=== PATIENT | male | born 1940 | race Caucasian/White ===

== ENCOUNTER 2020-01-04 09:20 | Emergency (ER) | payer MEDICARE, SELFPAY ==
--- NOTE | 2020-01-04 09:29 | ED.FALL ---
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 Mode of arrival: ambulatory History of Present Illness complaint: fall Onset (ago): day(s) (3 days ago on Wednesday) Fall from: out of bed Fall witnessed: no Place fall occurred: home Loss of consciousness: none Prolonged down time: no Symptoms prior to fall: none Context: tripped/slipped Location of injury: head and neck Quality: aching Associated symptoms (after fall): neck pain Related Data Allergies Allergy/AdvReac Type Severity Reaction Status Date / Time No Known Allergies Allergy Unverified 12/21/19 14:53 [No Known Allergies*] Review of Systems Review of Systems: Constitutional : No Fever, No Chills ENT/Mouth : No Ear Pain, No Hoarseness, No sore throat Eyes: No Eye Pain, No Swelling, No Redness, No Foreign Body Cardiovascular : No Chest Pain, No SOB Respiratory : No Cough, No Dyspnea Gastrointestinal : No Nausea, No Vomiting, No Diarrhea, No abdominal Pain Genitourinary : No Dysuria, No Hematuria Musculoskeletal : positive neck pain, No Myalgias, No Joint Swelling Skin : No Skin lacerations, No rash Neuro : No Weakness, No Numbness, No Paresthesias, No Loss of Consciousness, No Dizziness, No Headache Psych : No Anxiety/Panic, No Depression Heme/Lymph: no easy bruising, no Lymphadenopathy Endocrine : No Polyuria, No Polydipsia PMFSH Past Medical History Attestation statement: The following information was validated with the patient. Medical History (Updated 01/04/20 @ 10:33 by Letty Long DO) Asthma BPH (benign prostatic hyperplasia) COPD (chronic obstructive pulmonary disease) Diabetes HTN (hypertension) Hyperlipidemia No known health problems Renal failure Vertigo Social History Social History (Updated 01/04/20 @ 09:53 by Letty Long DO) Smoking Status: Never smoker Advance Directives: No Advance Directives Information Provided: No Physical Exam Vital Signs and I&O and Narrative: Vital Signs and I&O: Vital Signs Temp 98.2 F 01/04/20 09:44 Pulse 83 01/04/20 09:44 Resp 20 01/04/20 09:44 BP 154/79 H 01/04/20 09:44 Pulse Ox 97 01/04/20 09:44 Intake & Output 01/03/20 01/04/20 01/04/20 18:59 06:59 18:59 Weight 88.904 kg Body Mass Index 28.1 Const: General: cooperative and no acute distress Nutritional Appearance: average body habitus Orientation/consciousness: oriented to person, oriented to place, oriented to time and patient oriented x3 HENMT: Other: healing abrasion on forehead, c/o R sided neck pain with spasm on R trapezius, distal NV intact Head: Yes normal to inspection Ears: hearing grossly normal bilaterally General nose exam: Normal external nose present Eyes: Pupils: Equal, round and reactive pupils present EOM: EOMs intact bilaterally Neck: Other: spasm R trapezius, ttp along R strap neck muscles, no swelling, ttp along R lateral cervical spine Chest: Chest palpation & inspection: normal inspection of the chest Resp: Effort & Inspection: normal respiratory effort and no respiratory distress Auscultation: clear to auscultation bilaterally Cardio: Rate: regular rate Rhythm: regular rhythm Peripheral pulses: Peripheral pulses 2+ throughout GI: Palpation (GI): Soft to palpation and nontender Back/Spine/Pelvis: Thoracic/Lumbar Spine: thoracic and lumbar spine normal to inspection Skin: General skin exam: no rashes or lesions noted Neuro: General: oriented to person, oriented to place, oriented to time and patient oriented x3 Cranial nerves: Yes Equal, round and reactive pupils present Motor exam (neuro): 5/5 motor strength present throughout Sensory Exam: Normal double simultaneous stimulation for sensation Extrem: Other: superficial abrasion to L knee Psych: Appearance: grossly normal Mental Status: mental status grossly normal Course Course Hospital Course: patient got up and eloped from ED after PO pain medication, did not have imaging studies done, walked out with steady gait no distress MDM - Fall MDM Narrative Medical decision making narrative: s/p fall out of bed on Wednesday comes back in for neck pain he is NV intact, had CT head/facial/cspine on 01/01 that was negative, given his degree of pain will give oral pain medications, repeat imaging, dispo per results and findings Discharge Plan Discharge Clinical Impression: Acute neck pain Patient Disposition: Elopement
[2020-01-04 09:31] VITALS: BP 154/79; PULSE 83; RESP 20; TEMP 36.8; O2SAT 97; BMI 28.1
[2020-01-04 09:44] VITALS: BP 154/79; PULSE 83; RESP 20; TEMP 36.8; O2SAT 97; BMI 28.1
[2020-01-04] MEDS: oxyCODONE HCl Immed Release 5 MG TABLET 10 MG PO (10:10)
--- NOTE | 2020-01-04 10:11 | PC.NURSE ---
pt wanting to leave the ed he is being called by daughter in the wr he has been medicated for pain and is awaiting radiology associate juvenile court judge at the bedside to assitin education
--- NOTE | 2020-01-04 10:41 | PC.NURSE ---
PT WAS MEDICATED FOR PAIN HE THEN AMBULATED OUT OF THE ED STEADY GAIT DAUGHTER WAS COACHING HER FATHER TO LEAVE THE ED MD WAS AWARE
== END 2020-01-04 10:51 | disposition left against medical advice (07) ==
LOC: HO.ED 10:54
PROVIDERS: Emergency Provider Emergency Medicine; PCP Family Medicine
DX: M54.2 Cervicalgia (principal); I10 Essential (primary) hypertension
CPT/HCPCS: 99282; 99283

== ENCOUNTER 2020-03-25 11:57 | Emergency (ER) | payer MEDICARE, SELFPAY ==
[2020-03-25 12:19] VITALS: BP 148/69; PULSE 92; RESP 15; TEMP 37.2; O2SAT 97; BMI 32.5
--- NOTE | 2020-03-25 12:24 | ECG_ITS ---
Test Reason : SYNCOPE Blood Pressure : / mmHG Vent. Rate : 087 BPM Atrial Rate : 087 BPM P-R Int : 142 ms QRS Dur : 148 ms QT Int : 400 ms P-R-T Axes : 065 -62 048 degrees QTc Int : 481 ms Normal sinus rhythm Right bundle branch block Left anterior fascicular block Bifascicular block Abnormal ECG When compared with ECG of 20-JUN-2017 13:54, No significant change was found Referred By: Angie Mcclure Electronically Signed By:ANA LUISA LOCO MD
--- NOTE | 2020-03-25 12:27 | ED.SYNCOPE ---
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 The patient tells me that he was standing and started to feel lightheaded like he was going to pass out. Lowered himself to the ground. He denies syncope. Denies hitting his head or loss of consciousness. He tells me he has had several episodes of vomiting. On arrival to the emergency department the patient is vomiting. He denies dizziness at this time. He denies any chest pain, shortness of breath, abdominal pain, diarrhea, fevers, chills or cough. MD complaint: felt faint and almost passed out Onset (ago): hour(s) (<1hr) Prodromal symptoms: lightheaded Witnessed: No Context: standing up Injuries sustained associated with event: none Current symptoms: nausea (vomiting) Treatments prior to arrival: none Related Data Previous Rx's Medication Instructions Recorded meclizine 25 mg PO TID PRN #10 tab 03/25/20 Allergies Allergy/AdvReac Type Severity Reaction Status Date / Time No Known Allergies Allergy Unverified 12/21/19 14:53 [No Known Allergies*] Review of Systems Review of Systems: Yes all other systems are reviewed and are negative Constitutional: Constitutional: Reports no additional constitutional complaints, Denies body ache(s), Denies chills, Denies fever(s), Denies headache(s) and Denies weakness Eyes: Eyes: Reports no additional eye complaints and Denies change in vision ENT: Reports system reviewed and no additional complaints, except as documented, Reports dizziness, Denies headache(s), Denies nasal congestion, Denies nasal discharge and Denies neck pain Cardiovascular: Cardiovascular: Reports no additional cardiovascular complaints, Denies chest pain, Denies leg edema and Denies dyspnea Respiratory: Respiratory: Reports no additional respiratory complaints, Denies cough and Denies dyspnea Gastrointestinal: Gastrointestinal: Reports no additional gastrointestinal complaints, Denies abdominal pain, Denies diarrhea, Reports nausea and Reports vomiting Genitourinary: Genitourinary: Denies urinary incontinence Musculoskeletal: Musculoskeletal: Reports no additional musculoskeletal complaints, Denies back pain, Denies arthralgias, Denies joint swelling, Denies neck pain, Denies numbness and Denies tingling Integumentary/Breasts: Skin/Breast: Reports system reviewed and no additional complaints, except as docu and Denies rash Neurologic: Reports system reviewed and no additional complaints, except as documented, Denies Abnormal speech present, Reports dizziness, Denies headache(s), Denies numbness, Denies tingling and Denies weakness [facility] Past Medical History Attestation statement: The following information was validated with the patient. Source: old records reviewed and nursing notes reviewed Medical History Asthma BPH (benign prostatic hyperplasia) COPD (chronic obstructive pulmonary disease) Diabetes HTN (hypertension) Hyperlipidemia No known health problems Renal failure Vertigo Social History Social History Alcohol intake: never Smoking Status: Never smoker Use of substances other than those prescribed or required for medical reasons: No Advance Directives: No Advance Directives Information Provided: No Physical Exam Vital Signs: Vital Signs: Last Vital Signs Temp 99 F 03/25/20 12:19 Pulse 83 03/25/20 18:18 Resp 16 03/25/20 18:18 BP 147/83 H 03/25/20 18:18 Pulse Ox 98 03/25/20 18:18 Body Mass Index 32.5 Const: Other: +vomiting food content General: cooperative, healthy appearing, comfortable and no acute distress Orientation/consciousness: patient oriented x3 Limitations: no limitations HENMT: Head: Yes normal to inspection Ears: hearing grossly normal bilaterally General nose exam: Normal external nose present Face and sinus: Yes normal facial exam Mouth: Normal oral and palatal mucosa present Throat: Yes posterior oropharynx normal Eyes: General: appearance normal, both eyes and all related structures Pupils: Equal, round and reactive pupils present Neck: Neck: Yes normal visual inspection Chest: Chest palpation & inspection: normal inspection of the chest Resp: Effort & Inspection: normal respiratory effort Auscultation: clear to auscultation bilaterally Cardio: Rate: regular rate Rhythm: regular rhythm Peripheral pulses: Peripheral pulses 2+ throughout GI: Inspection: Yes normal to inspection Palpation (GI): Soft to palpation and nontender Auscultation: normal bowel sounds Back/Spine/Pelvis: Thoracic/Lumbar Spine: thoracic and lumbar spine normal to inspection Skin: General skin exam: no rashes or lesions noted Neuro: General: patient oriented x3, no focal motor deficits and normal sensation to monofilament Cranial nerves: Yes CN's II-XII intact bilaterally, Yes Equal, round and reactive pupils present, Yes Bilaterally intact EOM present, Yes Nystagmus not present, Yes Normal facial strength present and Yes Midline tongue present Cognition (Neuro): normal cognition Speech: No Abnormal speech present Gait exam (Neuro): Normal gait present Motor exam (neuro): 5/5 motor strength present throughout Sensory Exam: Normal double simultaneous stimulation for sensation Coordination: [id number] test normal and [id number] test normal Extrem: General: Yes normal to inspection Course Course Course Narrative: 80 yo male here with near syncopal episode at home followed by several episodes of vomiting. On arrival the patient tells me he is no longer feeling lightheaded or dizzy. He is actively vomiting food contents. He denies any abdominal pain, chest pain, shortness of breath or any other associated symptoms. He is hemodynamically stable. His neuro exam is unremarkable. Will check labs including troponin, EKG, chest x-ray, EKG, CT head, orthostatic vital signs and COVID testing. Will give normal saline bolus and antiemetics. 1440-labs show mild hyperglycemia, mild hypomagnesemia, renal function at baseline. Magnesium was replaced and fluids are infusing. Orthostatics mildly positive. Patient receiving fluids. EKG, chest x-ray, CT head all unremarkable. The patient is feeling improved after receiving antiemetic. He tells me his nausea is resolved. He has not had any additional vomiting episodes. He tells me his dizziness is intermittent at this time he does not have any. May be secondary to some vertigo as he has a history of a vertigo tells me it feels similar. Will trial a dose of meclizine. COVID test pending. Initial troponin 3.7. Will plan for repeat 3hr. 1730-repeat troponin unremarkable. COVID testing negative. Patient is tolerating p.o. with no difficulty. He ambulated back and forth to the bathroom with a steady gait. He tells me his nausea and dizziness are resolved. Likely vertigo. Reviewed worrisome signs and symptoms and when to return to the emergency department. Comfortable discharge home. MDM - Syncope MDM Narrative Medical decision making narrative: ACS, orthostatic hypotension, vertigo,cva, anemia, electrolyte abnormality, viral syndrome, gastroenteritis. Less likely ACS with unremarkable EKG and 2 troponins which are negative, CVA with normal neurological exam and unremarkable CT head. Less likely anemia with normal CBC, unlikely electrolyte abnormality with normal after lights. Consider vertigo and mild orthostatic hypotension, may or may not be component of viral syndrome. Medical Records Attestation: I reviewed the patient's medical records. Lab Data Attestation: I reviewed the patient's lab results. Result diagrams: 03/25/20 12:36 03/25/20 12:36 Labs: Lab Results 03/25/20 03/25/20 03/25/20 Range/Units 12:36 12:36 12:36 WBC 12.0 H (4.8-10.8) X10*3/uL RBC 4.90 (4.60-5.80) X10*6/uL Hgb 14.2 (14.0-18.0) g/dl Hct 42.1 (42-52) % MCV 85.9 (80-98) fL MCH 29.0 (27.0-33.0) pg MCHC 33.7 (31.0-36.0) g/dl RDW 13.3 (11.0-16.0) % Plt Count 328 (160-400) X10*3/uL MPV 11.5 (9.4-12.4) fL Immature Gran % (Auto) 0.3 (0.0-0.4) % Neut % (Auto) 71.5 (45-73) % Lymph % (Auto) 16.9 L (20-40) % [place] % (Auto) 7.3 (2-11) % Eos % (Auto) 3.4 (0-4) % Baso % (Auto) 0.6 (0-2) % Lymph # (Auto) 2.0 (1.2-4.9) X10*3/uL [place] # (Auto) 0.9 (0.1-1.2) X10*3/uL Eos # (Auto) 0.4 (0.0-0.4) X10*3/uL Baso # (Auto) 0.1 (0.0-0.2) X10*3/uL Abs Immat Gran (auto) 0.04 H (0.00-0.03) X10*3/uL Absolute Neuts (auto) 8.6 H (2.0-8.3) X10*3/uL Absolute Nucleated RBC 0.000 (0.0-0.012) X10*3/uL Nucleated RBC % (auto) 0.0 (0.0-0.2) /100WBC PT 12.8 (10.8-13.0) SEC INR 1.1 (0.9-1.1) Sodium 136 (135-145) mmol/L Potassium 4.2 (3.3-5.1) mmol/l Chloride 95 L (96-108) mmol/L Carbon Dioxide 30 H (22-29) mmol/L Anion Gap 15 (12-20) BUN 27 H (9-16) mg/dL Creatinine 1.65 H (0.5-1.4) mg/dL Estim Creat Clear Calc 32.9 Estimated GFR 40 Random Glucose 319 H (60-115) mg/dL Calcium 9.3 (8.4-10.2) mg/dL Magnesium 1.5 L (1.6-2.6) mg/dL Total Bilirubin 0.4 (0.0-1.0) mg/dL Direct Bilirubin 0.2 (0.0-0.5) mg/dL AST 14 (5-37) U/L ALT 8 (0-40) U/L Alkaline Phosphatase 89 (39-117) U/L Troponin I High Sens (<3.5-35.0) ng/L Total Protein 8.3 H (6.5-8.0) g/dL Albumin 4.1 (3.5-5.0) g/dL Urine Color Urine Appearance Urine pH (5.0-8.0) Ur Specific [place] (1.005-1.025) Urine Protein (NEG-TRACE) MG/DL Urine Glucose (UA) (NEG) MG/DL Urine Ketones (NEG) MG/DL Urine Blood (NEG) Urine Nitrite (NEG) Ur Leukocyte Esterase (NEG) Urine RBC (0) /HPF Urine WBC (0-4) /HPF Ur Squamous Epith Cells /LPF Urine Bacteria /LPF Coronavirus (PCR) (Negative) Influenza Type A (PCR) (Negative) Influenza Type B (PCR) (Negative) RSV RNA Qual (PCR) (Negative) 03/25/20 03/25/20 03/25/20 Range/Units 12:36 15:34 16:20 WBC (4.8-10.8) X10*3/uL RBC (4.60-5.80) X10*6/uL Hgb (14.0-18.0) g/dl Hct (42-52) % MCV (80-98) fL MCH (27.0-33.0) pg MCHC (31.0-36.0) g/dl RDW (11.0-16.0) % Plt Count (160-400) X10*3/uL MPV (9.4-12.4) fL Immature Gran % (Auto) (0.0-0.4) % Neut % (Auto) (45-73) % Lymph % (Auto) (20-40) % [place] % (Auto) (2-11) % Eos % (Auto) (0-4) % Baso % (Auto) (0-2) % Lymph # (Auto) (1.2-4.9) X10*3/uL [place] # (Auto) (0.1-1.2) X10*3/uL Eos # (Auto) (0.0-0.4) X10*3/uL Baso # (Auto) (0.0-0.2) X10*3/uL Abs Immat Gran (auto) (0.00-0.03) X10*3/uL Absolute Neuts (auto) (2.0-8.3) X10*3/uL Absolute Nucleated RBC (0.0-0.012) X10*3/uL Nucleated RBC % (auto) (0.0-0.2) /100WBC PT (10.8-13.0) SEC INR (0.9-1.1) Sodium (135-145) mmol/L Potassium (3.3-5.1) mmol/l Chloride (96-108) mmol/L Carbon Dioxide (22-29) mmol/L Anion Gap (12-20) BUN (9-16) mg/dL Creatinine (0.5-1.4) mg/dL Estim Creat Clear Calc Estimated GFR Random Glucose (60-115) mg/dL Calcium (8.4-10.2) mg/dL Magnesium (1.6-2.6) mg/dL Total Bilirubin (0.0-1.0) mg/dL Direct Bilirubin (0.0-0.5) mg/dL AST (5-37) U/L ALT (0-40) U/L Alkaline Phosphatase (39-117) U/L Troponin I High Sens 3.7 3.7 (<3.5-35.0) ng/L Total Protein (6.5-8.0) g/dL Albumin (3.5-5.0) g/dL Urine Color YELLOW Urine Appearance CLEAR Urine pH 7.5 (5.0-8.0) Ur Specific [place] 1.015 (1.005-1.025) Urine Protein 1+ H (NEG-TRACE) MG/DL Urine Glucose (UA) 500 H (NEG) MG/DL Urine Ketones NEG (NEG) MG/DL Urine Blood NEG (NEG) Urine Nitrite NEG (NEG) Ur Leukocyte Esterase NEG (NEG) Urine RBC 0 (0) /HPF Urine WBC 0 (0-4) /HPF Ur Squamous Epith Cells 1+ /LPF Urine Bacteria TRACE /LPF Coronavirus (PCR) (Negative) Influenza Type A (PCR) (Negative) Influenza Type B (PCR) (Negative) RSV RNA Qual (PCR) (Negative) 03/25/20 Range/Units 16:26 WBC (4.8-10.8) X10*3/uL RBC (4.60-5.80) X10*6/uL Hgb (14.0-18.0) g/dl Hct (42-52) % MCV (80-98) fL MCH (27.0-33.0) pg MCHC (31.0-36.0) g/dl RDW (11.0-16.0) % Plt Count (160-400) X10*3/uL MPV (9.4-12.4) fL Immature Gran % (Auto) (0.0-0.4) % Neut % (Auto) (45-73) % Lymph % (Auto) (20-40) % [place] % (Auto) (2-11) % Eos % (Auto) (0-4) % Baso % (Auto) (0-2) % Lymph # (Auto) (1.2-4.9) X10*3/uL [place] # (Auto) (0.1-1.2) X10*3/uL Eos # (Auto) (0.0-0.4) X10*3/uL Baso # (Auto) (0.0-0.2) X10*3/uL Abs Immat Gran (auto) (0.00-0.03) X10*3/uL Absolute Neuts (auto) (2.0-8.3) X10*3/uL Absolute Nucleated RBC (0.0-0.012) X10*3/uL Nucleated RBC % (auto) (0.0-0.2) /100WBC PT (10.8-13.0) SEC INR (0.9-1.1) Sodium (135-145) mmol/L Potassium (3.3-5.1) mmol/l Chloride (96-108) mmol/L Carbon Dioxide (22-29) mmol/L Anion Gap (12-20) BUN (9-16) mg/dL Creatinine (0.5-1.4) mg/dL Estim Creat Clear Calc Estimated GFR Random Glucose (60-115) mg/dL Calcium (8.4-10.2) mg/dL Magnesium (1.6-2.6) mg/dL Total Bilirubin (0.0-1.0) mg/dL Direct Bilirubin (0.0-0.5) mg/dL AST (5-37) U/L ALT (0-40) U/L Alkaline Phosphatase (39-117) U/L Troponin I High Sens (<3.5-35.0) ng/L Total Protein (6.5-8.0) g/dL Albumin (3.5-5.0) g/dL Urine Color Urine Appearance Urine pH (5.0-8.0) Ur Specific [place] (1.005-1.025) Urine Protein (NEG-TRACE) MG/DL Urine Glucose (UA) (NEG) MG/DL Urine Ketones (NEG) MG/DL Urine Blood (NEG) Urine Nitrite (NEG) Ur Leukocyte Esterase (NEG) Urine RBC (0) /HPF Urine WBC (0-4) /HPF Ur Squamous Epith Cells /LPF Urine Bacteria /LPF Coronavirus (PCR) NEGATIVE (Negative) Influenza Type A (PCR) NEGATIVE (Negative) Influenza Type B (PCR) NEGATIVE (Negative) RSV RNA Qual (PCR) NEGATIVE (Negative) Imaging Data Chest x-ray: Attestation: I personally reviewed and interpreted this imaging study as follows: Radiologist's impression: [address] [address] XRay Report Signed Patient: Brandon RdzMR#: [id number] : 8Acct:[id number] Age/Sex: 80 / MADM Date: 03/25/20 Loc: .ED Attending Dr: Ordering Physician: DANNI DELEON NP Date of Service: 03/25/20 Procedure(s): XR chest 2V Accession Number(s): [id number] cc: DANNI DELEON NP~ EXAMINATION: XR CHEST CLINICAL INFORMATION: Dizziness with vomiting COMPARISON: January 02, 2020 TECHNIQUE: 2 views of the chest were obtained. FINDINGS: No significant abnormality is noted involving the heart, lungs, mediastinum, bony thorax or soft tissues. XR/XR chest 2V IMPRESSION: No acute disease. CT scan - head: Attestation: I personally reviewed and interpreted this imaging study as follows: Radiologist's impression: EXAMINATION: CT HEAD WITHOUT CONTRAST CLINICAL INFORMATION: Dizziness and vomiting. COMPARISON: None TECHNIQUE: Contiguous axial imaging was performed from the skull base to vertex without intravenous administration of contrast. This CT examination was performed using dose optimization techniques as appropriate, variously including the following: *Automated exposure control *Adjustment of mA and/or kV according to patient size (this includes techniques or standardized protocols for targeted exams where dose is matched to indication/reason for exam; i.e. extremities or head) *Use of iterative reconstruction technique DLP: 790 mGy-cm FINDINGS: There is no evidence of acute intracranial hemorrhage or territorial infarction. No abnormal mass effect or midline shift is seen. [place]gado to white matter differentiation is well preserved. No extra-axial fluid collections are identified. The lateral ventricles are enlarged and so are the cortical sulci. There is diffuse periventricular hypodensity suggestive of chronic small vessel ischemic changes. No calvarial abnormality seen. There is wall lipoma left frontal scalp on coronal image 03/11.. The mastoid air cells and visualized portions of the paranasal sinuses are well aerated. CT/CT head/brain wo con IMPRESSION: No acute intracranial process seen. Age-related mild cerebral atrophy with chronic small vessel ischemic changes. Small left frontal scalp lipoma ECG Data Attestation: I personally reviewed and interpreted this ECG as follows: ECG interpretation date: 03/25/20 ECG interpretation time: 12:31 Interpretation: NSR rate 87, RBBB, normal pr, normal qrs, normal qt unchanged from previous 06/2017 Discharge Plan Discharge Clinical Impression: Near syncope, Vertigo Vomiting Qualifiers: Vomiting type: unspecified Vomiting Intractability: non-intractable Nausea presence: with nausea Qualified Code(s): R11.2 - Nausea with vomiting, unspecified Patient Disposition: Home, Self-Care Instructions: Vertigo (ED), Acute Nausea and Vomiting (ED), Near Syncope (ED) Additional Instructions: Start with clear liquids and advance her diet as tolerated Change positions very slowly Prescriptions: New meclizine 25 mg tablet 25 mg PO TID PRN (Reason: dizziness) Qty: 10 RF: 0 Referrals: Codie Bell MD [Primary Care Provider] - 2 days Interventions: ED Discharge Assessment Last Done: 03/25/20 18:19 Discharge Date/Time: 03/25/20 18:22
[2020-03-25 12:44] LABS: MANUAL DIFF FLAG NO
[2020-03-25 12:45] LABS: Basophils Absolute Auto 0.1 X10*3/uL (0.0-0.2); Basophils Percent Auto 0.6 % (0-2); Eosinophils Absolute Auto 0.4 X10*3/uL (0.0-0.4); Eosinophils Percent Auto 3.4 % (0-4); Hematocrit 42.1 % (42-52); Hemoglobin 14.2 g/dl (14.0-18.0); Imm Gran Abs Auto 0.04 X10*3/uL (0.00-0.03); Imm Gran Pct Auto 0.3 % (0.0-0.4); Lymphocytes Percent Auto 16.9 % (20-40); Mean Corpuscular HGB Conc 33.7 g/dl (31.0-36.0); Mean Corpuscular Volume 85.9 fL (80-98); Mean Platelet Volume 11.5 fL (9.4-12.4); Monocytes Absolute Auto 0.9 X10*3/uL (0.1-1.2); Monocytes Percent Auto 7.3 % (2-11); Neutrophils Absolute Auto 8.6 X10*3/uL (2.0-8.3); Neutrophils Percent Auto 71.5 % (45-73); Platelet Count 328 X10*3/uL (160-400); Red Cell Distribution Width 13.3 % (11.0-16.0)
[2020-03-25 12:53] LABS: INTERNATIONAL NORM RATIO 1.1 (0.9-1.1); Prothrombin Time 12.8 SEC (10.8-13.0)
--- NOTE | 2020-03-25 12:57 | XR_ITS ---
EXAMINATION: XR CHEST CLINICAL INFORMATION: Dizziness with vomiting COMPARISON: January 02, 2020 TECHNIQUE: 2 views of the chest were obtained. FINDINGS: No significant abnormality is noted involving the heart, lungs, mediastinum, bony thorax or soft tissues. XR/XR chest 2V IMPRESSION: No acute disease.
--- NOTE | 2020-03-25 12:57 | CT_ITS ---
EXAMINATION: CT HEAD WITHOUT CONTRAST CLINICAL INFORMATION: Dizziness and vomiting. COMPARISON: None TECHNIQUE: Contiguous axial imaging was performed from the skull base to vertex without intravenous administration of contrast. This CT examination was performed using dose optimization techniques as appropriate, variously including the following: *Automated exposure control *Adjustment of mA and/or kV according to patient size (this includes techniques or standardized protocols for targeted exams where dose is matched to indication/reason for exam; i.e. extremities or head) *Use of iterative reconstruction technique DLP: 790 mGy-cm FINDINGS: There is no evidence of acute intracranial hemorrhage or territorial infarction. No abnormal mass effect or midline shift is seen. [place] to white matter differentiation is well preserved. No extra-axial fluid collections are identified. The lateral ventricles are enlarged and so are the cortical sulci. There is diffuse periventricular hypodensity suggestive of chronic small vessel ischemic changes. No calvarial abnormality seen. There is wall lipoma left frontal scalp on coronal image 12/7.. The mastoid air cells and visualized portions of the paranasal sinuses are well aerated. CT/CT head/brain wo con IMPRESSION: No acute intracranial process seen. Age-related mild cerebral atrophy with chronic small vessel ischemic changes. Small left frontal scalp lipoma
[2020-03-25] MEDS: 0.9 % Sodium Chloride 1,000 ML 999 ML IV (13:08)
[2020-03-25] MEDS: ondansetron HCL 4 MG/2 ML VIAL IVPUSH (13:08)
[2020-03-25 13:10] VITALS: PULSE 87
[2020-03-25 13:11] VITALS: BP 139/79; PULSE 78
[2020-03-25 13:14] LABS: Alanine Aminotransferase 8 U/L (0-40); Albumin Level 4.1 g/dL (3.5-5.0); Alkaline Phosphatase 89 U/L (39-117); Anion Gap 15 (12-20); Aspartate Amino Transferase 14 U/L (5-37); Bilirubin Direct 0.2 mg/dL (0.0-0.5); Bilirubin Total 0.4 mg/dL (0.0-1.0); Blood Urea Nitrogen 27 mg/dL (9-16); Calcium 9.3 mg/dL (8.4-10.2); Carbon Dioxide 30 mmol/L (22-29); Chloride 95 mmol/L (96-108); Creatinine Clr Calc Pharmacy 32.9; Estimated Glomerular Filt Rate 40; Glucose Random 319 mg/dL (60-115); Magnesium 1.5 mg/dL (1.6-2.6); Potassium 4.2 mmol/l (3.3-5.1); Sodium 136 mmol/L (135-145); Total Protein 8.3 g/dL (6.5-8.0)
[2020-03-25 13:19] VITALS: BP 149/76; PULSE 97
[2020-03-25 13:20] LABS: Troponin-I High Sensitivity 3.7 ng/L (<3.5-35.0)
[2020-03-25 13:21] VITALS: BP 151/71; PULSE 91
[2020-03-25] MEDS: Magnesium Sulfate/D5W 1 GM/100 ML PIGGYBACK IV (14:08)
[2020-03-25] MEDS: Meclizine HCl 25 MG TABLET PO (14:46)
--- NOTE | 2020-03-25 14:52 | PC.NURSE ---
update given to pt daughter via phone. medicated per emar.
--- NOTE | 2020-03-25 15:38 | PC.NURSE ---
pt ambulated w stand by assist to bathroom w slow steady gait to provide ua spec.
[2020-03-25 15:49] LABS: Glucose Urine UA 500 MG/DL (NEG); Leukocyte Esterase Urine NEG (NEG); Nitrite Urine NEG (NEG); PH 7.5 (5.0-8.0); Specific Gravity - Urine 1.015 (1.005-1.025); Urine Blood NEG (NEG); Urine Ketones NEG (NEG); Urine Protein 1+ MG/DL (NEG-TRACE)
[2020-03-25 15:52] LABS: Appearance Urine CLEAR; Color Urine YELLOW
[2020-03-25 15:58] LABS: Bacteria Urine TRACE /LPF; RBC Urine 0 /HPF (0); Squamous Epithelial Cell Urine 1+ /LPF; WBC Urine 0 /HPF (0-4)
--- NOTE | 2020-03-25 16:25 | PC.NURSE ---
repeat trop sent, covid swab sent
[2020-03-25 17:05] LABS: Troponin-I High Sensitivity 3.7 ng/L (<3.5-35.0)
[2020-03-25 17:23] LABS: Influenza A PCR NEGATIVE (Negative); Influenza B PCR NEGATIVE (Negative); Resp Syncy Virus RNA Qual PCR NEGATIVE (Negative); SARS COV2 PCR INHOUSE NEGATIVE (Negative)
[2020-03-25 18:18] VITALS: BP 147/83; PULSE 83; RESP 16; O2SAT 98
== END 2020-03-25 18:22 | disposition home or self-care (01) ==
PROVIDERS: Nurse Practitioner Family; Emergency Provider Emergency Medicine; PCP Family Medicine
DX: R55 Syncope and collapse (principal); Z20.828 Contact with and (suspected) exposure to other viral communicable diseases; R42 Dizziness and giddiness; R11.2 Nausea with vomiting, unspecified; E11.9 Type 2 diabetes mellitus without complications; I10 Essential (primary) hypertension
CPT/HCPCS: 0241U; 36415; 70450; 71046; 80048; 80076; 81001; 83735; 84484; 85025; 85610; 93005; 96365; 96375; 99284; 99285; J2405; J3475

== ENCOUNTER 2020-05-10 09:29 | Outpatient (REF) | payer MEDICARE, SELFPAY | END 2020-05-10 09:30 | disposition home or self-care (01) | LOC: HO.LAB 09:29 | PROVIDERS: Visit Provider Internal Medicine | DX: Z20.822 Contact with and (suspected) exposure to COVID-19 (principal) | CPT/HCPCS: 36415; C9803; U0003; U0005 ==

== ENCOUNTER 2020-06-28 14:51 | Outpatient (REF) | payer MEDICARE, SELFPAY ==
--- NOTE | ~2020-06-28 | US_ITS ---
EXAMINATION: US VENOUS ULTRASOUND WITH DOPPLER LOWER EXTREMITY, BILATERAL CLINICAL INFORMATION: Lower extremity edema and pain. Assess for occult DVT COMPARISON: Bilateral leg venous ultrasound with Doppler 06/21/2017 TECHNIQUE: Ultrasound of the deep veins is performed from the hip to the calf with compression sonography and color and pulse Doppler assessment. Spectral analysis with color-flow imaging is performed. FINDINGS: RIGHT: There is noncompressibility popliteal vein. The vein appears distended and hypoechoic. Some scant color flow is present on Doppler interrogation. Findings are consistent with acute deep venous thrombosis. The remainder of the right lower extremity deep veins including the common femoral vein, superficial and profunda femoral, and visualized calf veins are unremarkable. There is no visible popliteal fossa cyst. LEFT: There is normal venous compression and respiratory variation and augmented flow. The visualized common femoral vein, superficial femoral vein, profunda femoral vein, popliteal vein, and the trifurcation region shows no evidence of deep venous thrombosis. No visible popliteal fossa cyst. Results called and discussed with provider Lakeshia Singh NP at 1720 hours. US/US venous duplex LE BI IMPRESSION: Right: Positive for DVT right lower extremity involving the right popliteal vein. Left: No DVT demonstrated in the left lower extremity.
== END 2020-06-28 14:52 | disposition home or self-care (01) ==
LOC: HO.HMGCX 14:51
PROVIDERS: PCP Family Medicine; Visit Provider Emergency Medicine
DX: R60.0 Localized edema (principal)
CPT/HCPCS: 93970

== ENCOUNTER 2020-08-07 10:40 | Outpatient (REF) | payer MEDICARE, SELFPAY ==
[2020-08-07 11:21] LABS: COVID-19 Test Negative (Negative)
== END 2020-08-07 10:41 | disposition home or self-care (01) ==
LOC: HO.LAB 10:40
PROVIDERS: Visit Provider Internal Medicine
DX: Z20.822 Contact with and (suspected) exposure to COVID-19 (principal)
CPT/HCPCS: 36415; 87635; C9803

== ENCOUNTER → 2020-08-21 12:49 | Outpatient (BNVA) | payer MEDICARE, SELFPAY | PROVIDERS: PCP Family Medicine; Referring Provider Family Medicine; Visit Provider Surgery | DX: Z86.010 Personal history of colon polyps (principal) | CPT/HCPCS: Q3014 ==

== ENCOUNTER 2020-12-13 13:01 | Outpatient (REF) | payer MEDICARE, SELFPAY | END 2020-12-13 13:02 | disposition home or self-care (01) | LOC: HO.LAB 13:01 | PROVIDERS: PCP Family Medicine; Visit Provider Internal Medicine | DX: Z20.822 Contact with and (suspected) exposure to COVID-19 (principal) | CPT/HCPCS: C9803; U0003; U0005 ==

== ENCOUNTER 2021-02-18 11:25 | Outpatient (REF) | payer MEDICARE, SELFPAY ==
--- NOTE | ~2021-02-18 | MR_ITS ---
EXAMINATION: MR BRAIN WITHOUT AND WITH CONTRAST CLINICAL INFORMATION: Gait instability and dizziness. Possible head trauma. COMPARISON: Head CT dated 03/25/2020. TECHNIQUE: Multiplanar, multisequence imaging of the brain was performed before and after the intravenous administration of 9 mL of Gadavist. FINDINGS: No diffusion abnormalities are identified to suggest an acute infarct. No mass effect or midline shift is seen. Severe chronic white matter microangiopathic changes noted with moderate diffuse parenchymal volume loss and concordant ex vacuo dilatation of the ventricles. There are [id number] small vessel ischemic changes in the maximo as well. No extra-axial fluid collections are seen. The cerebellum is normal. There is no abnormal parenchymal or leptomeningeal enhancement. The gradient refocused acquisition demonstrates no pathologic magnetic susceptibility artifact to indicate underlying acute or chronic blood products. The craniovertebral junction, marrow signal, and midline structures are normal. The major intracranial flow voids at the level of the gamb[place] of [place] are preserved. The dural venous sinus flow voids are maintained. The mastoid air cells and paranasal sinuses are well aerated. Incidental small left frontal scalp lipoma noted. Although incompletely assessed, the right palatine tonsil appears slightly more prominent as compared to the left side on the limited postcontrast coronal acquisition. MR/MR head/brain wo/w con IMPRESSION: No acute intracranial process. Extensive chronic white matter microangiopathy and moderate diffuse parenchymal volume loss. Questionable asymmetric prominence of the right palatine tonsil compared to the left side on limited coronal postcontrast imaging. Recommend correlation with direct visual inspection in order to exclude an underlying lesion.
[2021-02-18 10:42] LABS: MANUAL DIFF FLAG NO
[2021-02-18 10:57] LABS: Blood Urea Nitrogen 23 mg/dL (9-16); Estimated Glomerular Filt Rate 47
[2021-02-18 11:00] LABS: Basophils Absolute Auto 0.1 X10*3/uL (0.0-0.2); Basophils Percent Auto 0.8 % (0-2); Eosinophils Absolute Auto 0.3 X10*3/uL (0.0-0.4); Hematocrit 36.5 % (42.0-52.0); Imm Gran Abs Auto 0.02 X10*3/uL (0.00-0.03); Imm Gran Pct Auto 0.2 % (0.0-0.4); Lymphocytes Absolute Auto 2.3 X10*3/uL (1.2-4.9); Lymphocytes Percent Auto 24.4 % (20-40); Mean Corpuscular HGB Conc 32.9 g/dl (31.0-36.0); Mean Corpuscular Hemoglobin 27.8 pg (27.0-33.0); Mean Corpuscular Volume 84.5 fL (80.0-98.0); Mean Platelet Volume 12.1 fL (9.4-12.4); Monocytes Absolute Auto 0.6 X10*3/uL (0.1-1.2); Monocytes Percent Auto 6.3 % (2-11); Neutrophils Absolute Auto 6.1 x10*3/uL (2.0-8.3); Neutrophils Percent Auto 65.3 % (45-73); Platelet Count 299 X10*3/uL (160-400); Red Blood Count 4.32 X10*6/uL (4.60-5.80); Red Cell Distribution Width 14.3 % (11.0-16.0); White Blood Count 9.3 X10*3/uL (4.8-10.8)
[2021-02-18 11:23] LABS: Estimated Average Glucose 183 mg/dL
[2021-02-18 11:35] LABS: Alanine Aminotransferase 11 U/L (0-40); Alkaline Phosphatase 77 U/L (39-117); Aspartate Amino Transferase 13 U/L (5-37); Bilirubin Direct < 0.2 mg/dL (0.0-0.5); Bilirubin Total 0.2 mg/dL (0.0-1.0); C Reactive Protein 0.72 mg/dL (< or = 0.50); Cholesterol 146 mg/dL; HDL Cholesterol 32 mg/dL; Iron 32 mcg/dL (45-160); LDL Cholesterol Calculated 91 mg/dl; Magnesium 1.7 mg/dL (1.6-2.6); Percent Iron Saturation 10 % (15-50); Total Iron Binding Capacity 327 mcg/dL (228-428); Total Protein 8.1 g/dL (6.5-8.0); Triglycerides 118 mg/dL; Unsaturated Iron Binding 295 ug/dL
[2021-02-18 12:01] LABS: Ferritin 30 ng/mL (20-250); TSH reflex Free T4 1.31 uIU/mL (0.32-4.0)
[2021-02-18 12:12] LABS: Folate 14.6 ng/mL (> or = 4.0); Vitamin B12 481 pg/mL (200-900)
[2021-02-18 12:54] LABS: Appearance Urine HAZY; Color Urine YELLOW; Glucose Urine UA NEG (NEG); Leukocyte Esterase Urine TRACE (NEG); Nitrite Urine NEG (NEG); PH 6.5 (5.0-8.0); Specific Gravity - Urine 1.015 (1.005-1.025); UACC Culture Trigger YES; Urine Blood NEG (NEG); Urine Ketones NEG (NEG); Urine Protein TRACE MG/DL (NEG-TRACE)
[2021-02-18 13:07] LABS: Squamous Epithelial Cell Urine 1+ /LPF
[2021-02-18 13:08] LABS: UACC CULT YES; WBC Urine 0-2 /HPF (0-4)
[2021-02-18 13:09] LABS: RBC Urine 0 /HPF (0)
== END 2021-02-18 11:26 | disposition home or self-care (01) ==
LOC: HO.MRI 11:25
PROVIDERS: Family Medicine; Visit Provider Emergency Medicine
DX: R42 Dizziness and giddiness (principal)
CPT/HCPCS: 36415; 70553; 80061; 80076; 81001; 82565; 82607; 82728; 82746; 83036; 83540; 83735; 84443; 84520; 85025; 86140; 87086; A9585

== ENCOUNTER 2021-11-29 08:27 | Observation (INO) | payer OTHER, SELFPAY ==
--- NOTE | ~2021-11-29 | XR_ITS ---
EXAMINATION: XR CHEST CLINICAL INFORMATION: Dizziness COMPARISON: March 25, 2020 TECHNIQUE: AP portable view of the chest was obtained. FINDINGS: No significant abnormality is noted involving the heart, lungs, mediastinum, bony thorax or soft tissues. XR/XR chest 1V IMPRESSION: No acute disease.
--- NOTE | ~2021-11-29 | CT_ITS ---
EXAMINATION: CT HEAD WITHOUT CONTRAST CLINICAL INFORMATION: Dizziness, syncope COMPARISON: MRI of February 18, [address] of March 25, 2020 TECHNIQUE: Contiguous axial imaging was performed from the skull base to vertex without intravenous administration of contrast. This CT examination was performed using dose optimization techniques as appropriate, variously including the following: *Automated exposure control *Adjustment of mA and/or kV according to patient size (this includes techniques or standardized protocols for targeted exams where dose is matched to indication/reason for exam; i.e. extremities or head) *Use of iterative reconstruction technique DLP: 822 mGy-cm FINDINGS: There is no evidence of intracranial hemorrhage, abnormal extra-axial fluid collection, or mass effect or midline structure shift. There is mild prominence of ventricles, sulci, and cisterns consistent with generalized atrophy. There is a large amount of periventricular white matter low density present consistent with microangiopathy. Paranasal sinuses and mastoid air cells unremarkable. CT/CT head/brain wo con IMPRESSION: No acute intracranial pathology. Findings consistent with prominent microangiopathy.
[2021-11-29 08:32] VITALS: BP 144/82; PULSE 73; RESP 16; TEMP 37.1; O2SAT 97; BMI 34.3
--- NOTE | 2021-11-29 08:38 | ECG_ITS ---
Test Reason : DIZZINESS Blood Pressure : / mmHG Vent. Rate : 078 BPM Atrial Rate : 078 BPM P-R Int : 156 ms QRS Dur : 140 ms QT Int : 398 ms P-R-T Axes : 078 -53 057 degrees QTc Int : 453 ms Normal sinus rhythm Right bundle branch block Left anterior fascicular block Bifascicular block Abnormal ECG When compared with ECG of 25-MAR-2020 12:31, No significant change was found Referred By: Generic ED Physician Electronically Signed By:EBONI JIN
--- NOTE | 2021-11-29 09:18 | ED_ITS ---
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 Patient otherwise declined any weakness or numbness. No SOB, no CP, no abdominal pain. Related Data Home Medications Medication Instructions Recorded Confirmed acetaminophen 325 mg tablet 650 mg PO Q4H PRN fever 08/21/20 acetaminophen 500 mg tablet 0 mg PO 08/21/20 amlodipine 5 mg tablet 5 mg PO DAILY 08/21/20 apixaban 5 mg tablet 5 mg PO BID 08/21/20 blood sugar diagnostic #10 zohaib 08/21/20 finasteride 5 mg tablet 5 mg PO QAM 08/21/20 fluticasone propionate 220 2 puff inhalation BID 08/21/20 mcg/actuation HFA aerosol inhaler glucose 4 gram chewable tablet 16 g PO 08/21/20 hydrochlorothiazide 25 mg tablet 25 mg PO [facility] 08/21/20 insulin aspart U-100 100 unit/mL unit subcut 08/21/20 (3 mL) subcutaneous pen insulin glargine 100 unit/mL (3 unit subcut 08/21/20 mL) subcutaneous pen lancets 33 gauge #100 zohaib 08/21/20 magnesium 250 mg tablet 250 mg PO DAILY 08/21/20 meclizine 25 mg tablet 25 mg PO DAILY 08/21/20 naloxone 4 mg/actuation nasal spray 1 spray intranasal ONCE PRN 08/21/20 omeprazole 20 mg capsule,delayed 20 mg PO [facility] 08/21/20 release oxycodone 15 mg tablet 0 mg PO 08/21/20 pen needle, diabetic 32 gauge x #50 zohaib 08/21/20 pravastatin 20 mg tablet 20 mg PO BEDTIME 08/21/20 Previous Rx's Medication Instructions Recorded meclizine 25 mg tablet 25 mg PO TID PRN dizziness #10 tabs 03/25/20 Allergies Allergy/AdvReac Type Severity Reaction Status Date / Time No Known Allergies Allergy Verified 08/21/20 13:00 [No Known Allergies*] Review of Systems Review of Systems: All other systems are reviewed and are negative Constitutional: Reports as per HPI and Reports no additional constitutional complaints Eyes: Reports as per HPI and Reports no additional eye complaints Reports system reviewed and no additional complaints, except as documented Cardiovascular: Reports as per HPI and Reports no additional cardiovascular complaints Respiratory: Reports as per HPI and Reports no additional respiratory complaints Gastrointestinal: Reports as per HPI and Reports no additional gastrointestinal complaints Genitourinary: Reports no additional female genitourinary complaints Musculoskeletal: Reports no additional musculoskeletal complaints Skin/Breast: Reports system reviewed and no additional complaints, except as docu Psychiatric: Reports no additional psychiatric complaints Endocrine: Reports no additional endocrine complaints Hematologic/Lymphatic: Reports no additional hematologic/lymphatic complaints Allergic/Immunologic: Reports no additional allergic/immunologic complaints Reports system reviewed and no additional complaints, except as documented and Reports Abnormal speech present [facility] Past Medical History Medical History Asthma BPH (benign prostatic hyperplasia) COPD (chronic obstructive pulmonary disease) Diabetes History of adenomatous polyp of colon HTN (hypertension) Hyperlipidemia No known health problems Renal failure Vertigo Family History Family History Paternal Grandmother Colon cancer Brother Cancer of unknown origin Father Cancer of unknown origin Social History Social History Alcohol intake: never Advance Directives: Yes Advance Directives Information Provided: Yes Advance Directives on File: No Physical Exam Vital Signs: Vital Signs: Last Vital Signs Temp 98.7 F 11/29/21 08:32 Pulse 73 11/29/21 08:32 Resp 16 11/29/21 08:32 BP 144/82 H 11/29/21 08:32 Pulse Ox 97 11/29/21 08:32 O2 Del Method 11/29/21 08:32 BMI result Body Mass Index 34.3 Vital signs have been reviewed as appeared to be correct. Blood pressure normal. Heart rate normal. Respiration rate normal. Temperature normal. Oxygen saturation normal. Appearance: Alert. Oriented X3. No acute distress. Head: Normal external exam. Normocephalic. Atraumatic. No [place] signs noted. No raccoon eyes noted Eyes: PERRLA. EOMI. Conjunctiva and sclera normal. Eyelids normal. ENT: TM's Normal. Pharynx normal. Uvula midline. Moist mucous membranes. No trismus noted. No drooling noted. No muffled voice noted. Neck: Normal inspection. Neck supple. FROM. No adenopathy. Thyroid Normal. No meningeal signs. No neck mass noted. CVS: Normal heart rate and rhythm. Heart sound normal. No murmurs noted. Pulses normal throughout. Respiratory: No respiratory distress. Painless inspiration. Breath sounds normal. No wheezes/rales/rhonchi noted. Chest nontender. No accessory muscle usage noted or decreased air movement noted. Abdomen: Soft and nontender. Bowel sounds normal in all 4 quadrants. No distention noted. No organomegaly noted. No visible injury noted. Back: No CVA tenderness. Full range of motion noted. Skin: Skin warm and dry. Normal skin color. Normal skin turgor. No rashes/lesions/lacerations noted. Extremities: No lower extremity edema. Extremities exhibit normal range of motion. Extremities nontender. Neuro: Oriented X 3. Cranial nerve exam: II-XII are grossly intact No motor deficit. No sensory deficit. Reflexes normal. Normal cerebellar exam no zlaxmp-vy-dlow dysmetria. Course Course Course Narrative: 81-year-old male came in for evaluation of dizziness for the past 5 days, today patient had lightheadedness and fell in bed with no head injury, patient on a remember the event and not sure if he had LOC. [facility] - Dizziness Medical Records Attestation: I reviewed the patient's medical records. Lab Data Attestation: I reviewed the patient's lab results. Result diagrams: 11/29/21 10:29 11/29/21 10:29 Labs: Lab Results 11/29/21 11/29/21 11/29/21 Range/Units 10:29 10:29 10:29 WBC 8.8 (4.8-10.8) X10*3/uL RBC 4.44 L (4.60-5.80) X10*6/uL Hgb 12.0 L (14.0-18.0) g/dl Hct 36.2 L (42.0-52.0) % MCV 81.5 (80.0-98.0) fL MCH 27.0 (27.0-33.0) pg MCHC 33.1 (31.0-36.0) g/dl RDW 16.8 H (11.0-16.0) % Plt Count 258 (160-400) X10*3/uL MPV 11.7 (9.4-12.4) fL Immature Gran % (Auto) 0.3 (0.0-0.4) % Neut % (Auto) 71.3 (45-73) % Lymph % (Auto) 18.9 L (20-40) % [place] % (Auto) 7.2 (2-11) % Eos % (Auto) 1.6 (0-4) % Baso % (Auto) 0.7 (0-2) % Lymph # (Auto) 1.7 (1.2-4.9) X10*3/uL [place] # (Auto) 0.6 (0.1-1.2) X10*3/uL Eos # (Auto) 0.1 (0.0-0.4) X10*3/uL Baso # (Auto) 0.1 (0.0-0.2) X10*3/uL Abs Immat Gran (auto) 0.03 (0.00-0.03) X10*3/uL Absolute Neuts (auto) 6.3 (2.0-8.3) x10*3/uL Absolute Nucleated RBC 0.000 (0.0-0.012) X10*3/uL Nucleated RBC % (auto) 0.0 (0.0-0.2) /100WBC APTT 34.1 (26.0-36.4) SEC Sodium 140 (135-145) mmol/L Potassium 4.1 (3.3-5.1) mmol/L Chloride 102 (96-108) mmol/L Carbon Dioxide 28 (22-29) mmol/L Anion Gap 14 (12-20) BUN 25 H (9-16) mg/dL Creatinine 1.49 H (0.5-1.4) mg/dL Estim Creat Clear Calc 36.8 Estimated GFR 45 Random Glucose 92 D (60-115) mg/dL Calcium 8.6 D (8.4-10.2) mg/dL Total Bilirubin 0.3 (0.0-1.0) mg/dL Direct Bilirubin < 0.2 (0.0-0.5) mg/dL AST 15 (5-37) U/L ALT 11 (0-40) U/L Alkaline Phosphatase 70 (39-117) U/L Troponin I High Sens (<3.5-35.0) ng/L Total Protein 7.4 (6.5-8.0) g/dL Albumin 3.8 (3.5-5.0) g/dL COVID-19 ([facility]) (Negative) COVID-19 Clin Com 11/29/21 11/29/21 Range/Units 10:29 10:29 WBC (4.8-10.8) X10*3/uL RBC (4.60-5.80) X10*6/uL Hgb (14.0-18.0) g/dl Hct (42.0-52.0) % MCV (80.0-98.0) fL MCH (27.0-33.0) pg MCHC (31.0-36.0) g/dl RDW (11.0-16.0) % Plt Count (160-400) X10*3/uL MPV (9.4-12.4) fL Immature Gran % (Auto) (0.0-0.4) % Neut % (Auto) (45-73) % Lymph % (Auto) (20-40) % [place] % (Auto) (2-11) % Eos % (Auto) (0-4) % Baso % (Auto) (0-2) % Lymph # (Auto) (1.2-4.9) X10*3/uL [place] # (Auto) (0.1-1.2) X10*3/uL Eos # (Auto) (0.0-0.4) X10*3/uL Baso # (Auto) (0.0-0.2) X10*3/uL Abs Immat Gran (auto) (0.00-0.03) X10*3/uL Absolute Neuts (auto) (2.0-8.3) x10*3/uL Absolute Nucleated RBC (0.0-0.012) X10*3/uL Nucleated RBC % (auto) (0.0-0.2) /100WBC APTT (26.0-36.4) SEC Sodium (135-145) mmol/L Potassium (3.3-5.1) mmol/L Chloride (96-108) mmol/L Carbon Dioxide (22-29) mmol/L Anion Gap (12-20) BUN (9-16) mg/dL Creatinine (0.5-1.4) mg/dL Estim Creat Clear Calc Estimated GFR Random Glucose (60-115) mg/dL Calcium (8.4-10.2) mg/dL Total Bilirubin (0.0-1.0) mg/dL Direct Bilirubin (0.0-0.5) mg/dL AST (5-37) U/L ALT (0-40) U/L Alkaline Phosphatase (39-117) U/L Troponin I High Sens 5.3 (<3.5-35.0) ng/L Total Protein (6.5-8.0) g/dL Albumin (3.5-5.0) g/dL COVID-19 ([facility]) Negative (Negative) COVID-19 Clin Com See Note Imaging Data Chest x-ray: Attestation: I personally reviewed and interpreted this imaging study as follows: Radiologist's impression: no acute disease. CT scan - head: Attestation: I personally reviewed and interpreted this imaging study as follows: Radiologist's impression: no acute intracranial pathology. ECG Data Attestation: I personally reviewed and interpreted this ECG as follows: Interpretation: Normal sinus rhythm at 78 beats per minutes, RBBB, left axis deviation, no ST-T changes. Discharge Plan Discharge Clinical Impression: Dizziness, Syncope Patient Disposition: Admitted As Inpatient Prescriptions: No Action meclizine 25 mg tablet 25 mg PO TID PRN (Reason: dizziness) Qty: 10 0RF hydrochlorothiazide 25 mg tablet 25 mg PO QAM glucose 4 gram tablet,chewable 16 g PO (DME) FreeStyle Lite Strips Strip See Rx Instructions Not Applicable .MEDSUPPLY Qty: 10 Rx Instructions: As directed pravastatin 20 mg tablet 20 mg PO BEDTIME omeprazole 20 mg capsule,delayed release(DR/EC) 20 mg PO QAM (DME) pen needle, diabetic 32 gauge x 5/32 needle See Rx Instructions .ROUTE .MEDSUPPLY Qty: 50 Rx Instructions: As directed finasteride 5 mg tablet 5 mg PO QAM Narcan 4 mg/actuation spray,non-aerosol 1 spray intranasal ONCE PRN Eliquis 5 mg tablet 5 mg PO BID insulin aspart U-100 100 unit/mL (3 mL) insulin pen subcut Lantus Solostar U-100 Insulin 100 unit/mL (3 mL) insulin pen subcut oxycodone 15 mg tablet 0 mg PO amlodipine 5 mg tablet 5 mg PO DAILY Flovent HFA 220 mcg/actuation HFA aerosol inhaler 2 puff inhalation BID (DME) lancets 33 gauge misc See Rx Instructions Not Applicable .MEDSUPPLY Qty: 100 Rx Instructions: As directed acetaminophen 325 mg tablet 650 mg PO Q4H PRN (Reason: fever) acetaminophen 500 mg tablet 0 mg PO meclizine 25 mg tablet 25 mg PO DAILY magnesium 250 mg tablet 250 mg PO DAILY
[2021-11-29] MEDS: Meclizine HCl 25 MG TABLET PO (09:35)
[2021-11-29] MEDS: LORazepam 1 MG TABLET PO (09:35)
[2021-11-29 10:35] LABS: MANUAL DIFF FLAG NO
[2021-11-29 10:39] LABS: Basophils Absolute Auto 0.1 X10*3/uL (0.0-0.2); Basophils Percent Auto 0.7 % (0-2); Eosinophils Absolute Auto 0.1 X10*3/uL (0.0-0.4); Eosinophils Percent Auto 1.6 % (0-4); Hematocrit 36.2 % (42.0-52.0); Imm Gran Abs Auto 0.03 X10*3/uL (0.00-0.03); Imm Gran Pct Auto 0.3 % (0.0-0.4); Lymphocytes Absolute Auto 1.7 X10*3/uL (1.2-4.9); Lymphocytes Percent Auto 18.9 % (20-40); Mean Corpuscular HGB Conc 33.1 g/dl (31.0-36.0); Mean Corpuscular Volume 81.5 fL (80.0-98.0); Mean Platelet Volume 11.7 fL (9.4-12.4); Monocytes Absolute Auto 0.6 X10*3/uL (0.1-1.2); Monocytes Percent Auto 7.2 % (2-11); Neutrophils Absolute Auto 6.3 x10*3/uL (2.0-8.3); Neutrophils Percent Auto 71.3 % (45-73); Platelet Count 258 X10*3/uL (160-400); Red Blood Count 4.44 X10*6/uL (4.60-5.80); Red Cell Distribution Width 16.8 % (11.0-16.0); White Blood Count 8.8 X10*3/uL (4.8-10.8)
[2021-11-29 10:44] LABS: Partial Thromboplastin Time 34.1 SEC (26.0-36.4)
[2021-11-29 10:49] LABS: COVID-19 Test Negative (Negative)
[2021-11-29 10:54] LABS: Alanine Aminotransferase 11 U/L (0-40); Albumin Level 3.8 g/dL (3.5-5.0); Alkaline Phosphatase 70 U/L (39-117); Anion Gap 14 (12-20); Aspartate Amino Transferase 15 U/L (5-37); Bilirubin Direct < 0.2 mg/dL (0.0-0.5); Bilirubin Total 0.3 mg/dL (0.0-1.0); Blood Urea Nitrogen 25 mg/dL (9-16); Calcium 8.6 mg/dL (8.4-10.2); Carbon Dioxide 28 mmol/L (22-29); Chloride 102 mmol/L (96-108); Creatinine Clr Calc Pharmacy 36.8; Estimated Glomerular Filt Rate 45; Glucose Random 92 mg/dL (60-115); Potassium 4.1 mmol/L (3.3-5.1); Sodium 140 mmol/L (135-145); Total Protein 7.4 g/dL (6.5-8.0)
[2021-11-29 10:55] LABS: Troponin-I High Sensitivity 5.3 ng/L (<3.5-35.0)
--- NOTE | 2021-11-29 15:38 | P.HPHOSP_ITS ---
History of Present Illness Date of Service: 11/29/21 Chief Complaint: dizziness, fall, syncope an 81 years old male with PMH of type 2 diabetes, asthma, HTN, DVT on Eliquis among others who presents to the hospital with multiple episodes of dizziness for the last week With a fall and near syncopal episode today. The patient lives alone and he reports having episodes of vertigo for the last year which seems to be worsened increase in frequency over the last week with associated nausea and feeling of the room spinning with double vision once. Denies any fever, chills, chest pain, palpitation, shortness of breath, abdominal pain, change in bowel habit or urinary symptoms. CT scan of the head negative for any acute findings. Blood work within normal. Patient lives alone at home and is concerned about going back there with recurrent episodes of dizziness and possible falls. Will be admitted for observation. Review of Systems Review of Systems: No fever, chills or weakness Reporting dizziness, room spinning and double vision No chest pain, palpitation No shortness of breath or coughing No abdominal pain, nausea or vomiting No urinary symptoms No any rash or wounds PMFSH Medical History Asthma BPH (benign prostatic hyperplasia) COPD (chronic obstructive pulmonary disease) Diabetes History of adenomatous polyp of colon HTN (hypertension) Hyperlipidemia No known health problems Renal failure Vertigo Family History Paternal Grandmother Colon cancer Brother Cancer of unknown origin Father Cancer of unknown origin Social History Alcohol intake: never Advance Directives: Yes Advance Directives Information Provided: Yes Advance Directives on File: No Meds Allergies Allergy/AdvReac Type Severity Reaction Status Date / Time No Known Allergies Allergy Verified 08/21/20 13:00 [No Known Allergies*] Active Medications: Current Medications Acetaminophen (Acetaminophen 325 Mg Tablet) 650 mg PO Q6H PRN PRN Reason: Pain, Mild (Pain Scale 1-3) Apixaban (Apixaban 5 Mg Tablet) 5 mg PO BID [facility] Insulin Human Lispro (Insulin Lispro 100 Unit/Ml 3 Ml Vial) 0 unit SUBCUT QIDACHS [facility]; Protocol Ondansetron HCl (Ondansetron Hcl 4 Mg/2 Ml Vial) 4 mg IVPUSH Q8H PRN PRN Reason: Nausea and Vomiting Pharmacy Consult (Consult Rx Perform Med Rec) 1 each MISCELLANE ONCE PRN PRN Reason: Consult order Sodium Chloride (0.9 % Sodium Chloride Flush 3 Ml Syringe) 3 [facility] Medications Medication Instructions Recorded Confirmed Last Taken Type amlodipine 5 mg tablet 5 mg PO DAILY 08/21/20 Unknown History apixaban 5 mg tablet 5 mg PO BID 08/21/20 11/29/21 Unknown History blood sugar diagnostic #10 ea 08/21/20 Unknown History finasteride 5 mg tablet 5 mg PO QAM 08/21/20 11/29/21 Unknown History fluticasone propionate 220 2 puff inhalation BID 08/21/20 Unknown History mcg/actuation HFA aerosol inhaler glucose 4 gram chewable tablet 16 g PO 08/21/20 Unknown History hydrochlorothiazide 25 mg tablet 25 mg PO QAM 08/21/20 11/29/21 Unknown History insulin aspart U-100 100 unit/mL 5 unit subcut DAILY@0730 08/21/20 11/29/21 Unknown History (3 mL) subcutaneous pen lancets 33 gauge #100 ea 08/21/20 Unknown History magnesium 250 mg tablet 250 mg PO DAILY 08/21/20 11/29/21 Unknown History naloxone 4 mg/actuation nasal spray 1 spray intranasal ONCE PRN Opiate 08/21/20 11/29/21 Unknown History Reversal omeprazole 20 mg capsule,delayed 20 mg PO QAM 08/21/20 11/29/21 Unknown History release pen needle, diabetic 32 gauge x #50 ea 08/21/20 Unknown History pravastatin 20 mg tablet 20 mg PO BEDTIME 08/21/20 11/29/21 Unknown History brimonidine 0.2 % eye drops 1 drp BID 11/29/21 11/29/21 Unknown History brimonidine 0.2 % eye drops 1 drp BID 11/29/21 11/29/21 Unknown History insulin aspart U-100 100 unit/mL 10 unit subcut DAILY@1630 11/29/21 11/29/21 Unknown History (3 mL) subcutaneous pen (Novolog Flexpen U-100 Insulin aspart) insulin glargine 100 unit/mL (3 30 unit subcut BEDTIME 11/29/21 11/29/21 Unknown History mL) subcutaneous pen (Lantus Solostar U-100 Insulin) oxycodone 10 mg tablet 1 tab PO BID PRN Pain, Moderate 11/29/21 11/29/21 Unknown History timolol maleate 0.5 % eye gel 1 drp ophthalmic-Left QAM 11/29/21 11/29/21 Unknown History forming solution Physical Exam Vital Signs and Narrative: Vital Signs: Last Vital Signs Temp 98.7 F 11/29/21 08:32 Pulse 73 11/29/21 08:32 Resp 16 11/29/21 08:32 BP 144/82 H 11/29/21 08:32 Pulse Ox 97 11/29/21 08:32 O2 Del Method 11/29/21 08:32 BMI result Body Mass Index 34.3 Const: Other: Constitutional : Alert, oriented, not in distress eyes: reactive to light bilaterally, no nystagmus noted, no double vision on exam Neck : Normal inspection, Supple Cardiovascular : RRR, no JVP, no lower extremity edema Respiratory : fair bilateral air entry, no crackles, wheezes or rhonchi Gastrointestinal: soft, lax, Normal bowel sounds, Non tender Skin : Warm, Dry Neurological : Alert & oriented x3, No focal deficit , CN 2-12 within normal, normal cerebellar exam Results Labs CBC and Chem 7: 11/29/21 10:29 11/29/21 10:29 Labs: Laboratory Results - last 24 hr 11/29/21 11/29/21 11/29/21 10:29 10:29 10:29 MCV 81.5 MCH 27.0 MCHC 33.1 RDW 16.8 H Plt Count 258 MPV 11.7 Immature Gran % (Auto) 0.3 Neut % (Auto) 71.3 Lymph % (Auto) 18.9 L [place] % (Auto) 7.2 Eos % (Auto) 1.6 Baso % (Auto) 0.7 Lymph # (Auto) 1.7 [place] # (Auto) 0.6 Eos # (Auto) 0.1 Baso # (Auto) 0.1 Abs Immat Gran (auto) 0.03 Absolute Neuts (auto) 6.3 Absolute Nucleated RBC 0.000 Nucleated RBC % (auto) 0.0 APTT 34.1 Anion Gap 14 Estim Creat Clear Calc 36.8 Estimated GFR 45 Random Glucose 92 D Calcium 8.6 D Total Bilirubin 0.3 Direct Bilirubin < 0.2 AST 15 ALT 11 Alkaline Phosphatase 70 Total Protein 7.4 Albumin 3.8 COVID-19 ([facility]) COVID-19 Clin Com 11/29/21 10:29 MCV MCH MCHC RDW Plt Count MPV Immature Gran % (Auto) Neut % (Auto) Lymph % (Auto) [place] % (Auto) Eos % (Auto) Baso % (Auto) Lymph # (Auto) [place] # (Auto) Eos # (Auto) Baso # (Auto) Abs Immat Gran (auto) Absolute Neuts (auto) Absolute Nucleated RBC Nucleated RBC % (auto) APTT Anion Gap Estim Creat Clear Calc Estimated GFR Random Glucose Calcium Total Bilirubin Direct Bilirubin AST ALT Alkaline Phosphatase Total Protein Albumin COVID-19 ([facility]) Negative COVID-19 Clin Com See Note Imaging Radiologist's Impressions: Impressions Chest X-Ray 11/29/21 09:19 IMPRESSION: No acute disease. Head CT 11/29/21 10:10 IMPRESSION: No acute intracranial pathology. Findings consistent with prominent microangiopathy. Assessment and Plan (1) Dizziness: Status: Acute (2) Syncope: Status: Acute (3) Fall: Status: Acute Plan an 81 years old male with PMH of type 2 diabetes, asthma, HTN, DVT on Eliquis among others who presents to the hospital with multiple episodes of dizziness for the last week With a fall and near syncopal episode today. syncope Unclear episode, it seems it is more of a dizziness and fall as he is not sure if he lost his conscious or not EKG with no abnormalities CT head negative for any acute findings but microangiopathy Keep on telemetry for tonight Dizziness Seems to be recurrent, BPV? on meclizine as outpatient p.r.n., to continue Fall Secondary to dizziness To get physical therapy evaluation Type 2 diabetes SSI, diabetic diet Lantus 25 units DVT PPX Lovenox Quality Stroke Does the patient have a stroke diagnosis?: No VTE Prior VTE?: No VTE Risk Level:: Medical - moderate - high VTE Device Contraindication: Treatment Not Indicated VTE Drug Contraindication: N/A - Med Ordered
--- NOTE | 2021-11-29 15:47 | MHC.CM.ED ---
[facility] is able to offer a bed. Patient can leave at 5pm. [facility] booked. Med nec with chart. Patient, daughter Darlin Oconnor RN, and Shannen SHELL aware. Continue to monitor for d/c needs.
--- NOTE | 2021-11-29 15:54 | PHA.MEDREC ---
Pharmacy Consult ? Medication Reconciliation Pharmacy has completed the medication reconciliation.
[2021-11-29] MEDS: 0.9 % Sodium Chloride Flush 3 ML SYRINGE IVFLUSH (17:04)
[2021-11-29 17:10] LABS: Glucose, Whole Blood 194 mg/dL (60-115)
[2021-11-29] MEDS: Insulin Lispro 100 UNIT/ML 3 ML VIAL SUBCUT (17:15)
--- NOTE | 2021-11-29 21:03 | PC.NURSE ---
smelter charger called pt's daughter leif at number listed on file. Daughter confirms that the pt is home in bed sleeping and is refusing to return. Daughter denies seeing an IV line in either of the pt's arms. Daughter confirms pt is safe at home with neighbor staying with him and confirms the patient will not be returning for admission. House sup and hospitalist to be made aware.
--- NOTE | 2021-11-30 08:23 | PM.EVENT ---
Event Note Date of Service: 11/30/21 Event Note: Discharge summary discharge diagnosis - Fall - dizziness - Syncope The patient was admitted for observation and physical therapy evaluation given risk of staying home with recurrent falls. The patient eloped the hospital and refused to come back upon calling him.
== END 2021-11-29 21:16 | disposition left against medical advice (07) ==
LOC: HO.ED 13:44 → HO.EDOVER 15:39 → HO.IMC 18:27
PROVIDERS: Admitting Provider Student in an Organized Health Care Education/Training Program; Emergency Provider Emergency Medicine; PCP Family Medicine; Visit Provider Student in an Organized Health Care Education/Training Program
DX: R55 Syncope and collapse (principal); R42 Dizziness and giddiness; R51.9 Headache, unspecified; I10 Essential (primary) hypertension; J44.9 Chronic obstructive pulmonary disease, unspecified; E11.9 Type 2 diabetes mellitus without complications; Z79.01 Long term (current) use of anticoagulants; Z20.822 Contact with and (suspected) exposure to COVID-19; Z86.718 Personal history of other venous thrombosis and embolism; Z79.899 Other long term (current) drug therapy
CPT/HCPCS: 36415; 70450; 71045; 80053; 82248; 82947; 84484; 85025; 85730; 87635; 93005; 96374; 99219; 99284

== ENCOUNTER 2022-11-06 15:55 | Emergency (ER) | payer OTHER, SELFPAY ==
--- NOTE | ~2022-11-06 | CT_ITS ---
EXAMINATION: CT HEAD WITHOUT CONTRAST CLINICAL INFORMATION: Fall. Trauma. On Eliquis. COMPARISON: CT head 11/29/2021. TECHNIQUE: Contiguous axial imaging was performed from the skull base to vertex without intravenous administration of contrast. This CT examination was performed using dose optimization techniques as appropriate, variously including the following: *Automated exposure control *Adjustment of mA and/or kV according to patient size (this includes techniques or standardized protocols for targeted exams where dose is matched to indication/reason for exam; i.e. extremities or head) *Use of iterative reconstruction technique DLP: 735 mGy-cm FINDINGS: There is no acute intracranial hemorrhage or abnormal extra-axial collection. No intracranial mass effect or midline shift. Lateral and third ventricles are proportionate to the subarachnoid spaces. No hydrocephalus. Scattered nonspecific foci of hypoattenuation are visualized within the periventricular white matter. Salgado-white matter differentiation is otherwise preserved and there is no evidence of acute territorial infarct. The calvarium and skull base are intact. Mastoid air cells and middle ear cavities are well aerated. No active paranasal sinus disease. CT/CT head/brain wo IV con IMPRESSION: There are scattered chronic small vessel ischemic changes within the periventricular white matter. Otherwise unremarkable examination. No evidence of acute territorial infarct or hemorrhage.
[2022-11-06 16:08] VITALS: BP 142/93; BP 174/90; PULSE 100; PULSE 102; RESP 18; TEMP 36.9; O2SAT 96; O2SAT 99; BMI 33.7
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
== END 2022-11-06 19:06 | disposition home or self-care (01) ==
PROVIDERS: Emergency Provider Emergency Medicine; PCP Family Medicine
DX: S09.90XA Unspecified injury of head, initial encounter (principal); S00.81XA Abrasion of other part of head, initial encounter; V48.4XXA Person boarding or alighting a car injured in noncollision transport accident, initial encounter; E11.9 Type 2 diabetes mellitus without complications; I10 Essential (primary) hypertension; E78.5 Hyperlipidemia, unspecified; Y93.89 Activity, other specified; Y92.410 Unspecified street and highway as the place of occurrence of the external cause; Y99.9 Unspecified external cause status
CPT/HCPCS: 70450; 99282; 99284

== ENCOUNTER 2023-02-17 17:08 | Emergency (ER) | payer OTHER, SELFPAY ==
[2023-02-17 17:09] VITALS: BP 200/50; PULSE 60; O2SAT 100; BMI 30.7
--- NOTE | 2023-02-17 17:18 | PC.NURSE ---
pt comes in d/t ams. pt alert to name only. unaware on what his birthday is, where he is, what year or why he is here. able to answer some questions appropriately. able to follow commands appropriately w/o difficulty. vss aside from being hypertensive. POC = 62mg/dL - provider aware at this time. pt cool/diaphoretic. clothing saturated w/ sweat - changed into hospital attire. 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
[2023-02-17 17:20] LABS: Glucose, Whole Blood 62 mg/dL (60-115)
[2023-02-17 17:23] VITALS: BP 205/77; PULSE 71; RESP 18; TEMP 36.6; O2SAT 100
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
--- NOTE | 2023-02-17 17:31 | ECG_ITS ---
Test Reason : LOW SUGAR Blood Pressure : / mmHG Vent. Rate : 069 BPM Atrial Rate : 069 BPM P-R Int : 208 ms QRS Dur : 134 ms QT Int : 428 ms P-R-T Axes : 027 -59 025 degrees QTc Int : 458 ms Normal sinus rhythm Right bundle branch block Left anterior fascicular block Bifascicular block Abnormal ECG When compared with ECG of 29-NOV-2021 08:54, No significant change was found Referred By: Deandre Kyle Electronically Signed By:PREETHI LOPEZ MD
--- NOTE | 2023-02-17 18:18 | PC.NURSE ---
repeat POC obtained by tech = 96 mg/dL.
[2023-02-17 18:20] VITALS: BP 163/93; PULSE 66; RESP 16; O2SAT 98
[2023-02-17 18:22] VITALS: BP 169/83; PULSE 65; RESP 20; TEMP 36.8; O2SAT 98
[2023-02-17 18:24] LABS: Glucose, Whole Blood 96 mg/dL (60-115)
--- NOTE | 2023-02-17 18:28 | PC.NURSE ---
vss and up to date. labs drawn and sent to lab. pt provided w/ urinal so sample can be collected. daughter bedside. call joshi placed within reach.
[2023-02-17 18:38] LABS: MANUAL DIFF FLAG NO
[2023-02-17 18:47] LABS: Basophils Absolute Auto 0.1 X10*3/uL (0.0-0.2); Basophils Percent Auto 0.4 % (0-2); Eosinophils Absolute Auto 0.1 X10*3/uL (0.0-0.4); Eosinophils Percent Auto 0.8 % (0-4); Hematocrit 43.1 % (42.0-52.0); Hemoglobin 14.4 g/dl (14.0-18.0); Imm Gran Abs Auto 0.05 X10*3/uL (0.00-0.03); Imm Gran Pct Auto 0.4 % (0.0-0.4); Lymphocytes Absolute Auto 1.4 X10*3/uL (1.2-4.9); Lymphocytes Percent Auto 10.4 % (20-40); Mean Corpuscular HGB Conc 33.4 g/dl (31.0-36.0); Mean Corpuscular Hemoglobin 29.1 pg (27.0-33.0); Mean Corpuscular Volume 87.1 fL (80.0-98.0); Mean Platelet Volume 11.7 fL (9.4-12.4); Monocytes Absolute Auto 0.6 X10*3/uL (0.1-1.2); Monocytes Percent Auto 4.3 % (2-11); Neutrophils Absolute Auto 11.2 x10*3/uL (2.0-8.3); Neutrophils Percent Auto 83.7 % (45-73); Platelet Count 179 X10*3/uL (160-400); Red Blood Count 4.95 X10*6/uL (4.60-5.80); Red Cell Distribution Width 13.8 % (11.0-16.0); White Blood Count 13.4 X10*3/uL (4.8-10.8)
[2023-02-17 18:56] LABS: Alanine Aminotransferase 12 U/L (0-40); Albumin Level 3.9 g/dL (3.5-5.0); Alkaline Phosphatase 84 U/L (39-117); Anion Gap 14 (12-20); Aspartate Amino Transferase 28 U/L (5-37); Bilirubin Total 0.4 mg/dL (0.0-1.0); Blood Urea Nitrogen 17 mg/dL (9-16); Calcium 9.5 mg/dL (8.4-10.2); Carbon Dioxide 27 mmol/L (22-29); Chloride 103 mmol/L (96-108); Creatinine Clr Calc Pharmacy 46.3; Estimated Glomerular Filt Rate 55; Glucose Random 126 mg/dL (60-115); Magnesium 1.8 mg/dL (1.6-2.6); Sodium 140 mmol/L (135-145); Total Protein 8.3 g/dL (6.5-8.0)
[2023-02-17 19:03] LABS: Troponin-I High Sensitivity < 2.7 ng/L (<3.5-35.0)
[2023-02-17 19:25] LABS: Appearance Urine Clear; Color Urine Yellow; Glucose Urine UA Negative (Negative); Leukocyte Esterase Urine Trace (Negative); Nitrite Urine Negative (Negative); PH 5.5 (5.0-9.0); UMIC TRIGGER UACC YES; Urine Blood Negative (Negative); Urine Ketones Negative (Negative); Urine Protein 100 (2+) mg/dL (Neg-Trace)
[2023-02-17 19:34] LABS: Bacteria Urine None Seen (None Seen); Hyaline Casts Urine 0-2 /LPF (0-2); RBC Urine 0-2 /HPF (0-2); Squamous Epithelial Cell Urine 0-2 /HPF (0-2); WBC Urine 0-5 /HPF (0-5)
[2023-02-17 19:39] VITALS: BP 154/83; PULSE 71; RESP 16; TEMP 36.3; O2SAT 97
== END 2023-02-17 19:48 | disposition home or self-care (01) ==
PROVIDERS: Emergency Provider Internal Medicine; PCP Family Medicine
DX: E11.649 Type 2 diabetes mellitus with hypoglycemia without coma (principal); R53.83 Other fatigue; I45.10 Unspecified right bundle-branch block; Z79.899 Other long term (current) drug therapy; Z79.4 Long term (current) use of insulin
CPT/HCPCS: 36415; 80053; 81001; 82947; 83735; 84484; 85025; 93005; 99283; 99285

== ENCOUNTER 2023-07-12 10:57 | Outpatient (REF) | payer OTHER, SELFPAY ==
[2023-07-12 12:05] LABS: MANUAL DIFF FLAG NO
[2023-07-12 12:18] LABS: Basophils Absolute Auto 0.1 X10*3/uL (0.0-0.2); Basophils Percent Auto 0.8 % (0-2); Eosinophils Absolute Auto 0.6 X10*3/uL (0.0-0.4); Eosinophils Percent Auto 4.9 % (0-4); Imm Gran Abs Auto 0.02 X10*3/uL (0.00-0.03); Imm Gran Pct Auto 0.2 % (0.0-0.4); Lymphocytes Absolute Auto 2.7 X10*3/uL (1.2-4.9); Lymphocytes Percent Auto 24.3 % (20-40); Mean Corpuscular HGB Conc 33.3 g/dl (31.0-36.0); Mean Corpuscular Hemoglobin 29.2 pg (27.0-33.0); Mean Corpuscular Volume 87.7 fL (80.0-98.0); Mean Platelet Volume 11.8 fL (9.4-12.4); Monocytes Absolute Auto 0.9 X10*3/uL (0.1-1.2); Monocytes Percent Auto 7.9 % (2-11); Neutrophils Absolute Auto 6.9 x10*3/uL (2.0-8.3); Neutrophils Percent Auto 61.9 % (45-73); Platelet Count 291 X10*3/uL (160-400); Red Blood Count 4.79 X10*6/uL (4.60-5.80); Red Cell Distribution Width 14.4 % (11.0-16.0); White Blood Count 11.2 X10*3/uL (4.8-10.8)
[2023-07-12 12:50] LABS: Alanine Aminotransferase 13 U/L (0-40); Albumin Level 4.1 g/dL (3.5-5.0); Alkaline Phosphatase 86 U/L (39-117); Anion Gap 13 (12-20); Aspartate Amino Transferase 18 U/L (5-37); Bilirubin Direct 0.2 mg/dL (0.0-0.5); Bilirubin Total 0.4 mg/dL (0.0-1.0); Blood Urea Nitrogen 21 mg/dL (9-16); Calcium 9.8 mg/dL (8.4-10.2); Carbon Dioxide 29 mmol/L (22-29); Chloride 103 mmol/L (96-108); Cholesterol 152 mg/dL (<200); Estimated Glomerular Filt Rate 50; Glucose Random 131 mg/dL (60-115); HDL Cholesterol 38 mg/dL (>40); Iron 46 mcg/dL (45-160); LDL Cholesterol Calculated 88 mg/dL (<100); Magnesium 1.7 mg/dL (1.6-2.6); Percent Iron Saturation 18 % (15-50); Potassium 3.7 mmol/L (3.3-5.1); Sodium 141 mmol/L (135-145); Total Iron Binding Capacity 251 mcg/dL (228-428); Total Protein 8.4 g/dL (6.5-8.0); Triglycerides 133 mg/dL (<150); Unsaturated Iron Binding 205 ug/dL
[2023-07-12 13:08] LABS: Folate 14.3 ng/mL (> or = 4.0); Vitamin B12 775 pg/mL (200-900)
[2023-07-12 13:09] LABS: Ferritin 81 ng/mL (20-250); TSH reflex Free T4 1.44 uIU/mL (0.32-4.0); Vitamin D 25-OH Total 51.5 ng/mL (>30)
== END 2023-07-12 10:58 | disposition home or self-care (01) ==
LOC: HO.HHCL 10:57
PROVIDERS: Visit Provider Family Medicine
DX: R41.3 Other amnesia (principal); R53.82 Chronic fatigue, unspecified
CPT/HCPCS: 36415; 80048; 80061; 80076; 82306; 82607; 82728; 82746; 83540; 83735; 84443; 85025

== ENCOUNTER 2023-10-13 10:10 | Outpatient (REF) | payer OTHER, SELFPAY ==
[2023-10-13 11:46] LABS: Estimated Average Glucose 160 mg/dL; Hemoglobin A1c % 7.2 % (<6.0)
[2023-10-13 14:16] LABS: Anion Gap 14 (12-20); Blood Urea Nitrogen 17 mg/dL (9-16); Calcium 10.4 mg/dL (8.4-10.2); Carbon Dioxide 32 mmol/L (22-29); Chloride 101 mmol/L (96-108); Estimated Glomerular Filt Rate 49; Glucose Random 61 mg/dL (60-115); Potassium 3.9 mmol/L (3.3-5.1); Sodium 143 mmol/L (135-145)
[2023-10-13 14:56] LABS: Creatinine Urine 150.88 mg/dL; Microalbum/Creatinine Ratio Ur 25.1 ug/mg cr (<30)
== END 2023-10-13 10:11 | disposition home or self-care (01) ==
LOC: HO.HHCL 10:10
PROVIDERS: Visit Provider Family Medicine
DX: E11.65 Type 2 diabetes mellitus with hyperglycemia (principal)
CPT/HCPCS: 36415; 80048; 82043; 82570; 83036

== ENCOUNTER 2024-01-17 08:56 | Emergency (ER) | payer OTHER, SELFPAY ==
--- NOTE | ~2024-01-17 | CT_ITS ---
EXAMINATION: CT HEAD WITHOUT CONTRAST CLINICAL INFORMATION: Fall. On blood thinner. COMPARISON: CT head dated November 06, 2022. TECHNIQUE: Contiguous axial imaging was performed from the skull base to vertex without intravenous administration of contrast. This CT examination was performed using dose optimization techniques as appropriate, variously including the following: *Automated exposure control *Adjustment of mA and/or kV according to patient size (this includes techniques or standardized protocols for targeted exams where dose is matched to indication/reason for exam; i.e. extremities or head) *Use of iterative reconstruction technique DLP: 756 mGy-cm FINDINGS: There is no acute intracranial hemorrhage. There is no evidence of acute/subacute cerebral or cerebellar infarction. There is extensive microvascular ischemic change. There is moderate global cerebral volume loss. There is no midline shift or mass effect. There is no extra-axial fluid collection. No hydrocephalus. The ocular lenses are surgically absent. The orbits are otherwise unremarkable. The calvarium is intact. Visualized paranasal sinuses and mastoid air cells are clear. CT/CT head/brain wo IV con IMPRESSION: No acute intracranial abnormality. Extensive microvascular ischemic change. Moderate global cerebral volume loss. Electronically signed by: Luis Garner DO 01/17/2024 01:11 PM EDT
--- NOTE | ~2024-01-17 | XR_ITS ---
EXAMINATION: XR CHEST CLINICAL INFORMATION: Weakness, nonspecific COMPARISON: Chest 11/29/2021 TECHNIQUE: AP upright portable view of the chest was obtained. 10:03 AM FINDINGS: Lung volumes are slightly low. No significant abnormality is noted involving the heart, lungs, mediastinum, bony thorax or soft tissues. XR/XR chest 1V IMPRESSION: No acute cardiopulmonary disease. Electronically signed by: Valerie Donovan MD 01/17/2024 02:09 PM EDT
[2024-01-17 09:01] VITALS: BP 146/75; BP 172/94; PULSE 108; PULSE 84; RESP 18; TEMP 37.3; O2SAT 98; BMI 29.8
[2024-01-17 09:08] VITALS: PULSE 80; RESP 16; O2SAT 98
--- NOTE | 2024-01-17 09:10 | ECG_ITS ---
Test Reason : HYPERTENSION Blood Pressure : / mmHG Vent. Rate : 076 BPM Atrial Rate : 076 BPM P-R Int : 162 ms QRS Dur : 140 ms QT Int : 388 ms P-R-T Axes : 085 -57 046 degrees QTc Int : 436 ms Normal sinus rhythm Right bundle branch block Left anterior fascicular block Bifascicular block Abnormal ECG When compared with ECG of 17-FEB-2023 18:14, No significant change was found Referred By: Generic ED Physician Electronically Signed By:JAYLON BLANCO
--- NOTE | 2024-01-17 10:00 | ED_ITS ---
HPI - General Adult General Chief complaint: General Medical Stated complaint: WEAKNESS Time Seen by Provider: 01/17/24 09:18 Source: patient, family ( daughter), EMS and coagulating operator Mode of arrival: EMS Limitations: no limitations History of Present Illness ED Provider: DR. Reyna HPI narrative: 84-year-old male with history of dementia who lives with his daughter came in today by ambulance for evaluation 1 episode of high blood pressure last night 190/112 as per daughter, patient with history of dementia but able to provide history today stated that he feels fine no dizziness, no headache, no chest pain, no abdominal pain, no urinary symptoms. Daughter stated that his dementia fluctuate some days he is doing better than others, stated that he fell last week and he is on Eliquis concern of bleeding. Related Data Home Medications ?Medication ?Instructions ?Recorded ?Confirmed apixaban 5 mg tablet 5 mg PO BID 08/21/20 11/29/21 blood sugar diagnostic #10 08/21/20 finasteride 5 mg tablet 5 mg PO QAM 08/21/20 11/29/21 hydrochlorothiazide 25 mg tablet 25 mg PO QAM 08/21/20 11/29/21 insulin aspart U-100 100 unit/mL 5 unit subcut DAILY@0730 08/21/20 11/29/21 (3 mL) subcutaneous pen lancets 33 gauge #100 08/21/20 magnesium 250 mg tablet 250 mg PO DAILY 08/21/20 11/29/21 naloxone 4 mg/actuation nasal spray 1 spray intranasal ONCE PRN Opiate 08/21/20 11/29/21 Reversal omeprazole 20 mg capsule,delayed 20 mg PO QAM 08/21/20 11/29/21 release pen needle, diabetic 32 gauge x #50 08/21/20 pravastatin 20 mg tablet 20 mg PO BEDTIME 08/21/20 11/29/21 brimonidine 0.2 % eye drops 1 drp ophthalmic-Left BID 11/29/21 11/29/21 insulin aspart U-100 100 unit/mL 10 unit subcut DAILY@1630 11/29/21 11/29/21 (3 mL) subcutaneous pen (Novolog FlexPen U-100 Insulin aspart) insulin glargine 100 unit/mL (3 30 unit subcut BEDTIME 11/29/21 11/29/21 mL) subcutaneous pen (Lantus Solostar U-100 Insulin) oxycodone 10 mg tablet 1 tab PO BID PRN Pain, Moderate 11/29/21 11/29/21 timolol maleate 0.5 % eye gel 1 drp ophthalmic-Left QAM 11/29/21 11/29/21 forming solution Allergies Allergy/AdvReac Type Severity Reaction Status Date / Time No Known Allergies Allergy Verified 01/17/24 09:05 [No Known Allergies*] Review of Systems 2 Review of Systems: All other systems are reviewed and are negative Constitutional: Reports as per HPI and Reports no additional constitutional complaints Eyes: Reports as per HPI and Reports no additional eye complaints Reports system reviewed and no additional complaints, except as documented Cardiovascular: Reports as per HPI and Reports no additional cardiovascular complaints Respiratory: Reports as per HPI and Reports no additional respiratory complaints Gastrointestinal: Reports as per HPI and Reports no additional gastrointestinal complaints Genitourinary: Reports no additional female genitourinary complaints Musculoskeletal: Reports no additional musculoskeletal complaints Skin/Breast: Reports system reviewed and no additional complaints, except as docu Psychiatric: Reports no additional psychiatric complaints Endocrine: Reports no additional endocrine complaints Hematologic/Lymphatic: Reports no additional hematologic/lymphatic complaints Allergic/Immunologic: Reports no additional allergic/immunologic complaints Reports system reviewed and no additional complaints, except as documented and Reports Abnormal speech present [facility] Past Medical History Medical History History of adenomatous polyp of colon Renal failure BPH (benign prostatic hyperplasia) Asthma COPD (chronic obstructive pulmonary disease) Vertigo Diabetes Hyperlipidemia HTN (hypertension) No known health problems Family History Family History Paternal Grandmother Colon cancer Brother Cancer of unknown origin Father Cancer of unknown origin Social History Social History Alcohol intake: never Smoked in Last 30 Days: No Use of substances other than those prescribed or required for medical reasons: No Advance Directives: No Advance Directives Information Provided: Yes Physical Exam ED Vital Signs: Vital Signs - 24 hr 01/17/24 09:01 01/17/24 09:08 01/17/24 10:42 Temperature 99.2 F 98.4 F Pulse Rate 84 80 67 Respiratory Rate 18 16 14 Blood Pressure 146/75 H 139/73 Pulse Oximetry 98 98 97 Oxygen Delivery Method Room Air Room Air Room Air 01/17/24 12:20 Temperature 98.4 F Pulse Rate 66 Respiratory Rate 13 Blood Pressure 139/67 Pulse Oximetry 100 Oxygen Delivery Method Room Air BMI result Body Mass Index 29.8 Vital signs have been reviewed and appear to be correct. Blood pressure elevated. Heart rate normal. Respiratory rate normal. Temperature normal. Oxygen saturation normal. Appearance: Alert. Oriented X3. No acute distress. Head: Normal external exam. Normocephalic. Atraumatic. No [place] signs noted. No raccoon eyes noted Eyes: PERRLA. EOMI. Conjunctiva and sclera normal. Eyelids normal. ENT: TM's Normal. Pharynx normal. Uvula midline. Moist mucous membranes. No trismus noted. No drooling noted. No muffled voice noted. Neck: Normal inspection. Neck supple. FROM. No adenopathy. Thyroid Normal. No meningeal signs. No neck mass noted. CVS: Normal heart rate and rhythm. Heart sound normal. No murmurs noted. Pulses normal throughout. Respiratory: No respiratory distress. Painless inspiration. Breath sounds normal. No wheezes/rales/rhonchi noted. Chest nontender. No accessory muscle usage noted or decreased air movement noted. Abdomen: Soft and nontender. Bowel sounds normal in all 4 quadrants. No distention noted. No organomegaly noted. No visible injury noted. Back: No CVA tenderness. Full range of motion noted. Skin: Skin warm and dry. Normal skin color. Normal skin turgor. No rashes/lesions/lacerations noted. Extremities: No lower extremity edema. Extremities exhibit normal range of motion. Extremities nontender. Neuro: Oriented X 3. Cranial nerve exam: II-XII are grossly intact No motor deficit. No sensory deficit. Reflexes normal. Course Reevaluation(s) Reevaluation #1: 84-year-old male history of dementia with fluctuation of his symptoms brought in by his daughter for high blood pressure last night not patient otherwise declined any symptoms, workup non revealing for acute pathology. Concern of fall couple days ago patient on apixaban normal neuro exam for patient's age, CT is unremarkable for intracranial pathology. patient will be discharged back home with his family resume all his home medication. Time: 14:27 Medical Decision Making Differential Diagnosis Differential Diagnoses: The differential diagnosis associated with the presentation includes ( Emergency hypertension, urgency hypertension, electrolyte derangement, intracranial bleed, electrolyte derangement, severe anemia, UTI.) Admission/Observation Consideration of admission/observation: Escalation of care including admission/observation considered Lab Data MDM Lab Attestation statement: I reviewed the patient's lab results. 01/17/24 10:25 01/17/24 10:25 Labs: Lab Results 01/17/24 01/17/24 01/17/24 Range/Units 10:23 10:25 10:52 WBC 11.2 H (4.8-10.8) X10*3/uL RBC 4.39 L (4.60-5.80) X10*6/uL Hgb 13.1 L (14.0-18.0) g/dl Hct 38.4 L (42.0-52.0) % MCV 87.5 (80.0-98.0) fL MCH 29.8 (27.0-33.0) pg MCHC 34.1 (31.0-36.0) g/dl RDW 13.1 (11.0-16.0) % Plt Count 267 (160-400) X10*3/uL MPV 11.4 (9.4-12.4) fL Immature Gran % (Auto) 0.4 (0.0-0.4) % Neut % (Auto) 74.5 H (45-73) % Lymph % (Auto) 18.4 L (20-40) % Graham % (Auto) 5.3 (2-11) % Eos % (Auto) 0.7 (0-4) % Baso % (Auto) 0.7 (0-2) % Lymph # (Auto) 2.1 (1.2-4.9) X10*3/uL Graham # (Auto) 0.6 (0.1-1.2) X10*3/uL Eos # (Auto) 0.1 (0.0-0.4) X10*3/uL Baso # (Auto) 0.1 (0.0-0.2) X10*3/uL Abs Immat Gran (auto) 0.04 H (0.00-0.03) X10*3/uL Absolute Neuts (auto) 8.4 H (2.0-8.3) x10*3/uL Absolute Nucleated RBC 0.000 (0.0-0.012) X10*3/uL Nucleated RBC % (auto) 0.0 (0.0-0.2) /100WBC Sodium 139 (135-145) mmol/L Potassium 3.8 (3.3-5.1) mmol/L Chloride 102 (96-108) mmol/L Carbon Dioxide 27 (22-29) mmol/L Anion Gap 14 (12-20) BUN 19 H (9-16) mg/dL Creatinine 1.15 (0.5-1.4) mg/dL Estim Creat Clear Calc 46.8 Estimated GFR > 60 POC Glucose (60-115) mg/dL Random Glucose 159 H (60-115) mg/dL Calcium 9.5 D (8.4-10.2) mg/dL Total Bilirubin 0.4 (0.0-1.0) mg/dL Direct Bilirubin 0.2 (0.0-0.5) mg/dL AST 16 (5-37) U/L ALT 10 (0-40) U/L Alkaline Phosphatase 80 (39-117) U/L Troponin I High Sens 18.0 D (<3.5-35.0) ng/L B-Natriuretic Peptide 34 (<100) pg/mL Total Protein 7.3 (6.5-8.0) g/dL Albumin 3.8 (3.5-5.0) g/dL Lipase 16 (8-78) U/L Urine Color Yellow Urine Appearance Clear Urine pH 8.0 (5.0-9.0) Ur Specific Mead 1.020 (1.005-1.025) Urine Protein 30 (1+) H (Neg-Trace) mg/dL Urine Glucose (UA) Negative (Negative) mg/dL Urine Ketones Negative (Negative) mg/dL Urine Blood Negative (Negative) Urine Nitrite Negative (Negative) Ur Leukocyte Esterase Negative (Negative) Urine RBC 0-2 (0-2) /HPF Urine WBC 0-5 (0-5) /HPF Ur Squamous Epith Cells 0-2 (0-2) /HPF Urine Bacteria None Seen (None Seen) Hyaline Casts 0-2 (0-2) /LPF Influenza Type A (PCR) NEGATIVE (Negative) Influenza Type B (PCR) NEGATIVE (Negative) RSV RNA Qual (PCR) NEGATIVE (Negative) SARS-CoV-2 RNA (RT-PCR) NEGATIVE (Negative) 01/17/24 Range/Units 14:16 WBC (4.8-10.8) X10*3/uL RBC (4.60-5.80) X10*6/uL Hgb (14.0-18.0) g/dl Hct (42.0-52.0) % MCV (80.0-98.0) fL MCH (27.0-33.0) pg MCHC (31.0-36.0) g/dl RDW (11.0-16.0) % Plt Count (160-400) X10*3/uL MPV (9.4-12.4) fL Immature Gran % (Auto) (0.0-0.4) % Neut % (Auto) (45-73) % Lymph % (Auto) (20-40) % Graham % (Auto) (2-11) % Eos % (Auto) (0-4) % Baso % (Auto) (0-2) % Lymph # (Auto) (1.2-4.9) X10*3/uL Graham # (Auto) (0.1-1.2) X10*3/uL Eos # (Auto) (0.0-0.4) X10*3/uL Baso # (Auto) (0.0-0.2) X10*3/uL Abs Immat Gran (auto) (0.00-0.03) X10*3/uL Absolute Neuts (auto) (2.0-8.3) x10*3/uL Absolute Nucleated RBC (0.0-0.012) X10*3/uL Nucleated RBC % (auto) (0.0-0.2) /100WBC Sodium (135-145) mmol/L Potassium (3.3-5.1) mmol/L Chloride (96-108) mmol/L Carbon Dioxide (22-29) mmol/L Anion Gap (12-20) BUN (9-16) mg/dL Creatinine (0.5-1.4) mg/dL Estim Creat Clear Calc Estimated GFR POC Glucose 105 (60-115) mg/dL Random Glucose (60-115) mg/dL Calcium (8.4-10.2) mg/dL Total Bilirubin (0.0-1.0) mg/dL Direct Bilirubin (0.0-0.5) mg/dL AST (5-37) U/L ALT (0-40) U/L Alkaline Phosphatase (39-117) U/L Troponin I High Sens (<3.5-35.0) ng/L B-Natriuretic Peptide (<100) pg/mL Total Protein (6.5-8.0) g/dL Albumin (3.5-5.0) g/dL Lipase (8-78) U/L Urine Color Urine Appearance Urine pH (5.0-9.0) Ur Specific Mead (1.005-1.025) Urine Protein (Neg-Trace) mg/dL Urine Glucose (UA) (Negative) mg/dL Urine Ketones (Negative) mg/dL Urine Blood (Negative) Urine Nitrite (Negative) Ur Leukocyte Esterase (Negative) Urine RBC (0-2) /HPF Urine WBC (0-5) /HPF Ur Squamous Epith Cells (0-2) /HPF Urine Bacteria (None Seen) Hyaline Casts (0-2) /LPF Influenza Type A (PCR) (Negative) Influenza Type B (PCR) (Negative) RSV RNA Qual (PCR) (Negative) SARS-CoV-2 RNA (RT-PCR) (Negative) Independent Interpretation I performed an independent interpretation of an: Plain X-Ray ( Chest: No acute cardiopulmonary disease.) and CT Scan ( Head: No acute intracranial pathology.) Radiology Impression Discussion of test interpretation with radiology: I have reviewed the radiologist's reading. Discharge Plan Discharge Clinical Impression: Hypertension, Dementia Patient Disposition: Home, Self-Care Instructions: Hypertension (ED) Prescriptions: No Action insulin glargine [Lantus Solostar U-100 Insulin] 100 unit/mL (3 mL) insulin pen 30 unit subcut BEDTIME brimonidine 0.2 % drops 1 drp ophthalmic-Left BID timolol maleate 0.5 % gel forming solution 1 drp ophthalmic-Left QAM insulin aspart U-100 [Novolog FlexPen U-100 Insulin] 100 unit/mL (3 mL) insulin pen 10 unit subcut DAILY@1630 oxycodone 10 mg tablet 1 tab PO BID PRN (Reason: Pain, Moderate) hydrochlorothiazide 25 mg tablet 25 mg PO QAM (DME) FreeStyle Lite Strips Strip See Rx Instructions Not Applicable .MEDSUPPLY Qty: 10 Rx Instructions: As directed pravastatin 20 mg tablet 20 mg PO BEDTIME omeprazole 20 mg capsule,delayed release(DR/EC) 20 mg PO QAM (DME) pen needle, diabetic 32 gauge x 5/32 needle See Rx Instructions .ROUTE .MEDSUPPLY Qty: 50 Rx Instructions: As directed finasteride 5 mg tablet 5 mg PO QAM Narcan 4 mg/actuation spray,non-aerosol 1 spray intranasal ONCE PRN (Reason: Opiate Reversal) Eliquis 5 mg tablet 5 mg PO BID insulin aspart U-100 100 unit/mL (3 mL) insulin pen 5 unit subcut DAILY@0730 (DME) lancets 33 gauge misc See Rx Instructions Not Applicable .MEDSUPPLY Qty: 100 Rx Instructions: As directed magnesium 250 mg tablet 250 mg PO DAILY Referrals: Codie Bell MD [Primary Care Provider] - Print Language: Serbian
[2024-01-17 10:30] LABS: MANUAL DIFF FLAG NO
[2024-01-17 10:40] LABS: Basophils Absolute Auto 0.1 X10*3/uL (0.0-0.2); Basophils Percent Auto 0.7 % (0-2); Eosinophils Absolute Auto 0.1 X10*3/uL (0.0-0.4); Eosinophils Percent Auto 0.7 % (0-4); Hematocrit 38.4 % (42.0-52.0); Hemoglobin 13.1 g/dl (14.0-18.0); Imm Gran Abs Auto 0.04 X10*3/uL (0.00-0.03); Imm Gran Pct Auto 0.4 % (0.0-0.4); Lymphocytes Absolute Auto 2.1 X10*3/uL (1.2-4.9); Lymphocytes Percent Auto 18.4 % (20-40); Mean Corpuscular HGB Conc 34.1 g/dl (31.0-36.0); Mean Corpuscular Hemoglobin 29.8 pg (27.0-33.0); Mean Corpuscular Volume 87.5 fL (80.0-98.0); Mean Platelet Volume 11.4 fL (9.4-12.4); Monocytes Absolute Auto 0.6 X10*3/uL (0.1-1.2); Monocytes Percent Auto 5.3 % (2-11); Neutrophils Absolute Auto 8.4 x10*3/uL (2.0-8.3); Neutrophils Percent Auto 74.5 % (45-73); Platelet Count 267 X10*3/uL (160-400); Red Blood Count 4.39 X10*6/uL (4.60-5.80); Red Cell Distribution Width 13.1 % (11.0-16.0); White Blood Count 11.2 X10*3/uL (4.8-10.8)
[2024-01-17 10:42] VITALS: BP 139/73; PULSE 67; RESP 14; TEMP 36.9; O2SAT 97
[2024-01-17 10:48] LABS: Alanine Aminotransferase 10 U/L (0-40); Albumin Level 3.8 g/dL (3.5-5.0); Alkaline Phosphatase 80 U/L (39-117); Anion Gap 14 (12-20); Aspartate Amino Transferase 16 U/L (5-37); Bilirubin Direct 0.2 mg/dL (0.0-0.5); Bilirubin Total 0.4 mg/dL (0.0-1.0); Blood Urea Nitrogen 19 mg/dL (9-16); Calcium 9.5 mg/dL (8.4-10.2); Carbon Dioxide 27 mmol/L (22-29); Chloride 102 mmol/L (96-108); Creatinine Clr Calc Pharmacy 46.8; Estimated Glomerular Filt Rate > 60; Glucose Random 159 mg/dL (60-115); Lipase 16 U/L (8-78); Potassium 3.8 mmol/L (3.3-5.1); Sodium 139 mmol/L (135-145); Total Protein 7.3 g/dL (6.5-8.0)
[2024-01-17 10:51] LABS: B Type Natriuretic Peptide 34 pg/mL (<100)
[2024-01-17 11:07] LABS: Appearance Urine Clear; Color Urine Yellow; Glucose Urine UA Negative (Negative); Leukocyte Esterase Urine Negative (Negative); Nitrite Urine Negative (Negative); UMIC TRIGGER UACC YES; Urine Blood Negative (Negative); Urine Ketones Negative (Negative); Urine Protein 30 (1+) mg/dL (Neg-Trace)
[2024-01-17 11:07] LABS: Influenza A PCR NEGATIVE (Negative); Influenza B PCR NEGATIVE (Negative); Resp Syncy Virus RNA Qual PCR NEGATIVE (Negative); SARS COV2 PCR INHOUSE NEGATIVE (Negative)
[2024-01-17 12:20] VITALS: BP 139/67; PULSE 66; RESP 13; TEMP 36.9; O2SAT 100
[2024-01-17 12:24] LABS: Bacteria Urine None Seen (None Seen); Hyaline Casts Urine 0-2 /LPF (0-2); RBC Urine 0-2 /HPF (0-2); Squamous Epithelial Cell Urine 0-2 /HPF (0-2); WBC Urine 0-5 /HPF (0-5)
[2024-01-17 14:20] LABS: Glucose, Whole Blood 105 mg/dL (60-115)
[2024-01-17 14:26] VITALS: BP 162/84; PULSE 70; RESP 19; TEMP 37.1; O2SAT 99
[2024-01-17 15:01] VITALS: BP 162/84; PULSE 70; RESP 19; TEMP 37.1; O2SAT 99
== END 2024-01-17 15:03 | disposition home or self-care (01) ==
PROVIDERS: Emergency Provider Emergency Medicine; PCP Family Medicine
DX: F03.90 Unspecified dementia, unspecified severity, without behavioral disturbance, psychotic disturbance, mood disturbance, and anxiety (principal); R53.1 Weakness; I45.10 Unspecified right bundle-branch block; R06.02 Shortness of breath; R51.9 Headache, unspecified; I10 Essential (primary) hypertension; Z03.818 Encounter for observation for suspected exposure to other biological agents ruled out; Z79.899 Other long term (current) drug therapy; Z79.01 Long term (current) use of anticoagulants
CPT/HCPCS: 0241U; 36415; 70450; 71045; 80048; 80076; 81001; 81003; 82947; 83690; 83880; 84484; 85025; 93005; 99284; 99285

== ENCOUNTER → 2024-01-17 09:10 | Outpatient (BNV) | payer OTHER, SELFPAY | PROVIDERS: Emergency Provider Emergency Medicine; PCP Family Medicine; Visit Provider Internal Medicine | DX: I45.2 Bifascicular block (principal) | CPT/HCPCS: 93010 ==

== ENCOUNTER 2024-07-03 12:45 | Emergency (ER) | payer OTHER, SELFPAY ==
[2024-07-03] VITALS (8 sets, daily range): BP systolic 116–160; BP diastolic 64–90; PULSE 85–130; RESP 18–20; TEMP 36.9–37; O2SAT 95–100; BMI 20.1
[2024-07-03 13:26] LABS: MANUAL DIFF FLAG NO
[2024-07-03 13:28] LABS: Basophils Absolute Auto 0.1 X10*3/uL (0.0-0.2); Basophils Percent Auto 0.8 % (0-2); Eosinophils Absolute Auto 0.2 X10*3/uL (0.0-0.4); Eosinophils Percent Auto 2.5 % (0-4); Hematocrit 35.5 % (42.0-52.0); Hemoglobin 12.1 g/dl (14.0-18.0); Imm Gran Abs Auto 0.04 X10*3/uL (0.00-0.03); Imm Gran Pct Auto 0.4 % (0.0-0.4); Lymphocytes Absolute Auto 2.1 X10*3/uL (1.2-4.9); Lymphocytes Percent Auto 21.7 % (20-40); Mean Corpuscular HGB Conc 34.1 g/dl (31.0-36.0); Mean Corpuscular Hemoglobin 29.5 pg (27.0-33.0); Mean Corpuscular Volume 86.6 fL (80.0-98.0); Mean Platelet Volume 11.2 fL (9.4-12.4); Monocytes Absolute Auto 0.6 X10*3/uL (0.1-1.2); Monocytes Percent Auto 6.3 % (2-11); Neutrophils Absolute Auto 6.5 x10*3/uL (2.0-8.3); Neutrophils Percent Auto 68.3 % (45-73); Platelet Count 272 X10*3/uL (160-400); Red Cell Distribution Width 13.7 % (11.0-16.0); White Blood Count 9.5 X10*3/uL (4.8-10.8)
[2024-07-03 13:51] LABS: Alanine Aminotransferase 8 U/L (0-40); Albumin Level 3.5 g/dL (3.5-5.0); Alkaline Phosphatase 86 U/L (39-117); Anion Gap 14 (12-20); Aspartate Amino Transferase 19 U/L (5-37); Bilirubin Direct 0.2 mg/dL (0.0-0.5); Bilirubin Total 0.3 mg/dL (0.0-1.0); Blood Urea Nitrogen 22 mg/dL (9-16); Carbon Dioxide 27 mmol/L (22-29); Chloride 100 mmol/L (96-108); Creatinine Clr Calc Pharmacy 31.2; Estimated Glomerular Filt Rate 47; Ethanol < 10 mg/dL; Glucose Random 260 mg/dL (60-115); Potassium 3.5 mmol/L (3.3-5.1); Sodium 137 mmol/L (135-145); Total Protein 7.3 g/dL (6.5-8.0)
--- NOTE | 2024-07-03 13:53 | ED.GENADULT ---
HPI - General Adult General Chief complaint: General Medical Stated complaint: FAM STS VISUAL HALLUCINATIONS,INCR CONFUSION Time Seen by Provider: 07/03/24 12:57 Source: family and EMS Mode of arrival: EMS Limitations: other ( dementia) History of Present Illness ED Provider: Dr. Tammy Luna HPI narrative: patient comes to the emergency room via ambulance from home. Patient comes accompanied by his daughter. Seems that patient's behavior has gradually been getting worse, patient being worked up for dementia. According to the patient's daughter the patient sometimes seems confused, and sometimes he becomes aggressive. Patient states that he has no complaints at all. Patient states that he is not aggressive that he has a good kaylee , he does not like to be told that he has dementia. oral, patient has no complaints. According to the patient's daughter, seems that occasionally patient has visual hallucinations. Patient denies this. Related Data Home Medications ?Medication ?Instructions ?Recorded ?Confirmed apixaban 5 mg tablet 5 mg PO BID 08/21/20 11/29/21 blood sugar diagnostic #10 08/21/20 finasteride 5 mg tablet 5 mg PO QAM 08/21/20 11/29/21 hydrochlorothiazide 25 mg tablet 25 mg PO QAM 08/21/20 11/29/21 insulin aspart U-100 100 unit/mL 5 unit subcut DAILY@0730 08/21/20 11/29/21 (3 mL) subcutaneous pen lancets 33 gauge #100 08/21/20 magnesium 250 mg tablet 250 mg PO DAILY 08/21/20 11/29/21 naloxone 4 mg/actuation nasal spray 1 spray intranasal ONCE PRN Opiate 08/21/20 11/29/21 Reversal omeprazole 20 mg capsule,delayed 20 mg PO QAM 08/21/20 11/29/21 release pen needle, diabetic 32 gauge x #50 08/21/20 pravastatin 20 mg tablet 20 mg PO BEDTIME 08/21/20 11/29/21 brimonidine 0.2 % eye drops 1 drp ophthalmic-Left BID 11/29/21 11/29/21 insulin aspart U-100 100 unit/mL 10 unit subcut DAILY@1630 11/29/21 11/29/21 (3 mL) subcutaneous pen (Novolog FlexPen U-100 Insulin aspart) insulin glargine 100 unit/mL (3 30 unit subcut BEDTIME 11/29/21 11/29/21 mL) subcutaneous pen (Lantus Solostar U-100 Insulin) oxycodone 10 mg tablet 1 tab PO BID PRN Pain, Moderate 11/29/21 11/29/21 timolol maleate 0.5 % eye gel 1 drp ophthalmic-Left QAM 11/29/21 11/29/21 forming solution Allergies Allergy/AdvReac Type Severity Reaction Status Date / Time No Known Allergies Allergy Verified 07/03/24 13:09 [No Known Allergies*] Review of Systems Review of Systems: Constitutional : No Weight loss, No Fever, No Chills, No Night Sweats, No Fatigue, No Malaise ENT/Mouth : No Hearing loss, No Ear Pain, No Nasal Congestion, No Sinus Pain, No Hoarseness, No sore throat, No Rhinorrhea, No Swallowing Difficulty Eyes: No Eye Pain, No Swelling, No Redness, No Foreign Body, No Discharge, No Vision Changes Cardiovascular : No Chest Pain, No SOB, No Dyspnea on Exertion, No Orthopnea, No Edema, No Palpitations Respiratory : No Cough, No Sputum, No Wheezing, No Smoke Exposure, No Dyspnea Gastrointestinal : No Nausea, No Vomiting, No Diarrhea, No Constipation, No abdominal Pain, No Hematochezia, No Melena Genitourinary : no irregular bleeding, No Dysuria, No Urinary Frequency, No Hematuria, No Urinary Incontinence, No Urgency, No Flank Pain, No Urinary Flow Changes, No Hesitancy Musculoskeletal : No joint pain, No Myalgias, No Joint Swelling Skin : No Skin Lesions, No rash Neuro : No Weakness, No Numbness, No Paresthesias, No Loss of Consciousness, No Dizziness, No Headache Psych : No Anxiety/Panic, No Depression , per family, patient has been more aggressive and has had intermittent visual hallucinations, patient denies all of the above. Heme/Lymph: No Bruising, No Bleeding,No Lymphadenopathy Endocrine : No Polyuria, No Polydipsia, No Temperature Intolerance [facility] Past Medical History Medical History History of adenomatous polyp of colon Renal failure BPH (benign prostatic hyperplasia) Asthma COPD (chronic obstructive pulmonary disease) Vertigo Diabetes Hyperlipidemia HTN (hypertension) No known health problems Family History Family History Paternal Grandmother Colon cancer Brother Cancer of unknown origin Father Cancer of unknown origin Social History Social History Alcohol intake: never Smoked in Last 30 Days: No Use of substances other than those prescribed or required for medical reasons: No Advance Directives: No Advance Directives Information Provided: Yes Do you have a plan to hurt others: No Plan Physical Exam ED Vital Signs: Vital Signs - 24 hr 07/03/24 13:07 07/03/24 13:11 07/03/24 14:00 Temperature 98.5 F 98.6 F Pulse Rate 86 94 100 Respiratory Rate 20 20 18 Blood Pressure 120/64 139/72 155/79 H Pulse Oximetry 95 97 98 Oxygen Delivery Method Room Air Room Air Room Air 07/03/24 15:34 07/03/24 16:00 Temperature Pulse Rate 90 90 Respiratory Rate 20 20 Blood Pressure 116/74 116/74 Pulse Oximetry 100 100 Oxygen Delivery Method Room Air Room Air BMI result Body Mass Index 20.1 Const Other: Appearance: Alert. Oriented X2. No acute distress. Eyes: Pupils equal, round and reactive to light. ENT: Pharynx normal. Neck: Normal inspection. Neck supple. No lymph nodes noted. No crepitus CVS: Normal heart rate and rhythm. Pulses normal. Normal S1 and S2 Respiratory: No respiratory distress. Breath sounds normal. No Wheezing. No rales Abdomen: Soft and nontender. No rigidity. No distention. Skin: Skin warm and dry. Normal skin color. Normal skin turgor. Extremities: No lower extremity edema. No Lacerations. No Rash Neuro: Oriented X 2. No motor deficit. No sensory deficit. Moving all extremities. No slurred speech. CN 2 through 12 grossly intact Psych: calm, cooperative, normal affect Medical Decision Making Medical Decision Making MDM Narrative: my interpretation of labs: Patient's hematology does not show any acute abnormality, patient's chemistry shows a slightly bumped creatinine at 1.44. Patient does not want any IVs placed on him and is saying that he will drink fluids at home. Urinalysis shows trace amount of leukocyte esterase which is chronic for the patient, no UTI. Toxicology urine toxicology negative, negative for alcohol. Overall, patient does seem to have worsening symptoms of dementia. However, patient states that he does not want to stay. Patient's daughter initially requested a geriatric psych consult for possible admission. However, patient's daughter states that at this time the patient is more calm, they were able to have a good conversation, and she agrees to take him home. They will follow-up with patient's primary care physician. Lab Data MDM Lab Attestation statement: I reviewed the patient's lab results. 07/03/24 13:18 07/03/24 13:18 Labs: Lab Results 07/03/24 07/03/24 Range/Units 13:18 15:34 WBC 9.5 (4.8-10.8) X10*3/uL RBC 4.10 L (4.60-5.80) X10*6/uL Hgb 12.1 L (14.0-18.0) g/dl Hct 35.5 L (42.0-52.0) % MCV 86.6 (80.0-98.0) fL MCH 29.5 (27.0-33.0) pg MCHC 34.1 (31.0-36.0) g/dl RDW 13.7 (11.0-16.0) % Plt Count 272 (160-400) X10*3/uL MPV 11.2 (9.4-12.4) fL Immature Gran % (Auto) 0.4 (0.0-0.4) % Neut % (Auto) 68.3 (45-73) % Lymph % (Auto) 21.7 (20-40) % [place] % (Auto) 6.3 (2-11) % Eos % (Auto) 2.5 (0-4) % Baso % (Auto) 0.8 (0-2) % Lymph # (Auto) 2.1 (1.2-4.9) X10*3/uL [place] # (Auto) 0.6 (0.1-1.2) X10*3/uL Eos # (Auto) 0.2 (0.0-0.4) X10*3/uL Baso # (Auto) 0.1 (0.0-0.2) X10*3/uL Abs Immat Gran (auto) 0.04 H (0.00-0.03) X10*3/uL Absolute Neuts (auto) 6.5 (2.0-8.3) x10*3/uL Absolute Nucleated RBC 0.000 (0.0-0.012) X10*3/uL Nucleated RBC % (auto) 0.0 (0.0-0.2) /100WBC Sodium 137 (135-145) mmol/L Potassium 3.5 (3.3-5.1) mmol/L Chloride 100 (96-108) mmol/L Carbon Dioxide 27 (22-29) mmol/L Anion Gap 14 (12-20) BUN 22 H (9-16) mg/dL Creatinine 1.44 H (0.5-1.4) mg/dL Estim Creat Clear Calc 31.2 Estimated GFR 47 Random Glucose 260 H (60-115) mg/dL Calcium 9.0 (8.4-10.2) mg/dL Total Bilirubin 0.3 (0.0-1.0) mg/dL Direct Bilirubin 0.2 (0.0-0.5) mg/dL AST 19 (5-37) U/L ALT 8 (0-40) U/L Alkaline Phosphatase 86 (39-117) U/L Total Protein 7.3 (6.5-8.0) g/dL Albumin 3.5 (3.5-5.0) g/dL Urine Color Yellow Urine Appearance Clear Urine pH 7.0 (5.0-9.0) Ur Specific [place] 1.020 (1.005-1.025) Urine Protein 30 (1+) H (Neg-Trace) mg/dL Urine Glucose (UA) 250 H (Negative) mg/dL Urine Ketones Negative (Negative) mg/dL Urine Blood Negative (Negative) Urine Nitrite Negative (Negative) Ur Leukocyte Esterase Trace H (Negative) Urine RBC 0-2 (0-2) /HPF Urine WBC 0-5 (0-5) /HPF Ur Squamous Epith Cells 3-5 (0-2) /HPF Urine Bacteria None Seen (None Seen) Hyaline Casts 0-2 (0-2) /LPF Urine Opiates Screen Not Detected (Not Detect) Ur Buprenorphine Scrn Not Detected (Not Detect) ng/mL Ur Oxycodone Screen Not Detected (Not Detect) ng/mL Urine Methadone Screen Not Detected (Not Detect) ng/mL Urine Fentanyl Screen Not Detected (Not Detect) Ur Barbiturates Screen Not Detected (Not Detect) Ur Phencyclidine Scrn Not Detected (Not Detect) Ur Amphetamines Screen Not Detected (Not Detect) U Benzodiazepines Scrn Not Detected (Not Detect) Urine Cocaine Screen Not Detected (Not Detect) U Marijuana (THC) Screen Not Detected (Not Detect) Ethyl Alcohol < 10 mg/dL Discharge Plan Discharge Clinical Impression: Agitation Patient Disposition: Home, Self-Care Instructions: Anxiety (ED) Additional Instructions: Please follow-up with your primary care physician tomorrow. If you have any worsening or new symptoms, please return to the emergency room or call 911 Prescriptions: No Action insulin glargine [Lantus Solostar U-100 Insulin] 100 unit/mL (3 mL) insulin pen 30 unit subcut BEDTIME brimonidine 0.2 % drops 1 drp ophthalmic-Left BID timolol maleate 0.5 % gel forming solution 1 drp ophthalmic-Left QAM insulin aspart U-100 [Novolog FlexPen U-100 Insulin] 100 unit/mL (3 mL) insulin pen 10 unit subcut DAILY@1630 oxycodone 10 mg tablet 1 tab PO BID PRN (Reason: Pain, Moderate) hydrochlorothiazide 25 mg tablet 25 mg PO QAM (DME) FreeStyle Lite Strips Strip See Rx Instructions Not Applicable .MEDSUPPLY Qty: 10 Rx Instructions: As directed pravastatin 20 mg tablet 20 mg PO BEDTIME omeprazole 20 mg capsule,delayed release(DR/EC) 20 mg PO QAM (DME) pen needle, diabetic 32 gauge x 5/32 needle See Rx Instructions .ROUTE .MEDSUPPLY Qty: 50 Rx Instructions: As directed finasteride 5 mg tablet 5 mg PO QAM Narcan 4 mg/actuation spray,non-aerosol 1 spray intranasal ONCE PRN (Reason: Opiate Reversal) Eliquis 5 mg tablet 5 mg PO BID insulin aspart U-100 100 unit/mL (3 mL) insulin pen 5 unit subcut DAILY@0730 (DME) lancets 33 gauge misc See Rx Instructions Not Applicable .MEDSUPPLY Qty: 100 Rx Instructions: As directed magnesium 250 mg tablet 250 mg PO DAILY Print Language: Georgian
--- NOTE | 2024-07-03 14:15 | PC.NURSE ---
Informed pt and daughter whom is at bedside, that MD ordered a ua sample and to provide when can. Will continue to f/u.
--- OUTSIDE RECORDS SUMMARY | 2024-07-03 15:11 | XMS_ITS | Encounter Summary ---
Author Organization [employer] Address [address] [place] [address] Care Team Providers Care Yarn Salvager Name Role Phone Codie Bell MD Primary Care Provider [phone] Reason for Visit * Reason Onset Date Comments Appointment Request 05/06/2023 Encounter Details Date Type Department Care Team ([facility] st Contact Info) Description 05/06/2023 Telephone [facility] [address], [place] [phone] Codie Bell MD [address] [place], [place] [phone] Appointment Request Social History Tobacco Use Types Packs/Day Years Used Date Smoking Tobacco: Former Cigarettes Depression Answer Date Recorded Patient Health Questionnaire-9 Score 0 05/11/2022 Housing Stability Answer Date Recorded What is your housing situation today? I have rosibel choudhary 02/04/[address] you li ve. Do you have problems with any of the following? None of the above 02/04/2023 Food Insecurity Answer Date Recorded Within the past 12 months, y ou worried that your food would run out before you got money to buy more: Never True 02/04/2023 Within the past 12 months,th e food you bought just didn't last and you didn't have enough money to get more: Never True 05/2022 Transportation Answer Date Recorded In the past 12 months, has l ack of transportation kept you from medical appts, meetings, work or from getting things needed for daily living? No 02/04/2023 Utilities Answer Date Recorded In the past 12 months, has t he electric, gas, oil or water company threatened to shut off services in your home? 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 documented in this encounter Plan of Treatment Upcoming Encounters Date Type Department Care Team (Late st Contact Info) Description 08/07/2024 9:15 AM EDT Office Visit [facility] [address] [place] [address] Codie Bell MD [address] [place] [address] documented as of this encounter Visit Diagnoses Not on filedocumented in this encounter Additional Health Concerns Assessment Noted Time PHQ-9 Depression Total Score: 0 05/11/19 23 10:41 AM EST documented as of this encounter Care Teams Yarn Salvager Relationship Specialty Start Date End Date Codie Bell MD [address] [place] [address] PCP - General Family Medicine 01/25/13 SULEMAN Soto [facility] Urology Urology 04/06/24 documented as of this encounter
--- OUTSIDE RECORDS SUMMARY | 2024-07-03 15:11 | XMS_ITS | Data Portability ---
Author Organization [employer] [employer] [facility] Address [address] [place] [id number] Care Team Providers Care Hotel Houseman Name Role Phone RADHA, KRYSTA Primary Care Provider HIM ORLY OTHER Assessment Encounter Date Assessment Date Assessment LastModified by Organization Details LastModified Time 10/19/2021 10/19/2021 As noted, called for this patient with hx vertigo presenting with dizziness. Began today, feeling tired, with vertigo and mild BOUDREAUX which resolved with tylenol x 1. Has hx of episodic vertigo, which responds to meclizine. One month ago went to ED and had CT/MRI brain, which were normal per family member. These sx are typical of his usual presentation and not different. Feeling OK now. Some stumbling earlier but not too bad. No falls since 2 years ago. On eliquis so fall could be more serious Impression : Recurrence of his typical vertigo, recent workup all but exonerates more serious entities, but most reassuring is the presentation being similar to priors and very clearly so. Other ddx, including CVA, arrhythmia, migraine, would present differently. Rx sent after confirming pharmacy family member thanked us for our care [email or web address] Not available 10/19/2021 14:49:44 10/28/2023 10/28/2023 I provided real -time medical direction via phone for this encounter and was available for additional phone-based assistance as needed. I have reviewed and agree with the Assessment and Plan as documented by the Drapery Hand. Patient given the opportunity to ask questions. Our service contacted for an assessment of: a fall As per above, patient fell yesterday. No LOC. Unclear if there was a HS. On AC. Denies injury. Per e d tech on the scene, VSS. No obvious trauma. MS at baseline Impression: Fall without evidence of HS. Denies LOC. Plan: Observation. Discussed red flags. Should not be alone over the next 24-48 hours. Allergies: Reviewed and updated PCP f/u: We discussed the diagnostic uncertainty of home visits and the risk associated with this. In this case, the patient and I felt this to be an acceptable and reasonable amount of risk given the benefit of avoiding an ED visit. We discussed the need to seek care urgently/emerge ntly in the setting of any new or worsening serious symptoms [email or web address] Not available 10/28/2023 16:43:27 Plan of Treatment Reminders Order Date Submit Date Provider Last Modified By Organization Details Last Modified Time Details Appointments None recorded. Lab None recorded. Referral None recorded. Procedures None recorded. Surgeries None recorded. Imaging None recorded. Medication Orders meclizine 25 mg tablet 2021 022 [facility]/Pharmacy #[id number], [address] [facility], [place], [address], 14:45:53 Patient TargetsNo targets recorded. Patient InstructionsNo instructions recorded. Reason for Referral None Reported. Medical Equipment None Reported. Medications Name Sig Start Date Stop Date Status Note LastModified by Organization Details LastModified Time latanoprost 0.005 % eye drops INSTILL 1 DROP INTO LEFT EYE EVERY EVENING active Not Available Not Available No t Available carvedilol 3.125 mg tablet TAKE 1 TABLET BY MOUTH TWICE DAILY AT NOON AND IN THE EVENING active Not Available Not Available Not Available oxycodone 15 mg tablet TAKE 1 TABLET BY MOUTH EVERY TWELVE HOURS NEEDED. DO NOT DRIVE WHILE TAKING. active Not Available Not Available No t Available prednisolone acetate 1 % eye drops,suspen brian INSTILL 1 DROP INTO AFFECTED EYE THREE TIMES A DAY BEGINNING THE DAY AFTER SURGERY active Not Available Not Available No t Available meclizine 25 mg tablet TAKE 1 TABLET BY MOUTH THREE TIMES A DAY NEEDED FOR 7 DAYS active Not Available Not Available N ot Available brimonidine 0.2 % eye drops INSTILL 1 DROP INTO LEFT EYE TWICE A DAY active Not Available Not Available Not Available omeprazole 20 mg capsule,boone yed release TAKE 1 CAPSULE BY MOUTH EVERY DAY BEFORE A MEAL active Not Available Not Available No t Available pravastatin 20 mg tablet TAKE 1 TABLET BY MOUTH EVERY DAY active Not Available Not Available No t Available hydrochlorot hiazide 25 mg tablet TAKE 1 TABLET BY MOUTH EVERY DAY active Not Available Not Available No t Available albuterol sulfate HFA 90 mcg/actuatio n aerosol inhaler INHALE 2 PUFF BY INHALATION ROUTE EVERY 4 HOURS NEEDED FOR SHORTNESS OF BREATH active Not Available Not Available No t Available timolol maleate 0.5 % eye gel forming solution APPLY 1 DROP INTO LEFT EYE EVERY MORNING active Not Available Not Available No t Available atropine 1 % eye drops INSTILL 1 DROP INTO AFFECTED EYE TWICE A DAY BEGINNING THE DAY AFTER SURGERY active Not Available Not Available No t Available finasteride 5 mg tablet TAKE 1 TABLET BY MOUTH EVERY DAY IN THE MORNING active Not Available Not Available No t Available magnesium 250 mg (as magnesium oxide) tablet TAKE 1 TABLET BY MOUTH EVERYDAY AT BEDTIME active Not Available Not Available No t Available oxycodone 5 mg tablet TAKE 1 TABLET BY MOUTH EVERY TWELVE HOURS NEEDED FOR PAIN active Not Available Not Available No t Available Arthritis Pain Relief (capsaicin) 0.075 % topical cream APPLY TO THE AFFECTED AREA(S) TOPICALLY THREE TIMES DAILY NEEDED active Not Available Not Available No t Available Novolog FlexPen U-100 Insulin aspart 100 unit/mL (3 mL) subcutaneous INJECT 5 UNITS SUBCUTANEOU SLY BEFORE BREAKFAST AND 10 UNITS BEFORE SUPPER active Not Available Not Available No t Available moxifloxacin 0.5 % eye drops INSTILL 1 DROP INTO AFFECTED EYE THREE TIMES A DAY BEGINNING THE DAY AFTER SURGERY active Not Available Not Available No t Available Flovent HFA 220 mcg/actuatio n aerosol inhaler INHALE 2 PUFFS BY MOUTH TWICE DAILY. RINSE MOUTH AFTER USING. active Not Available Not Available No t Available FreeStyle Lite Strips TEST BLOOD SUGAR SIX TIMES DAILY active Not Available Not Available Not Available Lantus Solostar U-100 Insulin 100 unit/mL (3 mL) subcutaneous pen INJECT 30 UNITS SUBCUTANEOU SLY AT BEDTIME active Not Available Not Available No t Available oxycodone 10 mg tablet TAKE 1 TABLET BY MOUTH TWICE A DAY NEEDED active Not Available Not Available No t Available UltiCare Pen Needle 32 gauge x 5/32 USE FIVE TIMES DAILY active Not Available Not Available Not Available TRUEplus Lancets 33 gauge USE TO TEST 6 TIMES A DAY active Not Available Not Available No t Available Eliquis 5 mg tablet TAKE 1 TABLET BY MOUTH TWICE DAILY active Not Available Not Available No t Available naloxone 4 mg/actuation nasal spray PLEASE SEE ATTACHED FOR DETAILED DIRECTIONS active Not Available Not Available N ot Available Vitals Date Recorded Body temperature Respiratory rate Heart rate Oxygen saturation Oxygen saturation in Arterial blood by Pulse oximetry Systolic blood pressure Diastolic blood pressure Provider Name and Address Organization Details Last Updated DateTime 2 98.6 [degF] 18 /min 60 /min 99 % 99 % 132 mm[Hg] 70 mm[Hg] Not Available [facility] 2 14:52:23 Date Recorded Body temperature Oxygen saturation Oxygen saturation in Arterial blood by Pulse oximetry Respiratory rate Heart rate Systolic blood pressure Diastolic blood pressure Provider Name and Address Organization Details Last Updated DateTime 4 98.5 [degF] 99 % 99 % 16 /min 74 /min 150 mm[Hg] 80 mm[Hg] Not Available [facility] 4 16:33:26 Social History None recorded. Functional Status None recorded. Mental Status None recorded. Family History Nothing Reported. Medical History No medical history recorded. Past Encounters Encounter ID Performer Location Encounter Start Date Encounter Closed Date Diagnosis/Indication Diagnosis SNOMED-CT Code Diagnosis ICD10 Code Diagnosis Note [id number] Kamran Morrissey MD [facility] [address] [place] [phone] 10/19/2021 14:41:54 12/17/2021 13:51:38 Vertigo [id number] [id number] Missy Denise MD [facility] [address] [place] [phone] 10/28/2023 16:33:24 10/28/2023 16:43:43 Fall W19.XXXA Health Concerns Section Related Observation LastModified by Organization Detai ls LastModified Time None Recorded Concern Status LastModified by Organization Details LastModified Time None Recorded Advance Directives Directive None Recorded Payers Encounter Date Sequence Insurance Name Policy Number Policy Swain Covered Member ID Sawin Member ID Guarantor Name 10/19/2021 1 [facility] - DOS PRIOR TO 2022 - DUAL ELIGIBLE (MEDICARE REPLACEMENT/ADV ANTAGE - HMO) Brandon Rdz [id number] Brandon Rdz 10/28/2023 1 [facility] - DOS ON OR AFTER 2022 - DUAL ELIGIBLE - FPC OPTIONS AND ONE CARE (MEDICARE REPLACEMENT/ADV ANTAGE - HMO) Brandon Rdz [id number] Brandon Rdz Notes Date Note Type Note Provider Name and Address Organization Details Recorded Time 10/19/2021 text/html [facility] Nursing Assessment: Chief Complaints: Headache, Weakness/Lethargy, Nausea/Vomiting PMH: Hypertension, Diabetes, Other Allergies: Unknown Comments: Daughter called for father who had c/o BOUDREAUX/ Nausea / and weakness this am not feeling like self today . per daughter BP was stable and Blood sugar. Daughter gave tylenol for BOUDREAUX , denied fever/ chills ................... ................... ................... ................... ................... ................... ................... ........ Drapery Hand Note: Home visit for 81 yo male with CC of dizziness. Daughter states this is how he gets when he has attacks of vertigo which he has a history of. Pt rapid tested for flu and Covid both are negative. 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 ................... ................... ................... ................... ................... ................... ................... ........ Disposition: Fulfilled Kamran Morrissey MD [address] [facility],[address], [place], [address], FRANCISCO MAYNARD 10/19/2021 20:47:25 10/28/2023 text/html [facility] Nurse Triage Notes (Sue Riggins): Reason For Request: fell yesterday Chief Complaints: Falls PMH: Hypertension, Diabetes, Severe Dementia Allergies: No Known Comments: Turntable Man verified the member's name//address and phone number. Member is a 83 yr old female PMH > dementia > DVT > HTN DM Allergies NKDA per daughter Member had a fall and is on eliquis . Daughter is not sure if he hit his head. Member is denying any pain , no changes , no confusion , has a h/o dementia. Member is refusing ER at this time, wanted to have an assessment first. Daughter is aware to call 911 if he has severe BOUDREAUX, vision changes, confusion Education provided on the response time and the member was advised to monitor reported s/s and seek emergency treatment if needed ................... ................... ................... ................... ................... ................... ................... ........ Drapery Hand Note From Clint Lozano: Dispatched to the call address for the male who fell. Pts daughter states he fell at approx 0300 this morning when he was getting out of bed to use the bathroom and refuses to go to the ED, her concern is he takes a blood thinner. Pt states he only lightly bumped the left side of his head on the floor. He denies LOC, vision changes, dizziness, n/v/d, CP or sob. Pt takes Eliquis for blood clots. Pt states he is fine and if something changes he will go to the ED. Family understands that Pt cannot be forced to go to the ED and is aware of red flags to watch for and will call 911 if any symptoms arise. Pt was found standing in living room, CAOX4, airway open and patent, breathing non labored, able to speak in full sentences, Pt able to appropriately answer each question without pause. -JVD, -HEENT, skin PWD with good turgor, pupils PERRL, lung sounds CTA, abd soft non tender/distended, upper and lower extremities without deformities/bruisin g/edema, Chest with equal rise and fall without obvious deformities or crepitus, hips stable and intact, Pt witnessed ambulating with aid of walker (baseline). Pt advised that there may not be any symptoms but could still have a brain bleed and that a doctor with the correct diagnostic tools would be the only way to know for sure that nothing is wrong or injured. Pt stated he understood and would call 911 if anything changed. [facility] [place]. Red flags discussed with Pt and family. ALL times are approx. ................... ................... ................... ................... ................... ................... ................... ........ Disposition: Fulfilled Missy Denise MD [address] [facility],[address], [place], [address], [employer] 10/28/2023 16:43:40
--- OUTSIDE RECORDS SUMMARY | 2024-07-03 15:11 | XMS_ITS | Encounter Summary ---
Author Organization [facility] Address [address] [place] [address] [address] [place] [address] Care Team Providers Care Cable Television Installer Name Role Phone Codie Bell MD Primary Care Provider +1- [phone] Reason for Visit * Reason Comments Med Refill Encounter Details Date Type Department Care Team (Late st Contact Info) Description 07/03/2022 Refill [facility] MEDICINE [address] [place], [place] [phone] Codie Bell MD [address] [place] [address] [phone] Social History Tobacco Use Types Packs/Day Years Used Date Smoking Tobacco: Never Assessed Depression Answer Date Recorded Patient Health Questionnaire-9 Score 0 05/11/2022 Depression Answer Date Recorded Patient Health Questionnaire-2 Score 0 05/11/2022 Sex and Gender Information Value Date Recorded Sex Assigned at Male 02/02/2022 10:15 AM EDT Legal Sex Male 10:15 AM EDT Gender Identity Male 02/02/2022 10:15 AM EDT Sexual Orientation Straight 02/02/2022 10 :15 AM EDT documented as of this encounter Plan of Treatment Upcoming Encounters Date Type Department Care Team (Late st Contact Info) Description 08/07/2024 9:15 AM EDT Office Visit [facility] [address] [place] [address] [phone] Codie Bell MD [address] [place] [address] [phone] documented as of this encounter Visit Diagnoses Not on filedocumented in this encounter Additional Health Concerns Assessment Noted Time PHQ-9 Depression Total Score: 0 05/11/19 23 10:41 AM EST documented as of this encounter Care Teams Cable Television Installer Relationship Specialty Start Date End Date Codie Bell MD [address] [place] [address] PCP - General Family Medicine 01/25/13 SULEMAN [facility] Urology Urology 04/06/24 documented as of this encounter
--- OUTSIDE RECORDS SUMMARY | 2024-07-03 15:11 | XMS_ITS | Encounter Summary ---
Author Organization [facility] Address [address] [place] [address] [address] [address] Care Team Providers Care Board Worker Name Role Phone Codie Bell MD Primary Care Provider +1- [phone] Reason for Visit * Reason Comments Med Refill Encounter Details Date Type Department Care Team (Late st Contact Info) Description 07/20/2022 Refill [facility] MEDICINE [address] [place], [place] [phone] Codie Bell MD [address] [place] [address] [phone] Social History Tobacco Use Types Packs/Day Years [...] Description 08/07/2024 9:15 AM EDT Office Visit [facility] MED[facility]INE [address] [place] [address] [phone] Codie Bell MD [address] [place] [phone] documented as of this encounter Visit Diagnoses Not on filedocumented in this encounter Additional Health Concerns Assessment Noted Time PHQ-9 Depression Total Score: 0 05/11/19 23 10:41 AM EST documented as of this encounter Care Teams Board Worker Relationship Specialty Start Date End Date Codie Bell MD [address] [place] [address] PCP - General Family Medicine 01/25/13 SULEMAN Soto [facility] Urology Urology 04/06/24 documented as of this encounter
--- OUTSIDE RECORDS SUMMARY | 2024-07-03 15:12 | XMS_ITS | Encounter Summary ---
Author Organization [employer] Address [address] [facility] 7t [place] [address] Care Team Providers Care Audiology Doctor Name Role Phone Codie Bell MD Primary Care Provider +1- [phone] Reason for Visit * Reason Onset Date Comments Change PCP 09/14/2023 Telephone Call 09/14/2023 Encounter Details Date Type Department Care Team ([facility] st Contact Info) Description 09/14/2023 Telephone [facility] MEDICINE [address] [place], [place] [phone] Codie Bell MD [address] [place] [address] Change PCP; Telephone Call Social History Tobacco Use Types Packs/Day Years [...] encounter Miscellaneous Notes * Telephone Encounter - Elian Josesito - 09/14/2023 11:33 AM EDT Tc from pt daughter requesting to switch to provider to [facility] due moving to [place], facility will be closer to home. Please contact at [phone] documented in this encounter Plan of Treatment Upcoming Encounters Date Type Department Care Team (Late st Contact Info) Description 08/07/2024 9:15 AM EDT Office Visit [facility] MEDICINE [address] [place] [phone] Codie Bell MD [address] [place] [address] documented as of this encounter Visit Diagnoses Not on filedocumented in this encounter Additional Health Concerns Assessment Noted Time PHQ-9 Depression Total Score: 0 05/11/19 23 10:41 AM EST documented as of this encounter Care Teams Audiology Doctor Relationship Specialty Start Date End Date Codie Bell MD [address] [place] [address] PCP - General Family Medicine 01/25/13 SULEMAN [facility] Urology Urology 04/06/24 documented as of this encounter
--- OUTSIDE RECORDS SUMMARY | 2024-07-03 15:12 | XMS_ITS | Encounter Summary ---
Author Organization [employer] Address [address] [facility] 7t [place] [address] Care Team Providers Care Washer Carcass Name Role Phone Codie Bell MD Primary Care Provider +1- [phone] Reason for Visit * Reason Onset Date Comments Med Refill 11/05/2023 Encounter Details Date Type Department Care Team ([facility] st Contact Info) Description 11/05/2023 Telephone [facility] MEDICINE [address] [place], [place] [phone] Codie Bell MD [address] [place] [address] Med Refill Social History Tobacco Use Types Packs/Day Years Used Date Smoking Tobacco: Former Cigarettes Smokeless Tobacco: Never Alcohol Use Standard Drinks/Week Comments Not Currently 0 (1 standard drink = 0.6 oz pur e alcohol) Alcohol Answer Date Recorded Frequency of Alcohol Consumption Not on file 10/13/2023 Average Number of Drinks Not on file 024 Frequency of Binge Drinking Not on file 10/03 Score 0 10/13/2023 Depression Answer Date Recorded Patient Health Questionnaire-9 Score 0 10/13/2023 Patient Health Questionnaire-9 Score 0 10/13/2023 Last PHQ-9: Questionnaire Data Not on file 0 10/13/2023 Housing Stability Answer Date Recorded What is your housing situation today? I have rosibel choudhary 10/13/[address] you li ve. Do you have problems with any of the following? None of the above 10/13/2023 Food Insecurity Answer Date Recorded Within the past 12 months, y ou worried that your food would run out before you got money to buy more: Never True 10/13/2023 Within the past 12 months,th e food you bought just didn't last and you didn't have enough money to get more: Never True 01/2024 Transportation Answer Date Recorded In the past 12 months, has l ack of transportation kept you from medical appts, meetings, work or from getting things needed for daily living? No 10/13/2023 Utilities Answer Date Recorded In the past 12 months, has t he electric, gas, oil or water company threatened to shut off services in your home? No 10/13/2023 Depression Answer Date Recorded Patient Health Questionnaire-2 Score 0 10/13/2023 Sex and Gender Information Value Date Recorded Sex Assigned at Male 02/02/2022 10:15 AM EDT Legal Sex Male 10:15 AM EDT Gender Identity Male 02/02/2022 10:15 AM EDT Sexual Orientation Straight 02/02/2022 10 :15 AM EDT documented as of this encounter Miscellaneous Notes * Telephone Encounter - Richar Castellon - 11/05/2023 10:34 AM EDT TC from pt requesting medication refill. Medications needing refill : oxyCODONE (Roxicodone) 10 MG immediate release tablet To be sent to: [facility]/pharmacy #[id number] [place] [address] documented in this encounter Plan of Treatment Upcoming Encounters Date Type Department Care Team (Late st Contact Info) Description 08/07/2024 9:15 AM EDT Office Visit [facility] [address] [place] [address] Codie Bell MD [address] [place] [address] documented as of this encounter Visit Diagnoses Not on filedocumented in this encounter Additional Health Concerns Assessment Noted Time PHQ-9 Depression Total Score: 0 10/13/19 24 9:19 AM EDT documented as of this encounter Care Teams Washer Carcass Relationship Specialty Start Date End Date Codie Bell MD [address] [place] [phone] PCP - General Family Medicine 01/25/13 SULEMAN Soto [facility] Urology Urology 04/06/24 documented as of this encounter
--- OUTSIDE RECORDS SUMMARY | 2024-07-03 15:12 | XMS_ITS | Encounter Summary ---
Author Organization [employer] Address [address] [facility] 7t [place] [address] Care Team Providers Care Internet And E Business Project Manager Name Role Phone Codie Bell MD Primary Care Provider +1- [phone] Reason for Visit * Reason Onset Date Comments Med Refill 02/04/2023 Encounter Details Date Type Department Care Team ([facility] st Contact Info) Description 02/04/2023 Telephone [facility] MEDICINE [address] [place], [place] [phone] Codie Bell MD [address] [place], [place] [phone] Med Refill Social History Tobacco Use Types Packs/Day Years Used Date Smoking Tobacco: Former Cigarettes Depression Answer Date Recorded Patient Health Questionnaire-9 Score 0 05/11/2022 Housing Stability Answer Date Recorded What is your housing situation today? I have rosibelamelia choudhary 02/04/[address] you [...] encounter Miscellaneous Notes * Telephone Encounter - Willow Burnette - 02/04/2023 9:38 AM EDT Tc from daughter requesting medication refill on oxyCODONE (Roxicodone) 10 MG immediate release tablet to be sent to [facility]/pharmacy #[id number] [place], [place] - [address] [place] [address] documented in this encounter Plan of Treatment Upcoming Encounters Date Type Department Care Team (Late st Contact Info) Description 08/07/2024 9:15 AM EDT Office Visit [facility] MEDICINE [address] [place] [address] Codie Bell MD [address] [place] [address] documented as of this encounter Visit Diagnoses Not on filedocumented in this encounter Additional Health Concerns Assessment Noted Time PHQ-9 Depression Total Score: 0 05/11/19 23 10:41 AM EST documented as of this encounter Care Teams Internet And E Business Project Manager Relationship Specialty Start Date End Date Codie Bell MD [address] [place] [address] PCP - General Family Medicine 01/25/13 SULEMAN Soto [facility] Urology Urology 04/06/24 documented as of this encounter
--- OUTSIDE RECORDS SUMMARY | 2024-07-03 15:12 | XMS_ITS | Encounter Summary ---
Author Organization [facility] Address [address]t [place] [address] Care Team Providers Care Home School Teacher Name Role Phone Codie Bell MD Primary Care Provider +1- [phone] Reason for Visit * Reason Onset Date Comments Med Refill 02/04/2024 Encounter Details Date Type Department Care Team ([facility] st Contact Info) Description 02/04/2024 Telephone [facility] [address] [place], [place] [phone] Codie Bell MD [address] [place] [address] Med Refill Social History Tobacco Use Types [...] Recorded Patient Health Questionnaire-2 Score 0 10/13/2023 Internet Access Answer Date Recorded Internet Access Q1 No 12/06/2023 Internet Access Q2 I do not want or need it 05/2023 Sex and Gender Information Value Date Recorded Sex Assigned at Male 02/02/2022 10:15 AM EDT Legal Sex Male 10:15 AM EDT Gender Identity Male 02/02/2022 10:15 AM EDT Sexual Orientation Straight 02/02/2022 10 :15 AM EDT documented as of this encounter Miscellaneous Notes * Telephone Encounter - Gold Wong - 02/04/2024 10:30 AM EDT TC from pt requesting medication refill. Medications needing refill: oxyCODONE (Roxicodone) 10 MG immediate release tablet To be sent to: [facility]/pharmacy #[id number] [place] [address] documented in this encounter Plan of Treatment Upcoming Encounters Date Type Department Care Team (Late st Contact Info) Description 08/07/2024 9:15 AM EDT Office Visit [facility] MED[facility]INE [address] [place] [address] Codie Bell MD [address] [place] [address] documented as of this encounter Visit Diagnoses Not on filedocumented in this encounter Additional Health Concerns Assessment Noted Time PHQ-9 Depression Total Score: 0 10/13/19 24 9:19 AM EDT documented as of this encounter Care Teams Home School Teacher Relationship Specialty Start Date End Date [place], Codie, MD [address] [place] [address] PCP - General Family Medicine 01/25/13 SULEMAN Soto [facility] Urology Urology 04/06/24 documented as of this encounter
--- OUTSIDE RECORDS SUMMARY | 2024-07-03 15:12 | XMS_ITS | Encounter Summary ---
Author Organization [facility] Address [address] [place] [address] 7t [place] [address] Care Team Providers Care Drainman Name Role Phone Codie Bell MD Primary Care Provider +1- [phone] Encounter Details Date Type Department Care Team (Late st Contact Info) Description 12/10/2022 Orders Only [facility] [address] [place] [address] [phone] Codie Bell MD [address] [place], [place] [phone] Dementia with other behavioral disturbance, unspecified dementia severity, unspecified dementia type (CMS/HCC) (Primary Dx); Type 2 diabetes mellitus with hyperglycemia, without long-term current use of insulin (CMS/[facility]); Preventative health care; Impaired cognition Social History Tobacco Use Types Packs/Day Years [...] Description 08/07/2024 9:15 AM EDT Office Visit [facility] [address] [place] [phone] Codie Bell MD [address] [place] [address] documented as of this encounter Procedures Procedure Name Priority Date/Time Associated Diagnosis Comments DIABETES EYE EXAM Routine 12/04/2022 documented in this encounter Results * Diabetes Eye Exam (12/04/2022) Eye Exam Normal Normal Comment:[facility] Historical Provider MD HEALTH MAINTENANCE Final Result documented in this encounter Visit Diagnoses Diagnosis Dementia with other behavioral disturbance, unspecified dementia severity, unspecified dementia type ([facility])- Primary Type 2 diabetes mellitus with hyperglycemia, without long-term current use of insulin ([facility]) Preventative health care Routine general medical examination at a health care facility Impaired cognition Unspecified persistent mental disorders due to conditions classified elsewhere documented in this encounter Additional Health Concerns Assessment Noted Time PHQ-9 Depression Total Score: 0 05/11/19 23 10:41 AM EST documented as of this encounter Care Teams Drainman Relationship Specialty Start Date End Date Coide Bell MD [address] [facility] [place] [address] PCP - General Family Medicine 01/25/13 SULEMAN Soto [facility] Urology Urology 04/06/24 documented as of this encounter
--- OUTSIDE RECORDS SUMMARY | 2024-07-03 15:12 | XMS_ITS | Encounter Summary ---
Author Organization [facility] Address [address] [place] [address] 7[address] [place] [address] Care Team Providers Care Contracts Specialist Name Role Phone Codie Bell MD Primary Care Provider +1- [phone] Encounter Details Date Type Department Care Team (Late st Contact Info) Description 05/11/2022 Abstract [facility] [address] [place] [address] [phone] Codie Bell MD [address] [place], [place] [phone] Social History Tobacco Use Types Packs/Day Years [...] Orientation Straight 02/02/2022 10 :15 AM EDT COVID-19 Exposure Response Date Recorded In the last 10 days, have yo u been in contact with someone who was confirmed or suspected to have Coronavirus/COVID-19? No / Unsure 05/11/2022 10:13 AM EST documented as of this encounter Plan of Treatment Upcoming Encounters Date Type Department Care Team (Late st Contact Info) Description 08/07/2024 9:15 AM EDT Office Visit [facility] [address] [place] [address] [phone] Codie Bell MD [address] [place] [address] documented as of this encounter Procedures Procedure Name Priority Date/Time Associated Diagnosis Comments TSH Routine 02/04/2022 HEPATIC FUNCTION PANEL Routine 02/04/2022 BASIC METABOLIC PANEL Routine 02/04/2022 HEPATITIS C AB W/REFL TO HCV RNA, QN, PCR Routine 09/05/2021 documented in this encounter Results * (ABNORMAL) TSH (02/04/2022) TSH 2.50(A) 4.00 - 5.40 mIU/L Blood Venous blood specimen / Unknown Result [facility] Provider LAB BLOOD ORDERABLES Anel l Result * Hepatic Function Panel (02/04/2022) ALT (SGPT) 10 10 - 40 U/L AST 14 14 - 40 U/L Blood Venous blood specimen / Unknown Result [facility] Provider LAB BLOOD ORDERABLES Anel l Result * (ABNORMAL) Basic Metabolic Panel (02/04/2022) Creatinine 1.4(A) 0.6 - 1.3 mg/dL Blood Venous blood specimen / Unknown Result [facility] Provider LAB BLOOD ORDERABLES Anel l Result * Hepatitis C Antibody with Reflex to HCV, RNA, Quantitative, Real-Time PCR (09/05/2021) Blood Venous blood specimen / Unknown 09/05/2021 Result [facility] Provider LAB BLOOD ORDERABLES Anel l Result documented in this encounter Visit Diagnoses Not on filedocumented in this encounter Additional Health Concerns Assessment Noted Time PHQ-9 Depression Total Score: 0 05/11/19 23 10:41 AM EST documented as of this encounter Care Teams Contracts Specialist Relationship Specialty Start Date End Date Codie Bell MD [address] [place] [address] PCP - General Family Medicine 01/25/13 SULEMAN Soto [facility] Urology Urology 04/06/24 documented as of this encounter
--- OUTSIDE RECORDS SUMMARY | 2024-07-03 15:12 | XMS_ITS | Encounter Summary ---
Author Organization [facility] Address [address] 7t [place] [address] Care Team Providers Care Rotary Dump Operator Name Role Phone Codie Bell MD Primary Care Provider +1- [phone] Reason for Visit * Reason Onset Date Comments Med Refill 06/01/2024 Encounter Details Date Type Department Care Team ([facility] st Contact Info) Description 06/01/2024 Telephone [facility] MEDICINE [address] [place], [place] [phone] Codie Bell MD [address] [place], [place] [phone] Med Refill Social History Tobacco Use Types [...] encounter Miscellaneous Notes * Telephone Encounter - Alli Lucero - 06/01/2024 8:23 AM EST TC from pt requesting medication refill. Medications needing refill : oxyCODONE (Roxicodone) 10 MG immediate release tablet To be sent to: [facility]/pharmacy #[address] [place] [address] documented in this encounter Plan of Treatment Upcoming Encounters Date Type Department Care Team (Late st Contact Info) Description 08/07/2024 9:15 AM EDT Office Visit [facility]INE [address] [place] [address] Codie Bell MD [address] [place] [address] documented as of this encounter Visit Diagnoses Not on filedocumented in this encounter Additional Health Concerns Assessment Noted Time PHQ-9 Depression Total Score: 0 10/13/19 24 9:19 AM EDT documented as of this encounter Care Teams Rotary Dump Operator Relationship Specialty Start Date End Date [place], Codie, MD [address] [place] [address] PCP - General Family Medicine 01/25/13 SULEMAN Soto [facility] Urology 04/06/24 documented as of this encounter
--- OUTSIDE RECORDS SUMMARY | 2024-07-03 15:12 | XMS_ITS | Encounter Summary ---
Author Organization [facility] Address [address] [facility] 7t [place] [address] Care Team Providers Care Extrusion Technician Name Role Phone Codie Bell MD Primary Care Provider +1- [phone] Reason for Visit * Reason Comments Med Refill Encounter Details Date Type Department Care Team ([facility] st Contact Info) Description 06/01/2024 Refill [facility] [address] [place], [place] [phone] Chance Miranda MD [address] [place] [address] Type 2 diabetes mellitus with hyperglycemia, without long-term current use of insulin ([facility]) Social History Tobacco Use Types Packs/Day Years [...] Description 08/07/2024 9:15 AM EDT Office Visit [facility] MED[facility]INE [address] [place] [phone] Codie Bell MD [address] [place] [phone] documented as of this encounter Visit Diagnoses Diagnosis Type 2 diabetes mellitus with hyperglycemia, without long-term current use of insulin ([facility]) documented in this encounter Additional Health Concerns Assessment Noted Time PHQ-9 Depression Total Score: 0 10/13/19 24 9:19 AM EDT documented as of this encounter Care Teams Extrusion Technician Relationship Specialty Start Date End Date Codie Bell MD [address] [place] [address] PCP - General Family Medicine 01/25/13 SULEMAN Soto [facility] Urology Urology 04/06/24 documented as of this encounter
--- OUTSIDE RECORDS SUMMARY | 2024-07-03 15:12 | XMS_ITS | Encounter Summary ---
Author Organization [facility] Address [address] [place] [address] 7t [place] [address] Care Team Providers Care Fire Coordinator Name Role Phone Codie Bell MD Primary Care Provider +1- [phone] Encounter Details Date Type Department Care Team (Late st Contact Info) Description 03/17/[address] [facility] MEDICINE [address] [place] [phone] ProviderAmbrosio MD Social History Tobacco Use Types Packs/Day Years Used Date Smoking Tobacco: Never Assessed Sex and Gender Information Value Date Recorded [...] 9:15 AM EDT Office Visit [facility] MEDICINE [address] [place] [phone] Codie Bell MD [address] [place] [phone] documented as of this encounter Visit Diagnoses Not on filedocumented in this encounter Care Teams Fire Coordinator Relationship Specialty Start Date End Date Codie Bell MD [address] [place] [address] PCP - General Family Medicine 01/25/13 SULEMAN Soto [facility] Urology Urology 04/06/24 documented as of this encounter
--- OUTSIDE RECORDS SUMMARY | 2024-07-03 15:12 | XMS_ITS | Encounter Summary ---
Author Organization [facility] Address [address] [place] [address] [address]t [place] [address] Care Team Providers Care Corrosion Control Fitter Name Role Phone Codie Bell MD Primary Care Provider +1- [phone] Reason for Visit * Reason Onset Date Comments Med Refill 03/08/2023 Encounter Details Date Type Department Care Team ([facility] st Contact Info) Description 03/08/2023 Telephone [facility] MEDICINE [address] [place], [place] [phone] Codie Bell MD [address] [place], [place] [phone] Med Refill Social History Tobacco Use Types [...] encounter Miscellaneous Notes * Telephone Encounter - Anais Pulido RN - 03/08/2023 1:42 PM EST WARP WORKER reviewed. Pt last picked up 30 day refill of Oxycodone 02/10/23. They are not due for a refill until 03/12/23. * Telephone Encounter - Jeremias Gilbert - 03/08/2023 9:06 AM EST Tc from patient requesting a medication refill for oxyCODONE (Roxicodone) 10 MG immediate release tablet. documented in this encounter Plan of Treatment Upcoming Encounters Date Type Department Care Team (Late st Contact Info) Description 08/07/2024 9:15 AM EDT Office Visit [facility] MED[facility] [address] [place] [phone] Codie Bell MD [address] [place] [phone] documented as of this encounter Visit Diagnoses Not on filedocumented in this encounter Additional Health Concerns Assessment Noted Time PHQ-9 Depression Total Score: 0 05/11/19 10:41 AM EST documented as of this encounter Care Teams Corrosion Control Fitter Relationship Specialty Start Date End Date Codie Bell MD [address] [place] [phone] PCP - General Family Medicine 01/25/13 SULEMAN Soto [facility] Urology Urology 04/06/24 documented as of this encounter
--- OUTSIDE RECORDS SUMMARY | 2024-07-03 15:12 | XMS_ITS | Clinical Summary ---
Author Organization [employer] Address [address] [place] [address] [address] [place] [address] Care Team Providers Care Environmental Technician Name Role Phone Codie Bell MD Primary Care Provider [phone] Allergies No known active allergies Medications [facility] Magnesium Oxide 250 MG tabletIndications: History of alcoholism ([facility]) TAKE 1 TABLET (250 MG) BY MOUTH AT BEDTIME 90 tablet 3 08/20/19 24 Active glucose blood (FREESTYLE LITE) test stripIndications:T ype 2 diabetes mellitus with hyperglycemia, without long-term current use of insulin ([facility]) USE TO TEST 6 TIMES DAILY DIRECTED 200 strip 11 09/06/19 24 Active hydroCHLOROthiazid e (HYDRODiuril) 25 MG tabletIndications: Primary hypertension TAKE 1 TABLET BY MOUTH EVERY DAY IN THE MORNING 90 tablet 3 10/05/19 24 Active insulin aspart (NovoLOG FLEXPEN) 100 UNIT/ML penIndications:Typ e 2 diabetes mellitus with hyperglycemia, without long-term current use of insulin ([facility]) USE PER SLIDING SCALE FOR BLOOD SUGAR 111-149 INJECT 2 UNITS SUBCUTANEOUSLY FOR SUGAR 150-199 INJECT 4 UNITS 200-249 INJECT 8 UNITS 250-299 INJECT 12 UNITS 300- 349 INJECT 16 UNITS 350 TO 399 INJECT 20 UNITS 39 15 mL 11 10/13/19 24 Active Eliquis 5 MG tabletIndications: Chronic deep vein thrombosis (DVT) of distal vein of right lower extremity ([facility]) Take 1 tablet (5 mg) by mouth 2 times daily. 180 tablet 3 10/13/19 24 Active finasteride (Proscar) 5 MG tabletIndications: Benign prostatic hyperplasia with lower urinary tract symptoms, symptom details unspecified TAKE 1 TABLET BY MOUTH EVERY DAY IN THE MORNING 90 tablet 10/13/19 Active pravastatin (Pravachol) 20 MG tabletIndications: Type 2 diabetes mellitus with hyperglycemia, without long-term current use of insulin (CMS/HCC),Hyperlip idemia, unspecified hyperlipidemia type Take 1 tablet (20 mg) by mouth in the morning. 90 tablet 10/13/19 24 Active naloxone (Narcan) 4 mg/0.1 mL nasal sprayIndications:C hronic prescription opiate use May repeat every 2-3 minutes if needed, alternating nostrils, until medical assistance becomes available. 2 each 10/13/19 24 Active Multiple Vitamins-Minerals (Centrum Men) tabletIndications: Frail elderly PT REPORTS PURCHASING OTC 90 tablet 10/13/19 Active glucose-vitamin C 4-6 GM-MG oral gelIndications:Typ e 2 diabetes mellitus with hyperglycemia, without long-term current use of insulin (CMS/HCC) Use for blood sugar < 60 50 tablet 10/13/19 Active acetaminophen (Tylenol) 500 MG tabletIndications: Pain Take 1 tablet (500 mg) by mouth every 8 (eight) hours. 30 tablet 10/13/19 Active TRUEplus Lancets 33G miscIndications:Ty pe 2 diabetes mellitus with hyperglycemia, without long-term current use of insulin (CMS/HCC) Use bid 60 each 10/13/19 Active glucose blood (FreeStyle Precision Niles Test) test stripIndications:T ype 2 diabetes mellitus with hyperglycemia, without long-term current use of insulin (CMS/HCC) Test blood sugar q 8 hours 100 each 10/13/19 Active Alcohol Swabs (Alcohol Pads) 70 % padsIndications:Ty pe 2 diabetes mellitus with hyperglycemia, without long-term current use of insulin (CMS/HCC) Use as directed on skin 100 each 10/13/19 Active sennosides (Senokot) 8.6 MG tabletIndications: Constipation, unspecified constipation type 1-2 tabs po nightly prn constipation 60 tablet 01/19/20 24 Active magnesium 250 MG tabletIndications: Leg cramps take 1 tablet (250 mg) by mouth at bedtime 02/16/20 Active insulin glargine (Lantus SoloStar) 100 UNIT/ML penIndications:Typ e 2 diabetes mellitus with hyperglycemia, without long-term current use of insulin ([facility]) INJECT 25 UNIT BY SUBCUTANEOUS ROUTE ONCE DAILY AT BEDTIME(dose decreased 10/13/23) 15 mL 06/01/19 25 Active oxyCODONE (Roxicodone) 10 MG immediate release tabletIndications: Chronic midline low back pain without sciatica Take 1 tablet (10 mg) by mouth if needed in the morning and at bedtime for severe pain. 60 tablet 06/01/19 25 Active insulin pen needle (BD Pen Needle Alejandra 2nd Gen) 32G x 4 mm miscIndications:Ty pe 2 diabetes mellitus with hyperglycemia, without long-term current use of insulin ([facility]) USE 5 TIMES A DAY 150 each 06/01/19 25 Active Active Problems Patient Care Coordination No te Formatting of this note migh t be different from the original. 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 -prescribed Senokot 01/19/24 -ordered H. Pylori test 01/19/24 -referred to GI 01/19/24, discussed if abd pain resolves after use of Senokot does not need to f/u with GI. Assessment & Plan (01/19/2024 10:19 AM EDT): Daughter reports decreased BM, suspect constipation. -prescribed Senokot 01/19/24 -ordered H. Pylori test 01/19/24 -referred to GI 01/19/24, discussed if abd pain resolves after use of Senokot does not need to f/u with GI. Benign prostatic hyperplasia with lower urinary tract symptoms 07/24/2023 Overview (07/24/2023): -Seen by urology 07/2023 Preventative health care 12/10/2022 Overview (10/13/2023): -next physical exam due after 07/13/24 -diabetic eye exam: [facility] with Dr. Vick Ohara 12/04/2022 -has dentures -health care proxy filed 10/13/23 Assessment & Plan (10/13/2023 9:35 AM EDT): -next physical exam due after 07/13/24 -diabetic eye exam: [facility] with Dr. Vick Ohara 12/04/2022 -has dentures -health care proxy filed 10/13/23 Assessment & Plan (07/13/2023 7:55 AM EDT): -next physical exam due after 07/12/24 -diabetic eye exam: [facility] with Dr. Vick Ohara 12/04/2022 -dental home is Basal cell carcinoma (BCC) 08/19/2022 Overview (08/19/2022): Dx on biopsy 07/24/[address] Elizabeth. The lesion extended to the deep tissue edges. He last seen Dr. Elizabeth on 07/24/22, follow up 2 months. Assessment & Plan (07/12/2023 1:31 PM EDT): Dx on biopsy 07/24/[address] Elizabeth. The lesion extended to the deep tissue edges. He last seen Dr. Elizabeth on 07/24/22, follow up 2 months. Assessment & Plan (08/19/2022 9:36 AM EDT): Dx on biopsy 07/24/[address] Elizabeth. The lesion extended to the deep tissue edges. He last seen Dr. Elizabeth on 07/24/22, follow up 2 months. Anemia 08/19/2022 Overview (10/13/2023): Lab Results Component Value Date FERRITIN 81 07/12/2023 HGB 14.0 07/12/2023 HGB 12.8 (L) 02/04/2022 HGB 12.2 (L) 09/05/2021 HEMATOCRIT 38.7 02/04/2022 HEMATOCRIT 37.5 (L) 09/05/2021 -stop iron supplements 10/13/23 Assessment & Plan (10/13/2023 9:34 AM EDT): Lab Results Component Value Date FERRITIN 81 07/12/2023 HGB 14.0 07/12/2023 HGB 12.8 (L) 02/04/2022 HGB 12.2 (L) 09/05/2021 HEMATOCRIT 38.7 02/04/2022 HEMATOCRIT 37.5 (L) 09/05/2021 -stop iron supplements 10/13/23 Assessment & Plan (08/19/2022 9:50 AM EDT): On iron will check iron studies. Ambulates with cane 08/19/2022 Urinary incontinence 08/19/2022 Overview (07/24/2023): -Large pull ups requested 08/19/2022 -followed by urology, seen 07/2023 Assessment & Plan (07/12/2023 1:28 PM EDT): Large pull ups requested 08/19/2022. Assessment & Plan (08/19/2022 9:48 AM EDT): Large pull ups requested 08/19/2022. 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 -still continuing Eliquis Assessment & Plan (04/20/2024 9:42 AM EST): Diagnosed 06/2020, Eliquis started 07/04/2020 -Pt was seen by his cadastral surveyor who mentioned on his last note a repeat U/S 10/2020 was negative for DVT but given the fact 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 , her recommended to keep him on Eliquis senior care -still continuing Eliquis Assessment & Plan (10/13/2023 9:32 AM EDT): Diagnosed 06/2020, Bonita started 07/04/2020 -Pt was seen by his cadastral surveyor who mentioned on his last note a repeat U/S 10/2020 was negative for DVT but given the fact 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 , her recommended to keep him on Eliquis 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 Assessment & Plan (07/12/2023 1:27 PM EDT): Diagnosed 06/2020, Bonita started 07/04/2020 Pt was seen by his cadastral surveyor who mentioned on his last note a repeat U/S 10/2020 was negative for DVT but given the fact 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 , her recommended to keep him on Eliquis 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 Assessment & Plan (08/19/2022 9:30 AM EDT): Diagnosed 06/2020, Bonita started 07/04/2020 Pt was seen by his cadastral surveyor who mentioned on his last note a repeat U/S 10/2020 was negative for DVT but given the fact 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 , her recommended to keep him on Eliquis senior care Assessment & Plan (05/11/2022 10:29 AM EST): Diagnosed 06/2020, Bonita started 07/04/2020 Pt was seen by his cadastral surveyor who mentioned on his last note a repeat U/S 10/2020 was negative for DVT but given the fact 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 , her recommended to keep him on Eliquis senior care Chronic low back pain 03/17/2022 Class 1 obesity 03/17/2022 Edema of lower extremity 03/17/2022 Overview (08/06/2023): -Patient followed at [facility] [facility] with Dr. Luana Monreal DO. -US venous lower extremity 07/26/23: left common femoral vein incompetent, left SSV atrophied, otherwise competent veins Moderate dementia with mood disturbance 03/17/20 Overview (01/19/2024): -Diagnosed with dementia by neruology -referred to memory clinic 07/12/2023 -given number to call for appt. 10/13/23 Assessment & Plan (04/20/2024 9:41 AM EST): -Diagnosed with dementia by neruology -referred to memory clinic 07/12/2023 -given number to call for appt. 10/13/23 Assessment & Plan (01/19/2024 10:14 AM EDT): -Diagnosed with dementia by neruology -referred to memory clinic 07/12/2023 -given number to call for appt. 10/13/23 Assessment & Plan (10/13/2023 9:30 AM EDT): -Diagnosed with dementia by neruology -referred to memory clinic 07/12/2023 -given number to call for appt. Assessment & Plan (07/12/2023 1:29 PM EDT): -Diagnosed with dementia by neruology -referred to memory clinic 07/12/2023 Pain in both knees 03/17/2022 Venous stasis 03/17/2022 Chronic obstructive lung disease 06/12/2021 Overview (04/20/2024): -not using Flovent -uses albuterol rarely, discussed only using albuterol if wheezing Assessment & Plan (04/20/2024 9:41 AM EST): -not using Flovent -uses albuterol rarely, discussed only using albuterol if wheezing Assessment & Plan (01/19/2024 10:14 AM EDT): -not using Flovent -uses albuterol rarely Assessment & Plan (10/13/2023 9:33 AM EDT): -not using Flovent -uses albuterol rarely Assessment & Plan (07/12/2023 1:26 PM EDT): not using Flovent. uses albuterol rarely Assessment & Plan (08/19/2022 9:30 AM EDT): not using Flovent. uses albuterol rarely Assessment & Plan (05/11/2022 10:30 AM EST): not using Flovent. uses albuterol rarely Pain in joint of right shoulder 06/12/2021 Stage 3 chronic kidney disease 06/01/2019 Overview (04/20/2024): -Last seen by Dr. Mota on 11/29/2017 - Avoid nephrotoxic agents. - Discussed NO NSAIDS. Lab Results Component Value Date CREATININE 1.15 01/17/2024 EGFR >60 01/17/2024 MICROALBCREU 25.1 10/13/2023 LDLCHOLCAL 88 07/12/2023 Assessment & Plan (04/20/2024 9:42 AM EST): -Last seen by Dr. Mota on 11/29/2017 - Avoid nephrotoxic agents. - Discussed NO NSAIDS. Lab Results Component Value Date CREATININE 1.15 01/17/2024 EGFR >60 01/17/2024 MICROALBCREU 25.1 10/13/2023 LDLCHOLCAL 88 07/12/2023 Assessment & Plan (01/19/2024 10:14 AM EDT): -Last seen by Dr. Mota on 11/29/2017 - Avoid nephrotoxic agents. - Discussed NO NSAIDS. Lab Results Component Value Date CREATININE 1.15 01/17/2024 EGFR >60 01/17/2024 MICROALBCREU 25.1 10/13/2023 LDLCHOLCAL 88 07/12/2023 Assessment & Plan (10/13/2023 9:32 AM EDT): -Last seen by Dr. Mota on 11/29/2017 - Avoid nephrotoxic agents. - Discussed NO NSAIDS. Lab Results Component Value Date CREATININE 1.35 07/12/2023 EGFR 50 07/12/2023 LDLCHOLCAL 88 07/12/2023 Assessment & Plan (07/12/2023 1:28 PM EDT): -Last seen by Dr. Mota on 11/29/2017 - Avoid nephrotoxic agents. - Discussed NO NSAIDS. - Urine microalbumin/creatine ratio was 66 on 09/05/2021. - Creatinine 1.34 09/05/2021 - EGFR was >60. Assessment & Plan (08/19/2022 9:30 AM EDT): -Last seen by Dr. Mota on 11/29/2017 - Avoid nephrotoxic agents. - Discussed NO NSAIDS. - Urine microalbumin/creatine ratio was 66 on 09/05/2021. - Creatinine 1.34 09/05/2021 - EGFR was >60. Assessment & Plan (05/11/2022 10:31 AM EST): -Last seen by Dr. Mota on 11/29/2017 - Avoid nephrotoxic agents. - Discussed NO NSAIDS. - Urine microalbumin/creatine ratio was 66 on 09/05/2021. - Creatinine 1.34 09/05/2021 - EGFR was >60. 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 Raised prostate specific antigen 11/02/2011 Hypertension 09/17/2011 Overview (01/19/2024): -Blood pressure is at goal -Continue lifestyle modifications -Continue current medications -Continue HCTZ 25mg daily -coreg d/c by cardiology due to dizzyness, amlodipine d/c due to LE edema, lisinopril d/c due to hx acute kidney injury 2017 Assessment & Plan (04/20/2024 9:42 AM EST): -Blood pressure is at goal -Continue lifestyle modifications -Continue current medications -Continue HCTZ 25mg daily -coreg d/c by cardiology due to dizzyness, amlodipine d/c due to LE edema, lisinopril d/c due to hx acute kidney injury 2017 Assessment & Plan (01/19/2024 10:14 AM EDT): -Blood pressure is at goal -Continue lifestyle modifications -Continue current medications -Continue HCTZ 25mg daily -coreg d/c by cardiology due to dizzyness, amlodipine d/c due to LE edema, lisinopril d/c due to hx acute kidney injury 2017 Assessment & Plan (10/13/2023 9:32 AM EDT): Continue HCTZ 25mg daily -coreg d/c by cardiology due to dizzyness, amlodipine d/c due to LE edema, lisinopril d/c due to hx acute kidney injury 2017 Assessment & Plan (07/12/2023 1:27 PM EDT): Continue HCTZ 25mg daily -coreg d/c by cardiology due to dizzyness, amlodipine d/c due to LE edema, lisinopril d/c due to hx acute kidney injury 2017 Assessment & Plan (08/19/2022 9:30 AM EDT): Continue HCTZ 25mg daily -coreg d/c by cardiology due to dizzyness, amlodipine d/c due to LE edema, lisinopril d/c due to hx acute kidney injury 2018 Assessment & Plan (05/11/2022 10:29 AM EST): Continue HCTZ 25mg daily -coreg d/c by cardiology due to dizzyness, amlodipine d/c due to LE edema, lisinopril d/c due to hx acute kidney injury 2018 Type 2 diabetes mellitus wit h chronic kidney disease, without long-term current use of insulin 08/26/2011 Overview (04/20/2024): Diabetes is controlled. Lab Results Component Value Date HGBA1C 8.3 (A) 04/20/2024 HGBA1C 7.5 (A) 01/19/2024 HGBA1C 7.2 (H) 10/13/2023 Lab Results Component Value Date CREATININE 1.15 01/17/2024 EGFR >60 01/17/2024 MICROALBCREU 25.1 10/13/2023 LDLCHOLCAL 88 07/12/2023 -Adam/Arb: lisinopril discontinued due to acute kidney injury in 2018 -Statin therapy: pravastatin 20mg -Diabetic eye exam: [facility] with Dr. Vick Ohara 12/04/2022 -Diabetic foot exam: Done 10/13/23. -Continue lifestyle modifications -Continue current medications -Currently on Lantus and Novolog Assessment & Plan (04/20/2024 9:43 AM EST): Diabetes is controlled. Lab Results Component Value Date HGBA1C 8.3 (A) 04/20/2024 HGBA1C 7.5 (A) 01/19/2024 HGBA1C 7.2 (H) 10/13/2023 Lab Results Component Value Date CREATININE 1.15 01/17/2024 EGFR >60 01/17/2024 MICROALBCREU 25.1 10/13/2023 LDLCHOLCAL 88 07/12/2023 -Adam/Arb: lisinopril discontinued due to acute kidney injury in 2018 -Statin therapy: pravastatin 20mg -Diabetic eye exam: [facility] with Dr. Vick Ohara 12/04/2022 -Diabetic foot exam: Done 10/13/23. -Continue lifestyle modifications -Continue current medications -Currently on Lantus and Novolog Assessment & Plan (01/19/2024 10:20 AM EDT): Diabetes is controlled. - Lab Results Component Value Date HGBA1C 7.5 (A) 01/19/2024 HGBA1C 7.2 (H) 10/13/2023 HGBA1C 7.8 (A) 10/13/2023 Lab Results Component Value Date CREATININE 1.15 01/17/2024 EGFR >60 01/17/2024 MICROALBCREU 25.1 10/13/2023 LDLCHOLCAL 88 07/12/2023 -Adam/Arb: lisinopril discontinued due to acute kidney injury in 2018 -Statin therapy: pravastatin 20mg -Diabetic eye exam: [facility] with Dr. Vick Ohara 12/04/2022 -Diabetic foot exam: Done 10/13/23. -Continue lifestyle modifications -Continue current medications -Currently on Lantus and Novolog Assessment & Plan (10/13/2023 9:31 AM EDT): Diabetes is controlled. - Lab Results Component Value Date HGBA1C 7.4 (A) 07/12/2023 HGBA1C 8.9 (A) 08/19/2022 HGBA1C 7.9 (A) 05/11/2022 - Lab Results Component Value Date MICROALBUR 7.1 09/05/2021 CREATININE 1.35 07/12/2023 -Changes: -Adam/Arb: lisinopril discontinued due to acute kidney injury in 2018 -Statin therapy: pravastatin 20mg -Diabetic eye exam: [facility] with Dr. Vick Ohara 12/04/2022 -Diabetic foot exam: Done 10/13/23. -Continue lifestyle modifications -Continue current medications Assessment & Plan (07/12/2023 1:29 PM EDT): Diabetes is controlled. - Lab Results Component Value Date HGBA1C 7.4 (A) 07/12/2023 HGBA1C 8.9 (A) 08/19/2022 HGBA1C 7.9 (A) 05/11/2022 - Lab Results Component Value Date MICROALBUR 7.1 09/05/2021 CREATININE 1.35 07/12/2023 -Changes: -Adam/Arb: lisinopril discontinued due to acute kidney injury in 2018 -Statin therapy: pravastatin 20mg -Diabetic eye exam: [facility] with Dr. Vick Ohara 12/04/2022 -Diabetic foot exam: Done 08/19/2022. -Continue lifestyle modifications -Continue current medications Assessment & Plan (08/19/2022 9:51 AM EDT): Diabetes is controlled. - Lab Results Component Value Date HGBA1C 7.9 (A) 05/11/2022 HGBA1C 8.6 (H) 09/05/2021 HGBA1C 8.7 (H) 06/28/2020 - Lab Results Component Value Date MICROALBUR 7.1 09/05/2021 CREATININE 1.4 (A) 02/04/2022 -Changes: -Adam/Arb: lisinopril discontinued due to acute kidney injury in 2018 -Statin therapy: pravastatin 20mg -Diabetic eye exam: Appointment 09/20[address] at [place] [address] Ayers. -Diabetic foot exam: Done 08/19/2022. -Continue lifestyle modifications -Continue current medications Assessment & Plan (05/11/2022 11:00 AM EST): Lab Results Component Value Date HGBA1C 7.9 (A) 05/11/2022 -A1c at goal of < 8 -continue current meds Hyperlipidemia 08/26/2011 Overview (10/13/2023): Lab Results Component Value Date CHOL 152 07/12/2023 TRIG 133 07/12/2023 HDL 38 (L) 07/12/2023 LDLCHOLCAL 88 07/12/2023 -continue lifestyle modification -continue pravastatin 20mg Assessment & Plan (01/19/2024 10:21 AM EDT): Lab Results Component Value Date CHOL 152 07/12/2023 TRIG 133 07/12/2023 HDL 38 (L) 07/12/2023 LDLCHOLCAL 88 07/12/2023 -continue lifestyle modification -continue pravastatin 20mg Assessment & Plan (10/13/2023 9:37 AM EDT): Lab Results Component Value Date CHOL 152 07/12/2023 TRIG 133 07/12/2023 HDL 38 (L) 07/12/2023 LDLCHOLCAL 88 07/12/2023 -continue lifestyle modification -continue pravastatin 20mg Tubular adenoma 08/02/2008 Overview (01/19/2024): Multiple tubular adenomas on colonoscopy 2008 and 07/[address] Kramer, encourage follow up 11/2021 -referral to GI 07/12/2023 -Daughter reports being told pt graduated from colonoscopies due to age. Assessment & Plan (01/19/2024 10:22 AM EDT): Multiple tubular adenomas on colonoscopy 2008 and 07/[address] Kramer, encourage follow up 11/2021 -referral to GI 07/12/2023 -Daughter reports being told pt graduated from colonoscopies due to age. Assessment & Plan (07/12/2023 1:30 PM EDT): Multiple tubular adenomas on colonoscopy 2008 and 07/[address] Kramer, encourage follow up 11/2021 -referral to GI 07/12/2023 Assessment & Plan (05/11/2022 10:29 AM EST): Multiple tubular adenomas on colonoscopy 2008 and 07/[address] Kramer, encourage follow up 11/2021 Resolved Problems Problem Noted Date Diagnosed Date Resolved Date Low back pain 04/01/2015 08/18/2022 Benign hypertension 01/14/2015 05/11/19 23 Hypercholesterolemia 01/14/2015 023 Asthma 08/26/2011 05/11/2022 Overview (05/11/2022): Controlled with albuterol for URIs. Assessment & Plan (05/11/2022 10:30 AM EST): Controlled with albuterol for URIs. Encounters Date Type Department Care Team Description 06/01/2024 Refill [facility] [address] [place] [address] Codie Bell MD Type 2 diabetes mellitus with hyperglycemia, without long-term current use of insulin ([facility]) 06/01/2024 Refill [facility] [address] [place] [address] Chantal Laguerre RN Chronic midline low back pain without sciatica 06/01/2024 Refill [facility] [address] [place] [address] Codie Bell MD Type 2 diabetes mellitus with hyperglycemia, without long-term current use of insulin ([facility]) 06/01/2024 Telephone [facility] [address] [place] [address] Codie Bell MD Med Refill 06/01/2024 Refill [facility] [address] [facility] [place] [address] Chance Miranda MD Type 2 diabetes mellitus with hyperglycemia, without long-term current use of insulin ([facility]) 05/19/2024 Telephone [facility] [address] [facility] [place] [address] Codie Bell MD May Recalls 05/19/2024 Travel 05/05/2024 Refill [facility] [address] [facility] [place] [address] Codie Bell MD Chronic midline low back pain without sciatica 04/20/2024 9:15 AM EST Office Visit [facility] [address] [facility] [place] [address] Codie Bell MD 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 ([facility]) (Primary Dx); Leg cramps; Chronic obstructive pulmonary disease, unspecified COPD type (CMS/[facility]); Chronic deep vein thrombosis (DVT) of distal vein of right lower extremity ([facility]); Primary hypertension; Type 2 diabetes mellitus with chronic kidney disease, without long-term current use of insulin, unspecified CKD stage (CMS/[facility]); Stage 3a chronic kidney disease ([facility]); History of alcoholism (CMS/[facility]); Overweight; Dietary counseling; Exercise counseling; Do not resuscitate 04/20/2024 Travel 04/15/2024 Refill [facility] [address] [facility] [place] [address] Codie Bell MD Type 2 diabetes mellitus with hyperglycemia, without long-term current use of insulin ([facility]) 04/06/2024 Refill [facility] [address] [facility] [place] [address] Codie Bell MD Chronic midline low back pain without sciatica from Last 3 Months Immunizations Name Administration Dates Next Due Hep B, adult 10/25/2014,04/27/2014,03/22/2014 Influenza High-dose Quadriva lent Preservative Free 02/04/2022,01/29/2021,03/05/2020 Influenza injectable quadriv alent IIV4 with preservative 02/19/2017,02/19/2016,01/14/2015 Influenza injectable quadriv alent preservative free 05/11/2022,01/23/2019 Influenza, High Dose Seasona l, Preservative Free 01/19/2024,01/21/2018 Influenza, IIV3, injectable 12/18/2013 Influenza, Split (incl. izabella fied surface antigen) 01/03/2013,02/02/2012 Moderna Covid-19 Vaccine 12+ 06/26/2020, 06/26/2020,05/29/2020,05/29 Pfizer Covid-19 Vaccine 12+ 01/19/2024,,02/12/2021 Pfizer Covid-19 Vaccine 12+ samm-sucrose (Salgado Cap) 09/18/2021 Pneumococcal Conjugate PCV 13 01/15/2015 Pneumococcal Polysaccharide PPSV23 03/22/2014, RSV Bivalent 01/19/2024 TD (adult), 2 Lf tetanus tox oid, preservative free, adsorbed 06/16/2012 Tdap 10/13/2023,05/12/2013 Zoster, Recombinant 10/01/2020,03/05/2020 Zoster, live 05/12/2013 Social History Tobacco Use Types Packs/Day Years Used Date Smoking Tobacco: Former Cigarettes Smokeless Tobacco: Never Tobacco Cessation:Counseling Given: Not Answered Alcohol Use Standard Drinks/Week Comments Not Currently [...] Orientation Straight 02/02/2022 10 :15 AM EDT Last Filed Vital Signs Vital Sign Reading Time Taken Comments Blood Pressure 140/82 04/20/2024 9:37 AM EST Pulse 88 04/20/2024 9:26 AM EST Temperature 37.2 ??C (98.9 ??F) 04/20/2024 9:26 AM ES T Respiratory Rate 20 04/20/2024 9:26 AM EST Oxygen Saturation 99% 04/20/2024 9:26 AM EST Inhaled Oxygen Concentration - - Weight 83.8 kg (184 lb 12.8 oz) 04/20/2024 9:26 AM EST Height 163.8 cm (5' 4.5 ) 01/19/2024 9:53 AM EDT Body Mass Index 31.23 01/19/2024 9:53 AM EDT Plan of Treatment Upcoming Encounters Date Type Department Care Team (Late st Contact Info) Description 08/07/2024 9:15 AM EDT Office Visit [facility]INE [address] [place], [place] [phone] Codie Bell MD [address] [place] [address] Health Maintenance Due Date Last Done Comments Derm Melanoma Skin Check 1938 Lipid Panel 07/11/2024 07/12/2023, 0606/2021, 02/18/2021, Additional history exists Diabetes: Hemoglobin A1C 07/19/2024 025, 01/19/2024, 10/13/2023, Additional history exists Alcohol/Substance Use Screening 10/12/2024 10/13/2023 Depression Screening 10/12/2024 10/13/2023, 10/13/19 24 Diabetes: Foot Exam 10/12/2024 10/13/2023, 10/13/2023, 10/13/2023, Additional history exists SDOH Screening 10/12/2024 10/13/2023 Eye Exam 12/04/2024 12/04/2022 Tobacco Screening 04/20/2025 04/20/2024 DTaP/Tdap/Td Vaccines (3 - Td or Tdap) 10/12/2033 10/13/2023, 05/12/2013, 06/16/2012 Hepatitis B Vaccines Completed 10/25/2014, 04/27/2014, 03/22/2014 Pneumococcal Vaccine: 50+ Years Completed 01/15/2015, 03/22/2014, 12/06/2008 Zoster Vaccines Completed 10/01/2020, 1204/2019, 05/12/2013 COVID-19 Vaccine Completed 01/19/2024, , 02/12/2021, Additional history exists Influenza Vaccine Completed 01/19/2024, , 02/04/2022, Additional history exists RSV Patients and Patients Aged 60 years or older Completed 01/19/2024 HIB Vaccines Aged Out No longer eligi ble based on patient's age to complete this topic HPV Vaccines Aged Out No longer eligi ble based on patient's age to complete this topic Hepatitis A Vaccines Aged Out No long er eligible based on patient's age to complete this topic IPV Vaccines Aged Out No longer eligi ble based on patient's age to complete this topic Meningococcal Vaccine Aged Out No elías dominique eligible based on patient's age to complete this topic RSV under 20 months Aged Out No longe r eligible based on patient's age to complete this topic Rotavirus Vaccines Aged Out No longer eligible based on patient's age to complete this topic Procedures Procedure Name Priority Date/Time Associated Diagnosis Comments POCT GLUCOSE Routine 04/20/2024 9:36 AM EST Type 2 diabetes mellitus with chronic kidney disease, without long-term current use of insulin, unspecified CKD stage ([facility]) POCT GLYCOSYLATED HEMOGLOBIN (HGB A1C) Routine 04/20/2024 9:34 AM EST Type 2 diabetes mellitus with chronic kidney disease, without long-term current use of insulin, unspecified CKD stage (CMS/HCC) LIPID PANEL, STANDARD Routine 07/12/2023 10:58 AM EDT Memory loss Chronic fatigue HM DIABETES EYE EXAM Routine 12/04/2022 from Last 3 Months or Most Recently Relevant to Health Maintenance Results * (ABNORMAL) POCT glucose manually resulted (04/20/2024 9:36 AM EST) Glucose Blood, POC 210(A) 60 - 200 mg/dL QC Media Lot # [id number] Lot# Expiration Date Blood Capillary blood specimen / Unknown 04/20/2024 9:36 AM EST Codie Bell MD POINT OF CARE TEST ENTER/E DIT ORDERABLES Final Result * (ABNORMAL) POCT glycosylated hemoglobin (Hgb A1c) (04/20/2024 9:34 AM EST) Hemoglobin A1C 8.3(A) 4.0 - 6.0 % QC Media Lot # [id number] Lot# Expiration Date Blood Capillary blood specimen / Unknown 04/20/2024 9:34 AM EST Codie Bell MD POINT OF CARE TEST ENTER/E DIT ORDERABLES Final Result * (ABNORMAL) Lipid Panel, Standard (07/12/2023 10:58 AM EDT) Triglycerides 133 <150 mg/dL [facility] Comment:Desirable Triglyceri de: less than 150 mg/dLBorderline High Triglyceride 150-199 mg/dLHigh Triglyceride: 200-499 mg/dLVery High Triglyceride: greater than or equal to 5OO mg/dL Cholesterol 152 <200 mg/dL [facility] Comment:Desirable Cholestero l: less than 200 mg/dLBorderline High Cholesterol: 200-239 mg/dLHigh Cholesterol: greater than 239 mg/dL LDL Cholesterol Calculated 88 <100 mg/dL [facility] Comment:Desirable LDL: less than 100 mg/dLNear Optimal/Above Optimal LDL: 110- 129 mg/dLBorderline High LDL: 130-159 mg/dLHigh LDL: 160-189 mg/dLVery High LDL: greater than or equal to 190 mg/dL HDL Cholesterol 38(L) >40 mg/dL [facility] Comment:Desirable HDL: great er than 40 mg/dL Note: This HDL assay may give artificially low results in patients with liver disease. Blood Venous blood specimen / Unknown 07/12/2023 10:58 AM EDT 07/12/2023 11:44 AM EDT Codie Bell MD LAB BLOOD ORDERABLES Final Result [facility] [address] [place], [place] [phone] * Diabetes Eye Exam (12/04/2022) Eye Exam Normal Normal Comment:[facility] Historical Provider HEALTH MAINTENANCE Final Result from Last 3 Months or Most Recently Relevant to Health Maintenance Insurance [address] [address] [facility] Advance Directives Documents on File Type Date Recorded Patient Congregational Care Pastor Expl anation Advance Directives and Living Will 10/13/2023 11:32 AM Health Care Proxy 10/13/23 Care Teams Environmental Technician Relationship Specialty Start Date End Date Cromwell, MD Codie [address] [place] [phone] PCP - General Family Medicine 01/25/13 SULEMAN Soto [facility] Urology Urology 04/06/24
--- OUTSIDE RECORDS SUMMARY | 2024-07-03 15:12 | XMS_ITS | Encounter Summary ---
Author Organization [employer] [facility] Address [address] [place] [address] 7t [place] [address] Care Team Providers Care Setter Induction Heating Equipment Name Role Phone Codie Bell MD Primary Care Provider +1- [phone] Encounter Details Date Type Department Care Team (Late st Contact Info) Description 06/22/2022 Orders Only [facility] MEDICINE [address] [place] [address] [phone] Codie Bell MD [address] [place] [address] [phone] Skin lesion (Primary Dx) Social History Tobacco Use Types Packs/Day Years [...] Description 08/07/2024 9:15 AM EDT Office Visit [facility] MEDICINE [address] [place] [address] [phone] Codie Bell MD [address] [place] [address] [phone] documented as of this encounter Visit Diagnoses Diagnosis Skin lesion- Primary Unspecified disorder of skin and subcutaneous tissue documented in this encounter Additional Health Concerns Assessment Noted Time PHQ-9 Depression Total Score: 0 05/11/19 23 10:41 AM EST documented as of this encounter Care Teams Setter Induction Heating Equipment Relationship Specialty Start Date End Date Codie Bell MD [address] [place] [phone] PCP - General Family Medicine 01/25/13 SULEMAN Soto [facility] Urology Urology 04/06/24 documented as of this encounter
--- OUTSIDE RECORDS SUMMARY | 2024-07-03 15:12 | XMS_ITS | Encounter Summary ---
Author Organization [email or web address] [facility] Address [address] [place] [address] 7t [place] [address] Care Team Providers Care Garage Mechanic Name Role Phone Codie Bell MD Primary Care Provider +1- [phone] Encounter Details Date Type Department Care Team (Late st Contact Info) Description 05/08/2022 Abstract [facility] MEDICINE [address] [place] [address] [phone] Codie Bell MD [address] [place], [place] [phone] Social History Tobacco Use Types Packs/Day Years [...] Description 08/07/2024 9:15 AM EDT Office Visit [facility] [address] [place] [address] [phone] Codie Bell MD [address] [place] [address] documented as of this encounter Procedures Procedure Name Priority Date/Time Associated Diagnosis Comments COLONOSCOPY Routine 07/28/2013 documented in this encounter Results * Colonoscopy (07/28/2013) Colonoscopy Tubular adenoma with Dr. Kramer us Historical Provider [facility] Final Result documented in this encounter Visit Diagnoses Not on filedocumented in this encounter Care Teams Garage Mechanic Relationship Specialty Start Date End Date Arabella, MD Codie [address] [place] [address] PCP - General Family Medicine 01/25/13 SULEMAN Soto [facility] Urology Urology 04/06/24 documented as of this encounter
--- OUTSIDE RECORDS SUMMARY | 2024-07-03 15:12 | XMS_ITS | Encounter Summary ---
Author Organization [employer] [facility] Address [address] [place] [address] 7t [place] [address] Care Team Providers Care Event Sales Assistant Name Role Phone Codie Bell MD Primary Care Provider +1- [phone] Encounter Details Date Type Department Care Team (Late st Contact Info) Description 04/24/2022 Orders Only [facility] MEDICINE [address] [place] [phone] Katie Conroy LPN Social History Tobacco Use Types Packs/Day Years [...] Office Visit [facility] MEDICINE [address] [place] [phone] Codie Bell MD [address] [place] [phone] documented as of this encounter Visit Diagnoses Not on filedocumented in this encounter Care Teams Event Sales Assistant Relationship Specialty Start Date End Date Codie Bell MD [address] [place] [phone] PCP - General Family Medicine 01/25/13 SULEMAN Soto [facility] Urology Urology 04/06/24 documented as of this encounter
--- OUTSIDE RECORDS SUMMARY | 2024-07-03 15:12 | XMS_ITS | Encounter Summary ---
Author Organization [employer] [facility] Address [address] [place] [address] 7 [place] [address] Care Team Providers Care Ecology Teacher Name Role Phone Codie Bell MD Primary Care Provider +1- [phone] Encounter Details Date Type Department Care Team (Late st Contact Info) Description 04/10/2022 Telephone [facility] MEDICINE [address] [place] [address] [phone] Codie Bell MD [address] [place] [address] [phone] Social History Tobacco Use Types Packs/Day Years [...] Description 08/07/2024 9:15 AM EDT Office Visit [facility] MEDICINE [address] [place] [phone] Codie Bell MD [address] [place] [address] [phone] documented as of this encounter Visit Diagnoses Not on filedocumented in this encounter Care Teams Ecology Teacher Relationship Specialty Start Date End Date Codie Bell MD [address] [place] [address] [phone] PCP - General Family Medicine 01/25/13 SULEMAN Soto [facility] Urology Urology 04/06/24 documented as of this encounter
--- OUTSIDE RECORDS SUMMARY | 2024-07-03 15:12 | XMS_ITS | Encounter Summary ---
Author Organization [employer] Address [address] [facility] 7t [place] [address] Care Team Providers Care Lamp Cleaner Street Light Name Role Phone Codie Bell MD Primary Care Provider +1- [phone] Reason for Visit * Reason Onset Date Comments Med Refill 09/06/2023 Encounter Details Date Type Department Care Team ([facility] st Contact Info) Description 09/06/2023 Telephone [facility] MEDICINE [address] [place], [place] [phone] Codie Bell MD [address] [place], [place] [phone] Med Refill Social History Tobacco Use Types [...] encounter Miscellaneous Notes * Telephone Encounter - Modesta Aguila - 09/06/2023 8:41 AM EDT TC from pt requesting medication refill. Medications needing refill : oxyCODONE (Roxicodone) 10 MG immediate release tablet To be sent to: [facility]/pharmacy #[id number] [place], [place] - [address] [place] [address] documented in this encounter Plan of Treatment Upcoming Encounters Date Type Department Care Team (Late st Contact Info) Description 08/07/2024 9:15 AM EDT Office Visit [facility] MEDICINE [address] [place] [address] Codie Bell MD [address] [place] [address] documented as of this encounter Visit Diagnoses Not on filedocumented in this encounter Additional Health Concerns Assessment Noted Time PHQ-9 Depression Total Score: 0 05/11/19 10:41 AM EST documented as of this encounter Care Teams Lamp Cleaner Street Light Relationship Specialty Start Date End Date Codie Bell MD [address] [place] [address] PCP - General Family Medicine 01/25/13 SULEMAN Soto [facility] Urology Urology 04/06/24 documented as of this encounter
--- NOTE | 2024-07-03 15:15 | PC.NURSE ---
Tata- daughter: [phone]
[2024-07-03 15:48] LABS: Appearance Urine Clear; Color Urine Yellow; Glucose Urine UA 250 mg/dL (Negative); Leukocyte Esterase Urine Trace (Negative); Nitrite Urine Negative (Negative); UMIC TRIGGER UACC YES; Urine Blood Negative (Negative); Urine Ketones Negative (Negative); Urine Protein 30 (1+) mg/dL (Neg-Trace)
[2024-07-03 15:51] LABS: Bacteria Urine None Seen (None Seen); Hyaline Casts Urine 0-2 /LPF (0-2); RBC Urine 0-2 /HPF (0-2); WBC Urine 0-5 /HPF (0-5)
[2024-07-03 18:30] LABS: Amphetamine Screen Urine Not Detected (Not Detect); Barbiturates, Urine Not Detected (Not Detect); Benzodiazepines Screen Urine Not Detected (Not Detect); Buprenorphine Scr Not Detected (Not Detect); Cannabinoid Screen Urine Not Detected (Not Detect); Cocaine Screen Urine Not Detected (Not Detect); Fentanyl, urine Not Detected (Not Detect); Methadone Screen, Urine Not Detected (Not Detect); Opiate Screen Urine Not Detected (Not Detect); Oxycodone Screen Urine Not Detected (Not Detect); Phencyclidine Screen Urine Not Detected (Not Detect)
== END 2024-07-03 19:18 | disposition home or self-care (01) ==
PROVIDERS: Emergency Provider Emergency Medicine; PCP Family Medicine
DX: R44.3 Hallucinations, unspecified (principal); Z51.81 Encounter for therapeutic drug level monitoring; Z79.899 Other long term (current) drug therapy
CPT/HCPCS: 36415; 80048; 80076; 80307; 81001; 85025; 99284

== ENCOUNTER 2024-07-09 02:05 | Emergency (ER) | payer OTHER, SELFPAY ==
--- NOTE | ~2024-07-09 | XR_ITS ---
CLINICAL HISTORY: constipation 1 view abdomen Comparison: None Findings: No pneumoperitoneum or pneumatosis. Large stool burden. No abnormal calcifications. No acute fractures. IMPRESSION: Nonobstructive bowel-gas pattern. Large stool burden This document has been electronically signed by: Bogdan Easley MD, PHD on 07/09/2024 02:46:22
[2024-07-09 02:13] VITALS: BP 134/73; PULSE 75; RESP 16; TEMP 37.1; O2SAT 98; BMI 31.6
--- OUTSIDE RECORDS SUMMARY | 2024-07-09 02:37 | XMS_ITS | Encounter Summary ---
Author Organization [employer] Address [address] [place] [address] 7t [place] [address] Care Team Providers Care Frame Coverer Name Role Phone Codie Bell MD Primary Care Provider +1- [phone] Reason for Visit * Reason Onset Date Comments Med Refill 03/08/2023 Encounter Details Date Type Department Care Team ([facility] st Contact Info) Description 03/08/2023 Telephone [facility] MEDICINE [address] [place], [place] [phone] Codie Bell MD [address] [place], [place] [phone] Med Refill Social History Tobacco Use Types [...] Pulido RN - 03/08/2023 1:42 PM EST IN STORE REPRESENTATIVE reviewed. Pt last picked up 30 day [...] Description 08/07/2024 9:15 AM EDT Office Visit [facility] MEDICINE [address] [place] [phone] Codie Bell MD [address] [place] [phone] documented as of this encounter Visit Diagnoses Not on filedocumented in this encounter Additional Health Concerns Assessment Noted Time PHQ-9 Depression Total Score: 0 05/11/19 10:41 AM EST documented as of this encounter Care Teams Frame Coverer Relationship Specialty Start Date End Date Codie Bell MD [address] [place] [address] PCP - General Family Medicine 01/25/13 SULEMAN Soto [facility] Urology Urology 04/06/24 documented as of this encounter
--- OUTSIDE RECORDS SUMMARY | 2024-07-09 02:37 | XMS_ITS | Encounter Summary ---
Author Organization [employer] [facility] Address [address] [place] [address] 7t [place] [address] Care Team Providers Care Development Geologist Name Role Phone Codie Bell MD Primary Care Provider +1- [phone] Encounter Details Date Type Department Care Team (Late st Contact Info) Description 06/22/2022 Orders Only [facility] MED[facility]INE [address] [place] [address] [phone] Codie Bell MD [address] [place] [address] [phone] Skin lesion (Primary Dx) Social History Tobacco [...] Description 08/07/2024 9:15 AM EDT Office Visit [facility] MEDICINE [address] [place] [address] [phone] Codie Bell MD [address] [place] [address] [phone] documented as of this encounter Visit Diagnoses Diagnosis Skin lesion- Primary Unspecified disorder of skin and subcutaneous tissue documented in this encounter Additional Health Concerns Assessment Noted Time PHQ-9 Depression Total Score: 0 05/11/19 23 10:41 AM EST documented as of this encounter Care Teams Development Geologist Relationship Specialty Start Date End Date Codie Bell MD [address] [place] [phone] PCP - General Family Medicine 01/25/13 SULEMAN Soto [facility] Urology Urology 04/06/24 documented as of this encounter
--- OUTSIDE RECORDS SUMMARY | 2024-07-09 02:37 | XMS_ITS | Encounter Summary ---
Author Organization [employer] Address [address] [place] [address] 7t [place] [address] Care Team Providers Care Nurse Wound Name Role Phone Codie Bell MD Primary Care Provider +1- [phone] Reason for Visit * Reason Onset Date Comments Appointment Request 05/06/2023 Encounter Details Date Type Department Care Team ([facility] st Contact Info) Description 05/06/2023 Telephone [facility] MEDICINE [address] [place], [place] [phone] Codie Bell MD [address] [place], [place] [phone] Appointment Request Social History Tobacco Use Types [...] request a appt for a routine check-up specifications writer did ask if there is any concerns at the moment patients daughter denied. documented in this encounter Plan of Treatment Upcoming Encounters Date Type Department Care Team (Late st Contact Info) Description 08/07/2024 9:15 AM EDT Office Visit [facility] MEDICINE [address] [place] [address] Codie Bell MD [address] [place] [address] documented as of this encounter Visit Diagnoses Not on filedocumented in this encounter Additional Health Concerns Assessment Noted Time PHQ-9 Depression Total Score: 0 05/11/19 23 10:41 AM EST documented as of this encounter Care Teams Nurse Wound Relationship Specialty Start Date End Date Codie Bell MD [address] [place] [address] PCP - General Family Medicine 01/25/13 SULEMAN Soto [facility] Urology Urology 04/06/24 documented as of this encounter
--- OUTSIDE RECORDS SUMMARY | 2024-07-09 02:37 | XMS_ITS | Encounter Summary ---
Author Organization [employer] [facility] Address [address] [place] [address] 7t [place] [address] Care Team Providers Care Camp Advisor Name Role Phone Codie Bell MD Primary Care Provider +1- [phone] Encounter Details Date Type Department Care Team (Late st Contact Info) Description 12/10/2022 Orders Only [facility] [address] [place] [address] [phone] Codie Bell MD [address] [place], [place] [phone] Dementia with other behavioral disturbance, unspecified dementia severity, unspecified dementia type (CMS/HCC) (Primary Dx); Type 2 diabetes mellitus with hyperglycemia, without long-term current use of insulin (CMS/[facility]); Preventative health care; Impaired cognition Social History [...] 08/07/2024 9:15 AM EDT [facility] [address] [place] [phone] Codie Bell MD [address] [place] [address] documented as of this encounter Procedures Procedure Name Priority Date/Time Associated Diagnosis Comments DIABETES EYE EXAM Routine 12/04/2022 documented in this encounter Results * Diabetes Eye Exam (12/04/2022) Eye Exam Normal Normal Comment:[facility] Historical Provider MD HEALTH MAINTENANCE Final Result documented in this encounter Visit Diagnoses Diagnosis Dementia with other behavioral disturbance, unspecified dementia severity, unspecified dementia type ([facility])- Primary Type 2 diabetes mellitus with hyperglycemia, without long-term current use of insulin ([facility]) Preventative health care Routine general medical examination at a health care facility Impaired cognition Unspecified persistent mental disorders due to conditions classified elsewhere documented in this encounter Additional Health Concerns Assessment Noted Time PHQ-9 Depression Total Score: 0 05/11/19 23 10:41 AM EST documented as of this encounter Care Teams Camp Advisor Relationship Specialty Start Date End Date Codie Bell MD [address] [place] [address] PCP - General Family Medicine 01/25/13 SULEMAN Soto [facility] Urology Urology 04/06/24 documented as of this encounter
--- OUTSIDE RECORDS SUMMARY | 2024-07-09 02:37 | XMS_ITS | Encounter Summary ---
Author Organization [employer] [facility] Address [address] [place] [address] 7t [place] [address] Care Team Providers Care Machine Tank Operator Name Role Phone Codie Bell MD Primary Care Provider +1- [phone] Encounter Details Date Type Department Care Team (Late st Contact Info) Description 05/11/2022 Abstract [facility] MEDICINE [address] [place] [address] [phone] Codie Bell MD [address] [place], [place] [phone] Social History Tobacco Use Types Packs/Day Years [...] Description 08/07/2024 9:15 AM EDT Office Visit [facility] MEDICINE [address] [place] [address] [phone] Codie Bell MD [address] [place] [address] documented as of this encounter Procedures Procedure Name Priority Date/Time Associated Diagnosis Comments TSH Routine 02/04/2022 HEPATIC FUNCTION PANEL Routine 02/04/2022 BASIC METABOLIC PANEL Routine 02/04/2022 HEPATITIS C AB W/REFL TO HCV RNA, QN, PCR Routine 09/05/2021 documented in this encounter Results * (ABNORMAL) TSH (02/04/2022) TSH 2.50(A) 4.00 - 5.40 mIU/L Blood Venous blood specimen / Unknown Result [facility] Provider LAB BLOOD ORDERABLES Anel l Result * Hepatic Function Panel (02/04/2022) ALT (SGPT) 10 10 - 40 U/L AST 14 14 - 40 U/L Blood Venous blood specimen / Unknown Result [facility] Provider LAB BLOOD ORDERABLES Anel l Result * (ABNORMAL) Basic Metabolic Panel (02/04/2022) Creatinine 1.4(A) 0.6 - 1.3 mg/dL Blood Venous blood specimen / Unknown Result [facility] Provider LAB BLOOD ORDERABLES Anel l Result * Hepatitis C Antibody with Reflex to HCV, RNA, Quantitative, Real-Time PCR (09/05/2021) Blood Venous blood specimen / Unknown 09/05/2021 Result [facility] Provider LAB BLOOD ORDERABLES Anel l Result documented in this encounter Visit Diagnoses Not on filedocumented in this encounter Additional Health Concerns Assessment Noted Time PHQ-9 Depression Total Score: 0 05/11/19 23 10:41 AM EST documented as of this encounter Care Teams Machine Tank Operator Relationship Specialty Start Date End Date Codie Bell MD [address] [place] [address] PCP - General Family Medicine 01/25/13 SULEMAN Soto [facility] Urology Urology 04/06/24 documented as of this encounter
--- OUTSIDE RECORDS SUMMARY | 2024-07-09 02:37 | XMS_ITS | Encounter Summary ---
Author Organization [employer] Address [address] [facility] 7t [place] [address] Care Team Providers Care Javascript Software Engineer Name Role Phone Codie Bell MD Primary Care Provider +1- [phone] Reason for Visit * Reason Comments Med Refill Encounter Details Date Type Department Care Team ([facility] st Contact Info) Description 07/04/2024 Refill [facility] [address] [place], [place] [phone] Niesha Shepherd MD [address] [place], [place] [phone] History of alcoholism ([facility]) Social History Tobacco Use Types Packs/Day [...] Description 08/07/2024 9:15 AM EDT Office Visit [facility] [address] [place] [phone] Codie Bell MD [address] [place] [phone] documented as of this encounter Visit Diagnoses Diagnosis History of alcoholism ([facility]) Personal history of alcoholism documented in this encounter Additional Health Concerns Assessment Noted Time PHQ-9 Depression Total Score: 0 10/13/19 24 9:19 AM EDT documented as of this encounter Care Teams Javascript Software Engineer Relationship Specialty Start Date End Date Codie Bell MD [address] [place] [address] [phone] PCP - General Family Medicine 01/25/13 SULEMAN Soto [facility] Urology Urology 04/06/24 documented as of this encounter
--- OUTSIDE RECORDS SUMMARY | 2024-07-09 02:37 | XMS_ITS | Encounter Summary ---
Author Organization [employer] Address [address] [facility] 7t [place] [address] Care Team Providers Care Charcoal Unloader Name Role Phone Codie Bell MD Primary Care Provider +1- [phone] Reason for Visit * Reason Onset Date Comments Med Refill 09/06/2023 Encounter Details Date Type Department Care Team ([facility] st Contact Info) Description 09/06/2023 Telephone [facility] [address] [place], [place] [phone] Codie Bell MD [address] [place], [place] [phone] Med Refill Social History Tobacco Use Types [...] immediate release tablet To be sent to: [facility]/pharmacy #[id number] [place], [place] - [address] [place] [address] documented in this encounter Plan of Treatment Upcoming Encounters Date Type Department Care Team (Late st Contact Info) Description 08/07/2024 9:15 AM EDT Office Visit [facility] [address] [place] [address] Codie Bell MD [address] [place] [address] documented as of this encounter Visit Diagnoses Not on filedocumented in this encounter Additional Health Concerns Assessment Noted Time PHQ-9 Depression Total Score: 0 05/11/19 10:41 AM EST documented as of this encounter Care Teams Charcoal Unloader Relationship Specialty Start Date End Date Codie Bell MD [address] [place] [address] PCP - General Family Medicine 01/25/13 SULEMAN Soto [facility] 04/06/24 documented as of this encounter
--- OUTSIDE RECORDS SUMMARY | 2024-07-09 02:37 | XMS_ITS | Encounter Summary ---
Author Organization [employer] [facility] Address [address] [place] [address] 7 [place] [address] Care Team Providers Care Lead Generator Name Role Phone Codie Bell MD Primary Care Provider +1- [phone] Encounter Details Date Type Department Care Team (Late st Contact Info) Description 04/10/2022 Telephone [facility] [address] [place] [address] [phone] Codie Bell MD [address] [place] [address] [phone] Social History Tobacco Use Types Packs/Day Years [...] Description 08/07/2024 9:15 AM EDT Office Visit [facility] [address] [place] [phone] Codie Bell MD [address] [place] [address] [phone] documented as of this encounter Visit Diagnoses Not on filedocumented in this encounter Care Teams Lead Generator Relationship Specialty Start Date End Date Codie Bell MD [address] [place] [address] [phone] PCP - General Family Medicine 01/25/13 SULEMAN Soto [facility] Urology Urology 04/06/24 documented as of this encounter
--- OUTSIDE RECORDS SUMMARY | 2024-07-09 02:37 | XMS_ITS | Encounter Summary ---
Author Organization [employer] Address [address] [place] [address] 7t [place] [address] Care Team Providers Care Chemical Laboratory Chief Name Role Phone Codie Bell MD Primary Care Provider +1- [phone] Reason for Visit * Reason Onset Date Comments Med Refill 07/03/2024 Encounter Details Date Type Department Care Team (Late st Contact Info) Description 07/03/2024 Refill [facility] [address] [place], [place] [phone] Codie Bell MD [address] [place] [address] Chronic midline low back pain without sciatica Social History Tobacco Use Types Packs/Day Years [...] encounter Miscellaneous Notes * Telephone Encounter - Lissa Capone - 07/03/2024 3:49 PM EDT TC from pt requesting medication refill. Medications needing refill : oxyCODONE (Roxicodone) 10 MG immediate release tablet To be sent to: [address] [address] documented in this encounter Plan of Treatment Upcoming Encounters Date Type Department Care Team (Late st Contact Info) Description 08/07/2024 9:15 AM EDT Office Visit [facility] [address] [place], [place] [phone] Codie Bell MD [address] [place] [address] documented as of this encounter Visit Diagnoses Diagnosis Chronic midline low back pain without sciatica documented in this encounter Additional Health Concerns Assessment Noted Time PHQ-9 Depression Total Score: 0 07/10/20 24 9:19 AM EDT documented as of this encounter Care Teams Chemical Laboratory Chief Relationship Specialty Start Date End Date Codie Bell MD [address] [place] [phone] PCP - General Family Medicine 01/25/13 SULEMAN Soto [facility] Urology Urology 04/06/24 documented as of this encounter
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
--- OUTSIDE RECORDS SUMMARY | 2024-07-09 02:37 | XMS_ITS | Encounter Summary ---
Author Organization [employer] [facility] Address [address] [place] [address] [address] [place] [address] Care Team Providers Care Tile Mechanic Helper Name Role Phone Codie Bell MD Primary Care Provider +1- [phone] Reason for Visit * Reason Comments Med Refill Encounter Details Date Type Department Care Team (Late st Contact Info) Description 07/03/2022 Refill [facility] [address] [place], [place] [phone] Codie Bell MD [address] [place] [address] [phone] Social History Tobacco Use Types Packs/Day Years [...] 9:15 AM EDT Office Visit [facility] [address] [place] [address] [phone] Codie Bell MD [address] [place] [address] [phone] documented as of this encounter Visit Diagnoses Not on filedocumented in this encounter Additional Health Concerns Assessment Noted Time PHQ-9 Depression Total Score: 0 05/11/19 23 10:41 AM EST documented as of this encounter Care Teams Tile Mechanic Helper Relationship Specialty Start Date End Date Codie Bell MD [address] [place] [address] PCP - General Family Medicine 01/25/13 SULEMAN Soto [facility] Urology Urology 04/06/24 documented as of this encounter
--- OUTSIDE RECORDS SUMMARY | 2024-07-09 02:37 | XMS_ITS | Clinical Summary ---
Author Organization [facility] [employer] Address [address] [place] [address] 7[address] [place] [address] Care Team Providers Care Sinter Machine Operator Name Role Phone Codie Bell MD Primary Care Provider +1- [phone] Allergies No known active allergies Medications glucose blood (FREESTYLE LITE) test stripIndications :Type 2 diabetes mellitus with hyperglycemia, without long-term current use of insulin ([facility]) USE TO TEST 6 TIMES DAILY DIRECTED 200 strip 11 024 Active hydroCHLOROthiaz galen (HYDRODiuril) 25 MG tabletIndication s:Primary hypertension TAKE 1 TABLET BY MOUTH EVERY DAY IN THE MORNING 90 tablet 3 024 Active insulin aspart (NovoLOG FLEXPEN) 100 UNIT/ML penIndications:T ype 2 diabetes mellitus with hyperglycemia, without long-term current use of insulin ([facility]) USE PER SLIDING SCALE FOR BLOOD SUGAR 111-149 INJECT 2 UNITS SUBCUTANEOUSLY FOR SUGAR 150-199 INJECT 4 UNITS 200-249 INJECT 8 UNITS 250-299 INJECT 12 UNITS 300- 349 INJECT 16 UNITS 350 TO 399 INJECT 20 UNITS 39 15 mL 11 024 Active Eliquis 5 MG tabletIndication s:Chronic deep vein thrombosis (DVT) of distal vein of right lower extremity ([facility]) Take 1 tablet (5 mg) by mouth 2 times daily. 180 tablet 3 024 Active finasteride (Proscar) 5 MG tabletIndication s:Benign prostatic hyperplasia with lower urinary tract symptoms, symptom details unspecified TAKE 1 TABLET BY MOUTH EVERY DAY IN THE MORNING 90 tablet 3 024 Active pravastatin (Pravachol) 20 MG tabletIndication s:Type 2 diabetes mellitus with hyperglycemia, without long-term current use of insulin (CMS/HCC),Hyperl ipidemia, unspecified hyperlipidemia type Take 1 tablet (20 mg) by mouth in the morning. 90 tablet Active naloxone (Narcan) 4 mg/0.1 mL nasal sprayIndications :Chronic prescription opiate use May repeat every 2-3 minutes if needed, alternating nostrils, until medical assistance becomes available. 2 each Active Multiple Vitamins-Mineral s (Centrum Men) tabletIndication s:Frail elderly PT REPORTS PURCHASING OTC 90 tablet Active glucose-vitamin C 4-6 GM-MG oral gelIndications:T ype 2 diabetes mellitus with hyperglycemia, without long-term current use of insulin ([facility]) Use for blood sugar < 60 50 tablet Active acetaminophen (Tylenol) 500 MG tabletIndication s:Pain Take 1 tablet (500 mg) by mouth every 8 (eight) hours. 30 tablet Active TRUEplus Lancets 33G miscIndications: Type 2 diabetes mellitus with hyperglycemia, without long-term current use of insulin (CMS/HCC) Use bid 60 each Active glucose blood (FreeStyle Precision Niles Test) test stripIndications :Type 2 diabetes mellitus with hyperglycemia, without long-term current use of insulin (CMS/[facility]) Test blood sugar q 8 hours 100 each Active Alcohol Swabs (Alcohol Pads) 70 % padsIndications: Type 2 diabetes mellitus with hyperglycemia, without long-term current use of insulin (CMS/[facility]) Use as directed on skin 100 each Active sennosides (Senokot) 8.6 MG tabletIndication s:Constipation, unspecified constipation type 1-2 tabs po nightly prn constipation 60 tablet Active magnesium 250 MG tabletIndication s:Leg cramps take 1 tablet (250 mg) by mouth at bedtime Active insulin glargine (Lantus SoloStar) 100 UNIT/ML penIndications:T ype 2 diabetes mellitus with hyperglycemia, without long-term current use of insulin (CMS/[facility]) INJECT 25 UNIT BY SUBCUTANEOUS ROUTE ONCE DAILY AT BEDTIME(dose decreased 10/13/23) 15 mL Active insulin pen needle (BD Pen Needle Alejandra 2nd Gen) 32G x 4 mm miscIndications: Type 2 diabetes mellitus with hyperglycemia, without long-term current use of insulin (CMS/HCC) USE 5 TIMES A DAY 150 each Active oxyCODONE (Roxicodone) 10 MG immediate release tabletIndication s:Chronic midline low back pain without sciatica Take 1 tablet (10 mg) by mouth if needed in the morning and at bedtime for severe pain. 60 tablet 025 2024 Active magnesium oxide ([facility]S Magnesium Oxide) 250 MG tabletIndication s:History of alcoholism (CMS/HCC) TAKE 1 TABLET (250 MG) BY MOUTH AT BEDTIME 90 tablet 3 Active [facility] Magnesium Oxide 250 MG tabletIndication s:History of alcoholism (CMS/HCC) TAKE 1 TABLET (250 MG) BY MOUTH AT BEDTIME 90 tablet 3 024 2024 Discontinued oxyCODONE (Roxicodone) 10 MG immediate release tabletIndication s:Chronic midline low back pain without sciatica Take 1 tablet (10 mg) by mouth if needed in the morning and at bedtime for severe pain. 60 tablet 025 2024 Discontinued(R eorder (will not trigger notification to Pharmacy)) Active Problems Patient Care Coordination No te Formatting of this note migh t be different from the original. 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 Vick Ohara 12/04/2022 -has dentures -health care proxy filed 10/13/23 Assessment & Plan (10/13/2023 9:35 AM EDT): -next physical exam due after 07/13/24 -diabetic eye exam: [facility] with Dr. Vick Ohara 12/04/2022 -has dentures -health care proxy filed 10/13/23 Assessment & Plan (07/13/2023 7:55 AM EDT): -next physical exam due after 07/12/24 -diabetic eye exam: [facility] with Dr. 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 -still continuing Eliquis Assessment & Plan (04/20/2024 9:42 AM EST): Diagnosed 06/2020, [place] started 07/04/2020 -Pt was seen by his oil developer who mentioned on his last note a repeat U/S 10/2020 was negative for DVT but given the fact 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 , her recommended to keep him on Eliquis residential -still continuing Eliquis Assessment & Plan (10/13/2023 9:32 AM EDT): Diagnosed 06/2020, [place] started 07/04/2020 -Pt was seen by his oil developer who mentioned on his last note a repeat U/S 10/2020 was negative for DVT but given the fact 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 , her recommended to keep him on Eliquis residential Assessment & Plan (07/12/2023 1:27 PM EDT): Diagnosed 06/2020, Bonita started 07/04/2020 Pt was seen by his oil developer who mentioned on his last note a repeat U/S 10/2020 was negative for DVT but given the fact 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 , her recommended to keep him on Eliquis residential Assessment & Plan (08/19/2022 9:30 AM EDT): Diagnosed 06/2020, Moraimaquis started 07/04/2020 Pt was seen by his oil developer who mentioned on his last note a repeat U/S 10/2020 was negative for DVT but given the fact 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 , her recommended to keep him on 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 Luana Monreal DO. [...] acute kidney injury 2018 Assessment & Plan (04/20/2024 9:42 AM EST): -Blood pressure is at goal -Continue lifestyle modifications -Continue current medications -Continue HCTZ 25mg daily -coreg d/c by cardiology due to dizzyness, amlodipine d/c due to LE edema, lisinopril d/c due to hx acute kidney injury 2018 Assessment & Plan (01/19/2024 10:14 AM EDT): -Blood pressure is at goal -Continue lifestyle modifications -Continue current medications -Continue HCTZ 25mg daily -coreg d/c by cardiology due to dizzyness, amlodipine d/c due to LE edema, lisinopril d/c due to hx acute kidney injury 2018 Assessment & Plan (10/13/2023 9:32 AM EDT): Continue HCTZ 25mg daily -coreg d/c by cardiology due to dizzyness, amlodipine d/c due to LE edema, lisinopril d/c due to hx acute kidney injury 2018 Assessment & Plan (07/12/2023 1:27 PM EDT): Continue HCTZ 25mg daily -coreg d/c by cardiology due to dizzyness, amlodipine d/c due to LE edema, lisinopril d/c due to hx acute kidney injury 2018 Assessment & Plan (08/19/2022 9:30 AM EDT): [...] -Statin therapy: pravastatin 20mg -Diabetic eye exam: [facility] with Dr. Vick Ohara [...] -Statin therapy: pravastatin 20mg -Diabetic eye exam: [facility] with Dr. Vick Ohara [...] -Statin therapy: pravastatin 20mg -Diabetic eye exam: [facility] with Dr. Vick Ohara [...] -Statin therapy: pravastatin 20mg -Diabetic eye exam: [facility] with Dr. Vick Ohara [...] -Statin therapy: pravastatin 20mg -Diabetic eye exam: [facility] with Dr. Vick Ohara [...] 20mg -Diabetic eye exam: Appointment 09/[address] [facility] [address] Ayers. -Diabetic foot exam: Done [...] Encounters Date Type Department Care Team Description 07/08/2024 Telephone [facility] [address] [place] [phone] Anais Pulido RN ER Follow-up 07/04/2024 Refill [facility] [address] [place] [address] Niesha Shepherd MD History of alcoholism ([facility]) 07/03/2024 Refill [facility] [address] [place] [address] Codie Bell MD Chronic midline low back pain without sciatica 06/01/2024 Refill [facility] [address] [place] [address] Codie Bell MD Type 2 diabetes mellitus with hyperglycemia, without long-term current use of insulin ([facility]) 06/01/2024 Refill [facility] [address] [place] [address] Chantal Laguerre RN Chronic midline low back pain without sciatica 06/01/2024 Refill [facility] [address] [place] [address] Codie Bell MD Type 2 diabetes mellitus with hyperglycemia, without long-term current use of insulin ([facility]) 06/01/2024 Telephone [facility] [address] [place] [address] Codie Bell MD Med Refill 06/01/2024 Refill [facility] [address] [place] [address] Chance Miranda MD Type 2 diabetes mellitus with hyperglycemia, without long-term current use of insulin ([facility]) 05/19/2024 Telephone [facility] [address] [place] [address] Codie Bell MD May Recalls 05/19/2024 Travel 05/05/2024 Refill [facility] [address] [place] [address] Codie Bell MD Chronic midline low back pain without sciatica 04/20/2024 9:15 AM EST Office Visit [facility] [address] [place] [address] Codie Bell MD 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 ([facility]) (Primary Dx); Leg cramps; Chronic obstructive pulmonary disease, unspecified COPD type ([facility]); Chronic deep vein thrombosis (DVT) of distal vein of right lower extremity ([facility]); Primary hypertension; Type 2 diabetes mellitus with chronic kidney disease, without long-term current use of insulin, unspecified CKD stage ([facility]); Stage 3a chronic kidney disease ([facility]); History of alcoholism ([facility]); Overweight; Dietary counseling; Exercise counseling; Do not resuscitate 04/20/2024 Travel 04/15/2024 Refill [facility] [address] [place] [address] Codie Bell MD Type 2 diabetes mellitus with hyperglycemia, without long-term current use of insulin ([facility]) from Last 3 Months Immunizations Name Administration [...] your housing situation today? I have rosibel kenrick 10/13/[address] you li [...] Description 08/07/2024 9:15 AM EDT Office Visit [facility] [address] [place], [place] [phone] Codie Bell MD [address] [place], [place] [phone] Health Maintenance Due Date Last Done Comments Derm Melanoma Skin Check 1938 Lipid Panel 07/11/2024 07/12/2023, 06/0 06/2021, 02/18/2021, Additional history exists Diabetes: Hemoglobin A1C [...] Procedure Name Priority Date/Time Associated Diagnosis Comments DRUG MONITOR, PANEL 1, SCREEN, URINE Routine 07/03/2024 3:34 PM EDT URINALYSIS, COMPLETE, WITH REFLEX TO CULTURE Routine 07/03/2024 3:34 PM EDT POCT GLUCOSE Routine 04/20/2024 9:36 AM EST Type 2 diabetes mellitus with chronic kidney disease, without long-term current use of insulin, unspecified CKD stage (CMS/HCC) POCT GLYCOSYLATED HEMOGLOBIN (HGB A1C) Routine 04/20/2024 9:34 AM EST Type 2 diabetes mellitus with chronic kidney disease, without long-term current use of insulin, unspecified CKD stage (CMS/HCC) LIPID PANEL, STANDARD Routine 07/12/2023 10:58 AM EDT Memory loss Chronic fatigue HM DIABETES EYE EXAM Routine 12/04/2022 from Last 3 Months or Most Recently Relevant to Health Maintenance Results * (ABNORMAL) Urinalysis, Complete, with Reflex to Culture (07/03/2024 3:34 PM EDT) Color Urine Yellow [facility] Appearance Urine Clear [facility] PH 7.0 5.0 - 9.0 [facility] Glucose Urine UA 250(A) Negative mg/dL [facility] Urine Blood Negative Negative [facility] Specific [place] - Urine 1.020 1.005 - 1.025 [facility] Urine Protein 30 (1+)(A) Neg-Trace mg/dL [facility] Urine Ketones Negative Negative mg/dL [facility] Nitrite Urine Negative Negative [facility] Leukocyte Esterase Urine Trace(A) Negative [facility] RBC Urine 0-2 0 - 2 /HPF [facility] Urine WBC 0-5 0 - 5 /HPF [facility] Urine Squamous Epithelial Cell 3-5 0 - 2 /HPF [facility] Urine Bacteria None Seen None Seen [facility] Hyaline Casts, Urine 0-2 0 - 2 /LPF [facility] 07/03/2024 3:34 PM EDT 07/03/2024 3:44 PM EDT Narrative [facility] - 07/03/2024 3:56 PM EDT Urine, Clean Catch us Generic External Data Provider LAB URINE ORDERAB LES Final Result [facility] [address] [place] [address] [phone] * Drug Monitoring, Panel 1, Screen, Urine (07/03/2024 3:34 PM EDT) Opiate Screen Urine Not Detected Not Detect [facility] Comment:Opiate cut-off is 30 0 ng/mL.Positive results are unconfirmed and should not be used fornon-medical purposes. Barbiturates, Urine Not Detected Not Detect [facility] Comment:Barbiturate cut-off is 200 ng/mL.Positive results are unconfirmed and should not be used fornon-medical purposes. Phencyclidine Screen Urine Not Detected Not Detect [facility] Comment:Phencyclidine cut-of f is 25 ng/mL.Positive results are unconfirmed and should not be used fornon-medical purposes. Amphetamine Screen Urine Not Detected Not Detect [facility] Comment:Amphetamine cut-off is 1000 ng/mL.Positive results are unconfirmed and should not be used fornon-medical purposes. Benzodiazepines Screen Urine Not Detected Not Detect [facility] Comment:Benzodiazepine cut-o ff is 200 ng/mL.Positive results are unconfirmed and should not be used fornon-medical purposes. Cocaine Screen Urine Not Detected Not Detect [facility] Comment:Cocaine cut-off is 3 00 ng/mL.Positive results are unconfirmed and should not be used fornon-medical purposes. Cannabinoid Screen Urine Not Detected Not Detect [facility] Comment:Cannabinoid cut-off is 50 ng/mL.Positive results are unconfirmed and should not be used fornon-medical purposes. Methadone Screen, Urine Not Detected Not Detect ng/mL [facility] Comment:Methadone cut-off is 300 ng/mL.Positive results are unconfirmed and should not be used fornon-medical purposes. FENTANYL URINE Not Detected Not Detect [facility] Comment:Fentanyl cut-off is 1 ng/mL.Positive results are unconfirmed and should not be used fornon-medical purposes. Oxycodone Urine Screen Not Detected Not Detect ng/mL [facility] Comment:Oxycodone cut-off is 100 ng/mL.Positive results are unconfirmed and should not be used fornon-medical purposes. Buprenorphine Screen Not Detected Not Detect ng/mL [facility] Comment:Buprenorphine cut-of f is 5 ng/mL.Positive results are unconfirmed and should not be used fornon-medical purposes. 07/03/2024 3:34 PM EDT 07/03/2024 3:44 PM EDT us Generic External Data Provider LAB URINE ORDERAB LES Final Result [facility] [address] [place] [address] [phone] * (ABNORMAL) POCT glucose manually resulted (04/20/2024 9:36 AM EST) Glucose Blood, POC 210(A) 60 - 200 mg/dL QC Media Lot # [id number] Lot# Expiration Date ,025 Blood Capillary blood specimen / Unknown 04/20/2024 9:36 AM EST Codie Bell MD POINT OF CARE TEST ENTER/E DIT ORDERABLES Final Result * (ABNORMAL) POCT glycosylated hemoglobin (Hgb A1c) (04/20/2024 9:34 AM EST) Hemoglobin A1C 8.3(A) 4.0 - 6.0 % QC Media Lot # [id number] Lot# Expiration Date , Blood Capillary blood specimen / Unknown 04/20/2024 9:34 AM EST Codie Bell MD POINT OF CARE TEST ENTER/E DIT ORDERABLES Final Result * (ABNORMAL) Lipid Panel, Standard (07/12/2023 10:58 AM EDT) Triglycerides 133 <150 mg/dL [facility] Comment:Desirable Triglyceri de: less than 150 mg/dLBorderline High Triglyceride 150-199 mg/dLHigh Triglyceride: 200-499 mg/dLVery High Triglyceride: greater than or equal to 5OO mg/dL Cholesterol 152 <200 mg/dL [facility] Comment:Desirable Cholestero l: less than 200 mg/dLBorderline High Cholesterol: 200-239 mg/dLHigh Cholesterol: greater than 239 mg/dL LDL Cholesterol Calculated 88 <100 mg/dL [facility] Comment:Desirable LDL: less than 100 mg/dLNear Optimal/Above Optimal LDL: 110- 129 mg/dLBorderline High LDL: 130-159 mg/dLHigh LDL: 160-189 mg/dLVery High LDL: greater than or equal to 190 mg/dL HDL Cholesterol 38(L) >40 mg/dL [facility] Comment:Desirable HDL: great er than 40 mg/dL Note: This HDL assay may give artificially low results in patients with liver disease. Blood Venous blood specimen / Unknown 07/12/2023 10:58 AM EDT 07/12/2023 11:44 AM EDT us Codie Bell MD LAB BLOOD ORDERABLES Final Result [facility] [address] [place] [phone] [phone] * Diabetes Eye Exam (12/04/2022) [facility] Signature Eye Exam Normal Normal Comment:[facility] Historical Provider HEALTH MAINTENANCE Final Result from Last 3 Months or Most Recently Relevant to Health Maintenance Insurance [facility] [address] [place] [address] Advance Directives Documents on File Type Date Recorded Patient Travel Cota Expl anation Advance Directives and Living Will 10/13/2023 11:32 AM Health Care Proxy 10/13/23 Care Teams Sinter Machine Operator Relationship Specialty Start Date End Date GreenbrierCodie MD [address] [place] [phone] PCP - General Family Medicine 01/25/13 SULEMAN Soto [facility] Urology Urology 04/06/24
--- OUTSIDE RECORDS SUMMARY | 2024-07-09 02:37 | XMS_ITS | Encounter Summary ---
Author Organization [facility] Address [address] [place] [address] [address] [place] [address] Care Team Providers Care Level Vial Inspector Name Role Phone Codie Bell MD Primary Care Provider [phone]- [phone] Encounter Details Date Type Department Care Team (Late st Contact Info) Description 05/08/2022 Abstract [facility] [address] [place] [phone] Codie Bell MD [address] [place], [place] [phone] Social History Tobacco Use Types Packs/Day Years [...] Description 08/07/2024 9:15 AM EDT Office Visit [facility] [address] [place] [address] [phone] Codie Bell MD [address] [place] [address] documented as of this encounter Procedures Procedure Name Priority Date/Time Associated Diagnosis Comments COLONOSCOPY Routine 07/28/2013 documented in this encounter Results * Colonoscopy (07/28/2013) Colonoscopy Tubular adenoma with Dr. Kramer us Historical Provider [facility] Final Result documented in this encounter Visit Diagnoses Not on filedocumented in this encounter Care Teams Level Vial Inspector Relationship Specialty Start Date End Date Arabella, MD Codie [address] [place] [address] PCP - General Family Medicine 01/25/13 SULEMAN Soto [facility] Urology Urology 04/06/24 documented as of this encounter
--- OUTSIDE RECORDS SUMMARY | 2024-07-09 02:37 | XMS_ITS | Encounter Summary ---
Author Organization [facility] Address [address] [place] [address] 7[address] [place] [address] Care Team Providers Care Static Balancer Name Role Phone Codie Bell MD Primary Care Provider +1- [phone] Encounter Details Date Type Department Care Team (Late st Contact Info) Description 03/17/2022 Abstract [facility] [address] [place] [phone] ProviderAmbrosio MD Social History Tobacco Use Types [...] Description 08/07/2024 9:15 AM EDT Office Visit [facility] [address] [place] [address] Codie Bell MD [address] [place] [phone] documented as of this encounter Visit Diagnoses Not on filedocumented in this encounter Care Teams Static Balancer Relationship Specialty Start Date End Date Codie Bell MD [address] [place] [address] PCP - General Family Medicine 01/25/13 SULEMAN Soto [facility] Urology Urology 04/06/24 documented as of this encounter
--- OUTSIDE RECORDS SUMMARY | 2024-07-09 02:37 | XMS_ITS | Encounter Summary ---
Author Organization [employer] Address [address] [facility] 7t [place] [address] Care Team Providers Care Veterinary Pathologist Name Role Phone Codie Bell MD Primary Care Provider +1- [phone] Reason for Visit * Reason Onset Date Comments Med Refill 11/05/2023 Encounter Details Date Type Department Care Team ([facility] st Contact Info) Description 11/05/2023 Telephone [facility] [address] [place], [place] [phone] Codie Bell MD [address] [place] [address] Med Refill Social History Tobacco Use Types [...] immediate release tablet To be sent to: [facility]/pharmacy #[id number] [place] [address] documented in this encounter Plan of Treatment Upcoming Encounters Date Type Department Care Team (Late st Contact Info) Description 08/07/2024 9:15 AM EDT Office Visit [facility] [address] [place] [address] Codie Bell MD [address] [place] [address] documented as of this encounter Visit Diagnoses Not on filedocumented in this encounter Additional Health Concerns Assessment Noted Time PHQ-9 Depression Total Score: 0 10/13/19 24 9:19 AM EDT documented as of this encounter Care Teams Veterinary Pathologist Relationship Specialty Start Date End Date Codie Bell MD [address] [place] [address] PCP - General Family Medicine 01/25/13 SULEMAN Soto [facility] Urology Urology 04/06/24 documented as of this encounter
--- OUTSIDE RECORDS SUMMARY | 2024-07-09 02:37 | XMS_ITS | Encounter Summary ---
Author Organization [employer] Address [address] [place] [address] 7t [place] [address] Care Team Providers Care Oxygen System Tester Name Role Phone Codie Bell MD Primary Care Provider +1- [phone] Reason for Visit * Reason Onset Date Comments ER Follow-up 07/08/2024 Encounter Details Date Type Department Care Team ([facility] st Contact Info) Description 07/08/2024 Telephone [facility] [address] [place] [address] Anais Pulido, RN [address] [place] [address] ER Follow-up Social History Tobacco Use Types Packs/Day Years [...] Telephone Encounter - Anais Pulido RN - 07/08/2024 11:00 AM EDT Telephone call placed to pt's daughter Tata on HIPAA regarding below message. She reports that pthas been having increased confusion for ~1yr now. Some days are worse than others. No new medications that she knows of including pain meds. She would be interested in pt seeing memory clinic to see if possibly related to one of his medications. Informed PCP will place referral. If she doesn't hear from anyone to schedule within 2 weeks, let us know. Reminded of pt's upcoming PE with PCP 08/07 @9:15am. Advised to call if they have any questions or concerns or need anything prior to then. Tata verbalized understanding and denied having any further questions or concerns at this time. Please call daughter in the next 1-2 days for status check from ER visit for confusion. Was he taking any pain medicaion? I can refer pt to Geriatrics at [facility] in memory clinic if needed for recommendations on medications. Thank you. documented in this encounter Plan of Treatment Upcoming Encounters Date Type Department Care Team (Late st Contact Info) Description 08/07/2024 9:15 AM EDT Office Visit [facility] [address] [place] [address] Codie Bell MD [address] [place] [address] documented as of this encounter Visit Diagnoses Not on filedocumented in this encounter Additional Health Concerns Assessment Noted Time PHQ-9 Depression Total Score: 0 10/13/19 9:19 AM EDT documented as of this encounter Care Teams Oxygen System Tester Relationship Specialty Start Date End Date Codie Bell MD [address] [place] [address] PCP - General Family Medicine 01/25/13 SULEMAN Soto [facility] Urology Urology 04/06/24 documented as of this encounter
--- OUTSIDE RECORDS SUMMARY | 2024-07-09 02:37 | XMS_ITS | Encounter Summary ---
Author Organization [employer] Address [address] [facility] 7t [place] [address] Care Team Providers Care Physician In Private Practice Name Role Phone Codie Bell MD Primary Care Provider +1- [phone] Reason for Visit * Reason Onset Date Comments Med Refill 02/04/2024 Encounter Details Date Type Department Care Team ([facility] st Contact Info) Description 02/04/2024 Telephone [facility] 230 [place], [place] [phone] Codie Bell MD [address] [place], [place] [phone] Med Refill Social History Tobacco Use Types [...] immediate release tablet To be sent to: [facility]/pharmacy #[id number] [place] [address] documented in this encounter Plan of Treatment Upcoming Encounters Date Type Department Care Team (Late st Contact Info) Description 08/07/2024 9:15 AM EDT Office Visit [facility] [address] [place] [address] Codie Bell MD [address] [place] [address] documented as of this encounter Visit Diagnoses Not on filedocumented in this encounter Additional Health Concerns Assessment Noted Time PHQ-9 Depression Total Score: 0 10/13/19 24 9:19 AM EDT documented as of this encounter Care Teams Physician In Private Practice Relationship Specialty Start Date End Date Dolores, Codie, MD [address] [place] [address] PCP - General Family Medicine 01/25/13 SULEMAN Soto [facility] Urology Urology 04/06/24 documented as of this encounter
--- OUTSIDE RECORDS SUMMARY | 2024-07-09 02:37 | XMS_ITS | Encounter Summary ---
Author Organization [employer] [facility] [place] Address [address] [place] [address] 7t [place] [address] Care Team Providers Care Block Stacker Name Role Phone Codie Bell MD Primary Care Provider +1- [phone] Encounter Details Date Type Department Care Team (Late st Contact Info) Description 04/24/2022 Orders Only [facility] [address] [place] [phone] Katie Conroy LPN Social History Tobacco Use [...] AM EDT Office Visit [facility] [address] [place] [address] Codie Bell MD [address] [place] [address] documented as of this encounter Visit Diagnoses Not on filedocumented in this encounter Care Teams Block Stacker Relationship Specialty Start Date End Date Codie Bell MD [address] [place] [address] PCP - General Family Medicine 01/25/13 SULEMAN Soto [facility] Urology Urology 04/06/24 documented as of this encounter
--- OUTSIDE RECORDS SUMMARY | 2024-07-09 02:37 | XMS_ITS | Encounter Summary ---
Author Organization [employer] Address [address] [facility] 7t [place] [address] Care Team Providers Care Outside Industrial Sales Representative Name Role Phone Codie Bell MD Primary Care Provider +1- [phone] Reason for Visit * Reason Onset Date Comments Med Refill 06/01/2024 Encounter Details Date Type Department Care Team ([facility] st Contact Info) Description 06/01/2024 Telephone [facility] [address] [place], [place] [phone] Codie Bell MD 230 [place], [place] [phone] Med Refill Social History Tobacco Use Types [...] immediate release tablet To be sent to: [facility]/pharmacy #[address] [place] [address] documented in this encounter Plan of Treatment Upcoming Encounters Date Type Department Care Team (Late st Contact Info) Description 08/07/2024 9:15 AM EDT Office Visit [facility] [address] [place] [address] Codie Bell MD [address] [place] [address] documented as of this encounter Visit Diagnoses Not on filedocumented in this encounter Additional Health Concerns Assessment Noted Time PHQ-9 Depression Total Score: 0 10/13/19 24 9:19 AM EDT documented as of this encounter Care Teams Outside Industrial Sales Representative Relationship Specialty Start Date End Date Arabella, Codie, MD 230 [place] [address] PCP - General Family Medicine 01/25/13 SULEMAN Soto [facility] Urology Urology 04/06/24 documented as of this encounter
--- OUTSIDE RECORDS SUMMARY | 2024-07-09 02:37 | XMS_ITS | Encounter Summary ---
Author Organization [employer] Address [address] [place] [address] 7t [place] [address] Care Team Providers Care Public Relations Analyst Name Role Phone Codie Bell MD Primary Care Provider +1- [phone] Reason for Visit * Reason Onset Date Comments Med Refill 02/04/2023 Encounter Details Date Type Department Care Team ([facility] st Contact Info) Description 02/04/2023 Telephone [facility] 230 [place], [place] [phone] Codie Bell MD [address] [place], [place] [phone] Med Refill Social History Tobacco Use Types [...] immediate release tablet to be sent to [facility]/pharmacy #[id number] [place], [place] - [address] [place] [address] documented in this encounter Plan of Treatment Upcoming Encounters Date Type Department Care Team (Late st Contact Info) Description 08/07/2024 9:15 AM EDT Office Visit [facility] 230 [place] [address] Codie Bell MD [address] [place] [address] documented as of this encounter Visit Diagnoses Not on filedocumented in this encounter Additional Health Concerns Assessment Noted Time PHQ-9 Depression Total Score: 0 05/11/19 23 10:41 AM EST documented as of this encounter Care Teams Public Relations Analyst Relationship Specialty Start Date End Date Codie Bell MD [address] [place] [address] PCP - General Family Medicine 01/25/13 SULEMAN Soto [facility] Urology Urology 04/06/24 documented as of this encounter
--- OUTSIDE RECORDS SUMMARY | 2024-07-09 02:37 | XMS_ITS | Encounter Summary ---
Author Organization [employer] Address [address] [facility] 7t [place] [address] Care Team Providers Care Supervisor Covering And Lining Name Role Phone Codie Bell MD Primary Care Provider +1- [phone] Reason for Visit * Reason Comments Med Refill Encounter Details Date Type Department Care Team ([facility] st Contact Info) Description 06/01/2024 Refill [facility] 230 [place], [place] [phone] Chance Miranda MD 230 [place] [address] Type 2 diabetes mellitus with hyperglycemia, without long-term current use of insulin ([facility]) Social History Tobacco Use Types [...] 9:15 AM EDT Office Visit [facility] [address] [place] [address] Codie Bell MD [address] [place] [address] documented as of this encounter Visit Diagnoses Diagnosis Type 2 diabetes mellitus with hyperglycemia, without long-term current use of insulin ([facility]) documented in this encounter Additional Health Concerns Assessment Noted Time PHQ-9 Depression Total Score: 0 10/13/19 24 9:19 AM EDT documented as of this encounter Care Teams Supervisor Covering And Lining Relationship Specialty Start Date End Date Codie Bell MD [address] [place] [address] PCP - General Family Medicine 01/25/13 SULEMAN Soto [facility] Urology Urology 04/06/24 documented as of this encounter
--- OUTSIDE RECORDS SUMMARY | 2024-07-09 02:37 | XMS_ITS | Encounter Summary ---
Author Organization [employer] [facility] Address [address] [place] [address] 7t [place] [address] Care Team Providers Care Meat Pumper Name Role Phone Codie Bell MD Primary Care Provider +1- [phone] Reason for Visit * Reason Comments Med Refill Encounter Details Date Type Department Care Team (Late st Contact Info) Description 07/20/2022 Refill [facility] [address] [place], [place] [phone] Codie Bell MD [address] [place] [phone] Social History Tobacco Use Types Packs/Day Years [...] Description 08/07/2024 9:15 AM EDT Office Visit [facility] [address] [place] [address] [phone] Codie Bell MD [address] [place] [address] [phone] documented as of this encounter Visit Diagnoses Not on filedocumented in this encounter Additional Health Concerns Assessment Noted Time PHQ-9 Depression Total Score: 0 05/11/19 23 10:41 AM EST documented as of this encounter Care Teams Meat Pumper Relationship Specialty Start Date End Date Codie Bell MD [address] [place] [address] PCP - General Family Medicine 01/25/13 SULEMAN Soto [facility] Urology Urology 04/06/24 documented as of this encounter
--- OUTSIDE RECORDS SUMMARY | 2024-07-09 02:37 | XMS_ITS | Encounter Summary ---
Author Organization [employer] Address [address] [facility] 7t [place] [address] Care Team Providers Care Electronic Equipment Set Up Operator Name Role Phone Codie Bell MD Primary Care Provider +1- [phone] Reason for Visit * Reason Onset Date Comments Change PCP 09/14/2023 Telephone Call 09/14/2023 Encounter Details Date Type Department Care Team ([facility] st Contact Info) Description 09/14/2023 Telephone [facility] 230 [place], [place] [phone] Codie Bell MD [address] [place] [address] Change PCP; Telephone Call Social History Tobacco [...] daughter requesting to switch to provider to [facility] due moving to [place], facility will be closer to home. Please contact at [phone] documented in this encounter Plan of Treatment Upcoming Encounters Date Type Department Care Team (Late st Contact Info) Description 08/07/2024 9:15 AM EDT Office Visit [facility] [address] [place] [address] Codie Bell MD [address] [place] [address] documented as of this encounter Visit Diagnoses Not on filedocumented in this encounter Additional Health Concerns Assessment Noted Time PHQ-9 Depression Total Score: 0 05/11/19 23 10:41 AM EST documented as of this encounter Care Teams Electronic Equipment Set Up Operator Relationship Specialty Start Date End Date Codie Bell MD [address] [place] [address] PCP - General Family Medicine 01/25/13 SULEMAN Soto [facility] Urology Urology 04/06/24 documented as of this encounter
[2024-07-09 02:47] LABS: MANUAL DIFF FLAG NO
[2024-07-09 02:48] LABS: Basophils Absolute Auto 0.1 X10*3/uL (0.0-0.2); Basophils Percent Auto 0.9 % (0-2); Eosinophils Absolute Auto 0.3 X10*3/uL (0.0-0.4); Eosinophils Percent Auto 3.3 % (0-4); Hematocrit 36.7 % (42.0-52.0); Hemoglobin 12.7 g/dl (14.0-18.0); Imm Gran Abs Auto 0.02 X10*3/uL (0.00-0.03); Imm Gran Pct Auto 0.2 % (0.0-0.4); Lymphocytes Absolute Auto 2.6 X10*3/uL (1.2-4.9); Lymphocytes Percent Auto 29.5 % (20-40); Mean Corpuscular HGB Conc 34.6 g/dl (31.0-36.0); Mean Corpuscular Hemoglobin 29.7 pg (27.0-33.0); Mean Corpuscular Volume 85.9 fL (80.0-98.0); Mean Platelet Volume 11.1 fL (9.4-12.4); Monocytes Absolute Auto 0.6 X10*3/uL (0.1-1.2); Monocytes Percent Auto 7.1 % (2-11); Neutrophils Absolute Auto 5.2 x10*3/uL (2.0-8.3); Platelet Count 299 X10*3/uL (160-400); Red Blood Count 4.27 X10*6/uL (4.60-5.80); Red Cell Distribution Width 13.8 % (11.0-16.0); White Blood Count 8.8 X10*3/uL (4.8-10.8)
[2024-07-09 03:03] LABS: Alanine Aminotransferase 10 U/L (0-40); Albumin Level 3.7 g/dL (3.5-5.0); Alkaline Phosphatase 81 U/L (39-117); Anion Gap 13 (12-20); Aspartate Amino Transferase 25 U/L (5-37); Bilirubin Direct 0.1 mg/dL (0.0-0.5); Bilirubin Total 0.3 mg/dL (0.0-1.0); Blood Urea Nitrogen 20 mg/dL (9-16); Calcium 8.7 mg/dL (8.4-10.2); Carbon Dioxide 26 mmol/L (22-29); Chloride 104 mmol/L (96-108); Creatinine Clr Calc Pharmacy 37.9; Estimated Glomerular Filt Rate 50; Glucose Random 137 mg/dL (60-115); Lipase 18 U/L (8-78); Potassium 4.1 mmol/L (3.3-5.1); Sodium 139 mmol/L (135-145); Total Protein 7.4 g/dL (6.5-8.0)
--- NOTE | 2024-07-09 03:39 | ED_ITS ---
HPI - Abdominal Pain General Chief Complaint: Abdominal Pain Stated Complaint: stomach pain Time Seen by Provider: 07/09/24 02:40 Source: patient and family Mode of arrival: ambulatory Limitations: no limitations History of Present Illness ED Provider: Dr. Tammy Luna HPI narrative: Patient comes to the emergency room complaining of constipation for 4 months. Patient states that the last time he got a normal bowel movement was over a week ago. Patient states that he is feels bloated, denies significant abdominal pain, denies hematuria or dysuria, no nausea or vomiting. No diarrhea. Related Data Home Medications ?Medication ?Instructions ?Recorded ?Confirmed apixaban 5 mg tablet 5 mg PO BID 08/21/20 11/29/21 blood sugar diagnostic #10 ea 08/21/20 finasteride 5 mg tablet 5 mg PO QAM 08/21/20 11/29/21 hydrochlorothiazide 25 mg tablet 25 mg PO QAM 08/21/20 11/29/21 insulin aspart U-100 100 unit/mL 5 unit subcut DAILY@0730 08/21/20 11/29/21 (3 mL) subcutaneous pen lancets 33 gauge #100 08/21/20 magnesium 250 mg tablet 250 mg PO DAILY 08/21/20 11/29/21 naloxone 4 mg/actuation nasal spray 1 spray intranasal ONCE PRN Opiate 08/21/20 11/29/21 Reversal omeprazole 20 mg capsule,delayed 20 mg PO QAM 08/21/20 11/29/21 release pen needle, diabetic 32 gauge x #50 08/21/20 pravastatin 20 mg tablet 20 mg PO BEDTIME 08/21/20 11/29/21 brimonidine 0.2 % eye drops 1 drp ophthalmic-Left BID 11/29/21 11/29/21 insulin aspart U-100 100 unit/mL 10 unit subcut DAILY@1630 11/29/21 11/29/21 (3 mL) subcutaneous pen (Novolog FlexPen U-100 Insulin aspart) insulin glargine 100 unit/mL (3 30 unit subcut BEDTIME 11/29/21 11/29/21 mL) subcutaneous pen (Lantus Solostar U-100 Insulin) oxycodone 10 mg tablet 1 tab PO BID PRN Pain, Moderate 11/29/21 11/29/21 timolol maleate 0.5 % eye gel 1 drp ophthalmic-Left QAM 11/29/21 11/29/21 forming solution Previous Rx's ?Medication ?Instructions ?Recorded bisacodyl 10 mg/30 mL enema (Fleet 10 mg (30 mL) DC DAILY PRN 07/09/24 Bisacodyl) constipation #37 mL lactulose 10 gram/15 mL oral 10 g (15 mL) PO DAILY PRN 07/09/24 solution constipation #237 mL Allergies Allergy/AdvReac Type Severity Reaction Status Date / Time No Known Allergies Allergy Verified 07/09/24 02:15 [No Known Allergies*] Review of Systems Review of Systems Constitutional : No Weight loss, No Fever, No Chills, No Night Sweats, No Fatigue, No Malaise ENT/Mouth : No Hearing loss, No Ear Pain, No Nasal Congestion, No Sinus Pain, No Hoarseness, No sore throat, No Rhinorrhea, No Swallowing Difficulty Eyes: No Eye Pain, No Swelling, No Redness, No Foreign Body, No Discharge, No Vision Changes Cardiovascular : No Chest Pain, No SOB, No Dyspnea on Exertion, No Orthopnea, No Edema, No Palpitations Respiratory : No Cough, No Sputum, No Wheezing, No Smoke Exposure, No Dyspnea Gastrointestinal : No Nausea, No Vomiting, No Diarrhea, complaining of Constipation, No abdominal Pain, No Hematochezia, No Melena Genitourinary : no irregular bleeding, No Dysuria, No Urinary Frequency, No Hematuria, No Urinary Incontinence, No Urgency, No Flank Pain, No Urinary Flow Changes, No Hesitancy Musculoskeletal : No joint pain, No Myalgias, No Joint Swelling Skin : No Skin Lesions, No rash Neuro : No Weakness, No Numbness, No Paresthesias, No Loss of Consciousness, No Dizziness, No Headache Psych : No Anxiety/Panic, No Depression, No SI/HI/AH/VH, No Social Issues, Heme/Lymph: No Bruising, No Bleeding,No Lymphadenopathy Endocrine : No Polyuria, No Polydipsia, No Temperature Intolerance [facility] Past Medical History Medical History History of adenomatous polyp of colon Renal failure BPH (benign prostatic hyperplasia) Asthma COPD (chronic obstructive pulmonary disease) Vertigo Diabetes Hyperlipidemia HTN (hypertension) No known health problems Family History Family History Paternal Grandmother Colon cancer Brother Cancer of unknown origin Father Cancer of unknown origin Social History Social History Alcohol intake: never Advance Directives: Yes Advance Directives Information Provided: Yes Advance Directives on File: No Do you have a plan to hurt others: No Plan Physical Exam ED Vital Signs: Vital Signs - 24 hr 07/09/24 02:13 Temperature 98.8 F Pulse Rate 75 Respiratory Rate 16 Blood Pressure 134/73 Pulse Oximetry 98 Oxygen Delivery Method Room Air BMI result Body Mass Index 31.6 Const Other: Appearance: Alert. Oriented X3. No acute distress. Eyes: Pupils equal, round and reactive to light. ENT: Pharynx normal. Neck: Normal inspection. Neck supple. No lymph nodes noted. No crepitus CVS: Normal heart rate and rhythm. Pulses normal. Normal S1 and S2 Respiratory: No respiratory distress. Breath sounds normal. No Wheezing. No rales Abdomen: Soft and nontender. No rigidity. No distention. Skin: Skin warm and dry. Normal skin color. Normal skin turgor. Extremities: No lower extremity edema. No Lacerations. No Rash Neuro: Oriented X 3. No motor deficit. No sensory deficit. Moving all extremities. No slurred speech. CN 2 through 12 grossly intact Psych: calm, cooperative, normal affect Medical Decision Making Medical Decision Making [facility] Narrative: My interpretation of labs: No significant abnormality in patient's hematology or chemistry KUB shows normal gas pattern, severe stool burden. Seems that most of the stool is in the transverse colon, I do not think a disimpaction with help much at this time. I discussed with the patient that he needs to drink plenty of fluids for the medications to work better. Patient agrees with plan According to the patient's daughter, patient is on Dulcolax and they believe he is already on MiraLax Differential Diagnosis Differential Diagnoses: The differential diagnosis associated with the presentation includes (Constipation, SBO) Lab Data [facility] Lab Attestation statement: I reviewed the patient's lab results. 07/09/24 02:43 07/09/24 02:43 Labs: Lab Results 07/09/24 Range/Units 02:43 WBC 8.8 (4.8-10.8) X10*3/uL RBC 4.27 L (4.60-5.80) X10*6/uL Hgb 12.7 L (14.0-18.0) g/dl Hct 36.7 L (42.0-52.0) % MCV 85.9 (80.0-98.0) fL MCH 29.7 (27.0-33.0) pg MCHC 34.6 (31.0-36.0) g/dl RDW 13.8 (11.0-16.0) % Plt Count 299 (160-400) X10*3/uL MPV 11.1 (9.4-12.4) fL Immature Gran % (Auto) 0.2 (0.0-0.4) % Neut % (Auto) 59.0 (45-73) % Lymph % (Auto) 29.5 (20-40) % [place] % (Auto) 7.1 (2-11) % Eos % (Auto) 3.3 (0-4) % Baso % (Auto) 0.9 (0-2) % Lymph # (Auto) 2.6 (1.2-4.9) X10*3/uL [place] # (Auto) 0.6 (0.1-1.2) X10*3/uL Eos # (Auto) 0.3 (0.0-0.4) X10*3/uL Baso # (Auto) 0.1 (0.0-0.2) X10*3/uL Abs Immat Gran (auto) 0.02 (0.00-0.03) X10*3/uL Absolute Neuts (auto) 5.2 (2.0-8.3) x10*3/uL Absolute Nucleated RBC 0.000 (0.0-0.012) X10*3/uL Nucleated RBC % (auto) 0.0 (0.0-0.2) /100WBC Sodium 139 (135-145) mmol/L Potassium 4.1 (3.3-5.1) mmol/L Chloride 104 (96-108) mmol/L Carbon Dioxide 26 (22-29) mmol/L Anion Gap 13 (12-20) BUN 20 H (9-16) mg/dL Creatinine 1.36 (0.5-1.4) mg/dL Estim Creat Clear Calc 37.9 Estimated GFR 50 Random Glucose 137 H (60-115) mg/dL Calcium 8.7 (8.4-10.2) mg/dL Total Bilirubin 0.3 (0.0-1.0) mg/dL Direct Bilirubin 0.1 (0.0-0.5) mg/dL AST 25 (5-37) U/L ALT 10 (0-40) U/L Alkaline Phosphatase 81 (39-117) U/L Total Protein 7.4 (6.5-8.0) g/dL Albumin 3.7 (3.5-5.0) g/dL Lipase 18 (8-78) U/L Independent Interpretation I performed an independent interpretation of an: Plain X-Ray Radiology Impression Discussion of test interpretation with radiology: I have reviewed the radiologist's reading. Radiologist Impression: No pneumoperitoneum or pneumatosis. Large stool burden. No abnormal calcifications. No acute fractures. IMPRESSION: Nonobstructive bowel-gas pattern. Large stool burden Critical Care Time Critical Care Time Critical Care Time: Yes Total Critical Care Time: 35 Attestation: I have personally provided critical care time. Time includes review of lab data, radiology results, discussion with consultants, and monitoring for potential decompensation. Intervention performed as documented. Discharge Plan Discharge Clinical Impression: Constipation Patient Disposition: Home, Self-Care Instructions: Constipation (ED), High Fiber Diet (ED), Fleet Enema (ED) Additional Instructions: You need to drink plenty of fluids for your medications to work properly and have good bowel movements. Please follow-up with your primary care physician tomorrow. If you have any worsening or new symptoms, please return to the emergency room or call 911 Prescriptions: New lactulose 10 gram/15 mL solution 10 g PO DAILY PRN (Reason: constipation) Qty: 237 0RF Fleet Bisacodyl 10 mg/30 mL enema 10 mg DC DAILY PRN (Reason: constipation) Qty: 37 2RF No Action insulin glargine [Lantus Solostar U-100 Insulin] 100 unit/mL (3 mL) insulin pen 30 unit subcut BEDTIME brimonidine 0.2 % drops 1 drp ophthalmic-Left BID timolol maleate 0.5 % gel forming solution 1 drp ophthalmic-Left QAM insulin aspart U-100 [Novolog FlexPen U-100 Insulin] 100 unit/mL (3 mL) insulin pen 10 unit subcut DAILY@1630 oxycodone 10 mg tablet 1 tab PO BID PRN (Reason: Pain, Moderate) hydrochlorothiazide 25 mg tablet 25 mg PO QAM (DME) FreeStyle Lite Strips Strip See Rx Instructions Not Applicable .MEDSUPPLY Qty: 10 Rx Instructions: As directed pravastatin 20 mg tablet 20 mg PO BEDTIME omeprazole 20 mg capsule,delayed release(DR/EC) 20 mg PO QAM (DME) pen needle, diabetic 32 gauge x /32 needle See Rx Instructions .ROUTE .MEDSUPPLY Qty: 50 Rx Instructions: As directed finasteride 5 mg tablet 5 mg PO QAM Narcan 4 mg/actuation spray,non-aerosol 1 spray intranasal ONCE PRN (Reason: Opiate Reversal) Eliquis 5 mg tablet 5 mg PO BID insulin aspart U-100 100 unit/mL (3 mL) insulin pen 5 unit subcut DAILY@0730 (DME) lancets 33 gauge misc See Rx Instructions Not Applicable .MEDSUPPLY Qty: 100 Rx Instructions: As directed magnesium 250 mg tablet 250 mg PO DAILY Print Language: Maori
[2024-07-09 03:51] VITALS: BP 153/58; PULSE 65; RESP 16; TEMP 36.8; O2SAT 100
[2024-07-09 03:56] LABS: Appearance Urine Clear; Color Urine Yellow; Glucose Urine UA Negative (Negative); Leukocyte Esterase Urine Negative (Negative); Nitrite Urine Negative (Negative); PH 8.5 (5.0-9.0); Specific Gravity - Urine 1.025 (1.005-1.025); UMIC TRIGGER UACC YES; Urine Blood Negative (Negative); Urine Ketones Negative (Negative); Urine Protein 30 (1+) mg/dL (Neg-Trace)
[2024-07-09 04:01] LABS: Bacteria Urine None Seen (None Seen); Hyaline Casts Urine 0-2 /LPF (0-2); RBC Urine 0-2 /HPF (0-2); Squamous Epithelial Cell Urine 0-2 /HPF (0-2); WBC Urine 0-5 /HPF (0-5)
== END 2024-07-09 03:55 | disposition home or self-care (01) ==
PROVIDERS: Emergency Provider Emergency Medicine; PCP Family Medicine
DX: K59.00 Constipation, unspecified (principal); E11.9 Type 2 diabetes mellitus without complications; I10 Essential (primary) hypertension; E78.5 Hyperlipidemia, unspecified; J45.909 Unspecified asthma, uncomplicated; Z79.4 Long term (current) use of insulin; Z79.02 Long term (current) use of antithrombotics/antiplatelets; Z79.899 Other long term (current) drug therapy
CPT/HCPCS: 36415; 74018; 80048; 80076; 81001; 83690; 85025; 99283; 99284

== ENCOUNTER → 2024-07-09 02:40 | Outpatient (BNV) | payer OTHER, SELFPAY | PROVIDERS: Emergency Provider Emergency Medicine; PCP Family Medicine; Visit Provider General Practice | DX: R14.0 Abdominal distension (gaseous) (principal); R19.5 Other fecal abnormalities | CPT/HCPCS: 74018 ==

== ENCOUNTER 2024-10-08 14:52 | Emergency (ER) | payer OTHER, SELFPAY ==
--- NOTE | ~2024-10-08 | CT_ITS ---
CLINICAL HISTORY: near syncope, anticoagulated, CVA hx CT head without contrast Comparison: 01/17/2024 Findings: No new intra-axial mass, midline shift, hydrocephalus, or acute hemorrhage. There is moderate diffuse atrophy and white matter change, possible chronic microvascular ischemia.. There is no sinus or mastoid fluid. The orbits are within normal limits. No skull fracture. IMPRESSION: 1. No acute intracranial findings. This document has been electronically signed by: Juwan Fermin MD on 10/08/2024 18:41:32
[2024-10-08 15:04] VITALS: BP 110/53; BP 144/80; PULSE 79; PULSE 80; RESP 18; TEMP 37.1; O2SAT 96; O2SAT 98; BMI 25.8
[2024-10-08 15:22] LABS: Glucose, Whole Blood 259 mg/dL (60-115)
[2024-10-08 15:31] VITALS: BP 108/46; PULSE 77; RESP 16; O2SAT 100
[2024-10-08 16:00] VITALS: BP 135/44; PULSE 74; RESP 16; O2SAT 98
--- NOTE | 2024-10-08 16:08 | ECG_ITS ---
Test Reason : syncope Blood Pressure : */* mmHG Vent. Rate : 72 BPM Atrial Rate : 72 BPM P-R Int : 148 ms QRS Dur : 132 ms QT Int : 404 ms P-R-T Axes : 76 -71 45 degrees QTcB Int : 442 ms Normal sinus rhythm Right bundle branch block Left anterior fascicular block Bifascicular block Abnormal ECG When compared with ECG of 17-Jan-2024 09:07, No significant change was found Referred By: Ming Benitez Electronically Signed By: Yuan Lugo
--- NOTE | 2024-10-08 16:08 | ED.GENADULT ---
HPI - General Adult General Chief complaint: Altered Mental Status Stated complaint: WEAKNESS Time Seen by Provider: 10/08/24 15:54 History of Present Illness ED Provider: Ming Benitez MD HPI narrative: 84-year-old male with chronic vertigo presents after a brief transient loss of consciousness this episode with prodrome of lightheadedness at the table today this was witnessed. There was no convulsive activity no head strike he stayed remained in the chair. There was no focal deficits or other significant complaints before or after the event. There was no significant postictal phase. Patient has passed out in the past. Ice water was put on the patient he responded immediately to this. Very hot day outside they were inside unsure of temperature there. Point of care by EMS was 340 got 8 units insulin at 14:15 per triage nursing note. Patient offers minimal history does acknowledge chronic vertigo no acute symptoms at this time expressed by him Related Data Home Medications ?Medication ?Instructions ?Recorded ?Confirmed apixaban 5 mg tablet 5 mg PO BID 08/21/20 11/29/21 blood sugar diagnostic #10 08/21/20 finasteride 5 mg tablet 5 mg PO QAM 08/21/20 11/29/21 hydrochlorothiazide 25 mg tablet 25 mg PO QAM 08/21/20 11/29/21 insulin aspart U-100 100 unit/mL 5 unit subcut DAILY@0730 08/21/20 11/29/21 (3 mL) subcutaneous pen lancets 33 gauge #100 08/21/20 magnesium 250 mg tablet 250 mg PO DAILY 08/21/20 11/29/21 naloxone 4 mg/actuation nasal spray 1 spray intranasal ONCE PRN Opiate 08/21/20 11/29/21 Reversal omeprazole 20 mg capsule,delayed 20 mg PO QAM 08/21/20 11/29/21 release pen needle, diabetic 32 gauge x #50 08/21/20 pravastatin 20 mg tablet 20 mg PO BEDTIME 08/21/20 11/29/21 brimonidine 0.2 % eye drops 1 drp ophthalmic-Left BID 11/29/21 11/29/21 insulin aspart U-100 100 unit/mL 10 unit subcut DAILY@1630 11/29/21 11/29/21 (3 mL) subcutaneous pen (Novolog FlexPen U-100 Insulin aspart) insulin glargine 100 unit/mL (3 30 unit subcut BEDTIME 11/29/21 11/29/21 mL) subcutaneous pen (Lantus Solostar U-100 Insulin) oxycodone 10 mg tablet 1 tab PO BID PRN Pain, Moderate 11/29/21 11/29/21 timolol maleate 0.5 % eye gel 1 drp ophthalmic-Left QAM 11/29/21 11/29/21 forming solution Previous Rx's ?Medication ?Instructions ?Recorded bisacodyl 10 mg/30 mL enema (Fleet 10 mg (30 mL) WI DAILY PRN 07/09/24 Bisacodyl) constipation #37 mL lactulose 10 gram/15 mL oral 10 g (15 mL) PO DAILY PRN 07/09/24 solution constipation #237 mL Allergies Allergy/AdvReac Type Severity Reaction Status Date / Time No Known Allergies (No Known Allergy Verified 10/08/24 15:08 Allergies*) [facility] Past Medical History Medical History History of adenomatous polyp of colon Renal failure BPH (benign prostatic hyperplasia) Asthma COPD (chronic obstructive pulmonary disease) Vertigo Diabetes Hyperlipidemia HTN (hypertension) No known health problems Family History Family History Paternal Grandmother Colon cancer Brother Cancer of unknown origin Father Cancer of unknown origin Social History Social History Alcohol intake: never Physical Exam ED Vital Signs: Vital Signs - 24 hr 10/08/24 15:31 10/08/24 16:00 10/08/24 18:00 Temperature Pulse Rate 77 74 70 Respiratory Rate 16 16 12 Blood Pressure 108/46 L 135/44 L 127/47 L Pulse Oximetry 100 98 98 Oxygen Delivery Method Room Air Room Air Room Air 10/08/24 19:11 Temperature 98.0 F Pulse Rate 70 Respiratory Rate 12 Blood Pressure 127/47 L Pulse Oximetry 98 Oxygen Delivery Method Room Air BMI result Body Mass Index 25.8 Const Other: EXAM: Gen: Alert, awake, well appearing, well hydrated. Head: Atraumatic Eyes: Anicteric, Normal conjunctiva. ENT: Moist mucosa, no pallor. ? Neck: Supple. Skin: ?No observable rash or bruising on exposed or examined skin Respiratory: Breathing comfortably, No distress.Clear to auscultation bilaterally, symmetric chest expansion, No wheeze, rales, ronchi. Cardiovascular: Regular rate and rhythm. No murmurs or rub. Well perfused periphery, warm extremities. No edema. ? Abdominal: No focal tenderness. Soft, no objective distension. No palpable masses or obvious organomegaly. ?No guarding, no rebound tenderness or other peritoneal findings. : No flank tenderness. Neuro: Alert. Gross movement of all extremities intact. ?Tongue protrudes midline. Sensation intact to light touch. EOMI, pupils 2-3 mm symmetric and reactive. Global mild probably effort beats weakness without focal motor deficits or sensory deficits. No truncal or gross ataxia on cerebellar testing patient use a significant assistance so gait was not tested Psych: Calm. Cooperative. MSK: No grossly visible deformity. Vital signs: See flowsheet Medical Decision Making Medical Decision Making MDM Narrative: Medical Decision Makin-year-old male with transient syncope or near syncopal episode without convulsive activity. He is on Eliquis and had no focal deficits before after or during the event. Likely vasovagal, orthostatic, neurocardiogenic, less likely dysrhythmia. Nothing to suggest acute CVA or TIA episode. CT head without acute intracranial hemorrhage. ECG as below without actionable findings Preliminary Favored Differential Diagnosis: See above among additional considered etiologies Testing Interpreted Independently ECG: Sinus rhythm rate 72 QTC 442. Right bundle-branch block no acute ischemic changes similar in morphology to previous on January 2024 Radiology or Lab testing Results Reviewed: Labs without actionable chemistry your blood count findings. Sugar 207 no signs of DKA or acidemia. Consults: Not Applicable Independent Historians/External Chart Reviews: I spoke with his family member female middle-aged at the bedside who was present during the event she speaks [place]. Social Determinants of Health Impacting MDM/Planning: Not Applicable Lab Data 10/08/24 16:25 10/08/24 16:25 Labs: Lab Results 10/08/24 10/08/24 10/08/24 Range/Units 15:16 16:25 16:30 WBC 9.5 (4.8-10.8) X10*3/uL RBC 4.02 L (4.60-5.80) X10*6/uL Hgb 11.9 L (14.0-18.0) g/dl Hct 34.3 L (42.0-52.0) % MCV 85.3 (80.0-98.0) fL MCH 29.6 (27.0-33.0) pg MCHC 34.7 (31.0-36.0) g/dl RDW 13.6 (11.0-16.0) % Plt Count 300 (160-400) X10*3/uL MPV 10.8 (9.4-12.4) fL Immature Gran % (Auto) 0.2 (0.0-0.4) % Neut % (Auto) 74.1 H (45-73) % Lymph % (Auto) 15.9 L (20-40) % Lamar % (Auto) 7.4 (2-11) % Eos % (Auto) 1.8 (0-4) % Baso % (Auto) 0.6 (0-2) % Lymph # (Auto) 1.5 (1.2-4.9) X10*3/uL Lamar # (Auto) 0.7 (0.1-1.2) X10*3/uL Eos # (Auto) 0.2 (0.0-0.4) X10*3/uL Baso # (Auto) 0.1 (0.0-0.2) X10*3/uL Abs Immat Gran (auto) 0.02 (0.00-0.03) X10*3/uL Absolute Neuts (auto) 7.0 (2.0-8.3) x10*3/uL Absolute Nucleated RBC 0.000 (0.0-0.012) X10*3/uL Nucleated RBC % (auto) 0.0 (0.0-0.2) /100WBC VBG pH 7.51 H (7.32-7.43) VBG pCO2 38 mmHg VBG pO2 63 mmHg VBG HCO3 30 H (22-26) mmol/L VBG O2 Saturation 83.0 % VBG Base Excess 7.5 mmol/L Sodium 138 (135-145) mmol/L Potassium 3.8 (3.3-5.1) mmol/L Chloride 102 (96-108) mmol/L Carbon Dioxide 26 (22-29) mmol/L Anion Gap 14 (12-20) BUN 16 (9-16) mg/dL Creatinine 1.20 (0.5-1.4) mg/dL Estim Creat Clear Calc 41.3 Estimated GFR 57 POC Glucose 259 H (60-115) mg/dL Random Glucose 207 H (60-115) mg/dL Calcium 9.0 (8.4-10.2) mg/dL Troponin I High Sens 13.7 (<3.5-35.0) ng/L Discharge Plan Discharge Clinical Impression: Dizziness Patient Disposition: Home, Self-Care Instructions: Dizziness (ED) Additional Instructions: DISCHARGE DIAGNOSES: Dizziness and brief loss of consciousness HISTORY OF PRESENTATION: ?Chronic dizziness. Brief loss of consciousness several hours before arrival EMERGENCY DEPARTMENT COURSE,TESTS, TREATMENTS: While in the ED today you had an evaluation with a CT scan of the brain that was unremarkable, lab work EKG all reassuring DISCHARGE MEDICATIONS: ?[We have made no changes to your regular medication regimen] FOLLOW-UP: ?Call your primary or general physician soon as possible to discuss your symptoms, your ED visit and to discuss follow up plans Call your primary doctor for follow up you may need an event monitor or other close follow up arrangements with your primary doctor. Call the office tomorrow morning to discuss that he briefly lost consciousness and may need further outpatient testing or referrals INSTRUCTIONS ?& RETURN PRECAUTIONS: If any symptoms change first call your primary physician, if it is after-hours your primary doctors office should have a provider network operations specialist you can speak with. If the symptoms are severe or very concerning to you then call 911 or return to the ED. Return him if he has another episode of brief consciousness loss. Make sure he is hydrating well at least 1-2 L per day of water. Ming Benitez MD Emergency Physician [facility] Prescriptions: No Action insulin glargine [Lantus Solostar U-100 Insulin] 100 unit/mL (3 mL) insulin pen 30 unit subcut BEDTIME brimonidine 0.2 % drops 1 drp ophthalmic-Left BID timolol maleate 0.5 % gel forming solution 1 drp ophthalmic-Left QAM insulin aspart U-100 [Novolog FlexPen U-100 Insulin] 100 unit/mL (3 mL) insulin pen 10 unit subcut DAILY@1630 oxycodone 10 mg tablet 1 tab PO BID PRN (Reason: Pain, Moderate) lactulose 10 gram/15 mL solution 10 g PO DAILY PRN (Reason: constipation) Qty: 237 0RF Fleet Bisacodyl 10 mg/30 mL enema 10 mg WI DAILY PRN (Reason: constipation) Qty: 37 2RF hydrochlorothiazide 25 mg tablet 25 mg PO QAM (DME) FreeStyle Lite Strips Strip See Rx Instructions Not Applicable .MEDSUPPLY Qty: 10 Rx Instructions: As directed pravastatin 20 mg tablet 20 mg PO BEDTIME omeprazole 20 mg capsule,delayed release(DR/EC) 20 mg PO QAM (DME) pen needle, diabetic 32 gauge x 5/32 needle See Rx Instructions .ROUTE .MEDSUPPLY Qty: 50 Rx Instructions: As directed finasteride 5 mg tablet 5 mg PO QAM Narcan 4 mg/actuation spray,non-aerosol 1 spray intranasal ONCE PRN (Reason: Opiate Reversal) Eliquis 5 mg tablet 5 mg PO BID insulin aspart U-100 100 unit/mL (3 mL) insulin pen 5 unit subcut DAILY@0730 (DME) lancets 33 gauge misc See Rx Instructions Not Applicable .MEDSUPPLY Qty: 100 Rx Instructions: As directed magnesium 250 mg tablet 250 mg PO DAILY Interventions: ED Discharge Assessment Last Done: 10/08/24 19:11 Discharge Date/Time: 10/08/24 19:15 Print Language: [place] Citizen
[2024-10-08 16:31] LABS: MANUAL DIFF FLAG NO
--- NOTE | 2024-10-08 16:33 | PC.NURSE ---
Addendum entered by Tracie Oden RN 10/08/24 16:34: Patient is a 84 years old male with PMH of type 2 diabetes, asthma, HTN, DVT on Eliquis among others who presents to the hospital after falling asleep at the kitchen table and family throwing water on the patient. Patient alert and cooperative. History of a dementia. Lungs clear bilat. Respirations even and non-labored. Abdomen soft, non-tender with positive bowel sounds. Positive pedal pulses with no edema. Denies any complaints at this time. Original Note: Medical History Asthma BPH (benign prostatic hyperplasia) COPD (chronic obstructive pulmonary disease) Diabetes History of adenomatous polyp of colon HTN (hypertension) Hyperlipidemia No known health problems Renal failure Vertigo
[2024-10-08 16:36] LABS: VBG HCO3 30 mmol/L (22-26); VBG O2 % Saturation 83.0 %
[2024-10-08 16:37] LABS: Venous Blood Gas Refer to POC result
[2024-10-08 16:44] LABS: Anion Gap 14 (12-20); Blood Urea Nitrogen 16 mg/dL (9-16); Calcium 9.0 mg/dL (8.4-10.2); Carbon Dioxide 26 mmol/L (22-29); Chloride 102 mmol/L (96-108); Creatinine Clr Calc Pharmacy 41.3; Estimated Glomerular Filt Rate 57; Potassium 3.8 mmol/L (3.3-5.1); Sodium 138 mmol/L (135-145)
[2024-10-08 16:47] LABS: Hematocrit 34.3 % (42.0-52.0); Hemoglobin 11.9 g/dl (14.0-18.0); Imm Gran Abs Auto 0.02 X10*3/uL (0.00-0.03); Imm Gran Pct Auto 0.2 % (0.0-0.4); Lymphocytes Absolute Auto 1.5 X10*3/uL (1.2-4.9); Mean Corpuscular HGB Conc 34.7 g/dl (31.0-36.0); Mean Corpuscular Hemoglobin 29.6 pg (27.0-33.0); Mean Corpuscular Volume 85.3 fL (80.0-98.0); NRBC Abs Auto 0.000 X10*3/uL (0.0-0.012); NRBC Pct Auto 0.0 /100WBC (0.0-0.2); Platelet Count 300 X10*3/uL (160-400); Red Blood Count 4.02 X10*6/uL (4.60-5.80); White Blood Count 9.5 X10*3/uL (4.8-10.8)
[2024-10-08 18:00] VITALS: BP 127/47; PULSE 70; RESP 12; O2SAT 98
[2024-10-08 18:05] LABS: Troponin-I High Sensitivity 13.7 ng/L (<3.5-35.0)
[2024-10-08 19:11] VITALS: BP 127/47; PULSE 70; RESP 12; TEMP 36.7; O2SAT 98
== END 2024-10-08 19:15 | disposition home or self-care (01) ==
PROVIDERS: Emergency Provider Emergency Medicine
DX: R42 Dizziness and giddiness (principal); R41.82 Altered mental status, unspecified; R55 Syncope and collapse; E11.9 Type 2 diabetes mellitus without complications; I45.10 Unspecified right bundle-branch block; R94.31 Abnormal electrocardiogram [ECG] [EKG]; Z79.4 Long term (current) use of insulin; Z79.01 Long term (current) use of anticoagulants; Z79.899 Other long term (current) drug therapy
CPT/HCPCS: 36415; 70450; 80048; 82803; 82947; 84484; 85025; 93005; 99284; 99285

== ENCOUNTER → 2024-10-08 16:08 | Outpatient (BNV) | payer OTHER, SELFPAY | PROVIDERS: Emergency Provider Emergency Medicine; Visit Provider Internal Medicine Cardiovascular Disease | DX: I45.2 Bifascicular block (principal) | CPT/HCPCS: 93010 ==

== ENCOUNTER → 2024-10-08 16:32 | Outpatient (BNV) | payer OTHER, SELFPAY | PROVIDERS: Emergency Provider Emergency Medicine; Visit Provider Specialist | DX: R55 Syncope and collapse (principal); Z79.01 Long term (current) use of anticoagulants | CPT/HCPCS: 70450 ==

== ENCOUNTER 2024-12-29 09:53 | Outpatient (REF) | payer OTHER, SELFPAY ==
--- OUTSIDE RECORDS SUMMARY | 2024-12-29 09:00 | XMS_ITS | Encounter Summary ---
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 Name Role Phone Codie Bell MD Primary Care Provider [phone] Destin Monreal MD Unavailable [phone] Reason for Visit * Reason Comments Follow-up Encounter Details Date Type Department Care Team (Latest Contact Info) Description 12/29/2024 9:00 AM EDT Office Visit [facility] MEDICINE [address], [place] [phone] Codie Bell MD [address] [place] [address] Fall from ground level (Primary Dx); Moderate dementia with mood disturbance, unspecified dementia type ([facility]/HCC); Insomnia, unspecified type; Chronic obstructive pulmonary disease, unspecified COPD type ([facility]/HCC); Hyperlipidemia, unspecified hyperlipidemia type; Primary hypertension; Chronic deep vein thrombosis (DVT) of distal vein of right lower extremity ([facility]/HCC); Type 2 diabetes mellitus with stage 3 chronic kidney disease, without long-term current use of insulin, unspecified whether stage 3a or 3b CKD (CMS/HCC); Stage 3a chronic kidney disease (CMS/HCC); Anemia, unspecified type; Constipation, unspecified constipation type; Basal cell carcinoma (BCC), unspecified site; Class 1 obesity due to excess calories with serious comorbidity and body mass index (BMI) of 30.0 to 30.9 in adult; Dietary counseling; Exercise counseling; Encounter for immunization; Other specified health status Social History Tobacco Use Types Packs/Day Years [...] Date Recorded Patient Health Questionnaire-9 Score 0 11/06/2024 Patient Health Questionnaire-9 Score 0 11/06/2024 Last PHQ-9: Questionnaire Data Not on file 0 11/06/2024 Housing Stability Answer Date Recorded What is [...] Date Recorded Patient Health Questionnaire-2 Score 0 11/06/2024 Internet Access Answer Date Recorded Internet Access Q1 Yes 10/13/2024 Internet Access Q2 Not on file 10/13/2024 Sex and Gender Information Value Date Recorded Sex Assigned at Male 02/02/2022 10:15 AM EDT Legal Sex Male 10:15 AM EDT Gender Identity Male 02/02/2022 10:15 AM EDT Sexual Orientation Straight 02/02/2022 10 :15 AM EDT documented as of this encounter Last Filed Vital Signs Vital Sign Reading Time Taken Comments Blood Pressure 138/78 12/29/2024 9:26 AM EDT Pulse 92 12/29/2024 9:08 AM EDT Temperature 37.2 C (98.9 F) 12/29/2024 9:08 AM EDT Respiratory Rate 20 12/29/2024 9:08 AM EDT Oxygen Saturation 98% 12/29/2024 9:08 AM EDT Inhaled Oxygen Concentration - - Weight 82.7 kg (182 lb 6.4 oz) 12/29/2024 9:08 A M EDT Height - - Body Mass Index 30.83 01/19/2024 9:53 AM EDT documented in this encounter Progress Notes * Codie Bell MD - 12/29/2024 9:00 AM EDT Montserrat Taylor is a 84 y.o. male with past medical history of dementia, chronic lung diease, hypertension, chronic kidney diease, type 2 diabetes, history of DVT on anticoagulation, basal cell carcinoma and hyperlipidemia who presents to the office today for follow-up S/P fall, chronic medical conditions and comprehensive annual evaluation. 12/03/2024 ground-level fall seen in the emergency department at [facility] without admission with diagnosis of left rib fracture, chest wall contusion, multiple contusions and multiple abrasions. His injuries were complicated by pre-existing chronic anticoagulation use and vascular dementia. The patient did not require hospital admission and was discharged to family from the emergency department. Saw trauma surgery 12/18/24 for follow-up S/P fall. Per note no need for acute intervention, they will defer continuation of the patient's chronic anticoagulation to his PCP and prescribed [place] for pain and Narcan for precaution. Pt is in a wheelchair today. reports he has been worsening conditions [place] and he has not beenwalking much since before the fall. She reports worsening dementia with significant mood disturbance. She reports he has bene struggling to sleep, he gets up and causes chaos. Pt takes naps in the day and she tries to keep him up but she is not always successful. Discussed no good/safe sleep medication for patients over the age of 60. With shared decision making discussed trial of tetracyclic antidepressant. Social History Tobacco: denied Drugs: none Alcohol: No Suicide/Depression: The patient denies any present symptoms of depression or anxiety. Review of Systems Constitutional: Negative for fatigue, fever and unexpected weight change. Respiratory: Negative for cough. Cardiovascular: Negative for chest pain. Gastrointestinal: Negative for abdominal pain. Genitourinary: Negative for difficulty urinating. Current Medications[1] Allergies[2] Medical History[3] Surgical History[4] Family History[5] Objective Visit Vitals BP 138/78 Pulse 92 Temp 98.9 ??F (37.2 ??C) (Oral) Resp 20 Wt 182 lb 6.4 oz (82.7 kg) SpO2 98% BMI 30.83 kg/m?? Smoking Status Former BSA 1.94 m?? Physical Exam Constitutional: Appearance: Normal appearance. Comments: In a wheelchair HENT: Right Ear: Tympanic membrane normal. Left Ear: Tympanic membrane normal. Nose: Nose normal. Mouth/Throat: Pharynx: Oropharynx is clear. Eyes: Extraocular Movements: Extraocular movements intact. Pupils: Pupils are equal, round, and reactive to light. Cardiovascular: Rate and Rhythm: Normal rate and regular rhythm. Heart sounds: Normal heart sounds. Pulmonary: Effort: Pulmonary effort is normal. Breath sounds: Normal breath sounds. No wheezing. Abdominal: General: Abdomen is flat. Palpations: Abdomen is soft. Tenderness: There is no abdominal tenderness. Musculoskeletal: General: Normal range of motion. Skin: General: Skin is warm and dry. Neurological: General: No focal deficit present. Mental Status: He is alert. Psychiatric: Mood and Affect: Mood normal. Behavior: Behavior normal. 84 y.o. male annual evaluation. Assessment & Plan Fall from ground level 12/03/2024 ground-level fall seen in the emergency department at [facility] without admission with diagnosis of left rib fracture, chest wall contusion, multiple contusions and multiple abrasions. His injuries were complicated by pre-existing chronic anticoagulation use and vascular dementia. The patient did not require hospital admission and was discharged to family from the emergency department. Saw trauma surgery 12/18/24 for follow-up S/P fall. Per note no need for acute intervention, they will defer continuation of the patient's chronic anticoagulation to his PCP and prescribed [place] for pain and Narcan for precaution. Moderate dementia with mood disturbance, unspecified dementia type (CMS/HCC) -Diagnosed with dementia by neruology -referred to memory clinic 07/12/2023 -given number to call for appt. 10/13/23 Reports worsening mood changes, memory and behavior changes. Pt is not sleeping at night, causing chaos. Will trial mirtazapine (Remeron) 7.5 MG 12/29/24 -follow up in 4 weeks. Insomnia, unspecified type Reports worsening mood changes, memory and behavior changes. Pt is not sleeping at night, causing chaos. Will trial mirtazapine (Remeron) 7.5 MG 12/29/24 -follow up in 4 weeks. Orders: mirtazapine (Remeron) 7.5 MG tablet; Take 1 tablet (7.5 mg) by mouth if needed at bedtime (insomina). Chronic obstructive pulmonary disease, unspecified COPD type ([facility]) -not using Flovent -uses albuterol rarely, discussed only using albuterol if wheezing Hyperlipidemia, unspecified hyperlipidemia type Lab Results Component Value Date CHOL 152 07/12/2023 TRIG 133 07/12/2023 HDL 38 (L) 07/12/2023 LDLCHOLCAL 88 07/12/2023 -continue lifestyle modification -continue pravastatin 20mg -ordered repeat FLP + HFP 12/29/24 Primary hypertension -Blood pressure is at goal 12/29/24 -Continue lifestyle modifications -Continue current medications -Continue HCTZ 25mg daily -coreg d/c by cardiology due to dizzyness, amlodipine d/c due to LE edema, lisinopril d/c due to hxacute kidney injury 2017 -Patient followed at [facility] with Dr. Luana Monreal DO. Note from 07/21/24 reviewed Chronic deep vein thrombosis (DVT) of distal vein of right lower extremity (CMS/HCC) Diagnosed 06/2020, Eliquis started 07/04/2020 -Pt was seen by his intervention teacher who mentioned on his last note a repeat U/S 10/2020 was negative for DVT but given the fact 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 , her recommended to keep him on Eliquis watermaster -still continuing Eliquis Type 2 diabetes mellitus with stage 3 chronic kidney disease, without long-term current use of insulin, unspecified whether stage 3a or 3b CKD ([facility]) Diabetes is controlled Lab Results Component Value Date HGBA1C 8.6 (A) 11/06/2024 HGBA1C 8.3 (A) 04/20/2024 HGBA1C 7.5 (A) 01/19/2024 Lab Results Component Value Date CREATININE 1.36 07/09/2024 EGFR 50 07/09/2024 MICROALBCREU 25.1 10/13/2023 LDLCHOLCAL 88 07/12/2023 -Adam/Arb: lisinopril discontinued due to acute kidney injury in 2018 -Statin therapy: pravastatin 20mg -Diabetic eye exam: [facility] with Dr. Vick Ohara 12/04/2022 -Diabetic foot exam: Done 10/13/23. -Continue lifestyle modifications -Continue current medications -Currently on Lantus and Novolog -ordered routine labs 12/29/24 Orders: Albumin, Random Urine W/Creatinine; Future Lipid Panel, Standard; Future Hemoglobin A1c; Future Basic Metabolic Panel; Future Stage 3a chronic kidney disease (CMS/HCC) -Last seen by Dr. Mota on 11/29/2017 - Avoid nephrotoxic agents. - Discussed NO NSAIDS. Lab Results Component Value Date CREATININE 1.36 07/09/2024 EGFR 50 07/09/2024 MICROALBCREU 25.1 10/13/2023 LDLCHOLCAL 88 07/12/2023 Anemia, unspecified type Lab Results Component Value Date FERRITIN 81 07/12/2023 HGB 12.7 (L) 07/09/2024 HGB 13.1 (L) 01/17/2024 HGB 12.8 (L) 02/04/2022 HGB 12.2 (L) 09/05/2021 HEMATOCRIT 38.7 02/04/2022 HEMATOCRIT 37.5 (L) 09/05/2021 -stop iron supplements 10/13/23 -ordered repeat CBC 12/29/24 Orders: CBC; Future Ferritin; Future Constipation, unspecified constipation type Chronic constipation likely secondary to opiate use. -prescribed MiraLaax and Ducolax 12/29/24, will reevaluate in 4 weeks. Orders: polyethylene glycol, PEG, 3350 (MiraLax) 17 GM/SCOOP powder; 17 grams in 8-12 oz fluid like water at bedtime prn constipation bisacodyl (Dulcolax) 5 MG EC tablet; Take 1 tablet (5 mg) by mouth if needed each day for constipation. Do not crush, chew, or split. Basal cell carcinoma (BCC), unspecified site Dx on biopsy 07/24/[address] Elizabeth. The lesion extended to the deep tissue edges. He last seen Dr. Elizabeth on 07/24/22 Class 1 obesity due to excess calories with serious comorbidity and body mass index (BMI) of 30.0 to 30.9 in adult Maintaining weight, discussed dietary changes. Given age will continue to monitor. Dietary counseling Dietary Recommendations: Fruits, vegetables, whole grains, protein foods, and fat-free or low-fat dairy products are healthychoices. Eat different types of protein foods in your diet. This can include seafood, lean meats, poultry, beans, peas, lentils, nuts, seeds, soy products, and eggs. Limit foods and beverages higher in added sugars, saturated fat, and sodium. Exercise counseling Exercise Recommendations: At least 150 minutes of moderate-intensity physical activity per week, or an equivalent combinationof moderate- and vigorous-intensity activity. Encounter for immunization Orders: FLU VACCINE TRIVALENT HIGH DOSE [id number] (Fluzone) 65 yrs + Other specified health status -next comprehensive annual evaluation due after 12/29/24 -diabetic eye exam: [facility] with Dr. Vick Ohara 12/04/2022 -has dentures -health care proxy filed 10/13/23 Annual Evaluation -Normal growth and development. -Anticipatory guidance discussed. -Preventative care / harm reduction discussed. Follow up in about 4 weeks (around 01/26/2025) for follow up mertazapine for insomnia. I, Terri Mohan, am serving as a scribe to document services personally performed by Dr. Khalil, based on the patient's response to questions by provider and providers statements to me. [1] Current Outpatient Medications: acetaminophen (Tylenol) 500 MG tablet, Take 1 tablet (500 mg) by mouth every 8 (eight) hours., Disp: 30 tablet, Rfl: 1 Alcohol Swabs (Alcohol Pads) 70 % pads, Use as directed on skin, Disp: 100 each, Rfl: 11 bisacodyl (Dulcolax) 10 MG suppository, Insert 10 mg into the rectum if needed each day for constipation., Disp: , Rfl: bisacodyl (Dulcolax) 5 MG EC tablet, Take 1 tablet (5 mg) by mouth if needed each day for constipation. Do not crush, chew, or split., Disp: 30 tablet, Rfl: 0 brimonidine (AlphaGAN) 0.2 % ophthalmic solution, Administer 1 drop into affected eye(s) 2 times daily., Disp: , Rfl: Eliquis 5 MG tablet, TAKE 1 TABLET BY MOUTH TWICE A DAY, Disp: 180 tablet, Rfl: 3 finasteride (Proscar) 5 MG tablet, TAKE 1 TABLET BY MOUTH EVERY DAY IN THE MORNING, Disp: 90 tablet, Rfl: 3 glucose blood (FREESTYLE LITE) test strip, USE TO TEST 6 TIMES DAILY DIRECTED, Disp: 200 strip, Rfl: 11 glucose-vitamin C 4-6 GM-MG oral gel, Use for blood sugar < 60, Disp: 50 tablet, Rfl: 1 hydroCHLOROthiazide (HYDRODiuril) 25 MG tablet, Take 1 tablet (25 mg) by mouth Once per day., Disp:90 tablet, Rfl: 3 insulin pen needle (BD Pen Needle Alejandra 2nd Gen) 32G x 4 mm misc, USE 5 TIMES A DAY, Disp: 150 each,Rfl: 11 Lantus SoloStar 100 UNIT/ML pen, INJECT 25 UNITS SUBCUTANEOUSLY ONCE DAILY AT BEDTIME, Disp: 15 mL,Rfl: 0 magnesium 250 MG tablet, take 1 tablet (250 mg) by mouth at bedtime, Disp: , Rfl: mirtazapine (Remeron) 7.5 MG tablet, Take 1 tablet (7.5 mg) by mouth if needed at bedtime (insomina)., Disp: 30 tablet, Rfl: 2 Multiple Vitamins-Minerals (Centrum Men) tablet, PT REPORTS PURCHASING OTC, Disp: 90 tablet, Rfl: 3 naloxone (Narcan) 4 mg/0.1 mL nasal spray, May repeat every 2-3 minutes if needed, alternating nostrils, until medical assistance becomes available., Disp: 2 each, Rfl: 1 NovoLOG FLEXPEN 100 UNIT/ML pen, USE PER SLIDING SCALE F OR BLOOD SUGAR 111-149 INJECT 2 UNITS SUBCUTANEOUSLY FOR SUGAR 150-199 INJECT 4 UNITS 200-249 INJECT 8 UNITS 250-299 INJECT 12 UNITS 300- 349 INJECT 16 UNITS 350 TO 399 INJECT 20 UNITS, Disp: 15 mL, Rfl: 10 omeprazole (PriLOSEC) [address] capsule, TAKE 1 TABLET BY MOUTH ONCE DAILY NEEDED FOR STOMACH UPSET, Disp: 84 capsule, Rfl: 0 oxyCODONE (Roxicodone) 10 MG immediate release tablet, Take 1 tablet (10 mg) by mouth if needed in the morning and at bedtime for severe pain., Disp: 60 tablet, Rfl: 0 polyethylene glycol, PEG, 3350 (MiraLax) 17 GM/SCOOP powder, 17 grams in 8-12 oz fluid like water at bedtime prn constipation, Disp: 527 g, Rfl: 2 pravastatin (Pravachol) 20 MG tablet, Take 1 tablet (20 mg) by mouth in the morning., Disp: 90 tablet, Rfl: 0 sennosides (Senokot) 8.6 MG tablet, 1-2 tabs po nightly prn constipation, Disp: 60 tablet, Rfl: 11 timolol (Timoptic) 0.5 % ophthalmic solution, Administer 1 drop into the left eye in the morning., Disp: , Rfl: TRUEplus Lancets 33G misc, Use 6 times a day as directed, Disp: 200 each, Rfl: 3 [2] No Known Allergies [3] Past Medical History: Diagnosis Date Ambulates with cane 08/19/2022 Anemia 08/19/2022 Lab Results Component Value Date FERRITIN 81 07/12/2023 HGB 14.0 07/12/2023 HGB 12.8 (L) 02/04/2022HGB 12.2 (L) 09/05/2021 HEMATOCRIT 38.7 02/04/2022 HEMATOCRIT 37.5 (L) 09/05/2021 -stop iron supplements 10/13/23 Basal cell carcinoma (BCC) 08/19/2022 Dx on biopsy 07/24/[address] Elizabeth. The lesion extended to the deep tissue edges. He last seen Dr. Elizabeth on 07/24/22, follow up 2 months. Benign prostatic hyperplasia with lower urinary tract symptoms 07/24/2023 -Seen by urology 07/2023 Chronic deep vein thrombosis (DVT) of right lower extremity (CMS/HCC) 03/17/2022 Diagnosed 06/2020, Eliquis started 07/04/2020 -Pt was seen by his intervention teacher who mentioned on his last note a repeat U/S 10/2020 was negative for DVT but given the fact 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 , her recommended to keep him on Eliquis watermaster Chronic obstructive lung disease (CMS/HCC) 06/12/2021 -not using Flovent -uses albuterol rarely Class 1 obesity 03/17/2022 Hyperlipidemia 08/26/2011 Lab Results Component Value Date CHOL 152 07/12/2023 TRIG 133 07/12/2023 HDL 38 (L) 07/12/2023 LDLCHOLCAL 88 07/12/2023 -continue lifestyle modification - continue pravastatin 20mg Hypertension 09/17/2011 -Blood pressure is at goal -Continue lifestyle modifications -Continue current medications -Continue HCTZ 25mg daily -coreg d/c by cardiology due to dizzyness, amlodipine d/c due to LE edema, lisinopril d/c due to hx acute kidney injury 2017 Stage 3 chronic kidney disease ([facility]) 06/01/2019 -Last seen by Dr. Mota on 11/29/2017 - Avoid nephrotoxic agents. - Discussed NO NSAIDS. Lab Results Component Value Date CREATININE 1.15 01/17/2024 EGFR >60 01/17/2024 MICROALBCREU 25.1 10/13/2023 LDLCHOLCAL 88 07/12/2023 Tubular adenoma 08/02/2008 Multiple tubular adenomas on colonoscopy 2008 and 07/[address] Kramer, encourage follow up 11/2021 -referral to GI 07/12/2023 -Daughter reports being told pt graduated from colonoscopies due to age. Type 2 diabetes mellitus with chronic kidney disease, without long-term current use of insulin ([facility]) 08/26/2011 Diabetes is controlled. - Lab Results Component Value Date HGBA1C 7.5 (A) 01/19/2024 HGBA1C 7.2 (H)10/13/2023 HGBA1C 7.8 (A) 10/13/2023 Lab Results Component Value Date CREATININE 1.15 01/17/2024 EGFR >60 01/17/2024 MICROALBCREU 25.1 10/13/2023 LDL Urinary incontinence 08/19/2022 -Large pull ups requested 08/19/2022 -followed by urology, seen 07/2023 [4] No past surgical history on file. [5] No family history on file. documented in this encounter Miscellaneous Notes * Assessment & Plan Note - Codie Bell MD - 12/29/2024 9:00 AM EDT Associated Problem(s): Chronic obstructive lung disease ([facility]/HCC) -not using Flovent -uses albuterol rarely, discussed only using albuterol if wheezing * Assessment & Plan Note - Codie Bell MD - 12/29/2024 9:00 AM EDT Associated Problem(s): Hyperlipidemia Lab Results Component Value Date CHOL 152 07/12/2023 TRIG 133 07/12/2023 HDL 38 (L) 07/12/2023 LDLCHOLCAL 88 07/12/2023 -continue lifestyle modification -continue pravastatin 20mg -ordered repeat FLP + HFP 12/29/24 * Assessment & Plan Note - Codie Bell MD - 12/29/2024 9:00 AM EDT Associated Problem(s): Hypertension -Blood pressure is at goal 12/29/24 -Continue lifestyle modifications -Continue current medications -Continue HCTZ 25mg daily -coreg d/c by cardiology due to dizzyness, amlodipine d/c due to LE edema, lisinopril d/c due to hxacute kidney injury 2018 -Patient followed at [facility] with Dr. Luana Monreal DO. Note from 07/21/24 reviewed * Assessment & Plan Note - Codie Bell MD - 12/29/2024 9:00 AM EDT Associated Problem(s): Chronic deep vein thrombosis (DVT) of right lower extremity ([facility]) Diagnosed 06/2020, Eliquis started 07/04/2020 -Pt was seen by his intervention teacher who mentioned on his last note a repeat U/S 10/2020 was negative for DVT but given the fact 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 , her recommended to keep him on Eliquis correction -still continuing Eliquis * Assessment & Plan Note - Codie Bell MD - 12/29/2024 9:00 AM EDT Associated Problem(s): Type 2 diabetes mellitus with chronic kidney disease, without long-term current use of insulin ([facility]) Diabetes is controlled Lab Results Component Value Date HGBA1C 8.6 (A) 11/06/2024 HGBA1C 8.3 (A) 04/20/2024 HGBA1C 7.5 (A) 01/19/2024 Lab Results Component Value Date CREATININE 1.36 07/09/2024 EGFR 50 07/09/2024 MICROALBCREU 25.1 10/13/2023 LDLCHOLCAL 88 07/12/2023 -Adam/Arb: lisinopril discontinued due to acute kidney injury in 2018 -Statin therapy: pravastatin 20mg -Diabetic eye exam: [facility] with Dr. Vick Ohara 12/04/2022 -Diabetic foot exam: Done 10/13/23. -Continue lifestyle modifications -Continue current medications -Currently on Lantus and Novolog -ordered routine labs 12/29/24 Orders: Albumin, Random Urine W/Creatinine; Future Lipid Panel, Standard; Future Hemoglobin A1c; Future Basic Metabolic Panel; Future * Assessment & Plan Note - Codie Bell MD - 12/29/2024 9:00 AM EDT Associated Problem(s): Stage 3 chronic kidney disease (CMS/HCC) -Last seen by Dr. Mota on 11/29/2017 - Avoid nephrotoxic agents. - Discussed NO NSAIDS. Lab Results Component Value Date CREATININE 1.36 07/09/2024 EGFR 50 07/09/2024 MICROALBCREU 25.1 10/13/2023 LDLCHOLCAL 88 07/12/2023 * Assessment & Plan Note - Codie Bell MD - 12/29/2024 9:00 AM EDT Associated Problem(s): Class 1 obesity due to excess calories with serious comorbidity and body mass index (BMI) of 30.0 to 30.9 in adult Maintaining weight, discussed dietary changes. Given age will continue to monitor. * Assessment & Plan Note - Codie Bell MD - 12/29/2024 9:00 AM EDT Associated Problem(s): Anemia Lab Results Component Value Date FERRITIN 81 07/12/2023 HGB 12.7 (L) 07/09/2024 HGB 13.1 (L) 01/17/2024 HGB 12.8 (L) 02/04/2022 HGB 12.2 (L) 09/05/2021 HEMATOCRIT 38.7 02/04/2022 HEMATOCRIT 37.5 (L) 09/05/2021 -stop iron supplements 10/13/23 -ordered repeat CBC 12/29/24 Orders: CBC; Future Ferritin; Future * Assessment & Plan Note - Codie Bell MD - 12/29/2024 9:00 AM EDT Associated Problem(s): Basal cell carcinoma (BCC) Dx on biopsy 07/24/[address] Elizabeth. The lesion extended to the deep tissue edges. He last seen Dr. Elizabeth on 07/24/22 * Assessment & Plan Note - Codie Bell MD - 12/29/2024 9:00 AM EDT Associated Problem(s): Moderate dementia with mood disturbance (CMS/HCC) -Diagnosed with dementia by neruology -referred to memory clinic 07/12/2023 -given number to call for appt. 10/13/23 Reports worsening mood changes, memory and behavior changes. Pt is not sleeping at night, causing chaos. Will trial mirtazapine (Remeron) 7.5 MG 12/29/24 -follow up in 4 weeks. * Assessment & Plan Note - Codie Bell MD - 12/29/2024 9:00 AM EDT Associated Problem(s): Other specified health status -next comprehensive annual evaluation due after 12/29/24 -diabetic eye exam: [facility] with Dr. Vick Ohara 12/04/2022 -has dentures -health care proxy filed 10/13/23 * Assessment & Plan Note - Codie Bell MD - 12/29/2024 9:00 AM EDT Associated Problem(s): Insomnia Reports worsening mood changes, memory and behavior changes. Pt is not sleeping at night, causing chaos. Will trial mirtazapine (Remeron) 7.5 MG 12/29/24 -follow up in 4 weeks. Orders: mirtazapine (Remeron) 7.5 MG tablet; Take 1 tablet (7.5 mg) by mouth if needed at bedtime (insomina). * Assessment & Plan Note - Codie Bell MD - 12/29/2024 9:00 AM EDT Associated Problem(s): Constipation Chronic constipation likely secondary to opiate use. -prescribed MiraLaax and Ducolax 12/29/24, will reevaluate in 4 weeks. Orders: polyethylene glycol, PEG, 3350 (MiraLax) 17 GM/SCOOP powder; 17 grams in 8-12 oz fluid like water at bedtime prn constipation bisacodyl (Dulcolax) 5 MG EC tablet; Take 1 tablet (5 mg) by mouth if needed each day for constipation. Do not crush, chew, or split. documented in this encounter Plan of Treatment Upcoming Encounters Date Type Department Care Team (Late st Contact Info) Description 01/29/2025 11:15 AM EDT Telemedicine [facility] MEDICINE [address], [place] [phone] Codie Bell MD [address], [place] [phone] Scheduled Orders Name Type Priority Associated Diagnoses Orde r Schedule Albumin, Random Urine W/Creatinine Lab Routine Type 2 diabetes mellitus with stage 3 chronic kidney disease, without long-term current use of insulin, unspecified whether stage 3a or 3b CKD (CMS/HCC) Expected: 12/29/2024 (Approximate), Expires: 12/29/2025 Lipid Panel, Standard Lab Routine Type 2 diabetes mellitus with stage 3 chronic kidney disease, without long-term current use of insulin, unspecified whether stage 3a or 3b CKD (CMS/HCC) Expected: 12/29/2024 (Approximate), Expires: 12/29/2025 Hemoglobin A1c Lab Routine Type 2 diabetes mellitus with stage 3 chronic kidney disease, without long-term current use of insulin, unspecified whether stage 3a or 3b CKD (CMS/HCC) Expected: 12/29/2024 (Approximate), Expires: 12/29/2025 Basic Metabolic Panel Lab Routine Type 2 diabetes mellitus with stage 3 chronic kidney disease, without long-term current use of insulin, unspecified whether stage 3a or 3b CKD (CMS/HCC) Expected: 12/29/2024 (Approximate), Expires: 12/29/2025 CBC Lab Routine Anemia, unspecified type Expected: 12/29/2024, Expires: 12/29/2025 Ferritin Lab Routine Anemia, unspecified type Expected: 12/29/2024, Expires: 12/29/2025 documented as of this encounter Visit Diagnoses Diagnosis Fall from ground level- Primary Moderate dementia with mood disturbance, unspecified dementia type (CMS/HCC) Insomnia, unspecified type Chronic obstructive pulmonary disease, unspecified COPD type (CMS/HCC) Hyperlipidemia, unspecified hyperlipidemia type Primary hypertension Unspecified essential hypertension Chronic deep vein thrombosis (DVT) of distal vein of right lower extremity (CMS/[facility]) Type 2 diabetes mellitus with stage 3 chronic kidney disease, without long-term current use of insulin, unspecified whether stage 3a or 3b CKD (CMS/HCC) Stage 3a chronic kidney disease (CMS/HCC) Anemia, unspecified type Constipation, unspecified constipation type Basal cell carcinoma (BCC), unspecified site Class 1 obesity due to excess calories with serious comorbidity and body mass index (BMI) of 30.0 to 30.9 in adult Dietary counseling Dietary surveillance and counseling Exercise counseling Encounter for immunization Other specified health status documented in this encounter Additional Health Concerns Assessment Noted Time PHQ-9 Depression Total Score: 0 11/07/19 25 9:11 AM EDT documented as of this encounter Care Teams Industrial Truck Mechanic Relationship Specialty Start Date End Date Codie Bell MD [address] [place] [address] PCP - General Family Medicine 01/25/13 Destin Monreal MD [address] [place] [address] Cardiology 07/25/24 SULEMAN Soto [facility] Urology Urology 04/06/24 documented as of this encounter
--- OUTSIDE RECORDS SUMMARY | 2024-12-29 11:00 | XMS_ITS | Encounter Summary ---
Author Organization [employer] Address [address] [place] [address] 7t [place] [address] Care Team Providers Care Hydrometer Tester Name Role Phone Codie Bell MD Primary Care Provider [phone]- [phone] Destin Monreal MD Unavailable [phone] Reason for Visit * Reason Onset Date Comments Appointment Request 05/06/2023 Encounter Details Date Type Department Care Team ([facility] st Contact Info) Description 05/06/2023 Telephone [facility] MEDICINE [address] [place] [address] Codie Bell MD [address] [place] [address] Appointment Request Social History Tobacco Use Types [...] request a appt for a routine check-up fha underwriter did ask if there is any concerns at the moment patients daughter denied. documented in this encounter Plan of Treatment Upcoming Encounters Date Type Department Care Team (Late st Contact Info) Description 01/29/2025 11:15 AM EDT Telemedicine [facility] MEDICINE [address] [place] [address] Codie Bell MD [address] [place] [address] documented as of this encounter Visit Diagnoses Not on filedocumented in this encounter Additional Health Concerns Assessment Noted Time PHQ-9 Depression Total Score: 0 05/11/19 23 10:41 AM EST documented as of this encounter Care Teams Hydrometer Tester Relationship Specialty Start Date End Date Codie Bell MD [address] [place] [address] PCP - General Family Medicine 01/25/13 Destin Monreal MD [address] [place] [address] Cardiology 07/25/24 SULEMAN Soto [facility] Urology Urology 04/06/24 documented as of this encounter
--- OUTSIDE RECORDS SUMMARY | 2024-12-29 11:00 | XMS_ITS | Encounter Summary ---
Author Organization [employer] Address [address] [place] [address] 7t [place] [address] Care Team Providers Care Orthotic Practitioner Name Role Phone Codie Bell MD Primary Care Provider [phone]- [phone] Destin Monreal MD Unavailable [phone] Reason for Visit * Reason Onset Date Comments Med Refill 03/08/2023 Encounter Details Date Type Department Care Team ([facility] st Contact Info) Description 03/08/2023 Telephone [facility] MEDICINE [address] [place] [address] Codie Bell MD [address] [place], [place] [phone] Med Refill Social History Tobacco Use Types [...] Pulido RN - 03/08/2023 1:42 PM EST OPERATIONS MANAGER reviewed. Pt last picked up 30 day [...] Info) Description 01/29/2025 11:15 AM EDT Telemedicine [facility] MED[facility]INE [address] [place] [address] Codie Bell MD [address] [place] [address] documented as of this encounter Visit Diagnoses Not on filedocumented in this encounter Additional Health Concerns Assessment Noted Time PHQ-9 Depression Total Score: 0 05/11/19 10:41 AM EST documented as of this encounter Care Teams Orthotic Practitioner Relationship Specialty Start Date End Date Codie Bell MD [address] [place] [address] PCP - General Family Medicine 01/25/13 Destin Monreal MD [address] [place] [address] Cardiology 07/25/24 SULEMAN Soto [facility] Urology Urology 04/06/24 documented as of this encounter
--- OUTSIDE RECORDS SUMMARY | 2024-12-29 11:00 | XMS_ITS | Encounter Summary ---
Author Organization [employer] Address [address] [place] [address] 7t [place] [address] Care Team Providers Care Manufacturing Laborer Name Role Phone Codie Bell MD Primary Care Provider [phone]- [phone] Destin Monreal MD Unavailable [phone] Encounter Details Date Type Department Care Team (Late st Contact Info) Description 04/24/2022 Orders Only [facility] MEDICINE [address] [place] [address] Katie Conroy LPN Social History Tobacco Use [...] Info) Description 01/29/2025 11:15 AM EDT Telemedicine [facility] MEDICINE [address] [place] [address] Codie Bell MD [address] [place] [address] documented as of this encounter Visit Diagnoses Not on filedocumented in this encounter Care Teams Manufacturing Laborer Relationship Specialty Start Date End Date Codie Bell MD [address] [place] [address] PCP - General Family Medicine 01/25/13 Destin Monreal MD [address] [place] [address] Cardiology 07/25/24 SULEMAN Soto [facility] Urology Urology 04/06/24 documented as of this encounter
--- OUTSIDE RECORDS SUMMARY | 2024-12-29 11:00 | XMS_ITS | Encounter Summary ---
Author Organization [employer] Address [address] [place] [address] 7t [place] [address] Care Team Providers Care Client Support Associate Name Role Phone Codie Bell MD Primary Care Provider [phone]- [phone] Destin Monreal MD Unavailable Reason for Visit * Reason Onset Date Comments Med Refill 10/03/2024 Encounter Details Date Type Department Care Team ([facility] st Contact Info) Description 10/03/2024 Telephone [facility] MEDICINE [address] [place] [address] Codie Bell MD [address] [place] [address] Med Refill Social History Tobacco Use Types [...] Answer Date Recorded Internet Access Q1 Yes 07/25/2024 Internet Access Q2 I do not want or need it 07/05 Sex and Gender Information Value Date Recorded Sex Assigned at Male 02/02/2022 10:15 AM EDT Legal Sex Male 10:15 AM EDT Gender Identity Male 02/02/2022 10:15 AM EDT Sexual Orientation Straight 02/02/2022 10 :15 AM EDT documented as of this encounter Miscellaneous Notes * Telephone Encounter - Gold Wong - 10/03/2024 9:14 AM EDT TC from pt requesting medication refill. Medications needing refill: oxyCODONE (Roxicodone) 10 MG immediate release tablet To be sent to: [facility]/pharmacy #[id number] [place] [address] - [address] [place] [address] documented in this encounter Plan of Treatment Upcoming Encounters Date Type Department Care Team (Late st Contact Info) Description 01/29/2025 11:15 AM EDT Telemedicine [facility] MEDICINE [address] [place] [address] Codie Bell MD [address] [place] [address] documented as of this encounter Visit Diagnoses Not on filedocumented in this encounter Additional Health Concerns Assessment Noted Time PHQ-9 Depression Total Score: 0 07/10/20 24 9:19 AM EDT documented as of this encounter Care Teams Client Support Associate Relationship Specialty Start Date End Date Codie Bell MD [address] [place] [address] PCP - General Family Medicine 01/25/13 Destin Monreal MD [address] [place] [address] Cardiology 07/25/24 SULEMAN Soto [facility] Urology Urology 04/06/24 documented as of this encounter
--- OUTSIDE RECORDS SUMMARY | 2024-12-29 11:00 | XMS_ITS | Encounter Summary ---
Author Organization [employer] Address [address] [place] [address] 7t [place] [address] Care Team Providers Care Lard Tub Washer Name Role Phone Codie Bell MD Primary Care Provider [phone]- [phone] Destin Monreal MD Unavailable [phone] Reason for Visit * Reason Comments Med Refill Encounter Details Date Type Department Care Team (Late st Contact Info) Description 07/20/2022 Refill [facility] MEDICINE [address] [place] [address] [phone] Codie Bell MD [address] [place] [address] [phone] Social History Tobacco Use Types Packs/Day Years [...] Info) Description 01/29/2025 11:15 AM EDT Telemedicine [facility] MEDICINE [address] [place] [address] [phone] Codie Bell MD [address] [place] [address] [phone] documented as of this encounter Visit Diagnoses Not on filedocumented in this encounter Additional Health Concerns Assessment Noted Time PHQ-9 Depression Total Score: 0 05/11/19 23 10:41 AM EST documented as of this encounter Care Teams Lard Tub Washer Relationship Specialty Start Date End Date Codie Bell MD [address] [place] [address] PCP - General Family Medicine 01/25/13 Destin Monreal MD [address] [place] [address] Cardiology 07/25/24 SULEMAN Soto [facility] Urology Urology 04/06/24 documented as of this encounter
--- OUTSIDE RECORDS SUMMARY | 2024-12-29 11:00 | XMS_ITS | Encounter Summary ---
Author Organization [employer] Address [address] [place] [address] 7t [place] [address] Care Team Providers Care Buyer Liaison Name Role Phone Codie Bell MD Primary Care Provider [phone]- [phone] Destin Monreal MD Unavailable [phone] Encounter Details Date Type Department Care Team ([facility] st Contact Info) Description 05/08/2022 Abstract [facility] MEDICINE [address] [place] [address] Codie Bell MD [address] [place] [address] Social History Tobacco Use Types Packs/Day Years [...] AM EST documented as of this encounter Functional Status * Over the past 2 weeks, how often have you been bothered by any of the following problems? Question Answer Date of Assessment Author Patient Health Questionnaire-2 Score 0 02/0 09/2022 10:41 AM EST Ayla Gilbert MA * Over the past 2 weeks, how often have you been bothered by any of the following problems? Question Answer Date of Assessment Author Little interest or pleasure in doing things Not at all 05/11/2022 10:41 AM Ayla Smith M A Feeling down, depressed, or hopeless Not at all 05/11/2022 10:41 AM Ayla Smith M A Trouble falling or staying asleep, or sleeping too much Not at all 05/11/2022 10:41 AM Ayla Smith MA Feeling tired or having jennifer le energy Not at all 05/11/2022 10:41 AM Ayla Smith M A Poor appetite or overeating Not at all 05/11/2022 10 :41 AM Ayla Smith MA Feeling bad about yourself - or that you are a failure or have let yourself or your family down Not at all 05/11/2022 10:41 AM Ayla García MA Trouble concentrating on thi ngs, such as reading the newspaper or watching television Not at all 05/11/2022 10:41 AM Ayla Smith M A Moving or speaking so slowly that other people could have noticed? Or the opposite - being so fidgety or restless that you have been moving around a lot more than usual. Not at all 05/11/2022 10:41 AM Ayla Smith M A Thoughts that you would be better off or hurting yourself in some way Not at all 05/11/2022 10:41 AM Ayla Smith MA Patient Health Questionnaire -9 Score 0 05/11/2022 10:41 AM Ayla Smith M A documented as of this encounter Plan of Treatment Upcoming Encounters Date Type Department Care Team (Late st Contact Info) Description 01/29/2025 11:15 AM EDT Telemedicine [facility] MEDICINE [address] [place] [address] Codie Bell MD [address] [place] [address] documented as of this encounter Procedures Procedure Name Priority Date/Time Associated Diagnosis Comments HM COLONOSCOPY Routine 07/28/2013 documented in this encounter Results * Colonoscopy (07/28/2013) Colonoscopy Tubular adenoma with Dr. Kramer us Historical Provider HEALTH MAINTENANCE Final Result documented in this encounter Visit Diagnoses Not on filedocumented in this encounter Care Teams Buyer Liaison Relationship Specialty Start Date End Date Codie Bell MD [address] [place] [address] PCP - General Family Medicine 01/25/13 Destin Monreal MD [address] [place] [address] Cardiology 07/25/24 SULEMAN Soto [facility] Urology Urology 04/06/24 documented as of this encounter
--- OUTSIDE RECORDS SUMMARY | 2024-12-29 11:00 | XMS_ITS | Encounter Summary ---
Author Organization [employer] Address [address] [place] [address] 7t [place] [address] Care Team Providers Care Classroom Instructional Aide Name Role Phone Codie Bell MD Primary Care Provider [phone]- [phone] eDstin Monreal MD Unavailable [phone] Reason for Visit * Reason Comments Med Refill Encounter Details Date Type Department Care Team ([facility] st Contact Info) Description 11/16/2024 Refill [facility] MEDICINE [address] [place] [address] Codie Bell MD [address] [place], [place] [phone] Type 2 diabetes mellitus with hyperglycemia ([facility]) Social History Tobacco Use Types Packs/Day Years [...] 11:15 AM EDT Telemedicine [facility] MEDICINE [address] [place] [address] Codie Bell MD [address] [place] [address] documented as of this encounter Visit Diagnoses Diagnosis Type 2 diabetes mellitus with hyperglycemia (CMS/HCC) documented in this encounter Additional Health Concerns Assessment Noted Time PHQ-9 Depression Total Score: 0 11/07/19 25 9:11 AM EDT documented as of this encounter Care Teams Classroom Instructional Aide Relationship Specialty Start Date End Date Codie Bell MD [address] [place] [address] PCP - General Family Medicine 01/25/13 Destin Monreal MD [address] [place] [address] Cardiology 07/25/24 SULEMAN Soto [facility] Urology Urology 04/06/24 documented as of this encounter
--- OUTSIDE RECORDS SUMMARY | 2024-12-29 11:00 | XMS_ITS | Encounter Summary ---
Author Organization [employer] Address [address] [place] [address] 7t [place] [address] Care Team Providers Care Tape Fastener Machine Operator Name Role Phone Codie Bell MD Primary Care Provider [phone]- [phone] Destin Monreal MD Unavailable [phone] Reason for Visit * Reason Onset Date Comments Med Refill 09/06/2023 Encounter Details Date Type Department Care Team ([facility] st Contact Info) Description 09/06/2023 Telephone [facility] MEDICINE [address] [place] [address] Codie Bell MD [address] [place], [place] [phone] Med Refill Social History Tobacco Use Types [...] immediate release tablet To be sent to: [facility]/pharmacy #[id number] [place] [address] - [address] [place] [address] documented in this encounter Plan of Treatment Upcoming Encounters Date Type Department Care Team (Late st Contact Info) Description 01/29/2025 11:15 AM EDT Telemedicine [facility] MEDICINE [address] [place] [address] Codie Bell MD [address] [place] [address] documented as of this encounter Visit Diagnoses Not on filedocumented in this encounter Additional Health Concerns Assessment Noted Time PHQ-9 Depression Total Score: 0 05/11/19 23 10:41 AM EST documented as of this encounter Care Teams Tape Fastener Machine Operator Relationship Specialty Start Date End Date Codie Bell MD [address] [place] [address] PCP - General Family Medicine 01/25/13 Destin Monreal MD [address] [place] [address] Cardiology 07/25/24 SULEMAN Soto [facility] Urology Urology 04/06/24 documented as of this encounter
--- OUTSIDE RECORDS SUMMARY | 2024-12-29 11:00 | XMS_ITS | Encounter Summary ---
Author Organization [employer] Address [address] [place] [address] 7t [place] [address] Care Team Providers Care Rooming House Inspector Name Role Phone Codie Bell MD Primary Care Provider [phone]- [phone] Destin Monreal MD Unavailable [phone] Encounter Details Date Type Department Care Team (Late st Contact Info) Description 06/22/[address] [facility] MEDICINE [address] [place] [address] Codie Bell MD [address] [place] [address] [phone] Skin lesion (Primary Dx) Social History Tobacco [...] Info) Description 01/29/2025 11:[address] [facility] MEDICINE [address] [place] [address] [phone] Codie Bell MD [address] [place] [address] [phone] documented as of this encounter Visit Diagnoses Diagnosis Skin lesion- Primary Unspecified disorder of skin and subcutaneous tissue documented in this encounter Additional Health Concerns Assessment Noted Time PHQ-9 Depression Total Score: 0 05/11/19 10:41 AM EST documented as of this encounter Care Teams Rooming House Inspector Relationship Specialty Start Date End Date Codie Bell MD [address] [place] [address] PCP - General Family Medicine 01/25/13 Destin Monreal MD [address] [place] [address] Cardiology 07/25/24 SULEMAN Soto [facility] Urology Urology 04/06/24 documented as of this encounter
--- OUTSIDE RECORDS SUMMARY | 2024-12-29 11:00 | XMS_ITS | Encounter Summary ---
Author Organization [employer] Address [address] [place] [address] 7t [place] [address] Care Team Providers Care Tactical Air Control Party Manager Name Role Phone Codie Bell MD Primary Care Provider [phone]- [phone] Destin Monreal MD Unavailable [phone] Reason for Visit * Reason Comments Med Refill Encounter Details Date Type Department Care Team (Late st Contact Info) Description 07/03/2022 Refill [facility] MEDICINE [address] [place] [address] [phone] Codie Bell MD [address] [place] [address] [phone] Social History Tobacco Use Types Packs/Day Years [...] Info) Description 01/29/2025 11:15 AM EDT Telemedicine [facility] MEDICINE [address] [place] [address] [phone] Codie Bell MD [address] [place] [address] [phone] documented as of this encounter Visit Diagnoses Not on filedocumented in this encounter Additional Health Concerns Assessment Noted Time PHQ-9 Depression Total Score: 0 05/11/19 23 10:41 AM EST documented as of this encounter Care Teams Tactical Air Control Party Manager Relationship Specialty Start Date End Date Codie Bell MD [address] [place] [address] PCP - General Family Medicine 01/25/13 Destin Monreal MD [address] [place] [address] Cardiology 07/25/24 SULEMAN Soto [facility] Urology Urology 04/06/24 documented as of this encounter
--- OUTSIDE RECORDS SUMMARY | 2024-12-29 11:00 | XMS_ITS | Encounter Summary ---
Author Organization [employer] [facility] Address [address] [place] [address] 7t [place] [address] Care Team Providers Care Pot Washer Name Role Phone Codie Bell MD Primary Care Provider [phone]- [phone] Destin Monreal MD Unavailable [phone] Encounter Details Date Type Department Care Team (Late st Contact Info) Description 03/17/2022 Abstract [facility] MEDICINE [address] [place] [address] ProviderAmbrosio MD Social History Tobacco Use Types [...] Description 01/29/2025 11:15 AM EDT Telemedicine [facility] MEDICINE [address] [place] [address] Codie Bell MD [address] [place] [address] documented as of this encounter Visit Diagnoses Not on filedocumented in this encounter Care Teams Pot Washer Relationship Specialty Start Date End Date Codie Bell MD [address] [place] [address] PCP - General Family Medicine 01/25/13 Destin Monreal MD [address] [place] [address] Cardiology 07/25/24 SULEMAN Soto [facility] Urology Urology 04/06/24 documented as of this encounter
--- OUTSIDE RECORDS SUMMARY | 2024-12-29 11:00 | XMS_ITS | Encounter Summary ---
Author Organization [employer] Address [address] [place] [address] 7t [place] [address] Care Team Providers Care Plisse Machine Operator Helper Name Role Phone Codie Bell MD Primary Care Provider +1- [phone] Destin Monreal MD Unavailable [phone] Encounter Details Date Type Department Care Team ([facility] st Contact Info) Description 05/11/2022 Abstract [facility] MEDICINE [address] [place] [address] Codie Bell MD [address] [place] [address] Social History Tobacco Use Types Packs/Day Years [...] Info) Description 01/29/2025 11:15 AM EDT Telemedicine [facility] MEDICINE [address] [place] [address] Codie Bell MD [address] [place] [address] documented as of this encounter Procedures Procedure Name Priority Date/Time Associated Diagnosis Comments TSH Routine 02/04/2022 HEPATIC FUNCTION PANEL Routine 02/04/2022 BASIC METABOLIC PANEL Routine 02/04/2022 HEPATITIS C AB W/REFL TO HCV RNA, QN, PCR Routine 09/05/2021 documented in this encounter Results * (ABNORMAL) TSH (02/04/2022) TSH 2.50(A) 4.00 - 5.40 mIU/L Blood Venous blood specimen / Unknown Result [facility] Provider LAB BLOOD ORDERABLES Anel l Result * Hepatic Function Panel (02/04/2022) ALT (SGPT) 10 10 - 40 U/L AST 14 14 - 40 U/L Blood Venous blood specimen / Unknown Result [facility] Provider LAB BLOOD ORDERABLES Anel l Result * (ABNORMAL) Basic Metabolic Panel (02/04/2022) Creatinine 1.4(A) 0.6 - 1.3 mg/dL Blood Venous blood specimen / Unknown Result [facility] Provider LAB BLOOD ORDERABLES Anel l Result * Hepatitis C Antibody with Reflex to HCV, RNA, Quantitative, Real-Time PCR (09/05/2021) Blood Venous blood specimen / Unknown 09/05/2021 Result [facility] Provider LAB BLOOD ORDERABLES Anel l Result documented in this encounter Visit Diagnoses Not on filedocumented in this encounter Additional Health Concerns Assessment Noted Time PHQ-9 Depression Total Score: 0 05/11/19 23 10:41 AM EST documented as of this encounter Care Teams Plisse Machine Operator Helper Relationship Specialty Start Date End Date Codie Bell MD [address] [place] [address] PCP - General Family Medicine 01/25/13 Destin Monreal MD [address] [place] [address] Cardiology 07/25/24 SULEMAN Soto [facility] Urology Urology 04/06/24 documented as of this encounter
--- OUTSIDE RECORDS SUMMARY | 2024-12-29 11:00 | XMS_ITS | Encounter Summary ---
Author Organization [employer] Address [address] [place] [address] 7t [place] [address] Care Team Providers Care Layer Up Name Role Phone Codie Bell MD Primary Care Provider [phone]- [phone] Destin Monreal MD Unavailable [phone] Reason for Visit * Reason Onset Date Comments Med Refill 10/03/2024 Encounter Details Date Type Department Care Team ([facility] st Contact Info) Description 10/03/2024 Telephone [facility] MEDICINE [address] [place] [address] Codie Bell MD [address] [place] [address] Med Refill Social History Tobacco Use Types [...] encounter Miscellaneous Notes * Telephone Encounter - Brenda Farias LPN - 10/03/2024 9:24 AM EDT Please review request medication was discontinued on 10/13/23. * Telephone Encounter - Gold Wong - 10/03/2024 9:15 AM EDT TC from pt requesting medication refill. Medications needing refill: Omeprazole To be sent to: [facility]/pharmacy #[id number] [place] - [address] [place] [address] documented in this encounter Plan of Treatment Upcoming Encounters Date Type Department Care Team (Late st Contact Info) Description 01/29/2025 11:15 AM EDT Telemedicine [facility] MEDICINE [address] [place], [place] [phone] Codie Bell MD [address] [place] [address] documented as of this encounter Visit Diagnoses Not on filedocumented in this encounter Additional Health Concerns Assessment Noted Time PHQ-9 Depression Total Score: 0 10/13/19 24 9:19 AM EDT documented as of this encounter Care Teams Layer Up Relationship Specialty Start Date End Date Codie Bell MD [address] [place] [address] PCP - General Family Medicine 01/25/13 Destin Monreal MD [address] [place] [address] Cardiology 07/25/24 SULEMAN Soto [facility] Urology Urology 04/06/24 documented as of this encounter
--- OUTSIDE RECORDS SUMMARY | 2024-12-29 11:00 | XMS_ITS | Encounter Summary ---
Author Organization [employer] Address [address] [place] [address] 7t [place] [address] Care Team Providers Care Legal Mediator Name Role Phone Codie Bell MD Primary Care Provider [phone]- [phone] Destin Monreal MD Unavailable [phone] Reason for Visit * Reason Onset Date Comments Appointment Request 12/08/2024 Encounter Details Date Type Department Care Team ([facility] st Contact Info) Description 12/08/2024 Telephone [facility] MEDICINE [address] [place] [address] Codie Bell MD [address] [place] [address] Appointment Request Social History Tobacco Use Types [...] the past 12 months, has t he [employer], gas, oil or water company threatened to [...] encounter Miscellaneous Notes * Telephone Encounter - Allison Lopez - 12/08/2024 9:49 AM EDT Tc from pt daughter requesting to schedule a follow up apt for pt as pt fell in [place] , pt had anapt on 12/11 but he will not be back till 12/20. Pt daughter requesting for a call back Contact pt daughter at [phone] documented in this encounter Plan of Treatment Upcoming Encounters Date Type Department Care Team (Late st Contact Info) Description 01/29/2025 11:15 AM EDT Telemedicine [facility] MEDICINE [address] [place] [address] Codie Bell MD [address] [place], [place] [phone] documented as of this encounter Visit Diagnoses Not on filedocumented in this encounter Additional Health Concerns Assessment Noted Time PHQ-9 Depression Total Score: 0 11/07/19 25 9:11 AM EDT documented as of this encounter Care Teams Legal Mediator Relationship Specialty Start Date End Date Codie Bell MD [address] [place] [address] PCP - General Family Medicine 01/25/13 Destin Monreal MD [address] [place] [address] Cardiology 07/25/24 SULEMAN Soto [facility] Urology Urology 04/06/24 documented as of this encounter
--- OUTSIDE RECORDS SUMMARY | 2024-12-29 11:00 | XMS_ITS | Encounter Summary ---
Author Organization [employer] Address [address] [place] [address] 7t [place] [address] Care Team Providers Care Concert Manager Name Role Phone Codie Bell MD Primary Care Provider [phone]- [phone] Destin Monreal MD Unavailable [phone] Reason for Visit * Reason Onset Date Comments Med Refill 02/04/2023 Encounter Details Date Type Department Care Team ([facility] st Contact Info) Description 02/04/2023 Telephone [facility] MEDICINE [address] [place] [address] Codie Bell MD [address] [place], [place] [phone] Med Refill Social History Tobacco Use Types [...] Miscellaneous Notes * Telephone Encounter - Willow Vasile - 02/04/2023 9:38 AM EDT Tc from daughter requesting medication refill on oxyCODONE (Roxicodone) 10 MG immediate release tablet to be sent to [facility]/pharmacy #[id number] [place] [address] - [address] [place] [address] documented in this encounter Plan of Treatment Upcoming Encounters Date Type Department Care Team (Late st Contact Info) Description 01/29/2025 11:15 AM EDT Telemedicine [facility] MEDICINE [address] [place] [address] Codie Bell MD [address] [place] [address] documented as of this encounter Visit Diagnoses Not on filedocumented in this encounter Additional Health Concerns Assessment Noted Time PHQ-9 Depression Total Score: 0 05/11/19 23 10:41 AM EST documented as of this encounter Care Teams Concert Manager Relationship Specialty Start Date End Date Codie Bell MD [address] [place] [address] PCP - General Family Medicine 01/25/13 Destin Monreal MD [address] [place] [address] Cardiology 07/25/24 SULEMAN Soto [facility] Urology Urology 04/06/24 documented as of this encounter
--- OUTSIDE RECORDS SUMMARY | 2024-12-29 11:00 | XMS_ITS | Encounter Summary ---
Author Organization [employer] Address [address] [facility] 7t [place] [address] Care Team Providers Care Criminal Analyst Name Role Phone [place], Codie CABA Primary Care Provider [phone] Destin Monreal MD Unavailable [phone] Encounter Details Date Type Department Care Team (Latest Contact Info) Description 12/29/2024 Travel Social History Tobacco Use Types Packs/Day Years [...] Info) Description 01/29/2025 11:15 AM EDT Telemedicine [facility] MEDICINE [address] [place] [address] Codie Bell MD [address] [place] [address] documented as of this encounter Visit Diagnoses Not on filedocumented in this encounter Additional Health Concerns Assessment Noted Time PHQ-9 Depression Total Score: 0 11/07/19 25 9:11 AM EDT documented as of this encounter Care Teams Criminal Analyst Relationship Specialty Start Date End Date Codie Bell MD [address] [place] [address] PCP - General Family Medicine 01/25/13 Destin Monreal MD [address] [place] [address] Cardiology 07/25/24 SULEMAN Soto [facility] Urology Urology 04/06/24 documented as of this encounter
--- OUTSIDE RECORDS SUMMARY | 2024-12-29 11:01 | XMS_ITS | Encounter Summary ---
Author Organization [employer] Address [address] [place] [address] 7t [place] [address] Care Team Providers Care Bulk Station Agent Name Role Phone Codie Bell MD Primary Care Provider [phone] Destin Monreal MD Unavailable [phone] Reason for Visit * Reason Onset Date Comments Med Refill 02/04/2024 Encounter Details Date Type Department Care Team ([facility] st Contact Info) Description 02/04/2024 Telephone [facility] MEDICINE [address] [place] [address] Codie Bell MD [address] [place] [address] Med Refill Social History Tobacco Use Types [...] the past 12 months, has t he [employer] gas, oil or water company threatened to [...] immediate release tablet To be sent to: [facility]/pharmacy #[id number] [place] [address] - [address] [place] [address] documented in this encounter Plan of Treatment Upcoming Encounters Date Type Department Care Team (Late st Contact Info) Description 01/29/2025 11:15 AM EDT Telemedicine [facility] MEDICINE [address] [place] [address] Codie Bell MD [address] [place] [address] documented as of this encounter Visit Diagnoses Not on filedocumented in this encounter Additional Health Concerns Assessment Noted Time PHQ-9 Depression Total Score: 0 07/10/20 24 9:19 AM EDT documented as of this encounter Care Teams Bulk Station Agent Relationship Specialty Start Date End Date Codie Bell MD [address] [place] [address] PCP - General Family Medicine 01/25/13 Destin Monreal MD [address] [place] [address] Cardiology 07/25/24 SULEMAN Soto [facility] Urology Urology 04/06/24 documented as of this encounter
--- OUTSIDE RECORDS SUMMARY | 2024-12-29 11:01 | XMS_ITS | Encounter Summary ---
Author Organization [employer] Address [address] [place] [address] 7t [place] [address] Care Team Providers Care Supervisor General Name Role Phone Codie Bell MD Primary Care Provider [phone] Destin Monreal MD Unavailable [phone] Encounter Details Date Type Department Care Team (Late st Contact Info) Description 12/10/2022 Orders Only [facility] [address] [place] [address] Codie Bell MD [address] [place] [address] Dementia with other behavioral disturbance, unspecified dementia severity, unspecified dementia type (CMS/HCC) (Primary Dx); Type 2 diabetes mellitus with hyperglycemia, without long-term current use of insulin (CMS/[facility]); Preventative health care; Impaired cognition [...] Info) Description 01/29/2025 11:15 AM EDT Telemedicine [facility] MEDICINE [address] [place] [address] Codie Bell MD [address] [place] [address] documented as of this encounter Procedures Procedure Name Priority Date/Time Associated Diagnosis Comments DIABETES EYE EXAM Routine 12/04/2022 documented in this encounter Results * Diabetes Eye Exam (12/04/2022) Eye Exam Normal Normal Comment:[facility] Historical Provider HEALTH MAINTENANCE Final Result documented in this encounter Visit Diagnoses Diagnosis Dementia with other behavioral disturbance, unspecified dementia severity, unspecified dementia type ([facility])- Primary Type 2 diabetes mellitus with hyperglycemia, without long-term current use of insulin ([facility]) Preventative health care Routine general medical examination at a health care facility Impaired cognition Unspecified persistent mental disorders due to conditions classified elsewhere documented in this encounter Additional Health Concerns Assessment Noted Time PHQ-9 Depression Total Score: 0 05/11/19 23 10:41 AM EST documented as of this encounter Care Teams Supervisor General Relationship Specialty Start Date End Date Codie Bell MD [address] [place] [address] PCP - General Family Medicine 01/25/13 Destin Monreal MD [address] [place] [address] Cardiology 07/25/24 SULEMAN Soto [facility] Urology Urology 04/06/24 documented as of this encounter
--- OUTSIDE RECORDS SUMMARY | 2024-12-29 11:01 | XMS_ITS | Encounter Summary ---
Author Organization [employer] Address [address] [place] [address] 7t [place] [address] Care Team Providers Care Sports Nutritionist Name Role Phone Codie Bell MD Primary Care Provider [phone]- [phone] Destin Monreal MD Unavailable [phone] Reason for Visit * Reason Onset Date Comments Med Refill 11/05/2023 Encounter Details Date Type Department Care Team ([facility] st Contact Info) Description 11/05/2023 Telephone [facility] MEDICINE [address] [place] [address] Codie Bell MD [address] [place] [address] Med Refill Social History Tobacco Use Types [...] the past 12 months, has t he [employer], gas, oil or water company threatened to [...] immediate release tablet To be sent to: [facility]/pharmacy #[id number] [place] [address] documented in this encounter Plan of Treatment Upcoming Encounters Date Type Department Care Team (Late st Contact Info) Description 01/29/2025 11:15 AM EDT Telemedicine [facility] MEDICINE [address] [place] [address] Codie Bell MD [address] [place] [address] documented as of this encounter Visit Diagnoses Not on filedocumented in this encounter Additional Health Concerns Assessment Noted Time PHQ-9 Depression Total Score: 0 10/13/19 24 9:19 AM EDT documented as of this encounter Care Teams Sports Nutritionist Relationship Specialty Start Date End Date Codie Bell MD [address] [place] [address] PCP - General Family Medicine 01/25/13 Destin Monreal MD [address] [place] [address] Cardiology 07/25/24 SULEMAN Soto [facility] Urology Urology 04/06/24 documented as of this encounter
--- OUTSIDE RECORDS SUMMARY | 2024-12-29 11:01 | XMS_ITS | Encounter Summary ---
Author Organization [employer] Address [address] [place] [address] 7t [place] [address] Care Team Providers Care Operations Program Manager Name Role Phone Codie Bell MD Primary Care Provider [phone] Destin Monreal MD Unavailable [phone] Reason for Visit * Reason Onset Date Comments Med Refill 06/01/2024 Encounter Details Date Type Department Care Team ([facility] st Contact Info) Description 06/01/2024 Telephone [facility] MEDICINE [address] [place] [address] Codie Bell MD [address] [place] [address] Med Refill Social History Tobacco Use Types [...] the past 12 months, has t he [employer], gas, oil or water company threatened to [...] immediate release tablet To be sent to: [facility]/pharmacy #[id number] [place] [address] - [address] [place] [address] documented in this encounter Plan of Treatment Upcoming Encounters Date Type Department Care Team (Late st Contact Info) Description 01/29/2025 11:15 AM EDT Telemedicine [facility] MEDICINE [address] [place] [address] Codie Bell MD [address] [place] [address] documented as of this encounter Visit Diagnoses Not on filedocumented in this encounter Additional Health Concerns Assessment Noted Time PHQ-9 Depression Total Score: 0 10/13/19 24 9:19 AM EDT documented as of this encounter Care Teams Operations Program Manager Relationship Specialty Start Date End Date Codie Bell MD [address] [place] [address] PCP - General Family Medicine 01/25/13 Destin Monreal MD [address] [place] [address] Cardiology 07/25/24 SULEMAN Soto [facility] Urology 04/06/24 documented as of this encounter
--- OUTSIDE RECORDS SUMMARY | 2024-12-29 11:01 | XMS_ITS | Clinical Summary ---
Author Organization [employer] Address [address] [place] [address] 7[address] [place] [address] Care Team Providers Care Gericare Aide Name Role Phone Arabella, Codie CABA Primary Care Provider [phone] Destin Monreal MD Unavailable [phone] Allergies No known active allergies Medications naloxone (Narcan) 4 mg/0.1 mL nasal sprayIndications :Chronic prescription opiate use May repeat every 2-3 minutes if needed, alternating nostrils, until medical assistance becomes available. 2 each 024 Active Multiple Vitamins-Mineral s (Centrum Men) tabletIndication s:Frail elderly PT REPORTS PURCHASING OTC 90 tablet 3 024 Active glucose-vitamin C 4-6 GM-MG oral gelIndications:T ype 2 diabetes mellitus with hyperglycemia, without long-term current use of insulin ([facility]) Use for blood sugar < 60 50 tablet 024 Active acetaminophen (Tylenol) 500 MG tabletIndication s:Pain Take 1 tablet (500 mg) by mouth every 8 (eight) hours. 30 tablet 024 Active Alcohol Swabs (Alcohol Pads) 70 % padsIndications: Type 2 diabetes mellitus with hyperglycemia, without long-term current use of insulin ([facility]) Use as directed on skin 100 each 024 Active sennosides (Senokot) 8.6 MG tabletIndication s:Constipation, unspecified constipation type 1-2 tabs po nightly prn constipation 60 tablet 11 024 Active magnesium 250 MG tabletIndication s:Leg cramps take 1 tablet (250 mg) by mouth at bedtime 024 Active insulin pen needle (BD Pen Needle Alejandra 2nd Gen) 32G x 4 mm miscIndications: Type 2 diabetes mellitus with hyperglycemia, without long-term current use of insulin ([facility]) USE 5 TIMES A DAY 150 each 11 025 Active brimonidine (AlphaGAN) 0.2 % ophthalmic solution Administer 1 drop into affected eye(s) 2 times daily. 025 Active timolol (Timoptic) 0.5 % ophthalmic solution Administer 1 drop into the left eye in the morning. 025 Active bisacodyl (Dulcolax) 10 MG suppository Insert 10 mg into the rectum if needed each day for constipation. 025 Active Eliquis 5 MG tabletIndication s:Chronic deep vein thrombosis (DVT) of distal vein of right lower extremity ([facility]) TAKE 1 TABLET BY MOUTH TWICE A DAY 180 tablet 3 025 Active omeprazole (PriLOSEC) [address] capsuleIndicatio ns:Gastro-esopha geal reflux disease without esophagitis TAKE 1 TABLET BY MOUTH ONCE DAILY NEEDED FOR STOMACH UPSET 84 capsule 025 Active glucose blood (FREESTYLE LITE) test stripIndications :Type 2 diabetes mellitus with hyperglycemia, without long-term current use of insulin ([facility]) USE TO TEST 6 TIMES DAILY DIRECTED 200 strip 11 Active TRUEplus Lancets 33G miscIndications: Type 2 diabetes mellitus with hyperglycemia, without long-term current use of insulin ([facility]) Use 6 times a day as directed 200 each 3 025 Active pravastatin (Pravachol) 20 MG tabletIndication s:Type 2 diabetes mellitus with hyperglycemia, without long-term current use of insulin ([facility]),Hyperl ipidemia, unspecified hyperlipidemia type Take 1 tablet (20 mg) by mouth in the morning. 90 tablet 025 Active hydroCHLOROthiaz galen (HYDRODiuril) 25 MG tabletIndication s:Primary hypertension Take 1 tablet (25 mg) by mouth Once per day. 90 tablet 3 025 Active NovoLOG FLEXPEN 100 UNIT/ML penIndications:T ype 2 diabetes mellitus with hyperglycemia, without long-term current use of insulin ([facility]) USE PER SLIDING SCALE F OR BLOOD SUGAR 111-149 INJECT 2 UNITS SUBCUTANEOUSLY FOR SUGAR 150-199 INJECT 4 UNITS 200-249 INJECT 8 UNITS 250-299 INJECT 12 UNITS 300- 349 INJECT 16 UNITS 350 TO 399 INJECT 20 UNITS 15 mL 10 025 Active Lantus SoloStar 100 UNIT/ML penIndications:T ype 2 diabetes mellitus with hyperglycemia (CMS/HCC) INJECT 25 UNITS SUBCUTANEOUSLY ONCE DAILY AT BEDTIME 15 mL Active finasteride (Proscar) 5 MG tabletIndication s:Benign prostatic hyperplasia with lower urinary tract symptoms, symptom details unspecified TAKE 1 TABLET BY MOUTH EVERY DAY IN THE MORNING 90 tablet 3 Active oxyCODONE (Roxicodone) 10 MG immediate release tabletIndication s:Chronic midline low back pain without sciatica Take 1 tablet (10 mg) by mouth if needed in the morning and at bedtime for severe pain. 60 tablet 025 2024 Active mirtazapine (Remeron) 7.5 MG tabletIndication s:Insomnia, unspecified type Take 1 tablet (7.5 mg) by mouth if needed at bedtime (insomina). 30 tablet 2 Active polyethylene glycol, PEG, 3350 (MiraLax) 17 GM/SCOOP powderIndication s:Constipation, unspecified constipation type 17 grams in 8-12 oz fluid like water at bedtime prn constipation 527 g 2 Active bisacodyl (Dulcolax) 5 MG EC tabletIndication s:Constipation, unspecified constipation type Take 1 tablet (5 mg) by mouth if needed each day for constipation. Do not crush, chew, or split. 30 tablet 025 2024 Active oxyCODONE (Roxicodone) 10 MG immediate release tabletIndication s:Chronic midline low back pain without sciatica Take 1 tablet (10 mg) by mouth if needed in the morning and at bedtime for severe pain. 60 tablet 025 2024 Discontinued(R eorder (will not trigger notification to Pharmacy)) Active Problems Patient Care Coordination No te Formatting of this note migh t be different from the original. 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 Pt is not sleeping at night, causing chaos. Will trial mirtazapine (Remeron) 7.5 MG 12/29/24 -follow up in 4 weeks. Assessment & Plan (12/29/2024 10:51 AM EDT): Reports worsening mood changes, memory and behavior changes. Pt is not sleeping at night, causing chaos. Will trial mirtazapine (Remeron) 7.5 MG 12/29/24 -follow up in 4 weeks. Orders: mirtazapine (Remeron) 7.5 MG tablet; Take 1 tablet (7.5 mg) by mouth if needed at bedtime (insomina). Constipation 12/29/2024 Overview (12/29/2024): Chronic constipation likely secondary to opiate use. -prescribed MiraLaax and Ducolax 12/29/24, will reevaluate in 4 weeks. Assessment & Plan (12/29/2024 10:51 AM EDT): Chronic constipation likely secondary to opiate use. -prescribed MiraLaax and Ducolax 12/29/24, will reevaluate in 4 weeks. Orders: polyethylene glycol, PEG, 3350 (MiraLax) 17 GM/SCOOP powder; 17 grams in 8-12 oz fluid like water at bedtime prn constipation bisacodyl (Dulcolax) 5 MG EC tablet; Take 1 tablet (5 mg) by mouth if needed each day for constipation. Do not crush, chew, or split. Do not resuscitate 04/20/2024 [facility] (current) use of opiate analgesic 01/05 Generalized abdominal pain 01/19/2024 Overview (07/10/2024): Daughter reports decreased BM, suspect constipation. -prescribed Senokot 01/19/24 -ordered H. Pylori test 01/19/24 -referred to GI 01/19/24, discussed if abd pain resolves after use of Senokot does not need to f/u with GI. -KUB in ER 07/09/24 IMPRESSION: Nonobstructive bowel-gas pattern. Large stool burden Assessment & Plan (01/19/2024 10:19 AM EDT): Daughter reports decreased BM, suspect constipation. -prescribed Senokot 01/19/24 -ordered H. Pylori test 01/19/24 -referred to GI 01/19/24, discussed if abd pain resolves after use of Senokot does not need to f/u with GI. Benign prostatic hyperplasia with lower urinary tract symptoms 07/24/2023 Overview (07/24/2023): -Seen by urology 07/2023 Other specified health status 12/10/2022 Overview (12/29/2024): -next comprehensive annual evaluation due after 12/29/24 -diabetic eye exam: [facility] with Dr. Vick Ohara 12/04/2022 -has dentures -health care proxy filed 10/13/23 Assessment & Plan (12/29/2024 10:51 AM EDT): -next comprehensive annual evaluation due after 12/29/24 -diabetic eye exam: [facility] with Dr. Vick Ohara 12/04/2022 -has dentures -health care proxy filed 10/13/23 Assessment & Plan (10/13/2023 9:35 AM EDT): -next physical exam due after 07/13/24 -diabetic eye exam: [facility] with Dr. Vick Ohara 12/04/2022 -has dentures -health care proxy filed 10/13/23 Assessment & Plan (07/13/2023 7:55 AM EDT): -next physical exam due after 07/12/24 -diabetic eye exam: [facility] with Dr. Vick Ohara 12/04/2022 -dental home is Basal cell carcinoma (BCC) 08/19/2022 Overview (08/19/2022): Dx on biopsy 07/24/[address] Elizabeth. The lesion extended to the deep tissue edges. He last seen Dr. Elizabeth on 07/24/22, follow up 2 months. Assessment & Plan (12/29/2024 10:51 AM EDT): Dx on biopsy 07/24/[address] Elizabeth. The lesion extended to the deep tissue edges. He last seen Dr. Elizabeth on 07/24/22 Assessment & Plan (07/12/2023 1:31 PM EDT): [...] follow up 2 months. Anemia 08/19/2022 Overview (12/29/2024): Lab Results Component Value Date FERRITIN 81 07/12/2023 HGB 12.7 (L) 07/09/2024 HGB 13.1 (L) 01/17/2024 HGB 12.8 (L) 02/04/2022 HGB 12.2 (L) 09/05/2021 HEMATOCRIT 38.7 02/04/2022 HEMATOCRIT 37.5 (L) 09/05/2021 -stop iron supplements 10/13/23 -ordered repeat CBC 12/29/24 Assessment & Plan (12/29/2024 10:51 AM EDT): Lab Results Component Value Date FERRITIN 81 07/12/2023 HGB 12.7 (L) 07/09/2024 HGB 13.1 (L) 01/17/2024 HGB 12.8 (L) 02/04/2022 HGB 12.2 (L) 09/05/2021 HEMATOCRIT 38.7 02/04/2022 HEMATOCRIT 37.5 (L) 09/05/2021 -stop iron supplements 10/13/23 -ordered repeat CBC 12/29/24 Orders: CBC; Future Ferritin; Future Assessment & Plan (10/13/2023 9:34 AM EDT): [...] started 07/04/2020 -Pt was seen by his cloth tester who mentioned on his last note a repeat U/S 10/2020 was negative for DVT but given the fact 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 , her recommended to keep him on Eliquis chcf -still continuing Eliquis Assessment & Plan (12/29/2024 10:51 AM EDT): Diagnosed 06/2020, Bonita started 07/04/2020 -Pt was seen by his cloth tester who mentioned on his last note a repeat U/S 10/2020 was negative for DVT but given the fact 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 , her recommended to keep him on Eliquis chcf -still continuing Eliquis Assessment & Plan (11/06/2024 9:30 AM EDT): Diagnosed 06/2020, Bonita started 07/04/2020 -Pt was seen by his cloth tester who mentioned on his last note a repeat U/S 10/2020 was negative for DVT but given the fact 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 , her recommended to keep him on Eliquis vermin exterminator -still continuing Eliquis Assessment & Plan (04/20/2024 9:42 AM EST): Diagnosed 06/2020, Bonita started 07/04/2020 -Pt was seen by his cloth tester who mentioned on his last note a repeat U/S 10/2020 was negative for DVT but given the fact 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 , her recommended to keep him on Eliquis vermin exterminator -still continuing Eliquis Assessment & Plan (10/13/2023 9:32 AM EDT): Diagnosed 06/2020, Bonita started 07/04/2020 -Pt was seen by his cloth tester who mentioned on his last note a repeat U/S 10/2020 was negative for DVT but given the fact 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 , her recommended to keep him on Eliquis vermin exterminator Assessment & Plan (07/12/2023 1:27 PM EDT): Diagnosed 06/2020, Bonita started 07/04/2020 Pt was seen by his cloth tester who mentioned on his last note a repeat U/S 10/2020 was negative for DVT but given the fact 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 , her recommended to keep him on Eliquis vermin exterminator Assessment & Plan (08/19/2022 9:30 AM EDT): Diagnosed 06/2020, Eliquis started 07/04/2020 Pt was seen by his cloth tester who mentioned on his last note a repeat U/S 10/2020 was negative for DVT but given the fact 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 , her recommended to keep him on Eliquis vermin exterminator Assessment & Plan (05/11/2022 10:29 AM EST): Diagnosed 06/2020, Eliquis started 07/04/2020 Pt was seen by his cloth tester who mentioned on his last note a repeat U/S 10/2020 was negative for DVT but given the fact 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 , her recommended to keep him on Eliquis chcf Chronic low back pain 03/17/2022 Class 1 obesity due to exces s calories with serious comorbidity and body mass index (BMI) of 30.0 to 30.9 in adult 03/17/2022 Assessment & Plan (12/29/2024 10:51 AM EDT): Maintaining weight, discussed dietary changes. Given age will continue to monitor. Edema of lower extremity 03/17/2022 Overview (08/06/2023): -Patient followed at [facility] with Dr. Luana Monreal DO. -US venous lower extremity 07/26/23: left common femoral vein incompetent, left SSV atrophied, otherwise competent veins Moderate dementia with mood disturbance 03/17/20 Overview (12/29/2024): -Diagnosed with dementia by neruology -referred to memory clinic 07/12/2023 -given number to call for appt. 10/13/23 Reports worsening mood changes, memory and behavior changes. Pt is not sleeping at night, causing chaos. Will trial mirtazapine (Remeron) 7.5 MG 12/29/24 -follow up in 4 weeks. Assessment & Plan (12/29/2024 10:51 AM EDT): -Diagnosed with dementia by neruology -referred to memory clinic 07/12/2023 -given number to call for appt. 10/13/23 Reports worsening mood changes, memory and behavior changes. Pt is not sleeping at night, causing chaos. Will trial mirtazapine (Remeron) 7.5 MG 12/29/24 -follow up in 4 weeks. Assessment & Plan (11/07/2024 11:01 AM EDT): -Diagnosed with dementia by neruology -Recent hospitalization. Dx vascular dementia. Rx quetiapine and mirtazapine. -Family discontinued quetiapine and mirtazapine due to side effect (worsened patient's confusion / mental status) -referred to memory clinic 07/12/2023; referred again 11/02/2024 Assessment & Plan (04/20/2024 9:41 AM EST): [...] using albuterol if wheezing Assessment & Plan (12/29/2024 10:51 AM EDT): -not using Flovent -uses albuterol rarely, discussed [...] Stage 3 chronic kidney disease 06/01/2019 Overview (12/29/2024): -Last seen by Dr. Mota on 11/29/2017 - Avoid nephrotoxic agents. - Discussed NO NSAIDS. Lab Results Component Value Date CREATININE 1.36 07/09/2024 EGFR 50 07/09/2024 MICROALBCREU 25.1 10/13/2023 LDLCHOLCAL 88 07/12/2023 Assessment & Plan (12/29/2024 10:51 AM EDT): -Last seen by Dr. Mota on 11/29/2017 - Avoid nephrotoxic agents. - Discussed NO NSAIDS. Lab Results Component Value Date CREATININE 1.36 07/09/2024 EGFR 50 07/09/2024 MICROALBCREU 25.1 10/13/2023 LDLCHOLCAL 88 07/12/2023 Assessment & Plan (11/06/2024 9:31 AM EDT): -Last seen by Dr. Mota [...] prostate specific antigen 11/02/2011 Hypertension 09/17/2011 Overview (12/29/2024): -Blood pressure is at goal 12/29/24 -Continue lifestyle modifications -Continue current medications -Continue HCTZ 25mg daily -coreg d/c by cardiology due to dizzyness, amlodipine d/c due to LE edema, lisinopril d/c due to hx acute kidney injury 2017 -Patient followed at [facility] with Dr. Luana Monreal DO. Note from 07/21/24 reviewed Assessment & Plan (12/29/2024 10:51 AM EDT): -Blood pressure is at goal 12/29/24 -Continue lifestyle modifications -Continue current medications -Continue HCTZ 25mg daily -coreg d/c by cardiology due to dizzyness, amlodipine d/c due to LE edema, lisinopril d/c due to hx acute kidney injury 2017 -Patient followed at [facility] with Dr. Luana Monreal DO. Note from 07/21/24 reviewed Assessment & Plan (11/06/2024 9:30 AM EDT): -Blood pressure is at goal [...] long-term current use of insulin 08/26/2011 Overview (12/29/2024): Diabetes is controlled Lab Results Component Value Date HGBA1C 8.6 (A) 11/06/2024 HGBA1C 8.3 (A) 04/20/2024 HGBA1C 7.5 (A) 01/19/2024 Lab Results Component Value Date CREATININE 1.36 07/09/2024 EGFR 50 07/09/2024 MICROALBCREU 25.1 10/13/2023 LDLCHOLCAL 88 07/12/2023 -Adam/Arb: lisinopril discontinued due to acute kidney injury in 2018 -Statin therapy: pravastatin 20mg -Diabetic eye exam: [facility] with Dr. Vick Ohara 12/04/2022 -Diabetic foot exam: Done 10/13/23. -Continue lifestyle modifications -Continue current medications -Currently on Lantus and Novolog -ordered routine labs 12/29/24 Assessment & Plan (12/29/2024 10:51 AM EDT): Diabetes is controlled Lab Results Component Value Date HGBA1C 8.6 (A) 11/06/2024 HGBA1C 8.3 (A) 04/20/2024 HGBA1C 7.5 (A) 01/19/2024 Lab Results Component Value Date CREATININE 1.36 07/09/2024 EGFR 50 07/09/2024 MICROALBCREU 25.1 10/13/2023 LDLCHOLCAL 88 07/12/2023 -Adam/Arb: lisinopril discontinued due to acute kidney injury in 2018 -Statin therapy: pravastatin 20mg -Diabetic eye exam: [facility] with Dr. Vick Ohara 12/04/2022 -Diabetic foot exam: Done 10/13/23. -Continue lifestyle modifications -Continue current medications -Currently on Lantus and Novolog -ordered routine labs 12/29/24 Orders: Albumin, Random Urine W/Creatinine; Future Lipid Panel, Standard; Future Hemoglobin A1c; Future Basic Metabolic Panel; Future Assessment & Plan (11/07/2024 10:58 AM EDT): Continue treatment plan per PCP as following: Lab Results Component Value Date HGBA1C 8.6 [...] -Statin therapy: pravastatin 20mg -Diabetic eye exam: [facility] with Dr. Vick Ohara [...] -Statin therapy: pravastatin 20mg -Diabetic eye exam: [facility] with Dr. Vick Ohara [...] -Statin therapy: pravastatin 20mg -Diabetic eye exam: [facility] with Dr. Vick Ohara [...] -Statin therapy: pravastatin 20mg -Diabetic eye exam: [facility] with Dr. Vick Ohara [...] 20mg -Diabetic eye exam: Appointment 09/2022 at [facility] with Dr. Ayers. -Diabetic foot exam: Done 08/19/2022. -Continue lifestyle modifications -Continue current medications Assessment & Plan (05/11/2022 11:00 AM EST): Lab Results Component Value Date HGBA1C 7.9 (A) 05/11/2022 -A1c at goal of < 8 -continue current meds Hyperlipidemia 08/26/2011 Overview (12/29/2024): Lab Results Component Value Date CHOL 152 07/12/2023 TRIG 133 07/12/2023 HDL 38 (L) 07/12/2023 LDLCHOLCAL 88 07/12/2023 -continue lifestyle modification -continue pravastatin 20mg -ordered repeat FLP + HFP 12/29/24 Assessment & Plan (12/29/2024 10:51 AM EDT): Lab Results Component Value Date CHOL 152 07/12/2023 TRIG 133 07/12/2023 HDL 38 (L) 07/12/2023 LDLCHOLCAL 88 07/12/2023 -continue lifestyle modification -continue pravastatin 20mg -ordered repeat FLP + HFP 12/29/24 Assessment & Plan (01/19/2024 10:21 AM EDT): [...] Encounters Date Type Department Care Team Description 12/29/2024 9:00 AM EDT Office Visit [facility] [address] [place] [address] [phone] Codie Bell MD Fall from ground level (Primary Dx); Moderate dementia with mood disturbance, unspecified dementia type ([facility]); Insomnia, unspecified type; Chronic obstructive pulmonary disease, unspecified COPD type ([facility]); Hyperlipidemia, unspecified hyperlipidemia type; Primary hypertension; Chronic deep vein thrombosis (DVT) of distal vein of right lower extremity ([facility]); Type 2 diabetes mellitus with stage 3 chronic kidney disease, without long-term current use of insulin, unspecified whether stage 3a or 3b CKD ([facility]); Stage 3a chronic kidney disease ([facility]); Anemia, unspecified type; Constipation, unspecified constipation type; Basal cell carcinoma (BCC), unspecified site; Class 1 obesity due to excess calories with serious comorbidity and body mass index (BMI) of 30.0 to 30.9 in adult; Dietary counseling; Exercise counseling; Encounter for immunization; Other specified health status 12/29/[address] [facility] [address] [place] [address] [phone] Codie Bell MD Insomnia, unspecified type 12/29/2024 Travel 12/22/[address] [facility] [address] [place] [address] [phone] Codie Bell MD Pre-visit Planning (Pre visit planning unable to LVM ) 12/12/[address] [facility] [address] [place] [address] [phone] Codie Bell MD Closed fracture of multiple ribs of left side, initial encounter (Primary Dx) 12/11/[address] [facility] [address] [place] [address] [phone] Codie Bell MD Referral 12/08/[address] [facility] [address] [place] [address] [phone] Maria Isabel Xie MA 12/08/[address] [facility] [address] [place] [address] [phone] Codie eBll MD Appointment Request 12/05/[address] [facility] [address] [place] [address] [phone] Codie Bell MD Chronic midline low back pain without sciatica 12/01/[address] [facility] [address] [place] [address] [phone] Codie Bell MD Pre-visit Planning ([facility] screening completed on 07/25/2024) 11/16/[address] [facility] [address] [place] [phone] Codie Bell MD Type 2 diabetes mellitus with hyperglycemia ([facility]) 11/16/[address] [facility] [address] [place] [address] [phone] Codie Bell MD Type 2 diabetes mellitus with hyperglycemia ([facility]); Benign prostatic hyperplasia with lower urinary tract symptoms, symptom details unspecified 11/08/[address] [facility] [address] [place] [address] [phone] Codie Bell MD Type 2 diabetes mellitus with hyperglycemia, without long-term current use of insulin ([facility]) 11/07/[address] [facility] [address] [place] [address] [phone] Codie Bell MD Primary hypertension (Primary Dx) 11/07/[address] [facility] [address] [place] [address] [phone] Codie Bell MD Medication Question 11/07/[address] [facility] [address] [place] [address] [phone] Codie Bell MD Type 2 diabetes mellitus with hyperglycemia, without long-term current use of insulin ([facility]) 11/06/2024 9:00 AM EDT Office Visit [facility] [address] [place] [address] [phone] Niesha Shepherd MD Primary hypertension (Primary Dx); Type 2 diabetes mellitus with stage 3 chronic kidney disease, without long-term current use of insulin, unspecified whether stage 3a or 3b CKD ([facility]); Chronic deep vein thrombosis (DVT) of distal vein of right lower extremity ([facility]); Stage 3a chronic kidney disease ([facility]); Moderate dementia with mood disturbance, unspecified dementia type ([facility]); Dizziness; Type 2 diabetes mellitus with hyperglycemia, without long-term current use of insulin ([facility]) 11/06/2024 Travel 11/06/[address] [facility] [address] [place] [phone] Ronel De Anda MD Type 2 diabetes mellitus with hyperglycemia, without long-term current use of insulin ([facility]); Hyperlipidemia, unspecified hyperlipidemia type 11/06/[address] [facility] [address] [place] [phone] Codie Bell MD Primary hypertension; Type 2 diabetes mellitus with hyperglycemia, without long-term current use of insulin ([facility]); Chronic deep vein thrombosis (DVT) of distal vein of right lower extremity ([facility]); Gastro-esophageal reflux disease without esophagitis; Hyperlipidemia, unspecified hyperlipidemia type 11/03/[address] [facility] [address] [place] [address] Codie Bell MD chartprep 11/01/[address] [facility] [address] [place] [address] Codie Bell MD Chronic midline low back pain without sciatica 10/25/[address] [facility] [address] [place] [address] Codie Bell MD Appointment Request 10/20/[address] [facility] [address] [place] [address] Codie Bell MD Type 2 diabetes mellitus with hyperglycemia, without long-term current use of insulin ([facility]); Hyperlipidemia, unspecified hyperlipidemia type 10/10/[address] [facility] [address] [place] [address] Codie Bell MD Referral 10/04/[address] [facility] [address] [place] [address] Codie Bell MD Gastroesophageal reflux disease, unspecified whether esophagitis present (Primary Dx) 10/03/[address] [facility] [address] [place], [place] [phone] Chantal Laguerre RN Chronic midline low back pain without sciatica 10/03/[address] [facility] [address] [place] [address] Codie Bell MD Med Refill 10/03/[address] [facility] [address] [place] [address] Codie Bell MD Med Refill from Last 3 Months Immunizations Immunization Administration Dates Next Due Hep B, adult 10/25/2014,04/27/2014,03/22/2014 Influenza High-dose Quadriva lent Preservative Free 02/04/2022,01/29/2021,03/05/2020 Influenza injectable quadriv alent IIV4 with preservative 02/19/2017,02/19/2016,01/14/2015 Influenza injectable quadriv alent preservative free 05/11/2022,01/23/2019 Influenza, High Dose Seasona l, Preservative Free 12/29/2024,01/19/2024,01/21/2018 Influenza, IIV3, injectable 12/18/2013 Influenza, Split (incl. [...] oz) 12/29/2024 9:08 A M EDT Height 163.8 cm (5' 4.5 ) 01/19/2024 9:53 AM EDT Body Mass Index 30.83 01/19/2024 9:53 AM EDT Plan of Treatment Upcoming Encounters Date Type Department Care Team (Late st Contact Info) Description 01/29/2025 11:[address] [facility] [address] [place] [address] Codie Bell MD [address] [place] [address] Health Maintenance Due Date Last Done Comments Derm Melanoma Skin Check 1938 Lipid Panel 07/11/2024 07/12/2023, 06/2021, 02/18/2021, Additional history exists Diabetes: Foot Exam 10/12/2024 10/13/2023, 10/13/2023, 10/13/2023, Additional history exists COVID-19 Vaccine ( season) 2024 01/19/2024, 09/18/2021, 02/12/2021, Additional history exists Eye Exam 12/04/2024 12/04/2022 Diabetes: Hemoglobin A1C 02/06/2025 025, 04/20/2024, 01/19/2024, Additional history exists SDOH Screening 07/25/2025 07/25/2024 Alcohol/Substance Use Screening 11/06/2025 11/06/2024 Depression Screening 11/06/2025 11/06/2024, 11/07/19 25 Tobacco Screening 12/29/2025 12/29/2024 DTaP/Tdap/Td Vaccines (3 - Td or Tdap) 10/12/2033 10/13/2023, 05/12/2013, 06/16/2012 Hepatitis B Vaccines Completed 10/25/2014, 04/27/2014, 03/22/2014 Pneumococcal Vaccine: 50+ Years Completed 01/15/2015, 03/22/2014, 12/06/2008 Zoster Vaccines Completed 10/01/2020, 12/0 04/2019, 05/12/2013 RSV Patients and Patients Aged 60 years or older Completed 01/19/2024 Influenza Vaccine Completed 12/29/2024, , 05/11/2022, Additional history exists HIB Vaccines Aged Out No longer eligi [...] patient's age to complete this topic Meningococcal B Vaccine Aged Out No l onger eligible based on patient's age to complete [...] Procedure Name Priority Date/Time Associated Diagnosis Comments AMB REFERRAL TO GENERAL SURGERY Routine 12/18/2024 Closed fracture of multiple ribs of left side, initial encounter POCT GLYCOSYLATED HEMOGLOBIN (HGB A1C) Routine 11/06/2024 9:13 AM EDT Type 2 diabetes mellitus with stage 3 chronic kidney disease, without long-term current use of insulin, unspecified whether stage 3a or 3b CKD (CMS/HCC) POCT GLUCOSE Routine 11/06/2024 9:12 AM EDT Type 2 diabetes mellitus with stage 3 chronic kidney disease, without long-term current use of insulin, unspecified whether stage 3a or 3b CKD (CMS/HCC) LIPID PANEL, STANDARD Routine 07/12/2023 10:58 AM EDT Memory loss Chronic fatigue HM DIABETES EYE EXAM Routine 12/04/2022 from Last 3 Months or Most Recently Relevant to Health Maintenance Results * Referral to General Surgery (12/18/2024) Codie Bell MD OUTPATIENT REFERRAL ORDERA BLES Final Result * (ABNORMAL) POCT glycosylated hemoglobin (Hgb A1c) (11/06/2024 9:13 AM EDT) Hemoglobin A1C 8.6(A) 4.0 - 5.7 % QC Media Lot # [id number] Lot# Expiration Date Blood Capillary blood specimen / Unknown 11/06/2024 9:13 AM EDT Niesha Shepherd MD POINT OF CARE TEST ENTER/EDIT OR DERABLES Final Result * POCT glucose manually resulted (11/06/2024 9:12 AM EDT) Glucose Blood, POC 118 60 - 200 mg/dL QC Media Lot # [id number] Lot# Expiration Date Blood Capillary blood specimen / Unknown 11/06/2024 9:12 AM EDT Niesha Shepherd MD POINT OF CARE TEST ENTER/EDIT OR DERABLES Final Result * (ABNORMAL) Lipid Panel, Standard (07/12/2023 10:58 AM EDT) Triglycerides 133 <150 mg/dL [facility] Comment:Desirable Triglyceri de: less than 150 mg/dLBorderline High Triglyceride 150-199 mg/dLHigh Triglyceride: 200-499 mg/dLVery High Triglyceride: greater than or equal to 5OO mg/dL Cholesterol 152 <200 mg/dL [facility] Comment:Desirable Cholestero l: less than 200 mg/dLBorderline High Cholesterol: 200-239 mg/dLHigh Cholesterol: greater than 239 mg/dL LDL Cholesterol Calculated 88 <100 mg/dL [facility] Comment:Desirable LDL: less than 100 mg/dLNear Optimal/Above Optimal LDL: 110- 129 mg/dLBorderline High LDL: 130-159 mg/dLHigh LDL: 160-189 mg/dLVery High LDL: greater than or equal to 190 mg/dL HDL Cholesterol 38(L) >40 mg/dL [facility] Comment:Desirable HDL: great er than 40 mg/dL Note: This HDL assay may give artificially low results in patients with liver disease. 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
--- OUTSIDE RECORDS SUMMARY | 2024-12-29 11:01 | XMS_ITS | Encounter Summary ---
Author Organization [employer] Address [address] [place] [address] 7[address] [place] [address] Care Team Providers Care Boiler Or Engine Operator Name Role Phone Codie Bell MD Primary Care Provider [phone] Destin Monreal MD Unavailable [phone] Encounter Details Date Type Department Care Team (Late st Contact Info) Description 04/10/2022 Telephone [facility] [address] [place] [phone] Codie Bell MD [address] [place] [address] Social History Tobacco Use Types Packs/Day Years [...] Info) Description 01/29/2025 11:15 AM EDT Telemedicine [facility] [address] [place] [address] [phone] Codie Bell MD [address] [place] [address] [phone] documented as of this encounter Visit Diagnoses Not on filedocumented in this encounter Care Teams Boiler Or Engine Operator Relationship Specialty Start Date End Date Codie Bell MD [address] [place] [address] PCP - General Family Medicine 01/25/13 Destin Monreal MD [address] [place] [address] Cardiology 07/25/24 SULEMAN Soto [facility] Urology Urology 04/06/24 documented as of this encounter
--- OUTSIDE RECORDS SUMMARY | 2024-12-29 11:01 | XMS_ITS | Encounter Summary ---
Author Organization [employer] Address [address] [place] [address] 7t [place] [address] Care Team Providers Care Electronic Equipment Maint Tech Name Role Phone Codie Bell MD Primary Care Provider [phone]- [phone] Destin Monreal MD Unavailable [phone] Reason for Visit * Reason Comments Med Refill Encounter Details Date Type Department Care Team ([facility] st Contact Info) Description 12/29/2024 Refill [facility] [address] [place], [place] [phone] Codie Bell MD [address] [place], [place] [phone] Insomnia, unspecified type Social History Tobacco Use Types Packs/Day Years [...] the past 12 months, has t he [employer], gas, oil or water company threatened to [...] Info) Description 01/29/2025 11:15 AM EDT Telemedicine [facility] [address] [place] [address] Codie Bell MD [address] [place] [address] documented as of this encounter Visit Diagnoses Diagnosis Insomnia, unspecified type documented in this encounter Additional Health Concerns Assessment Noted Time PHQ-9 Depression Total Score: 0 11/07/19 25 9:11 AM EDT documented as of this encounter Care Teams Electronic Equipment Maint Tech Relationship Specialty Start Date End Date Codie Bell MD [address] [place] [address] PCP - General Family Medicine 01/25/13 Destin Monreal MD [address] [place] [address] Cardiology 07/25/24 SULEMAN Soto [facility] Urology Urology 04/06/24 documented as of this encounter
--- OUTSIDE RECORDS SUMMARY | 2024-12-29 11:01 | XMS_ITS | Encounter Summary ---
Author Organization [employer] Address [address] [place] [address] 7t [place] [address] Care Team Providers Care Assembler Fluorescent Lights Name Role Phone [place], Codie CABA Primary Care Provider [phone]- [phone] Destin Monreal MD Unavailable [phone] Reason for Visit * Reason Comments Med Refill Encounter Details Date Type Department Care Team ([facility] st Contact Info) Description 06/01/2024 Refill [facility] [address] [place] [address] Chance Miranad MD [address] [place] [address] Type 2 diabetes mellitus with hyperglycemia, without long-term current use of insulin ([facility]) Social History Tobacco Use Types Packs/Day Years [...] Info) Description 01/29/2025 11:15 AM EDT Telemedicine [facility] [address] [place] [address] Codie Bell MD [address] [place] [phone] documented as of this encounter Visit Diagnoses Diagnosis Type 2 diabetes mellitus with hyperglycemia, without long-term current use of insulin ([facility]) documented in this encounter Additional Health Concerns Assessment Noted Time PHQ-9 Depression Total Score: 0 10/13/19 24 9:19 AM EDT documented as of this encounter Care Teams Assembler Fluorescent Lights Relationship Specialty Start Date End Date Codie Bell MD [address] [place] [address] PCP - General Family Medicine 01/25/13 Destin Monreal MD [address] [place] [address] Cardiology 07/25/24 SULEMAN Soto [facility] Urology Urology 04/06/24 documented as of this encounter
[2024-12-29 11:40] LABS: Hematocrit 36.6 % (42.0-52.0); Hemoglobin 12.5 g/dl (14.0-18.0); Mean Corpuscular HGB Conc 34.2 g/dl (31.0-36.0); Mean Corpuscular Hemoglobin 29.9 pg (27.0-33.0); Mean Corpuscular Volume 87.6 fL (80.0-98.0); NRBC Abs Auto 0.000 X10*3/uL (0.0-0.012); NRBC Pct Auto 0.0 /100WBC (0.0-0.2); Platelet Count 299 X10*3/uL (160-400); Red Blood Count 4.18 X10*6/uL (4.60-5.80); White Blood Count 9.2 X10*3/uL (4.8-10.8)
[2024-12-29 11:58] LABS: Hemoglobin A1C 191.0840 umol/L; Total Hemoglobin (HGBA1C) 3189.6687 umol/L
[2024-12-29 12:18] LABS: Anion Gap 13 (12-20); Blood Urea Nitrogen 18 mg/dL (9-16); Calcium 8.9 mg/dL (8.4-10.2); Carbon Dioxide 30 mmol/L (22-29); Chloride 102 mmol/L (96-108); Cholesterol 156 mg/dL (<200); Estimated Glomerular Filt Rate 51; Ferritin 75 ng/mL (20-250); HDL Cholesterol 39 mg/dL (>40); Potassium 3.6 mmol/L (3.3-5.1); Sodium 141 mmol/L (135-145); Triglycerides 103 mg/dL (<150)
== END 2024-12-29 09:54 | disposition home or self-care (01) ==
LOC: HO.HHCL 09:53
PROVIDERS: PCP Family Medicine; Visit Provider Family Medicine
DX: E11.22 Type 2 diabetes mellitus with diabetic chronic kidney disease (principal); N18.30 Chronic kidney disease, stage 3 unspecified; D63.1 Anemia in chronic kidney disease
CPT/HCPCS: 36415; 80048; 80061; 82728; 83036; 85027

== ENCOUNTER 2025-02-12 10:57 | Outpatient (REF) | payer OTHER, SELFPAY ==
--- OUTSIDE RECORDS SUMMARY | 2025-02-12 13:06 | XMS_ITS | Encounter Summary ---
Author Organization [employer] Address [address] [place] [address] 7t [place] [address] Care Team Providers Care Cook Roast Name Role Phone Codie Bell MD Primary Care Provider [phone] Destin Monreal MD Unavailable [phone] Reason for Visit * Reason Onset Date Comments Appointment Request 05/06/2023 Encounter Details Date Type Department Care Team ([facility] st Contact Info) Description 05/06/2023 Telephone [facility]INE [address] [place] [address] Codie Bell MD [address] [place] [address] Appointment Request Social History Tobacco Use Types [...] request a appt for a routine check-up underwriter did ask if there is any concerns at the moment patients daughter denied. documented in this encounter Plan of Treatment Upcoming Encounters Date Type Department Care Team (Late st Contact Info) Description 03/05/2025 11:15 AM EST Telemedicine [facility] [address] [place] [address] Codie Bell MD [address] [place] [address] documented as of this encounter Visit Diagnoses Not on filedocumented in this encounter Additional Health Concerns Assessment Noted Time PHQ-9 Depression Total Score: 0 05/11/19 23 10:41 AM EST documented as of this encounter Care Teams Cook Roast Relationship Specialty Start Date End Date Codie Bell MD [address] [place] [address] PCP - General Family Medicine 01/25/13 Destin Monreal MD [address] [place] [address] Cardiology 07/25/24 SULEMAN Soto [facility] Urology Urology 04/06/24 documented as of this encounter
--- OUTSIDE RECORDS SUMMARY | 2025-02-12 13:06 | XMS_ITS | Encounter Summary ---
Author Organization [employer] Address [address] [place] [address] 7t [place] [address] Care Team Providers Care Office Machine Mechanic Name Role Phone Codie Bell MD Primary Care Provider [phone]- [phone] Destin Monreal MD Unavailable [phone] Reason for Visit * Reason Comments Med Refill Encounter Details Date Type Department Care Team (Late st Contact Info) Description 07/03/2022 Refill [facility] [address] [place] [address] [phone] Codie Bell MD [address] [place] [address] [phone] Social History Tobacco Use Types Packs/Day Years [...] Info) Description 03/05/2025 11:15 AM EST Telemedicine [facility] [address] [place] [address] [phone] Codie Bell MD [address] [place] [address] [phone] documented as of this encounter Visit Diagnoses Not on filedocumented in this encounter Additional Health Concerns Assessment Noted Time PHQ-9 Depression Total Score: 0 05/11/19 23 10:41 AM EST documented as of this encounter Care Teams Office Machine Mechanic Relationship Specialty Start Date End Date Codie Bell MD [address] [place] [address] PCP - General Family Medicine 01/25/13 Destin Monreal MD [address] [place] [address] Cardiology 07/25/24 SULEMAN Soto [facility] Urology Urology 04/06/24 documented as of this encounter
--- OUTSIDE RECORDS SUMMARY | 2025-02-12 13:06 | XMS_ITS | Encounter Summary ---
Author Organization [employer] Address [address] [place] [address] 7t [place] [address] Care Team Providers Care Diamond Die Driller Name Role Phone Codie Bell MD Primary Care Provider [phone] Destin Monreal MD Unavailable [phone] Reason for Visit * Reason Onset Date Comments Appointment Request 12/08/2024 Encounter Details Date Type Department Care Team ([facility] st Contact Info) Description 12/08/2024 Telephone [facility] [address] [place] [address] Codie Bell MD [address] [place] [address] Appointment Request Social History Tobacco Use Types [...] the past 12 months, has t he [employer], gas, oil or water company threatened to [...] apt for pt as pt fell in [place] , pt had anapt on 12/11 but he will not be back till 12/20. Pt daughter requesting for a call back Contact pt daughter at [phone] documented in this encounter Plan of Treatment Upcoming Encounters Date Type Department Care Team (Late st Contact Info) Description 03/05/2025 11:15 AM EST Telemedicine [facility] [address] [place] [address] Codie Bell MD [address] [place], [place] [phone] documented as of this encounter Visit Diagnoses Not on filedocumented in this encounter Additional Health Concerns Assessment Noted Time PHQ-9 Depression Total Score: 0 11/07/19 9:11 AM EDT documented as of this encounter Care Teams Diamond Die Driller Relationship Specialty Start Date End Date Codie Bell MD [address] [place] [address] PCP - General Family Medicine 01/25/13 Destin Monreal MD [address] [place] [address] Cardiology 07/25/24 SULEMAN Soto [facility] Urology Urology 04/06/24 documented as of this encounter
--- OUTSIDE RECORDS SUMMARY | 2025-02-12 13:06 | XMS_ITS | Encounter Summary ---
Author Organization [employer] Address [address] [place] [address] 7t [place] [address] Care Team Providers Care Recycling Center Operator Name Role Phone Codie Bell MD Primary Care Provider [phone] Destin Monreal MD Unavailable [phone] Encounter Details Date Type Department Care Team (Late st Contact Info) Description 06/22/2022 Orders Only [facility] MEDICINE [address] [place] [phone] Codie Bell MD [address] [place] [address] [phone] Skin lesion (Primary Dx) Social History Tobacco [...] Info) Description 03/05/2025 11:15 AM EST Telemedicine [facility] MEDICINE [address] [place] [address] [phone] Codie Bell MD [address] [place] [address] [phone] documented as of this encounter Visit Diagnoses Diagnosis Skin lesion- Primary Unspecified disorder of skin and subcutaneous tissue documented in this encounter Additional Health Concerns Assessment Noted Time PHQ-9 Depression Total Score: 0 05/11/19 10:41 AM EST documented as of this encounter Care Teams Recycling Center Operator Relationship Specialty Start Date End Date Codie Bell MD [address] [place] [address] PCP - General Family Medicine 01/25/13 Destin Monreal MD [address] [place] [address] Cardiology 07/25/24 SULEMAN Soto [facility] Urology Urology 04/06/24 documented as of this encounter
--- OUTSIDE RECORDS SUMMARY | 2025-02-12 13:06 | XMS_ITS | Data Portability ---
Author Organization [employer] Address [address] [place] [address] Care Team Providers Care Gear Straightener Name Role Phone RADHA, KRYSTA Primary Care [...] family member thanked us for our care [email or web address] Not available 10/19/2021 14:49:44 10/28/2023 10/28/2023 I provided real -time medical direction via phone for this encounter and was available for additional phone-based assistance as needed. I have reviewed and agree with the Assessment and Plan as documented by the Completion Engineer. Patient given the opportunity to ask questions. Our service contacted for an assessment of: a fall As per above, patient fell yesterday. No LOC. Unclear if there was a HS. On AC. Denies injury. Per sound controller on the scene, VSS. No obvious trauma. [...] Orders meclizine 25 mg tablet 2021 022 [id number], [address] [facility], [place], [address], 14:45:53 Patient TargetsNo targets recorded. Patient InstructionsNo [...] Available [employer] Pen Needle 32 gauge x 32 USE FIVE TIMES DAILY active Not Available [...] in Arterial blood by Pulse oximetry Systolic And Diastolic Provider Name and Address Organization Details Last Updated DateTime 2 98.6 [degF] 18 /min 60 /min 99 % 99 % 132/70 mm[Hg] Not Available [facility] - production 2 14:52:23 Date Recorded Body temperature Oxygen saturation Oxygen saturation in Arterial blood by Pulse oximetry Respiratory rate Heart rate Systolic And Diastolic Provider Name and Address Organization Details Last Updated DateTime 4 98.5 [degF] 99 % 99 % 16 /min 74 /min 150/80 mm[Hg] Not Available [facility] - production 4 16:33:26 Social History None recorded. Functional Status None recorded. Mental Status None recorded. Family History Nothing Reported. Medical History No medical history recorded. Past Encounters Encounter ID Performer Location Encounter Start Date Encounter Closed Date Diagnosis/Indication Diagnosis SNOMED-CT Code Diagnosis ICD10 Code Diagnosis IMO Codes Diagnosis Note [id number] Kamran Morrissey MD [facility] [address] [place] [address] [phone] 10/19/2021 14:41:54 12/17/2021 13:51:38 Vertigo [id number] Missy Denise MD [facility] [address] [place] [address] [phone] 10/28/2023 16:33:24 07/20/2024 20:06:59 Fall W19.XXXA Health Concerns Section Related Observation LastModified by Organization Detai ls LastModified Time None Recorded Concern Status LastModified by Organization Details LastModified Time None Recorded Advance Directives Directive None Recorded Payers Insurance Date Sequence Insurance Name Policy Number Policy Swain Covered Member ID Swain Member ID Guarantor Name 02/24/2024 1 [facility] - DOS PRIOR TO 2022 - DUAL ELIGIBLE (MEDICARE REPLACEMENT/ADV ANTAGE - HMO) Brandon Rdz [id number] Brandon Rdz 07/20/2024 1 [facility] - DOS ON OR AFTER 2022 - DUAL ELIGIBLE - DETENTION OPTIONS AND ONE CARE (MEDICARE REPLACEMENT/ADV ANTAGE - HMO) Brandon Rdz [id number] Brandon Rdz Notes Date Note Type Note [...] ................... ................... ................... ................... ................... ................... ........ Completion Engineer Note: Home visit for 81 yo male with CC of dizziness. Daughter states this is how he gets when he has attacks of vertigo which he has a history of. Pt rapid tested for flu and Covid both are negative. Pt given meclizine to continuous pickling line pickler at pharmacy and take as needed. ................... ................... ................... ................... ................... ................... ................... ........ Disposition: Fulfilled Kamran Morrissey MD [address] [facility],[address], [place], [address], FRANCISCO MAYNARD 10/19/2021 20:47:25 10/28/2023 text/html CRC Nurse Triage Notes (Sue Riggins): Reason For Request: fell yesterday Chief Complaints: Falls PMH: Hypertension, Diabetes, Severe Dementia Allergies: No Known Comments: Aquatic Ecologist verified the member's name//address and phone number. [...] ................... ................... ................... ................... ................... ................... ........ Completion Engineer Note From Clint Lozano: Dispatched to the [...] and would call 911 if anything changed. [facility] consulted. Red flags discussed with Pt and family. ALL times are approx. ................... ................... ................... ................... ................... ................... ................... ........ Disposition: Fulfilled Missy Denise MD [address] [facility],[address], [place], [phone], [employer] 10/28/2023 16:43:40
--- OUTSIDE RECORDS SUMMARY | 2025-02-12 13:06 | XMS_ITS | Encounter Summary ---
Author Organization [employer] Address [address] [place] [address] 7t [place] [address] Care Team Providers Care Diet Technician Registered Name Role Phone Codie Bell MD Primary Care Provider +1- [phone] Destin Monreal MD Unavailable [phone] Reason for Visit * Reason Onset Date Comments Med Refill 09/06/2023 Encounter Details Date Type Department Care Team ([facility] st Contact Info) Description 09/06/2023 Telephone [facility] [address] [place] [address] Codie Bell MD [address] [place], [place] [phone] Med Refill Social History Tobacco Use Types [...] immediate release tablet To be sent to: [facility]/pharmacy #[id number] [place] [address] - [address] [place] [address] documented in this encounter Plan of Treatment Upcoming Encounters Date Type Department Care Team (Late st Contact Info) Description 03/05/2025 11:15 AM EST Telemedicine [facility] [address] [place] [address] Codie Bell MD [address] [place] [address] documented as of this encounter Visit Diagnoses Not on filedocumented in this encounter Additional Health Concerns Assessment Noted Time PHQ-9 Depression Total Score: 0 05/11/19 23 10:41 AM EST documented as of this encounter Care Teams Diet Technician Registered Relationship Specialty Start Date End Date Codie Bell MD [address] [place] [address] PCP - General Family Medicine 01/25/13 Destin Monreal MD [address] [place] [address] Cardiology 07/25/24 SULEMAN [facility] Urology Urology 04/06/24 documented as of this encounter
--- OUTSIDE RECORDS SUMMARY | 2025-02-12 13:06 | XMS_ITS | Encounter Summary ---
Author Organization [employer] Address [address] [place] [address] 7t [place] [address] Care Team Providers Care Ticker Installer Name Role Phone Codie Bell MD Primary Care Provider [phone]- [phone] Destin Monreal MD Unavailable [phone] Reason for Visit * Reason Comments Med Refill Encounter Details Date Type Department Care Team (Late st Contact Info) Description 07/20/2022 Refill [facility] [address] [place] [address] [phone] Codie Bell MD [address] [place] [address] [phone] Social History Tobacco Use Types Packs/Day Years [...] Info) Description 03/05/2025 11:15 AM EST Telemedicine [facility] [address] [place] [address] [phone] Codie Bell MD [address] [place] [address] [phone] documented as of this encounter Visit Diagnoses Not on filedocumented in this encounter Additional Health Concerns Assessment Noted Time PHQ-9 Depression Total Score: 0 05/11/19 23 10:41 AM EST documented as of this encounter Care Teams Ticker Installer Relationship Specialty Start Date End Date Codie Bell MD [address] [place] [address] PCP - General Family Medicine 01/25/13 Destin Monreal MD [address] [place] [address] Cardiology 07/25/24 SULEMAN [facility] Urology Urology 04/06/24 documented as of this encounter
--- OUTSIDE RECORDS SUMMARY | 2025-02-12 13:07 | XMS_ITS | Encounter Summary ---
Author Organization [employer] Address [address] [place] [address] 7t [place] [address] Care Team Providers Care Caseworker Protective Services Name Role Phone Codie Bell MD Primary Care Provider [phone]- [phone] Destin Monreal MD Unavailable [phone] Encounter Details Date Type Department Care Team ([facility] st Contact Info) Description 05/11/2022 Abstract [facility] MEDICINE [address] [place] [address] Codie Bell MD [address] [place] [address] Social History Tobacco Use Types Packs/Day Years [...] Info) Description 03/05/2025 11:15 AM EST Telemedicine [facility]ICINE [address] [place] [address] Codie Bell MD [address] [place] [address] documented as of this encounter Procedures Procedure Name Priority Date/Time Associated Diagnosis Comments TSH Routine 02/04/2022 HEPATIC FUNCTION PANEL Routine 02/04/2022 BASIC METABOLIC PANEL Routine 02/04/2022 HEPATITIS C AB W/REFL TO HCV RNA, QN, PCR Routine 09/05/2021 documented in this encounter Results * (ABNORMAL) TSH (02/04/2022) TSH 2.50(A) 4.00 - 5.40 mIU/L Blood Venous blood specimen / Unknown Result [facility] Provider LAB BLOOD ORDERABLES Anel l Result * Hepatic Function Panel (02/04/2022) ALT (SGPT) 10 10 - 40 U/L AST 14 14 - 40 U/L Blood Venous blood specimen / Unknown Result [facility] Provider LAB BLOOD ORDERABLES Anel l Result * (ABNORMAL) Basic Metabolic Panel (02/04/2022) Creatinine 1.4(A) 0.6 - 1.3 mg/dL Blood Venous blood specimen / Unknown Result [facility] Provider LAB BLOOD ORDERABLES Anel l Result * Hepatitis C Antibody with Reflex to HCV, RNA, Quantitative, Real-Time PCR (09/05/2021) Blood Venous blood specimen / Unknown 09/05/2021 Result [facility] Provider LAB BLOOD ORDERABLES Anel l Result documented in this encounter Visit Diagnoses Not on filedocumented in this encounter Additional Health Concerns Assessment Noted Time PHQ-9 Depression Total Score: 0 05/11/19 23 10:41 AM EST documented as of this encounter Care Teams Caseworker Protective Services Relationship Specialty Start Date End Date Codie Bell MD [address] [place] [address] PCP - General Family Medicine 01/25/13 Destin Monreal MD [address] [place] [address] Cardiology 07/25/24 SULEMAN [facility] Urology Urology 04/06/24 documented as of this encounter
--- OUTSIDE RECORDS SUMMARY | 2025-02-12 13:07 | XMS_ITS | Encounter Summary ---
Author Organization [employer] Address [address] [place] [address] 7t [place] [address] Care Team Providers Care Awning Frame Maker Name Role Phone Codie Bell MD Primary Care Provider [phone]- [phone] Destin Monreal MD Unavailable [phone] Reason for Visit * Reason Onset Date Comments Med Refill 02/04/2023 Encounter Details Date Type Department Care Team ([facility] st Contact Info) Description 02/04/2023 Telephone [facility] MEDICINE [address] [place] [address] Codie Bell MD [address] [place], [place] [phone] Med Refill Social History Tobacco Use Types [...] immediate release tablet to be sent to [facility]/pharmacy #[id number] [place], [place] - [address] [place] [address] documented in this encounter Plan of Treatment Upcoming Encounters Date Type Department Care Team (Late st Contact Info) Description 03/05/2025 11:15 AM EST Telemedicine [facility] MEDICINE [address] [place] [address] Codie Bell MD [address] [place] [address] documented as of this encounter Visit Diagnoses Not on filedocumented in this encounter Additional Health Concerns Assessment Noted Time PHQ-9 Depression Total Score: 0 05/11/19 23 10:41 AM EST documented as of this encounter Care Teams Awning Frame Maker Relationship Specialty Start Date End Date Codie Bell MD [address] [place] [address] PCP - General Family Medicine 01/25/13 Destin Monreal MD [address] [place] [address] Cardiology 07/25/24 SULEMAN [facility]oto [facility] Urology Urology 04/06/24 documented as of this encounter
--- OUTSIDE RECORDS SUMMARY | 2025-02-12 13:07 | XMS_ITS | Encounter Summary ---
Author Organization [employer] Address [address] [place] [address] 7t [place] [address] Care Team Providers Care Breaker Off Name Role Phone Codie Bell MD Primary Care Provider [phone]- [phone] Destin Monreal MD Unavailable [phone] Reason for Visit * Reason Onset Date Comments Med Refill 11/05/2023 Encounter Details Date Type Department Care Team ([facility] st Contact Info) Description 11/05/2023 Telephone [facility] MEDICINE [address] [place] [address] Codie Bell MD [address] [place] [address] Med Refill Social History Tobacco Use Types [...] immediate release tablet To be sent to: [facility]/pharmacy #[id number] [place] [address] documented in this encounter Plan of Treatment Upcoming Encounters Date Type Department Care Team (Late st Contact Info) Description 03/05/2025 11:15 AM EST Telemedicine [facility] MEDICINE [address] [place] [address] Codie Bell MD [address] [place] [address] documented as of this encounter Visit Diagnoses Not on filedocumented in this encounter Additional Health Concerns Assessment Noted Time PHQ-9 Depression Total Score: 0 10/13/19 24 9:19 AM EDT documented as of this encounter Care Teams Breaker Off Relationship Specialty Start Date End Date Codie Bell MD [address] [place] [address] PCP - General Family Medicine 01/25/13 Destin Monreal MD [address] [place] [address] Cardiology 07/25/24 SULEMAN [facility]oto [facility] Urology Urology 04/06/24 documented as of this encounter
--- OUTSIDE RECORDS SUMMARY | 2025-02-12 13:07 | XMS_ITS | Encounter Summary ---
Author Organization [employer] [facility] Address [address] [place] [address] 7t [place] [address] Care Team Providers Care Pulpit Operator Name Role Phone Codie Bell MD Primary Care Provider [phone]- [phone] Destin Monreal MD Unavailable [phone] Encounter Details Date Type Department Care Team (Late st Contact Info) Description 03/17/2022 Abstract [facility] MEDICINE [address] [place] [address] ProviderAmbrosio MD Social History Tobacco Use Types [...] Info) Description 03/05/2025 11:15 AM EST Telemedicine [facility] MEDICINE [address] [place] [address] Codie Bell MD [address] [place] [address] documented as of this encounter Visit Diagnoses Not on filedocumented in this encounter Care Teams Pulpit Operator Relationship Specialty Start Date End Date Codie Bell MD [address] [place] [address] PCP - General Family Medicine 01/25/13 Destin Monreal MD [address] [place] [address] Cardiology 07/25/24 SULEMAN [facility] Urology Urology 04/06/24 documented as of this encounter
--- OUTSIDE RECORDS SUMMARY | 2025-02-12 13:07 | XMS_ITS | Encounter Summary ---
Author Organization [employer] [facility] Address [address] [place] [address] 7t [place] [address] Care Team Providers Care Public Health Outreach Worker Name Role Phone Codie Bell MD Primary Care Provider [phone]- [phone] Destin Monreal MD Unavailable [phone] Encounter Details Date Type Department Care Team (Late st Contact Info) Description 04/24/2022 Orders Only [facility] MEDICINE [address] [place] [address] Katie Conroy LPN Social History Tobacco Use [...] Info) Description 03/05/2025 11:15 AM EST Telemedicine [facility] MEDICINE [address] [place] [address] Coide Bell MD [address] [place] [address] documented as of this encounter Visit Diagnoses Not on filedocumented in this encounter Care Teams Public Health Outreach Worker Relationship Specialty Start Date End Date Codie Bell MD [address] [place] [address] PCP - General Family Medicine 01/25/13 Destin Monreal MD [address] [place] [address] Cardiology 07/25/24 SULEMAN [facility]oto [facility] Urology Urology 04/06/24 documented as of this encounter
--- OUTSIDE RECORDS SUMMARY | 2025-02-12 13:07 | XMS_ITS | Encounter Summary ---
Author Organization [employer] Address [address] [place] [address] 7t [place] [address] Care Team Providers Care Electrocardiogram Technician Name Role Phone Codie Bell MD Primary Care Provider [phone]- [phone] Destin Monreal MD Unavailable [phone] Reason for Visit * Reason Comments Med Refill Encounter Details Date Type Department Care Team ([facility] st Contact Info) Description 11/16/2024 Refill [facility] MEDICINE [address] [place] [address] Codie Bell MD [address] [place], [place] [phone] Type 2 diabetes mellitus with hyperglycemia ([facility]) Social History Tobacco Use Types Packs/Day [...] Info) Description 03/05/2025 11:15 AM EST Telemedicine [facility]INE [address] [place] [address] Codie Bell MD [address] [place] [address] documented as of this encounter Visit Diagnoses Diagnosis Type 2 diabetes mellitus with hyperglycemia (HCC) documented in this encounter Additional Health Concerns Assessment Noted Time PHQ-9 Depression Total Score: 0 11/07/19 25 9:11 AM EDT documented as of this encounter Care Teams Electrocardiogram Technician Relationship Specialty Start Date End Date Codie Bell MD [address] [place] [address] PCP - General Family Medicine 01/25/13 Destin Monreal MD [address] [place] [address] Cardiology 07/25/24 SULEMAN [facility]oto [facility] Urology Urology 04/06/24 documented as of this encounter
--- OUTSIDE RECORDS SUMMARY | 2025-02-12 13:07 | XMS_ITS | Encounter Summary ---
Author Organization [employer] Address [address] [place] [address] 7t [place] [address] Care Team Providers Care Lead Bi Developer Name Role Phone Codie Bell MD Primary Care Provider [phone]- [phone] Destin Monreal MD Unavailable [phone] Reason for Visit * Reason Onset Date Comments Med Refill 10/03/2024 Encounter Details Date Type Department Care Team ([facility] st Contact Info) Description 10/03/2024 Telephone [facility] MEDICINE [address] [place] [address] Codie Bell MD [address] [place] [address] Med Refill Social History Tobacco Use Types [...] needing refill: Omeprazole To be sent to: [facility]/pharmacy #[id number] [place] - [address] [place] [address] documented in this encounter Plan of Treatment Upcoming Encounters Date Type Department Care Team (Late st Contact Info) Description 03/05/2025 11:15 AM EST Telemedicine [facility]ICINE [address] [place] [address] Codie Bell MD [address] [place] [address] documented as of this encounter Visit Diagnoses Not on filedocumented in this encounter Additional Health Concerns Assessment Noted Time PHQ-9 Depression Total Score: 0 10/13/19 24 9:19 AM EDT documented as of this encounter Care Teams Lead Bi Developer Relationship Specialty Start Date End Date Codie Bell MD [address] [place] [address] PCP - General Family Medicine 01/25/13 Destin Monreal MD [address] [place] [address] Cardiology 07/25/24 SULEMAN [facility] Urology Urology 04/06/24 documented as of this encounter
--- OUTSIDE RECORDS SUMMARY | 2025-02-12 13:07 | XMS_ITS | Encounter Summary ---
Author Organization [employer] Address [address] [place] [address] 7t [place] [address] Care Team Providers Care Electronic Publications Specialist Name Role Phone Codie Bell MD Primary Care Provider [phone]- [phone] Destin Monreal MD Unavailable [phone] Encounter Details Date Type Department Care Team ([facility] st Contact Info) Description 05/08/2022 Abstract [facility] MEDICINE [address] [place] [address] Codie Bell MD [address] [place] [address] Social History Tobacco Use Types Packs/Day Years [...] Info) Description 03/05/2025 11:15 AM EST Telemedicine [facility] MEDICINE [address] [place] [address] Codie Bell MD [address] [place] [address] documented as of this encounter Procedures Procedure Name Priority Date/Time Associated Diagnosis Comments COLONOSCOPY Routine 07/28/2013 documented in this encounter Results * Colonoscopy (07/28/2013) Colonoscopy Tubular adenoma with Dr. Kramer us Historical Provider HEALTH MAINTENANCE Final Result documented in this encounter Visit Diagnoses Not on filedocumented in this encounter Care Teams Electronic Publications Specialist Relationship Specialty Start Date End Date Codie Bell MD [address] [place] [address] PCP - General Family Medicine 01/25/13 Destin Monreal MD [address] [place] [address] Cardiology 07/25/24 SULEMAN [facility] Urology Urology 04/06/24 documented as of this encounter
--- OUTSIDE RECORDS SUMMARY | 2025-02-12 13:07 | XMS_ITS | Clinical Summary ---
Author Organization [employer] Address [address] [place] [address] [address] [place] [address] Care Team Providers Care Architecture Internship Name Role Phone Rowley, Codie CABA Primary Care Provider [phone] Destin Monreal MD Unavailable [phone] Allergies No known active allergies Medications naloxone [...] hyperglycemia, without long-term current use of insulin (HCC) Use for blood sugar < 60 50 tablet 024 Active acetaminophen (Tylenol) 500 MG tabletIndication s:Pain Take 1 tablet (500 mg) by mouth every 8 (eight) hours. 30 tablet 024 Active Alcohol Swabs (Alcohol Pads) 70 % padsIndications: Type 2 diabetes mellitus with hyperglycemia, without long-term current use of insulin (HCC) Use as directed on skin 100 each 024 Active magnesium 250 MG tabletIndication s:Leg cramps take 1 tablet (250 mg) by mouth at bedtime 024 Active insulin pen needle (BD Pen Needle Alejandra 2nd Gen) 32G x 4 mm miscIndications: Type 2 diabetes mellitus with hyperglycemia, without long-term current use of insulin (HCC) USE 5 TIMES A DAY 150 each 11 Active brimonidine (AlphaGAN) 0.2 % ophthalmic solution Administer 1 drop into affected eye(s) 2 times daily. Active timolol (Timoptic) 0.5 % ophthalmic solution Administer 1 drop into the left eye in the morning. Active bisacodyl (Dulcolax) 10 MG suppository Insert 10 mg into the rectum if needed each day for constipation. Active Eliquis 5 MG tabletIndication s:Chronic deep vein thrombosis (DVT) of distal vein of right lower extremity (HCC) TAKE 1 TABLET BY MOUTH TWICE A DAY 180 tablet 3 Active omeprazole (PriLOSEC) [address] capsuleIndicatio ns:Gastro-esopha geal reflux disease without esophagitis TAKE 1 TABLET BY MOUTH ONCE DAILY NEEDED FOR STOMACH UPSET 84 capsule Active glucose blood (FREESTYLE LITE) test stripIndications :Type 2 diabetes mellitus with hyperglycemia, without long-term current use of insulin ([facility]) USE TO TEST 6 TIMES DAILY DIRECTED 200 strip 11 Active TRUEplus Lancets 33G miscIndications: Type 2 diabetes mellitus with hyperglycemia, without long-term current use of insulin ([facility]) Use 6 times a day as directed 200 each 3 Active pravastatin (Pravachol) 20 MG tabletIndication s:Type 2 diabetes mellitus with hyperglycemia, without long-term current use of insulin ([facility]),Hyperlipid emia, unspecified hyperlipidemia type Take 1 tablet (20 mg) by mouth in the morning. 90 tablet Active hydroCHLOROthiaz galen (HYDRODiuril) 25 MG tabletIndication s:Primary hypertension Take 1 tablet (25 mg) by mouth Once per day. 90 tablet 3 Active NovoLOG FLEXPEN 100 UNIT/ML penIndications:T ype 2 diabetes mellitus with hyperglycemia, without long-term current use of insulin ([facility]) USE PER SLIDING SCALE F OR BLOOD SUGAR 111-149 INJECT 2 UNITS SUBCUTANEOUSLY FOR SUGAR 150-199 INJECT 4 UNITS 200-249 INJECT 8 UNITS 250-299 INJECT 12 UNITS 300- 349 INJECT 16 UNITS 350 TO 399 INJECT 20 UNITS 15 mL 10 025 Active finasteride (Proscar) 5 MG tabletIndication s:Benign prostatic hyperplasia with lower urinary tract symptoms, symptom details unspecified TAKE 1 TABLET BY MOUTH EVERY DAY IN THE MORNING 90 tablet 3 Active polyethylene glycol, PEG, 3350 (MiraLax) 17 GM/SCOOP powderIndication s:Constipation, unspecified constipation type 17 grams in 8-12 oz fluid like water at bedtime prn constipation 527 g 2 Active mirtazapine (Remeron) 15 MG tabletIndication s:Primary insomnia Take 1 tablet (15 mg) by mouth at bedtime. 30 tablet 025 2024 Active sennosides ([facility] Senna) 8.6 MG tabletIndication s:Constipation, unspecified constipation type TAKE 1-2 TABLETS BY MOUTH NIGHTLY NEEDED FOR CONSTIPATION 60 tablet 11 Active insulin glargine (Lantus SoloStar) 100 UNIT/ML penIndications:T ype 2 diabetes mellitus with hyperglycemia (HCC) INJECT 25 UNITS SUBCUTANEOUSLY ONCE DAILY AT BEDTIME 15 mL Active oxyCODONE (Roxicodone) 10 MG immediate release tabletIndication s:Chronic midline low back pain without sciatica Take 1 tablet (10 mg) by mouth if needed in the morning and at bedtime for severe pain. 60 tablet 025 2024 Active sennosides (Senokot) 8.6 MG tabletIndication s:Constipation, unspecified constipation type 1-2 tabs po nightly prn constipation 60 tablet 11 024 2024 Discontinued Lantus SoloStar 100 UNIT/ML penIndications:T ype 2 diabetes mellitus with hyperglycemia (HCC) INJECT 25 UNITS SUBCUTANEOUSLY ONCE DAILY AT BEDTIME 15 mL 025 2024 Discontinued(R eorder (will not trigger notification to Pharmacy)) mirtazapine (Remeron) 7.5 MG tabletIndication s:Insomnia, unspecified type Take 1 tablet (7.5 mg) by mouth if needed at bedtime (insomina). 30 tablet 2 025 2024 Discontinued bisacodyl (Dulcolax) 5 MG EC tabletIndication s:Constipation, unspecified constipation type Take 1 tablet (5 mg) by mouth if needed each day for constipation. Do not crush, chew, or split. 30 tablet 025 2024 oxyCODONE (Roxicodone) 10 MG immediate release tabletIndication s:Chronic midline low back pain without sciatica Take 1 tablet (10 mg) by mouth if needed in the morning and at bedtime for severe pain. Do not start before January 04, 2025. 60 tablet 025 2024 Discontinued(R eorder (will not trigger notification to Pharmacy)) Active Problems Patient Care Coordination No te Formatting of this note migh t be different from the original. [facility] [place] Air Intelligence Specialist: Ronel, member services number [phone], provider services line, , option 4 [employer] [facility] Problem Noted Date Diagnosed Date Insomnia 12/29/2024 Overview (01/29/2025): Reports worsening mood changes, memory and behavior changes. Pt is not sleeping at night, causing chaos. Trialed mirtazapine (Remeron) 7.5 MG 12/29/24, increase to 15mg 01/29/25 -follow up in 4 weeks televisit Assessment & Plan (01/29/2025 11:16 AM EDT): Reports worsening mood changes, memory and behavior changes. Pt is not sleeping at night, causing chaos. Trialed mirtazapine (Remeron) 7.5 MG 12/29/24, increase to 15mg 01/29/25 -follow up in 4 weeks televisit Orders: mirtazapine (Remeron) 15 MG tablet; Take 1 tablet (15 mg) by mouth at bedtime. Assessment & Plan (12/29/2024 10:51 AM EDT): [...] chew, or split. Do not resuscitate 04/20/2024 intermediate (current) use of opiate analgesic 01/05 Generalized [...] evaluation due after 12/29/24 -diabetic eye exam: [facility] with Dr. Vick Ohara 12/04/2022 -has dentures -health care proxy filed 10/13/23 Assessment & Plan (12/29/2024 10:51 AM EDT): -next comprehensive annual evaluation due after 12/29/24 -diabetic eye exam: [facility] with Dr. Vick Ohara 12/04/2022 -has dentures -health care proxy filed 10/13/23 Assessment & Plan (10/13/2023 9:35 AM EDT): -next physical exam due after 07/13/24 -diabetic eye exam: [facility] with Dr. Vick Ohara 12/04/2022 -has dentures -health care proxy filed 10/13/23 Assessment & Plan (07/13/2023 7:55 AM EDT): -next physical exam due after 07/12/24 -diabetic eye exam: [facility] with Dr. 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 -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 continuing Eliquis Assessment & Plan (11/06/2024 9:30 AM EDT): Diagnosed 06/2020, Eliquis started 07/04/2020 -Pt was seen by his all source analyst who mentioned on his last note a repeat U/S 10/2020 was negative for DVT but given the fact 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 , 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 -still continuing Eliquis Assessment & Plan (04/20/2024 9:42 AM EST): Diagnosed 06/2020, Bonita started 07/04/2020 -Pt was seen by his all source analyst who mentioned on his last note a repeat U/S 10/2020 was negative for DVT but given the fact 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 , her recommended to keep him on Eliquis correction -still continuing Eliquis Assessment & Plan (10/13/2023 9:32 AM EDT): Diagnosed 06/2020, Bonita started 07/04/2020 -Pt was seen by his all source analyst who mentioned on his last note a repeat U/S 10/2020 was negative for DVT but given the fact 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 , her recommended to keep him on Eliquis correction Assessment & Plan (07/12/2023 1:27 PM EDT): Diagnosed 06/2020, Bonita started 07/04/2020 Pt was seen by his all source analyst who mentioned on his last note a repeat U/S 10/2020 was negative for DVT but given the fact 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 , her recommended to keep him on Eliquis correction Assessment & Plan (08/19/2022 9:30 AM EDT): Diagnosed 06/2020, Bonita started 07/04/2020 Pt was seen by his all source analyst who mentioned on his last note a repeat U/S 10/2020 was negative for DVT but given the fact 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 , her recommended to keep him on Eliquis correction Assessment & Plan (05/11/2022 10:29 AM EST): Diagnosed 06/2020, Bonita started 07/04/2020 Pt was seen by his all source analyst who mentioned on his last note a repeat U/S 10/2020 was negative for DVT but given the fact 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 , her recommended to keep him on Eliquis correction Chronic low back pain 03/17/2022 Class 1 obesity due to exces s calories with serious comorbidity and body mass index (BMI) of 30.0 to 30.9 in adult 03/17/2022 Assessment & Plan (12/29/2024 10:51 AM EDT): Maintaining weight, discussed dietary changes. Given age will continue to monitor. Edema of lower extremity 03/17/2022 Overview (08/06/2023): -Patient followed at [facility] with Dr. Luana Monreal DO. -US venous lower extremity 07/26/23: left common femoral vein incompetent, left SSV atrophied, otherwise competent veins Moderate dementia with mood disturbance (CMS/HCC ) 03/17/2022 Overview (01/29/2025): -Diagnosed with dementia by neruology -referred to memory clinic 07/12/2023 -given number to call for appt. 10/13/23 Reports worsening mood changes, memory and behavior changes. Pt is not sleeping at night, causing chaos. Trialed mirtazapine (Remeron) 7.5 MG 12/29/24, increase to 15mg 01/29/25 -follow up in 4 weeks televisit Assessment & Plan (01/29/2025 11:16 AM EDT): -Diagnosed with dementia by neruology -referred to memory clinic 07/12/2023 -given number to call for appt. 10/13/23 Reports worsening mood changes, memory and behavior changes. Pt is not sleeping at night, causing chaos. Trialed mirtazapine (Remeron) 7.5 MG 12/29/24, increase to 15mg 01/29/25 -follow up in 4 weeks televisit Assessment & Plan (12/29/2024 10:51 AM EDT): [...] shoulder 06/12/2021 Stage 3 chronic kidney disease ([facility]/HCC) 020 Overview (02/06/2025): -Last seen by Dr. Mota on 11/29/2017 - Avoid nephrotoxic agents. - Discussed NO NSAIDS. Lab Results Component Value Date CREATININE 1.34 12/29/2024 EGFR 51 12/29/2024 MICROALBCREU 25.1 10/13/2023 LDLCHOLCAL 97 12/29/2024 Assessment & Plan (12/29/2024 10:51 AM EDT): [...] - EGFR was >60. History of alcoholism (CMS/HCC) 06/16/2012 Renal stone 02/02/2012 Mantoux: positive 11/02/2011 Hypertension 09/17/2011 Overview (12/29/2024): -Blood pressure is at goal 12/29/24 -Continue lifestyle modifications -Continue current medications -Continue HCTZ 25mg daily -coreg d/c by cardiology due to dizzyness, amlodipine d/c due to LE edema, lisinopril d/c due to hx acute kidney injury 2018 [facility] to [facility] 2018 Type 2 diabetes mellitus wit h stage 3a chronic kidney disease, without long-term current use [...] -Statin therapy: pravastatin 20mg -Diabetic eye exam: [facility] with Dr. Vick Ohara [...] -Statin therapy: pravastatin 20mg -Diabetic eye exam: [facility] with Dr. Vick Ohara [...] -Statin therapy: pravastatin 20mg -Diabetic eye exam: [facility] with Dr. Vick Ohara [...] -Statin therapy: pravastatin 20mg -Diabetic eye exam: [facility] with Dr. Vick Ohara [...] -Statin therapy: pravastatin 20mg -Diabetic eye exam: [facility] with Dr. Vick Ohara [...] discontinued due to acute kidney injury in 2017 -Statin therapy: pravastatin 20mg -Diabetic eye exam: [facility] with Dr. Vick Ohara [...] -Statin therapy: pravastatin 20mg -Diabetic eye exam: [facility] with Dr. Vick Ohara [...] 20mg -Diabetic eye exam: Appointment 09/[address] [place] [address] Ayers. -Diabetic foot exam: Done [...] hypertension 01/14/2015 05/11/19 23 Hypercholesterolemia 01/14/2015 023 Raised prostate specific antigen 11/02/2011 02/01/2025 Asthma 08/26/2011 05/11/2022 Overview (05/11/2022): Controlled with albuterol for URIs. Assessment & Plan (05/11/2022 10:30 AM EST): Controlled with albuterol for URIs. 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 midline low back pain without sciatica 02/02/2025 Refill [facility] [address] [place] [address] Codie Bell MD Type 2 diabetes mellitus with hyperglycemia (HCC) 02/02/2025 Telephone [facility] [address] [place] [phone] Codie Bell MD Med Refill 01/31/[address] [address] Codie Bell MD Constipation, unspecified constipation type 01/29/2025 11:15 AM EDT Telemedicine [address] [address] Codie Bell MD Primary insomnia (Primary Dx); Moderate dementia with mood disturbance, unspecified dementia type (CMS/HCC) (HCC) 01/26/[address] [address] Codie Bell MD chart prep 01/22/2025 Travel 01/02/2025 Refill [facility] [address] [place] [address] Chantal Laguerre RN Chronic midline low back pain without sciatica 01/02/[address] [address] Codie Bell MD Med Refill 01/01/2025 Results Follow-Up [address] [address] Codie Bell MD Lipid Panel, Standard, Hemoglobin A1c, Basic Metabolic Panel, Additional followed-up results: 2 12/29/2024 9:00 AM EDT Office Visit [address] [address] Codie Bell MD Fall from ground level (Primary Dx); Moderate dementia with mood disturbance, unspecified dementia type (CMS/HCC); Insomnia, unspecified type; Chronic obstructive pulmonary disease, unspecified COPD type (CMS/HCC); Hyperlipidemia, unspecified hyperlipidemia type; Primary hypertension; Chronic deep vein thrombosis (DVT) of distal vein of right lower extremity ([facility]/HCC); Type 2 diabetes mellitus with stage 3 chronic kidney disease, without long-term current use of insulin, unspecified whether stage 3a or 3b CKD ([facility]/HCC); Stage 3a chronic kidney disease ([facility]/HCC); Anemia, unspecified type; Constipation, unspecified constipation type; Basal cell carcinoma (BCC), unspecified site; Class 1 obesity due to excess calories with serious comorbidity and body mass index (BMI) of 30.0 to 30.9 in adult; Dietary counseling; Exercise counseling; Encounter for immunization; Other specified health status 12/29/2024 Refill [facility] [address] [place] [phone] Codie Bell MD Insomnia, unspecified type 12/29/2024 Travel 12/22/2024 Patient Outreach [facility] [address] [place] [phone] Codie Bell MD Pre-visit Planning (Pre visit planning unable to LVM ) 12/12/2024 Orders Only [facility] [address] [place] [phone] Codie Bell MD Closed fracture of multiple ribs of left side, initial encounter (Primary Dx) 12/11/2024 Telephone [facility] [address] [place] [phone] Codie Bell MD Referral 12/08/2024 Telephone [facility] [address] [place] [phone] Maria Isabel Xie [place] 12/08/2024 Telephone [facility] [address] [place] [phone] Codie Bell MD Appointment Request 12/05/2024 Refill [facility] [address] [place] [phone] Codie Bell MD Chronic midline low back pain without sciatica 12/01/2024 Patient Outreach [facility] [address] [place] [phone] Codie Bell MD Pre-visit Planning ([facility] screening completed on 07/25/2024) 11/16/2024 Refill [facility] [address] [place] [phone] Codie Bell MD Type 2 diabetes mellitus with hyperglycemia ([facility]) 11/16/2024 Refill [facility] [address] [place] [address] Codie Bell MD Type 2 diabetes mellitus with hyperglycemia ([facility]); Benign prostatic hyperplasia with lower urinary tract symptoms, symptom details unspecified from Last 3 Months Immunizations Immunization Administration [...] Info) Description 03/05/2025 11:15 AM EST Telemedicine [facility] [address] [place] [address] Codie Bell MD [address] [place] [address] Health Maintenance Due Date Last Done Comments Derm Melanoma Skin Check 1940 Diabetes: Foot Exam 10/12/2024 10/13/2023, 10/13/2023, 10/13/2023, Additional history exists COVID-19 Vaccine ( season) 2024 01/19/2024, 09/18/2021, 02/12/2021, Additional history exists Eye Exam 12/04/2024 12/04/2022 Diabetes: Hemoglobin A1C 03/30/2025 025, 11/06/2024, 04/20/2024, Additional history exists SDOH Screening 07/25/2025 07/25/2024 Alcohol/Substance Use Screening 11/06/2025 11/06/2024 Depression Screening 11/06/2025 11/06/2024, 11/07/19 25 Lipid Panel 12/29/2025 12/29/2024, 04/0 11/2023, 09/05/2021, Additional history exists Tobacco Screening 12/29/2025 12/29/2024 DTaP/Tdap/Td Vaccines (3 - Td or Tdap) 10/12/2033 10/13/2023, 05/12/2013, 06/16/2012 Hepatitis B Vaccines Completed 10/25/2014, 04/27/2014, 03/22/2014 Pneumococcal Vaccine: 50+ Years Completed 01/15/2015, 03/22/2014, 12/06/2008 Zoster Vaccines Completed 10/01/2020, 12/04/2019, 05/12/2013 RSV Patients and Patients Aged 60 [...] Procedure Name Priority Date/Time Associated Diagnosis Comments FERRITIN Routine 12/29/2024 10:24 AM EDT Anemia, unspecified type CBC Routine 12/29/2024 10:24 AM EDT Anemia, unspecified type BASIC METABOLIC PANEL Routine 12/29/2024 10:24 AM EDT Type 2 diabetes mellitus with stage 3 chronic kidney disease, without long-term current use of insulin, unspecified whether stage 3a or 3b CKD (CMS/HCC) HEMOGLOBIN A1C Routine 12/29/2024 10:24 AM EDT Type 2 diabetes mellitus with stage 3 chronic kidney disease, without long-term current use of insulin, unspecified whether stage 3a or 3b CKD (CMS/HCC) LIPID PANEL, STANDARD Routine 12/29/2024 10:24 AM EDT Type 2 diabetes mellitus with stage 3 chronic kidney disease, without long-term current use of insulin, unspecified whether stage 3a or 3b CKD (CMS/HCC) AMB REFERRAL TO GENERAL SURGERY Routine 12/18/2024 Closed fracture of multiple ribs of left side, initial encounter HM DIABETES EYE EXAM Routine 12/04/2022 from Last 3 Months or Most Recently Relevant to Health Maintenance Results * (ABNORMAL) CBC (12/29/2024 10:24 AM EDT) White Blood Count 9.2 4.8 - 10.8 X10*3/uL [facility] Red Blood Count 4.18(L) 4.60 - 5.80 X10*6/uL [facility] Hemoglobin 12.5(L) 14.0 - 18.0 g/dl [facility] Hematocrit 36.6(L) 42.0 - 52.0 % [facility] Mean Corpuscular Volume 87.6 80.0 - 98.0 fL [facility] Mean Corpuscular Hemoglobin 29.9 27.0 - 33.0 pg [facility] Mean Corpuscular HGB Conc 34.2 31.0 - 36.0 g/dl [facility] Red Cell Distribution Width 13.9 11.0 - 16.0 % [facility] Platelet Count 299 160 - 400 X10*3/uL [facility] Mean Platelet Volume 11.8 9.4 - 12.4 fL [facility] NRBC Pct Auto 0.0 0.0 - 0.2 /100WBC [facility] NRBC Abs Auto 0.000 0.0 - 0.012 X10*3/uL [facility] Blood Venous blood specimen / Unknown 12/29/2024 10:24 AM EDT 12/29/2024 11:21 AM EDT us Codie Bell MD LAB BLOOD ORDERABLES Final Result [facility] [address] [place], [place] [phone] * (ABNORMAL) Hemoglobin A1c (12/29/2024 10:24 AM EDT) Hemoglobin A1c 7.6(H) <6.0 % [facility] Comment:Hemoglobin A1C Refer ence Range Adults: 4.8 - 6.0 % Non diabetic: < 6.0 % Goal: < 7.0 %Additional Action Suggested: > 8.0 %Note: Hemoglobin A1c results are invalid for patients with abnormal amounts of HbF. Blood transfusions may impact the HbA1c concentration in the patient sample. Estimated Average Glucose 171 mg/dL [facility] Comment:eAG = Estimated ave rage glucose which is %A1C expressed asaverage glucose, using the formula of the [id number] Glucose study (ADAG), Diabetes Care, Vol.31,#8,2007 Blood Venous blood specimen / Unknown 12/29/2024 10:24 AM EDT 12/29/2024 11:21 AM EDT Codie Bell MD LAB BLOOD ORDERABLES Final Result Performing Organization Address City/[facility]/ZIP Co de Phone Number [facility] [address] [place] [phone] * Ferritin (12/29/2024 10:24 AM EDT) Ferritin 75 20 - 250 ng/mL [facility] Blood Venous blood specimen / Unknown 12/29/2024 10:24 AM EDT 12/29/2024 11:27 AM EDT Codie Bell MD LAB BLOOD ORDERABLES Final Result Performing Organization Address [facility] Co de Phone Number [facility] [address] [place] [phone] * (ABNORMAL) Lipid Panel, Standard (12/29/2024 10:24 AM EDT) Triglycerides 103 <150 mg/dL [facility] Comment:Desirable Triglyceri de: less than 150 mg/dLBorderline High Triglyceride 150-199 mg/dLHigh Triglyceride: 200-499 mg/dLVery High Triglyceride: greater than or equal to 5OO mg/dL Cholesterol 156 <200 mg/dL [facility] Comment:Desirable Cholestero l: less than 200 mg/dLBorderline High Cholesterol: 200-239 mg/dLHigh Cholesterol: greater than 239 mg/dL LDL Cholesterol Calculated 97 <100 mg/dL [facility] Comment:Desirable LDL: less than 100 mg/dLNear Optimal/Above Optimal LDL: 110- 129 mg/dLBorderline High LDL: 130-159 mg/dLHigh LDL: 160-189 mg/dLVery High LDL: greater than or equal to 190 mg/dL HDL Cholesterol 39(L) >40 mg/dL [facility] Comment:Desirable HDL: great er than 40 mg/dL Note: This HDL assay may give artificially low results in patients with liver disease. Blood Venous blood specimen / Unknown 12/29/2024 10:24 AM EDT 12/29/2024 11:27 AM EDT us Codie Bell MD LAB BLOOD ORDERABLES Final Result [facility] [address] [place] [phone] * (ABNORMAL) Basic Metabolic Panel (12/29/2024 10:24 AM EDT) Sodium 141 135 - 145 mmol/L [facility] Potassium 3.6 3.3 - 5.1 mmol/L [facility] Chloride 102 96 - 108 mmol/L [facility] Carbon Dioxide 30(H) 22 - 29 mmol/L [facility] Anion Gap 13 12 - 20 [facility] Urea Nitrogen (BUN) 18(H) 9 - 16 mg/dL [facility] Creatinine, Serum 1.34 0.5 - 1.4 mg/dL [facility] Estimated Glomerular Filt Rate 51 [facility] Comment:Chronic Kidney Disea se: Estimated GFR < 60 mL/min/1.64f8Rxczqu Kidney Disease: Estimated GFR < 15 mL/min/1.73m2 Glucose 147(H) 60 - 115 mg/dL [facility] Calcium 8.9 8.4 - 10.2 mg/dL [facility] Blood Venous blood specimen / Unknown 12/29/2024 10:24 AM EDT 12/29/2024 11:27 AM EDT Codie Bell MD LAB BLOOD ORDERABLES Final Result [facility] [address] [place] [address] [phone] * Referral to General Surgery (12/18/2024) Codie Bell MD OUTPATIENT REFERRAL ORDERA BLES Final Result * Diabetes Eye Exam (12/04/2022) Eye Exam Normal Normal Comment:[facility] Historical Provider HEALTH MAINTENANCE Final Result from Last 3 Months or Most Recently Relevant to Health Maintenance Insurance [facility] (O D-SNP) SULEMAN BARNES [id number] Advance Directives Documents on File Type Date Recorded Patient Health Club Attendant Expl anation Advance Directives and Living Will 10/13/2023 11:32 AM Health Care Proxy 10/13/23 Care Teams Architecture Internship Relationship Specialty Start Date End Date Codie Bell MD [address] [place] [address] PCP - General Family Medicine 01/25/13 Destin Monreal MD [address] [place] [address] Cardiology 07/25/24 SULEMAN Soto [facility] Urology 04/06/24
--- OUTSIDE RECORDS SUMMARY | 2025-02-12 13:07 | XMS_ITS | Encounter Summary ---
Author Organization [employer] Address [address] [place] [address] 7t [place] [address] Care Team Providers Care Director Peoplesoft Name Role Phone Codie Bell MD Primary Care Provider [phone]- [phone] Destin Monreal MD Unavailable [phone] Reason for Visit * Reason Onset Date Comments Med Refill 10/03/2024 Encounter Details Date Type Department Care Team ([facility] st Contact Info) Description 10/03/2024 Telephone [facility] [address] [place] [address] Codie Bell MD [address] [place] [address] Med Refill Social History Tobacco Use Types [...] immediate release tablet To be sent to: [facility]/pharmacy #[id number] [place] [address] - [address] [place] [address] documented in this encounter Plan of Treatment Upcoming Encounters Date Type Department Care Team (Late st Contact Info) Description 03/05/2025 11:15 AM EST Telemedicine [facility] [address] [place], [place] [phone] Codie Bell MD [address] [place] [address] documented as of this encounter Visit Diagnoses Not on filedocumented in this encounter Additional Health Concerns Assessment Noted Time PHQ-9 Depression Total Score: 0 10/13/19 24 9:19 AM EDT documented as of this encounter Care Teams Director Peoplesoft Relationship Specialty Start Date End Date Codie Bell MD [address] [place] [address] PCP - General Family Medicine 01/25/13 Destin Monreal MD [address] [place] [address] Cardiology 07/25/24 SULEMAN Soto [facility] Urology Urology 04/06/24 documented as of this encounter
--- OUTSIDE RECORDS SUMMARY | 2025-02-12 13:07 | XMS_ITS | Encounter Summary ---
Author Organization [employer] Address [address] [place] [address] 7t [place] [address] Care Team Providers Care Videotape Sales Representative Name Role Phone Byron, Codie CABA Primary Care Provider [phone]- [phone] Destin Monreal MD Unavailable [phone] Reason for Visit * Reason Comments Med Refill Encounter Details Date Type Department Care Team ([facility] st Contact Info) Description 06/01/2024 Refill [facility] [address] [place] [address] Chance Miranda MD [address] [place] [address] Type 2 diabetes mellitus with hyperglycemia, without long-term current use of insulin ([facility]) Social History Tobacco Use Types Packs/Day Years [...] Info) Description 03/05/2025 11:15 AM EST Telemedicine [facility]INE [address] [place] [address] Codie Bell MD [address] [place] [address] documented as of this encounter Visit Diagnoses Diagnosis Type 2 diabetes mellitus with hyperglycemia, without long-term current use of insulin (HCC) documented in this encounter Additional Health Concerns Assessment Noted Time PHQ-9 Depression Total Score: 0 10/13/19 24 9:19 AM EDT documented as of this encounter Care Teams Videotape Sales Representative Relationship Specialty Start Date End Date Codie Bell MD [address] [place] [address] PCP - General Family Medicine 01/25/13 Destin Monreal MD [address] [place] [address] Cardiology 07/25/24 SULEMAN Soto [facility] Urology Urology 04/06/24 documented as of this encounter
--- OUTSIDE RECORDS SUMMARY | 2025-02-12 13:07 | XMS_ITS | Encounter Summary ---
Author Organization [employer] [facility] Address [address] [place] [address] 7t [place] [address] Care Team Providers Care Gastroenterology Professor Name Role Phone Codie Bell MD Primary Care Provider [phone]- [phone] Destin Monreal MD Unavailable [phone] Encounter Details Date Type Department Care Team (Late st Contact Info) Description 04/10/2022 Telephone [facility] [address] [place] [address] Codie Bell MD [address] [place] [address] Social History Tobacco Use Types Packs/Day Years [...] Info) Description 03/05/2025 11:15 AM EST Telemedicine [facility] [address] [place] [address] Codie Bell MD [address] [place] [address] [phone] documented as of this encounter Visit Diagnoses Not on filedocumented in this encounter Care Teams Gastroenterology Professor Relationship Specialty Start Date End Date Codie Bell MD [address] [place] [address] PCP - General Family Medicine 01/25/13 Destin Monreal MD [address] [place] [address] Cardiology 07/25/24 SULEMAN Soto [facility] Urology Urology 04/06/24 documented as of this encounter
--- OUTSIDE RECORDS SUMMARY | 2025-02-12 13:07 | XMS_ITS | Encounter Summary ---
Author Organization [employer] Address [address] [place] [address] 7t [place] [address] Care Team Providers Care Prestidigitator Name Role Phone Codie Bell MD Primary Care Provider [phone]- [phone] Destin Monreal MD Unavailable [phone] Reason for Visit * Reason Onset Date Comments Med Refill 03/08/2023 Encounter Details Date Type Department Care Team ([facility] st Contact Info) Description 03/08/2023 Telephone [facility] [address] [place] [address] Codie Bell MD [address] [place], [place] [phone] Med Refill Social History Tobacco Use Types [...] Pulido RN - 03/08/2023 1:42 PM EST NURSE COMPANION reviewed. Pt last picked up 30 day [...] Info) Description 03/05/2025 11:15 AM EST Telemedicine [facility] [address] [place] [address] Codie Bell MD [address] [place] [address] documented as of this encounter Visit Diagnoses Not on filedocumented in this encounter Additional Health Concerns Assessment Noted Time PHQ-9 Depression Total Score: 0 05/11/19 10:41 AM EST documented as of this encounter Care Teams Prestidigitator Relationship Specialty Start Date End Date Codie Bell MD [address] [place] [address] PCP - General Family Medicine 01/25/13 Destin Monreal MD [address] [place] [address] Cardiology 07/25/24 SULEMAN Soto [facility] Urology Urology 04/06/24 documented as of this encounter
--- OUTSIDE RECORDS SUMMARY | 2025-02-12 13:07 | XMS_ITS | Encounter Summary ---
Author Organization [employer] Address [address] [place] [address] 7t [place] [address] Care Team Providers Care Mail Clerk Name Role Phone Codie Bell MD Primary Care Provider [phone]- [phone] Destin Monreal MD Unavailable Reason for Visit * Reason Onset Date Comments Med Refill 06/01/2024 Encounter Details Date Type Department Care Team ([facility] st Contact Info) Description 06/01/[address] [facility] MED[facility]INE [address] [place] [address] Codie Bell MD [address] [place] [address] Med Refill Social History Tobacco Use Types [...] the past 12 months, has t he [employer], gas, oil or water company threatened to [...] be sent to: [facility]/pharmacy #[id number] [place] [address] - [address] [place] [address] documented in this encounter Plan of Treatment Upcoming Encounters Date Type Department Care Team (Late st Contact Info) Description 03/05/2025 11:15 AM EST Telemedicine [facility] MEDICINE [address] [place], [place] [phone] Codie Bell MD [address] [place] [address] documented as of this encounter Visit Diagnoses Not on filedocumented in this encounter Additional Health Concerns Assessment Noted Time PHQ-9 Depression Total Score: 0 10/13/19 24 9:19 AM EDT documented as of this encounter Care Teams Mail Clerk Relationship Specialty Start Date End Date Codie Bell MD [address] [place] [address] PCP - General Family Medicine 01/25/13 Destin Monreal MD [address] [place] [address] Cardiology 07/25/24 SULEMAN Soto [facility] Urology 04/06/24 documented as of this encounter
--- OUTSIDE RECORDS SUMMARY | 2025-02-12 13:08 | XMS_ITS | Encounter Summary ---
Author Organization [employer] Address [address] [place] [address] 7t [place] [address] Care Team Providers Care Jig And Fixture Maker Name Role Phone Codie Bell MD Primary Care Provider [phone]- [phone] Destin Monreal MD Unavailable [phone] Reason for Visit * Reason Onset Date Comments Med Refill 01/02/2025 Encounter Details Date Type Department Care Team ([facility] st Contact Info) Description 01/02/2025 Telephone [facility]INE [address] [place] [address] Codie Bell MD [address] [place] [address] Med Refill Social History Tobacco Use Types [...] encounter Miscellaneous Notes * Telephone Encounter - Juarez Jauregui - 01/02/2025 2:19 PM EDT TC from pt requesting medication refill. Medications needing refill : oxyCODONE (Roxicodone) 10 MG immediate release tablet To be sent to: [facility]/pharmacy #[id number] [place] [address] - [address] [place] [address] documented in this encounter Plan of Treatment Upcoming Encounters Date Type Department Care Team (Late st Contact Info) Description 03/05/2025 11:15 AM EST Telemedicine [facility] [address] [place] [address] Codie Bell MD [address] [place] [address] documented as of this encounter Visit Diagnoses Not on filedocumented in this encounter Additional Health Concerns Assessment Noted Time PHQ-9 Depression Total Score: 0 11/07/19 25 9:11 AM EDT documented as of this encounter Care Teams Jig And Fixture Maker Relationship Specialty Start Date End Date Codie Bell MD [address] [place] [address] PCP - General Family Medicine 01/25/13 Destin Monreal MD [address] [place] [address] Cardiology 07/25/24 SULEMAN Soto [facility] Urology Urology 04/06/24 documented as of this encounter
--- OUTSIDE RECORDS SUMMARY | 2025-02-12 13:08 | XMS_ITS | Encounter Summary ---
Author Organization [employer] Address [address] [place] [address] 7t [place] [address] Care Team Providers Care Blue Prints Trimmer Name Role Phone Codie Bell MD Primary Care Provider [phone]- [phone] Destin Monreal MD Unavailable [phone] Reason for Visit * Reason Comments Med Refill Encounter Details Date Type Department Care Team ([facility] st Contact Info) Description 12/29/2024 Refill [facility] [address] [place], [place] [phone] Codie Bell MD [address] [place], [place] [phone] Insomnia, unspecified type Social History Tobacco Use [...] the past 12 months, has t he [employer], gas, oil or water company threatened to [...] AM EST Telemedicine [facility] [address] [place] [address] Codie Bell MD [address] [place] [address] documented as of this encounter Visit Diagnoses Diagnosis Insomnia, unspecified type documented in this encounter Additional Health Concerns Assessment Noted Time PHQ-9 Depression Total Score: 0 11/07/19 25 9:11 AM EDT documented as of this encounter Care Teams Blue Prints Trimmer Relationship Specialty Start Date End Date Codie Bell MD [address] [place] [address] PCP - General Family Medicine 01/25/13 Destin Monreal MD [address] [place] [address] Cardiology 4/22/25 SULEMAN Soto [facility] Urology Urology 04/06/24 documented as of this encounter
--- OUTSIDE RECORDS SUMMARY | 2025-02-12 13:08 | XMS_ITS | Encounter Summary ---
Author Organization [employer] Address [address] [place] [address] 7t [place] [address] Care Team Providers Care Recovery Coach Name Role Phone Codie Bell MD Primary Care Provider [phone] Destin Monreal MD Unavailable [phone] Encounter Details Date Type Department Care Team (Late st Contact Info) Description 12/10/2022 Orders Only [facility] [address] [place] [address] Codie Bell MD [address] [place] [address] Dementia with other behavioral disturbance, unspecified dementia severity, unspecified dementia type (CMS/HCC) (Primary Dx); Type 2 diabetes mellitus with hyperglycemia, without long-term current use of insulin (CMS/[facility]); Preventative health care; Impaired cognition Social History [...] Description 03/05/2025 11:15 AM EST Telemedicine [facility] [address] [place] [address] Codie Bell MD [address] [place] [address] documented as of this encounter Procedures Procedure Name Priority Date/Time Associated Diagnosis Comments DIABETES EYE EXAM Routine 12/04/2022 documented in this encounter Results * Diabetes Eye Exam (12/04/2022) Eye Exam Normal Normal Comment:[facility] Historical Provider HEALTH MAINTENANCE Final Result documented in this encounter Visit Diagnoses Diagnosis Dementia with other behavioral disturbance, unspecified dementia severity, unspecified dementia type (CMS/HCC) ([facility])- Primary Type 2 diabetes mellitus with hyperglycemia, without long-term current use of insulin ([facility]) Preventative health care Routine general medical examination at a health care facility Impaired cognition Unspecified persistent mental disorders due to conditions classified elsewhere documented in this encounter Additional Health Concerns Assessment Noted Time PHQ-9 Depression Total Score: 0 05/11/19 23 10:41 AM EST documented as of this encounter Care Teams Recovery Coach Relationship Specialty Start Date End Date Codie Bell MD [address] [place] [address] PCP - General Family Medicine 01/25/13 Destin Monreal MD [address] [place] [address] Cardiology 07/25/24 SULEMAN Soto [facility] Urology Urology 04/06/24 documented as of this encounter
--- OUTSIDE RECORDS SUMMARY | 2025-02-12 13:08 | XMS_ITS | Encounter Summary ---
Author Organization [employer] Address [address] [place] [address] 7t [place] [address] Care Team Providers Care Tattoo Artist Name Role Phone Codie Bell MD Primary Care Provider [phone]- [phone] Destin Monreal MD Unavailable [phone] Reason for Visit * Reason Onset Date Comments Med Refill 02/04/2024 Encounter Details Date Type Department Care Team ([facility] st Contact Info) Description 02/04/2024 Telephone [facility] [address] [place] [address] Codie Bell MD [address] [place] [address] Med Refill Social History Tobacco Use Types [...] immediate release tablet To be sent to: [facility]/pharmacy #[id number] [place] [address] - [address] [place] [address] documented in this encounter Plan of Treatment Upcoming Encounters Date Type Department Care Team (Late st Contact Info) Description 03/05/2025 11:15 AM EST Telemedicine [facility]INE [address] [place] [address] Codie Bell MD [address] [place] [address] documented as of this encounter Visit Diagnoses Not on filedocumented in this encounter Additional Health Concerns Assessment Noted Time PHQ-9 Depression Total Score: 0 10/13/19 24 9:19 AM EDT documented as of this encounter Care Teams Tattoo Artist Relationship Specialty Start Date End Date Codie Bell MD [address] [place] [address] PCP - General Family Medicine 01/25/13 Destin Monreal MD [address] [place] [address] Cardiology 07/25/24 SULEMAN Soto [facility] Urology Urology 04/06/24 documented as of this encounter
--- OUTSIDE RECORDS SUMMARY | 2025-02-12 13:08 | XMS_ITS | Encounter Summary ---
Author Organization [employer] Address [address] [place] [address] 7t [place] [address] Care Team Providers Care Assistant Commissioner Name Role Phone Codie Bell MD Primary Care Provider [phone] Destin Monreal MD Unavailable [phone] Reason for Visit * Reason Onset Date Comments Med Refill 02/02/2025 Encounter Details Date Type Department Care Team ([facility] st Contact Info) Description 02/02/2025 Telephone [facility] MEDICINE [address] [place] [address] Codie Bell MD [address] [place] [address] Med Refill Social History Tobacco Use Types [...] * Telephone Encounter - Allison Lopez - 02/02/2025 12:35 PM EDT TC from pt requesting medication refill. Medications needing refill : oxyCODONE (Roxicodone) 10 MG immediate release tablet To be sent to: [facility]/pharmacy #[id number] [place] [address] - [address] [place] [address] documented in this encounter Plan of Treatment Upcoming Encounters Date Type Department Care Team (Late st Contact Info) Description 03/05/2025 11:15 AM EST Telemedicine [facility] MEDICINE [address] [place] [address] Codie Bell MD [address] [place] [address] documented as of this encounter Visit Diagnoses Not on filedocumented in this encounter Additional Health Concerns Assessment Noted Time PHQ-9 Depression Total Score: 0 11/07/19 9:11 AM EDT documented as of this encounter Care Teams Assistant Commissioner Relationship Specialty Start Date End Date Codie Bell MD [address] [place] [address] PCP - General Family Medicine 01/25/13 Destin Monreal MD [address] [place] [address] Cardiology 07/25/24 SULEMAN Soto [facility] Urology Urology 04/06/24 documented as of this encounter
[2025-02-12 15:14] LABS: Microalbum/Creatinine Ratio Ur 63.0 ug/mg cr (<30)
== END 2025-02-12 10:58 | disposition home or self-care (01) ==
LOC: HO.HHCL 10:57
PROVIDERS: PCP Family Medicine; Visit Provider Family Medicine
DX: E11.22 Type 2 diabetes mellitus with diabetic chronic kidney disease (principal); N18.30 Chronic kidney disease, stage 3 unspecified
CPT/HCPCS: 82043; 82570

== ENCOUNTER 2025-02-16 09:11 | Outpatient (REF) | payer OTHER, SELFPAY ==
--- OUTSIDE RECORDS SUMMARY | 2025-02-14 23:59 | XMS_ITS | Continuity of Care Document ---
Author Organization [facility] Address [address] [place] [address]- Care Team Providers Care House Director Name Role Phone Arabella CABA, Codie Duke [id number]): [facility]17[facility]24 - 02/14/[address] [address]- Attending Physician: Alejo Hickey MD Referring Physician: Codie Bell MD Encounter Type: Pre Office Visit Allergies, Adverse Reactions, Alerts No Known Allergies Medications apixaban 5 mg oral tablet = 5 mg, By Mouth, 2 times a day, 0 Refills, Maintenance, 10/12/24 2:29:00 PM EDT, Tablet, Partial fill upon patient request if the prescription is for a schedule II opioid drug. Start Date: 10/12/24 Status: Ordered Medication Dispense Status: Completed Total Allowed Fills: 1 Fills Dispensed: 0 brimonidine 0.2% ophthalmic solution 1 drops, Eyes, Both, Every 8 hours, # 15 mL, 0 Refills, Maintenance, 10/10/24 8:17:00 AM EDT, Solution, Partial fill upon patient request if the prescription is for a schedule II opioid drug. Start Date: 10/10/24 Status: Ordered Medication Dispense Status: Completed Quantity: 15.0 Unit: mL Total Allowed Fills: 1 Fills Dispensed: 0 [facility] MAGNESIUM 250 MG CAPLET CVS MAGNESIUM 250 MG CAPLET, TAKE 1 TABLET (250 MG) BY MOUTH AT BEDTIME Start Date: 10/10/24 Status: Ordered Medication Dispense Status: Completed Total Allowed Fills: 1 Fills Dispensed: 0 Finasteride = 5 mg, By Mouth, Daily at bedtime, 0 Refills, Maintenance, 09/10/23 5:18:00 PM EDT, Partial fill upon patient request if the prescription is for a schedule II opioid drug. Start Date: 09/10/23 Status: Ordered Medication Dispense Status: Completed Total Allowed Fills: 1 Fills Dispensed: 0 Lantus Inj = 10 units, Subcutaneous Injection, Daily at bedtime, 0 Refills, Maintenance, 09/10/23 5:01:00 PM EDT, Injection, Partial fill upon patient request if the prescription is for a schedule II opioid drug. Start Date: 09/10/23 Status: Ordered Medication Dispense Status: Completed Total Allowed Fills: 1 Fills Dispensed: 0 Magnesium and Potassium oral capsule 1 capsule, By Mouth, Daily, # 60 capsule, 0 Refills, Maintenance, 09/10/23 5:19:00 PM EDT, Capsule, Partial fill upon patient request if the prescription is for a schedule II opioid drug. Start Date: 09/10/23 Status: Ordered Medication Dispense Status: Completed Quantity: 60.0 Unit: capsule Total Allowed Fills: 1 Fills Dispensed: 0 mirtazapine 15 mg oral tablet = 7.5 mg, By Mouth, Daily at supper, # 15 tablet, 0 Refills, Maintenance, 10/12/24 2:26:00 PM EDT, Tablet, [facility] 3, Partial fill upon patient request if the prescription is for a schedule II opioid drug., 160, cm, 01/19/24 15:25:00 EDT, Height, 87, kg, 09/10/23 17:11:00 EDT, Dry Weight Start Date: 10/12/24 Stop Date: 11/11/24 Status: Ordered Medication Dispense Status: Completed Quantity: 15.0 Unit: tablet Total Allowed Fills: 1 Fills Dispensed: 0 NovoLOG FlexPen 100 units/mL injectable solution 0 Refill(s), 0 Refills, 08/24/23 8:53:00 AM EDT, Partial fill upon patient request if the prescription is for a schedule II opioid drug. Start Date: 08/24/23 Status: Ordered Medication Dispense Status: Completed Total Allowed Fills: 1 Fills Dispensed: 0 Pen [place], 29 G x 12.7 mm BD Ultra Fine 0 Refill(s), USE 5 TIMES A DAY, 04/28/22 7:00:00 PM EST, Supply Start Date: 04/28/22 Status: Ordered Medication Dispense Status: Completed Total Allowed Fills: 1 Fills Dispensed: 0 pravastatin 20 mg oral tablet 20 mg, 1, tablet, By Mouth, Daily, # 30 tablet, Refills 0, Maintenance, 10/10/24 8:16:00 AM EDT, Partial fill upon patient request if the prescription is for a schedule II opioid drug. Start Date: 10/10/24 Status: Ordered Medication Dispense Status: Completed Quantity: 30.0 Unit: tablet Total Allowed Fills: 1 Fills Dispensed: 0 SEROquel 25 mg oral tablet 25 mg, By Mouth, 2 times a day, PRN, # 60 tablet, Refills 0, Tot. Refills 0, Maintenance, Agitation, 10/12/24 2:27:00 PM EDT, Route to Pharmacy Electronically, [facility] 3, Partial fill upon patient request if the prescription is for a schedule II opioid drug., 160, cm, 01/19/24 15:25:00 EDT, Height, 87, kg, 09/10/23 17:11:00 EDT, Dry Weight Start Date: 10/12/24 Stop Date: 11/11/24 Status: Ordered Medication Dispense Status: Completed Quantity: 60.0 Unit: tablet Total Allowed Fills: 1 Fills Dispensed: 0 Problem List Condition Confirmation Course Effective Dates Status H ealth Status Informant CKD - chronic kidney disease Confirmed Active COPD - Chronic obstructive pulmonary disease Confirmed Active Dementia Confirmed Active HLD - Hyperlipidemia Confirmed Active HTN - Hypertension Confirmed Active Obese class I Confirmed Active Social History Social History Type Response Smoking Status Former smoker, quit more than 30 days ago; Other: 40+; entered on: 11/16/23 Sex Sex Representation Male (finding) Patient Care team information Care Team Personnel Name: Yin Sousa RN Position: S RN Member Role: Primary Care Nurse Name: Arabella CABA , Codie Duke Position: [facility] Outreach Member Role: PCP Address: [address] [place] [address] [address] [place], [place] [address] Telecom: Name: Sebastian Hair RN Position: S RN Member Role: Primary Care Nurse Name: Amy Chance RN Position: S RN Member Role: Primary Care Nurse Care Team Related Persons Name: JAMA FLORES Name: YUNIEL FAIRCHILD Name: LUKE VAUGHN Insurance Providers Guarantor name: BERNARDINO VAUGHN Health Plan Information #: 1 Payer: [facility] Payer Identifier: NA Member Number: [id number] Group Number: Subscriber Identifier: [id number] Relationship to Subscriber: self Coverage Type: Medicare Managed Care (Includes Medicare Advantage Plans) Coverage Verification Date: Telecom: Address: [facility] Information #: 2 Payer: MEDICARE B Payer Identifier: JUSTIN Member Number: [id number] Group Number: Subscriber Identifier: [id number] Relationship to Subscriber: self Coverage Type: NA Coverage Verification Date: Telecom: Address: [facility] Information #: 3 Payer: [employer]ER SERVICE Payer Identifier: NA Member Number: [id number] Group Number: Subscriber Identifier: [id number] Relationship to Subscriber: self Coverage Type: MEDICAID Coverage Verification Date: Telecom: Address:
--- OUTSIDE RECORDS SUMMARY | 2025-02-14 23:59 | XMS_ITS | Continuity of Care Document ---
Author Organization [facility] Address [address] [place] [address]- Care Team Providers Care Spring Tier Name Role Phone Arabella Codie CABA Primary Care Physician Encounter [facility] Date(s): 01/15/25 - 02/14/25 [facility] [address] [place] [id number] Attending Physician: Marily Adnres Admitting Physician: Marily Andres Referring Physician: Marily Andres Referring Physician: Cora CABA , [facility] Encounter Type: Triage Allergies, Adverse Reactions, Alerts No Known Allergies [...] Refills, Maintenance, 10/12/24 2:26:00 PM EDT, Tablet, [facility] 3, Partial fill upon patient request if [...] Allowed Fills: 1 Fills Dispensed: 0 Pen [place], 29 G x 12.7 mm BD Ultra [...] 2:27:00 PM EDT, Route to Pharmacy Electronically, [facility], Partial fill upon patient request if [...] Team Personnel Name: Yin Sousa RN Position: [facility] RN Member Role: Primary Care Nurse Name: Codie Bell MD Position: [facility] Outreach Member Role: PCP Address: [address] [place] [address] [address] [place] [address]- [place] Telecom: Name: Sebastian Hair RN Position: S RN Member Role: Primary Care Nurse Name: Amy Chance RN Position: [facility] RN Member Role: Primary Care Nurse Care Team Related Persons Name: JAMA FLORES Name: YUNIEL FAIRCHILD Name: VAUGHN LUKE Insurance Providers Guarantor name: BERNARDINO VAUGHN Health Plan Information #: 1 Payer: [facility] Payer Identifier: NA Member Number: [id number] Group Number: Subscriber Identifier: Relationship to Subscriber: self Coverage Type: Medicare Managed Care (Includes Medicare Advantage Plans) Coverage Verification Date: Telecom: Address: Health Plan Information #: 2 Payer: MEDICARE B Payer Identifier: JUSTIN Member Number: [id number] Group Number: Subscriber Identifier: Relationship to Subscriber: self Coverage Type: NA Coverage Verification Date: Telecom: Address: Health Plan Information #: 3 Payer: [facility] [employer] [employer] Payer Identifier: NA Member Number: [id number] Group Number: Subscriber Identifier: Relationship to Subscriber: self Coverage Type: MEDICAID Coverage Verification Date: Telecom: Address:
--- OUTSIDE RECORDS SUMMARY | 2025-02-16 09:48 | XMS_ITS | Data Portability ---
Author Organization [employer] Address [address] [place] [address] Care Team Providers Care Refractory Worker Name Role Phone RADHA, KRYSTA Primary Care [...] family member thanked us for our care [email or web address] Not available 10/19/2021 14:49:44 10/28/2023 10/28/2023 I provided real -time medical direction via phone for this encounter and was available for additional phone-based assistance as needed. I have reviewed and agree with the Assessment and Plan as documented by the Bale Tie Machine Operator. Patient given the opportunity to ask questions. Our service contacted for an assessment of: a fall As per above, patient fell yesterday. No LOC. Unclear if there was a HS. On AC. Denies injury. Per chemical machine tender on the scene, VSS. No obvious trauma. [...] Orders meclizine 25 mg tablet 2021 022 [facility] #[id number], [address] [facility], [place], [address], 14:45:53 Patient TargetsNo targets recorded. Patient InstructionsNo [...] /min 74 /min 150/80 mm[Hg] Not Available [employer] - production 4 16:33:26 Social History None recorded. Functional Status None recorded. Mental Status None recorded. Family History Nothing Reported. Medical History No medical history recorded. Past Encounters Encounter ID Performer Location Encounter Start Date Encounter Closed Date Diagnosis/Indication Diagnosis SNOMED-CT Code Diagnosis ICD10 Code Diagnosis IMO Codes Diagnosis Note [id number] Kamran Morrissey MD [facility] [address] [place] [id number] 10/19/2021 14:41:54 12/17/2021 13:51:38 Vertigo [id number] Missy Denise MD [facility] [address] [place] [id number] 10/28/2023 16:33:24 07/20/2024 20:06:59 Fall W19.XXXA Health Concerns Section Related Observation LastModified by Organization Detai ls LastModified Time None Recorded Concern Status LastModified by Organization Details LastModified Time None Recorded Advance Directives Directive None Recorded Payers Insurance Date Sequence Insurance Name Policy Number Policy Swain Covered Member ID Swain Member ID Guarantor Name 02/24/2024 1 [facility] - DOS PRIOR TO 2022 - DUAL ELIGIBLE (MEDICARE REPLACEMENT/ADV ANTAGE - HMO) Brandon Rdz [id number] Brandon Rdz 07/20/2024 1 [facility] - DOS ON OR AFTER 2022 - DUAL ELIGIBLE - RESIDENTIAL OPTIONS AND ONE CARE (MEDICARE REPLACEMENT/ADV ANTAGE - HMO) Brandon Rdz [id number] Brandon Rdz Notes Date Note Type Note [...] ................... ................... ................... ................... ................... ................... ........ Bale Tie Machine Operator Note: Home visit for 81 yo male with CC of dizziness. Daughter states this is how he gets when he has attacks of vertigo which he has a history of. Pt rapid tested for flu and Covid both are negative. Pt given meclizine to molded goods spot picker at pharmacy and take as needed. ................... ................... ................... ................... ................... ................... ................... ........ Disposition: Fulfilled Kamran Morrissey MD [address] [facility],[address], [place], [address], FRANCISCO MAYNARD 10/19/2021 20:47:25 10/28/2023 text/html CRC Nurse Triage Notes (Sue Riggins): Reason For Request: fell yesterday Chief Complaints: Falls PMH: Hypertension, Diabetes, Severe Dementia Allergies: No Known Comments: Cloth Booker verified the member's name//address and phone number. [...] ................... ................... ................... ................... ................... ................... ........ Bale Tie Machine Operator Note From Clint Lozano: Dispatched to the [...] and would call 911 if anything changed. [facility] consulted. Red flags discussed with Pt and family. ALL times are approx. ................... ................... ................... ................... ................... ................... ................... ........ Disposition: Fulfilled Missy Denise MD [address] [facility],[address], [place], [address], [employer] 10/28/2023 16:43:40
--- OUTSIDE RECORDS SUMMARY | 2025-02-16 09:48 | XMS_ITS | Encounter Summary ---
Author Organization [employer] Address [address] [place] [address] [address] [place] [address] Care Team Providers Care Finished Goods Planner Name Role Phone Codie Bell MD Primary Care Provider [phone]- [phone] Destin Monreal MD Unavailable [phone] Encounter Details Date Type Department Care Team ([facility] st Contact Info) Description 05/11/2022 Abstract [facility] MEDICINE [address] [place] [address] oCdie Bell MD [address] [place] [address] Social History Tobacco Use Types Packs/Day Years [...] Info) Description 03/05/2025 11:15 AM EST Telemedicine [facility] MEDICINE [address] [place] [address] Codie Bell MD [address] [place] [address] documented as of this encounter Procedures Procedure Name Priority Date/Time Associated Diagnosis Comments TSH Routine 02/04/2022 HEPATIC FUNCTION PANEL Routine 02/04/2022 BASIC METABOLIC PANEL Routine 02/04/2022 HEPATITIS C AB W/REFL TO HCV RNA, QN, PCR Routine 09/05/2021 documented in this encounter Results * (ABNORMAL) TSH (02/04/2022) TSH 2.50(A) 4.00 - 5.40 mIU/L Blood Venous blood specimen / Unknown Result [facility] Provider LAB BLOOD ORDERABLES Anel l Result * Hepatic Function Panel (02/04/2022) ALT (SGPT) 10 10 - 40 U/L AST 14 14 - 40 U/L Blood Venous blood specimen / Unknown Result [facility] Provider LAB BLOOD ORDERABLES Anel l Result * (ABNORMAL) Basic Metabolic Panel (02/04/2022) Creatinine 1.4(A) 0.6 - 1.3 mg/dL Blood Venous blood specimen / Unknown Result [facility] Provider LAB BLOOD ORDERABLES Anel l Result * Hepatitis C Antibody with Reflex to HCV, RNA, Quantitative, Real-Time PCR (09/05/2021) Blood Venous blood specimen / Unknown 09/05/2021 Result [facility] Provider LAB BLOOD ORDERABLES Anel l Result documented in this encounter Visit Diagnoses Not on filedocumented in this encounter Additional Health Concerns Assessment Noted Time PHQ-9 Depression Total Score: 0 05/11/19 23 10:41 AM EST documented as of this encounter Care Teams Finished Goods Planner Relationship Specialty Start Date End Date Codie Bell MD [address] [place] [address] PCP - General Family Medicine 01/25/13 Destin Monreal MD [address] [place] [address] Cardiology 07/25/24 SULEMAN Soto [facility] Urology Urology 04/06/24 documented as of this encounter
--- OUTSIDE RECORDS SUMMARY | 2025-02-16 09:48 | XMS_ITS | Encounter Summary ---
Author Organization [employer] [facility] Address [address] [place] [address] [address] [place] [address] Care Team Providers Care I&C Technician Name Role Phone Codie Bell MD Primary Care Provider [phone] Destin Monreal MD Unavailable [phone] Encounter Details Date Type Department Care Team (Late st Contact Info) Description 03/17/2022 Abstract [facility] MEDICINE [address] [place] [address] ProviderAmbrosio MD Social History Tobacco Use Types [...] Description 03/05/2025 11:15 AM EST Telemedicine [facility] MEDICINE [address] [place] [address] Codie Bell MD [address] [place] [address] documented as of this encounter Visit Diagnoses Not on filedocumented in this encounter Care Teams I&C Technician Relationship Specialty Start Date End Date Codie Bell MD [address] [place] [address] PCP - General Family Medicine 01/25/13 Destin Monreal MD [address] [place] [address] Cardiology 07/25/24 SULEMAN Soto [facility] Urology Urology 04/06/24 documented as of this encounter
--- OUTSIDE RECORDS SUMMARY | 2025-02-16 09:48 | XMS_ITS | Encounter Summary ---
Author Organization [employer] Address [address] [place] [address] 7t [place] [address] Care Team Providers Care Peoplesoft Developer Name Role Phone Codie Bell MD Primary Care Provider [phone]- [phone] Destin Monreal MD Unavailable [phone] Reason for Visit * Reason Comments Med Refill Encounter Details Date Type Department Care Team (Late st Contact Info) Description 07/03/2022 Refill [facility] MEDICINE [address] [place] [phone] Codie Bell MD [address] [place] [address] [phone] Social History Tobacco Use Types Packs/Day Years [...] Info) Description 03/05/2025 11:15 AM EST Telemedicine [facility] MEDICINE [address] [place] [phone] Codie Bell MD [address] [place] [phone] documented as of this encounter Visit Diagnoses Not on filedocumented in this encounter Additional Health Concerns Assessment Noted Time PHQ-9 Depression Total Score: 0 05/11/19 23 10:41 AM EST documented as of this encounter Care Teams Peoplesoft Developer Relationship Specialty Start Date End Date Codie Bell MD [address] [place] [address] PCP - General Family Medicine 01/25/13 Destin Monreal MD [address] [place] [address] Cardiology 07/25/24 SULEMAN Soto [facility] Urology Urology 04/06/24 documented as of this encounter
--- OUTSIDE RECORDS SUMMARY | 2025-02-16 09:48 | XMS_ITS | Encounter Summary ---
Author Organization [employer] Address [address] [place] [address] 7t [place] [address] Care Team Providers Care Coal Carrier Name Role Phone Codie Bell MD Primary Care Provider [phone]- [phone] Destin Monreal MD Unavailable [phone] Reason for Visit * Reason Onset Date Comments Med Refill 06/01/2024 Encounter Details Date Type Department Care Team ([facility] st Contact Info) Description 06/01/2024 Telephone [facility] MEDICINE [address] [place] [address] Codie Bell MD [address] [place] [address] Med Refill Social History Tobacco Use Types [...] the past 12 months, has t he [employer], gas, oil or water company threatened to [...] immediate release tablet To be sent to: [facility]/pharmacy #[id number] [place] [address] - [address] [place] [address] documented in this encounter Plan of Treatment Upcoming Encounters Date Type Department Care Team (Late st Contact Info) Description 03/05/2025 11:15 AM EST Telemedicine [facility] MEDICINE [address] [place], [place] [phone] Codie Bell MD [address] [place] [address] documented as of this encounter Visit Diagnoses Not on filedocumented in this encounter Additional Health Concerns Assessment Noted Time PHQ-9 Depression Total Score: 0 10/13/19 24 9:19 AM EDT documented as of this encounter Care Teams Coal Carrier Relationship Specialty Start Date End Date Codie Bell MD [address] [place] [address] PCP - General Family Medicine 01/25/13 Destin Monreal MD [address] [place] [address] Cardiology 07/25/24 SULEMAN Soto [facility] Urology Urology 04/06/24 documented as of this encounter
--- OUTSIDE RECORDS SUMMARY | 2025-02-16 09:48 | XMS_ITS | Encounter Summary ---
Author Organization [employer] Address [address] [place] [address] 7[address] [place] [address] Care Team Providers Care Line Staker Name Role Phone Codie Bell MD Primary Care Provider [phone] Destin Monreal MD Unavailable [phone] Encounter Details Date Type Department Care Team ([facility] st Contact Info) Description 05/08/2022 Abstract [facility] MEDICINE [address] [place] [address] Codie Bell MD [address] [place] [address] Social History Tobacco Use Types Packs/Day Years [...] 03/05/2025 11:15 AM EST Telemedicine [facility] MEDICINE [address] [place] [address] Codie Bell MD [address] [place] [address] documented as of this encounter Procedures Procedure Name Priority Date/Time Associated Diagnosis Comments COLONOSCOPY Routine 07/28/2013 documented in this encounter Results * Colonoscopy (07/28/2013) Colonoscopy Tubular adenoma with Dr. Kramer us Historical Provider HEALTH MAINTENANCE Final Result documented in this encounter Visit Diagnoses Not on filedocumented in this encounter Care Teams Line Staker Relationship Specialty Start Date End Date Codie Bell MD [address] [place] [address] PCP - General Family Medicine 01/25/13 Destin Monreal MD [address] [place] [address] Cardiology 07/25/24 SULEMAN Soto [facility] Urology Urology 04/06/24 documented as of this encounter
--- OUTSIDE RECORDS SUMMARY | 2025-02-16 09:48 | XMS_ITS | Encounter Summary ---
Author Organization [employer] Address [address] [place] [address] [address]t [place] [address] Care Team Providers Care Carver And Checkerer Specials Name Role Phone Codie Bell MD Primary Care Provider [phone] Destin Monreal MD Unavailable [phone] Encounter Details Date Type Department Care Team (Late st Contact Info) Description 06/22/2022 Orders Only [facility] MEDICINE [address] [place] [address] Codie Bell MD [address] [place] [address] [phone] Skin lesion (Primary Dx) Social History Tobacco [...] Info) Description 03/05/2025 11:15 AM EST Telemedicine [facility] MEDICINE [address] [place] [address] [phone] Codie Bell MD [address] [place] [address] [phone] documented as of this encounter Visit Diagnoses Diagnosis Skin lesion- Primary Unspecified disorder of skin and subcutaneous tissue documented in this encounter Additional Health Concerns Assessment Noted Time PHQ-9 Depression Total Score: 0 05/11/19 10:41 AM EST documented as of this encounter Care Teams Carver And Checkerer Specials Relationship Specialty Start Date End Date Codie Bell MD [address] [place] [address] PCP - General Family Medicine 01/25/13 Destin Monreal MD [address] [place] [address] Cardiology 07/25/24 SULEMAN Soto [facility] Urology Urology 04/06/24 documented as of this encounter
--- OUTSIDE RECORDS SUMMARY | 2025-02-16 09:48 | XMS_ITS | Encounter Summary ---
Author Organization [employer] [facility] Address [address] [place] [address] [address] [place] [address] Care Team Providers Care Road Service Locksmith Name Role Phone Codie Bell MD Primary Care Provider [phone]- [phone] Destin Monreal MD Unavailable [phone] Encounter Details Date Type Department Care Team (Late st Contact Info) Description 04/10/2022 Telephone [facility] [address] [place] [phone] Codie Bell MD [address] [place] [phone] Social History Tobacco Use Types Packs/Day Years [...] Info) Description 03/05/2025 11:15 AM EST Telemedicine [facility] [address] [place] [phone] Codie Bell MD [address] [place] [address] [phone] documented as of this encounter Visit Diagnoses Not on filedocumented in this encounter Care Teams Road Service Locksmith Relationship Specialty Start Date End Date Codie Bell MD [address] [place] [phone] PCP - General Family Medicine 01/25/13 Destin Monreal MD [address] [place] [address] Cardiology 07/25/24 [employer] Urology Urology 04/06/24 documented as of this encounter
--- OUTSIDE RECORDS SUMMARY | 2025-02-16 09:48 | XMS_ITS | Encounter Summary ---
Author Organization [employer] Address [address] [place] [address] 7[address] [place] [address] Care Team Providers Care Stitchdown Toe Former Name Role Phone Codie Bell MD Primary Care Provider [phone]- [phone] Destin Monreal MD Unavailable [phone] Reason for Visit * Reason Comments Med Refill Encounter Details Date Type Department Care Team (Late st Contact Info) Description 07/20/2022 Refill [facility] [address] [place] [address] [phone] Codie Bell MD [address] [place] [address] [phone] Social History Tobacco Use Types Packs/Day Years [...] Info) Description 03/05/2025 11:15 AM EST Telemedicine [facility] [address] [place] [address] [phone] Codie Bell MD [address] [place] [address] [phone] documented as of this encounter Visit Diagnoses Not on filedocumented in this encounter Additional Health Concerns Assessment Noted Time PHQ-9 Depression Total Score: 0 05/11/19 23 10:41 AM EST documented as of this encounter Care Teams Stitchdown Toe Former Relationship Specialty Start Date End Date Codie Bell MD [address] [place] [address] PCP - General Family Medicine 01/25/13 Destin Monreal MD [address] [place] [address] Cardiology 07/25/24 [employer] [facility] Urology Urology 04/06/24 documented as of this encounter
--- OUTSIDE RECORDS SUMMARY | 2025-02-16 09:48 | XMS_ITS | Encounter Summary ---
Author Organization [employer] [facility] Address [address] [place] [address] [address] [place] [address] Care Team Providers Care Power Station Operator Name Role Phone Codie Bell MD Primary Care Provider [phone]- [phone] Destin Monreal MD Unavailable [phone] Encounter Details Date Type Department Care Team (Late st Contact Info) Description 04/24/2022 Orders Only [facility] [address] [place] [phone] Katie Conroy LPN Social History Tobacco Use [...] Description 03/05/2025 11:15 AM EST Telemedicine [facility] [address] [place] [phone] Codie Bell MD [address] [place] [phone] documented as of this encounter Visit Diagnoses Not on filedocumented in this encounter Care Teams Power Station Operator Relationship Specialty Start Date End Date Codie Bell MD [address] [place] [phone] PCP - General Family Medicine 01/25/13 Destin Monreal MD [address] [place] [address] Cardiology 07/25/24 [employer] Urology Urology 04/06/24 documented as of this encounter
--- OUTSIDE RECORDS SUMMARY | 2025-02-16 09:49 | XMS_ITS | Encounter Summary ---
Author Organization [employer] Address [address] [place] [address] [address] [place] [address] Care Team Providers Care Hone Operator Name Role Phone Codie Bell MD Primary Care Provider [phone]- [phone] Destin Monreal MD Unavailable [phone] Reason for Visit * Reason Onset Date Comments Med Refill 11/05/2023 Encounter Details Date Type Department Care Team ([facility] st Contact Info) Description 11/05/2023 Telephone [facility] [address] [place] [address] Codie Bell MD [address] [place] [address] Med Refill Social History Tobacco Use Types [...] immediate release tablet To be sent to: [facility]/pharmacy #[id number] [place] [address] documented in this encounter Plan of Treatment Upcoming Encounters Date Type Department Care Team (Late st Contact Info) Description 03/05/2025 11:15 AM EST Telemedicine [facility] [address] [place] [address] Codie Bell MD [address] [place] [address] documented as of this encounter Visit Diagnoses Not on filedocumented in this encounter Additional Health Concerns Assessment Noted Time PHQ-9 Depression Total Score: 0 10/13/19 24 9:19 AM EDT documented as of this encounter Care Teams Hone Operator Relationship Specialty Start Date End Date Cdoie Bell MD [address] [place] [address] PCP - General Family Medicine 01/25/13 Destin Monreal MD [address] [place] [address] Cardiology 07/25/[address] [facility] Urology Urology 04/06/24 documented as of this encounter
--- OUTSIDE RECORDS SUMMARY | 2025-02-16 09:49 | XMS_ITS | Clinical Summary ---
Author Organization [employer] Address [address] [place] [address] [address] [place] [address] Care Team Providers Care Self Propelled Mining Machine Operator Name Role Phone [place], Codie CABA Primary Care Provider [phone] Destin Monreal MD Unavailable [phone] Allergies No known active allergies Medications [...] hyperglycemia, without long-term current use of insulin ([facility]) USE TO TEST 6 TIMES DAILY DIRECTED 200 strip 11 Active TRUEplus Lancets 33G miscIndications: Type 2 diabetes mellitus with hyperglycemia, without long-term current use of insulin ([facility]) Use 6 times a day as directed 200 each 3 Active pravastatin (Pravachol) 20 MG tabletIndication s:Type 2 diabetes mellitus with hyperglycemia, without long-term current use of insulin ([facility]),Hyperlipid emia, unspecified hyperlipidemia type Take 1 tablet (20 mg) by mouth in the morning. 90 tablet Active hydroCHLOROthiaz galen (HYDRODiuril) 25 MG tabletIndication s:Primary hypertension Take 1 tablet (25 mg) by mouth Once per day. 90 tablet 3 Active NovoLOG FLEXPEN 100 UNIT/ML penIndications:T ype 2 diabetes mellitus with hyperglycemia, without long-term current use of insulin ([facility]) USE PER SLIDING SCALE F OR BLOOD [...] severe pain. 60 tablet 025 2024 Active sulfamethoxazole -trimethoprim (Bactrim DS) 800-160 MG tabletIndication s:Urinary Tract Infection Take 1 tablet by mouth 2 times daily for 3 days. 6 tablet 025 2024 Active sennosides (Senokot) 8.6 [...] migh t be different from the original. [facility] Materials Supervisor: Ronel, member services number [phone], provider services line, , option 4 Assessor Agency: [email or web address] [facility] Problem Noted Date Diagnosed Date Insomnia [...] chew, or split. 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 Vick Ohara [...] exam due after 07/13/24 -diabetic eye exam: [facility] with Dr. 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 , her recommended to keep him on Eliquis fdc -still continuing Eliquis Assessment & Plan (12/29/2024 10:51 AM EDT): Diagnosed 06/2020, Eliquis started 07/04/2020 -Pt was seen by his biodiesel process control technician who mentioned on his last note a repeat U/S 10/2020 was negative for DVT but given the fact 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 , her recommended to keep him on Eliquis fdc -still continuing Eliquis Assessment & Plan (11/06/2024 9:30 AM EDT): Diagnosed 06/2020, [place] started 07/04/2020 -Pt was seen by his biodiesel process control technician who mentioned on his last note a repeat U/S 10/2020 was negative for DVT but given the fact 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 , her recommended to keep him on Eliquis fdc -still continuing Eliquis Assessment & Plan (04/20/2024 9:42 AM EST): Diagnosed 06/2020, [place] started 07/04/2020 -Pt was seen by his biodiesel process control technician who mentioned on his last note a repeat U/S 10/2020 was negative for DVT but given the fact 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 , her recommended to keep him on Eliquis fdc -still continuing Eliquis Assessment & Plan (10/13/2023 9:32 AM EDT): Diagnosed 06/2020, [place] started 07/04/2020 -Pt was seen by his biodiesel process control technician who mentioned on his last note a repeat U/S 10/2020 was negative for DVT but given the fact 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 , her recommended to keep him on Eliquis fdc Assessment & Plan (07/12/2023 1:27 PM EDT): Diagnosed 06/2020, [place] started 07/04/2020 Pt was seen by his biodiesel process control technician who mentioned on his last note a repeat U/S 10/2020 was negative for DVT but given the fact 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 , her recommended to keep him on Eliquis parts counterman Assessment & Plan (08/19/2022 9:30 AM EDT): Diagnosed 06/2020, [place] started 07/04/2020 Pt was seen by his biodiesel process control technician who mentioned on his last note a repeat U/S 10/2020 was negative for DVT but given the fact 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 , her recommended to keep him on Eliquis parts counterman Assessment & Plan (05/11/2022 10:29 AM EST): Diagnosed 06/2020, Eliquis started 07/04/2020 Pt was seen by his biodiesel process control technician who mentioned on his last note a repeat U/S 10/2020 was negative for DVT but given the fact 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 Given age will continue to monitor. Edema of lower extremity 03/17/2022 Overview (08/06/2023): -Patient followed at [facility] with Dr. Luana Monreal DO. [...] shoulder 06/12/2021 Stage 3 chronic kidney disease ([facility]/HCC) 020 Overview (02/06/2025): -Last seen by Dr. [...] - EGFR was >60. History of alcoholism ([facility]) 06/16/2012 Renal stone 02/02/2012 Mantoux: positive 11/02/2011 Hypertension 09/17/2011 Overview (12/29/2024): -Blood pressure is at goal 12/29/24 -Continue lifestyle modifications -Continue current medications -Continue HCTZ 25mg daily -coreg d/c by cardiology due to dizzyness, amlodipine d/c due to LE edema, lisinopril d/c due to hx acute kidney injury 2017 -Patient followed at [facility] with Dr. Luana Monreal DO. Note from 07/21/24 reviewed Assessment & Plan (12/29/2024 10:51 AM EDT): -Blood pressure is at goal 12/29/24 -Continue lifestyle modifications -Continue current medications -Continue HCTZ 25mg daily -coreg d/c by cardiology due to dizzyness, amlodipine d/c due to LE edema, lisinopril d/c due to hx acute kidney injury 2017 -Patient followed at [facility] with Dr. Luana Monreal [...] long-term current use of insulin 08/26/2011 Overview (02/13/2025): Diabetes is controlled Lab Results Component Value Date HGBA1C 7.6 (H) 12/29/2024 HGBA1C 8.6 (A) 11/06/2024 HGBA1C 8.3 (A) 04/20/2024 Lab Results Component Value Date CREATININE 1.34 12/29/2024 EGFR 51 12/29/2024 MICROALBCREU 63.0 (H) 02/12/2025 MICROALBCREU 25.1 10/13/2023 LDLCHOLCAL 97 12/29/2024 -Adam/Arb: lisinopril discontinued due to acute kidney injury in 2018 -Statin therapy: pravastatin 20mg -Diabetic eye exam: [facility] with Dr. Vick Ohara [...] -Statin therapy: pravastatin 20mg -Diabetic eye exam: [facility] with Dr. Vick Ohara [...] -Statin therapy: pravastatin 20mg -Diabetic eye exam: [facility] with Dr. Vick Ohara [...] -Statin therapy: pravastatin 20mg -Diabetic eye exam: [facility] with Dr. Vick Ohara [...] -Statin therapy: pravastatin 20mg -Diabetic eye exam: [facility] with Dr. Vick Ohara [...] -Statin therapy: pravastatin 20mg -Diabetic eye exam: [facility] with Dr. Vick Ohara [...] -Statin therapy: pravastatin 20mg -Diabetic eye exam: [facility] with Dr. Vick Ohara [...] 20mg -Diabetic eye exam: Appointment 09/[address] [facility] [address] Ayers. -Diabetic foot exam: Done [...] Encounters Date Type Department Care Team Description 02/15/2025 Orders Only [facility] [address] [place] [phone] Codie Bell MD Cloudy urine (Primary Dx) 02/15/2025 Telephone [facility] [address] [place] [address] Codie Bell MD Nurse Triage 02/02/2025 Refill [facility] [address] [place] [address] Chantal Laguerre, oracle financials developer midline low back pain without sciatica 02/02/2025 Refill [facility] [address] [place] [address] Codie Bell MD Type 2 diabetes mellitus with hyperglycemia (HCC) 02/02/[address] [address] Codie Bell MD Med Refill 01/31/[address] [address] Codie Bell MD Constipation, unspecified constipation type 01/29/2025 11:15 AM EDT Telemedicine [address] [address] Codie Bell MD Primary insomnia (Primary Dx); Moderate dementia with mood disturbance, unspecified dementia type (CMS/HCC) (HCC) 01/26/[address] [address] Codie Bell MD chart prep 01/22/2025 Travel 01/02/2025 Refill [facility] [address] [place] [address] Chantal Laguerre, oracle financials developer midline low back pain without sciatica 01/02/2025 Telephone [facility] [address] [place] [address] Codie Bell MD Med Refill 01/01/2025 Results Follow-Up [facility] [address] [place] [address] Codie Bell MD Lipid Panel, Standard, Hemoglobin A1c, Basic Metabolic Panel, Additional followed-up results: 2 12/29/2024 9:00 AM EDT Office Visit [facility] [address] [place] [address] Codie Bell MD Fall from ground level (Primary Dx); Moderate dementia with mood disturbance, unspecified dementia type ([facility]/HCC); Insomnia, unspecified type; Chronic obstructive pulmonary disease, unspecified COPD type ([facility]); Hyperlipidemia, unspecified hyperlipidemia type; Primary hypertension; Chronic deep vein thrombosis (DVT) of distal vein of right lower extremity ([facility]); Type 2 diabetes mellitus with stage 3 chronic kidney disease, without long-term current use of insulin, unspecified whether stage 3a or 3b CKD ([facility]); Stage 3a chronic kidney disease ([facility]); Anemia, unspecified type; Constipation, unspecified constipation type; Basal cell carcinoma (BCC), unspecified site; Class 1 obesity due to excess calories with serious comorbidity and body mass index (BMI) of 30.0 to 30.9 in adult; Dietary counseling; Exercise counseling; Encounter for immunization; Other specified health status 12/29/[address] [address] Codie Bell MD Insomnia, unspecified type 12/29/2024 Travel 12/22/2024 Patient Outreach [address] [address] Codie Bell MD Pre-visit Planning (Pre visit planning unable to LVM ) 12/12/2024 Orders Only [facility] [address] [place] [address] Codie Bell MD Closed fracture of multiple ribs of left side, initial encounter (Primary Dx) 12/11/2024 Telephone [facility] [address] [place] [address] Codie Bell MD Referral 12/08/2024 Telephone [facility] [address] [place] [address] Maria Isabel Xie MA 12/08/2024 Telephone [facility] [address] [place] [address] Codie Bell MD Appointment Request 12/05/2024 Refill [facility] [address] [place] [address] Codie Bell MD Chronic midline low back pain without sciatica 12/01/2024 Patient Outreach [facility] [address] [place] [address] Codie Bell MD Pre-visit Planning (SDOH screening completed on 07/25/2024) 11/16/2024 Refill [facility] [address] [place] [address] Codie Bell MD Type 2 diabetes mellitus with hyperglycemia ([facility]/HCC) 11/16/2024 Refill [facility] [address] [place], [place] [phone] Codie Bell MD Type 2 diabetes mellitus with hyperglycemia ([facility]); Benign prostatic hyperplasia with lower urinary tract [...] 03/05/2025 11:15 AM EST Telemedicine [facility] [address] [place] [address] Codie Bell MD [address] [place] [address] Health Maintenance Due Date Last Done Comments [...] 12/06/2008 Zoster Vaccines Completed 10/01/2020, 1204/2019, 05/12/2013 RSV Patients and Patients Aged 60 [...] on patient's age to complete this topic Goals Goal Patient Goal Type Associated Problems Recent Progress Patient-Stated? Author Help patients manage their type 2 diabetes Care Plan Help patients manage their type 2 diabetes No Allison Fishman Weekly blood pressure task Care Plan Weekly blood pressure task No Allison Fishman Help patients manage their type 2 diabetes Care Plan Help patients manage their type 2 diabetes No Allison Fishman Patient has chronic kidney disease Care Plan Patient has chronic kidney disease No Allison Fishman Weekly blood pressure task Care Plan Weekly blood pressure task No Allison Fishman Patient has chronic kidney disease Care Plan Patient has chronic kidney disease No Allison Fishman Weekly blood pressure task Care Plan Weekly blood pressure task No Codie Bell MD Weekly blood pressure task Care Plan Weekly blood pressure task No Codie Bell MD Patient has chronic kidney disease Care Plan Patient has chronic kidney disease No Codie Bell MD Patient has chronic kidney disease Care Plan Patient has chronic kidney disease No Codie Bell MD Procedures Procedure Name Priority Date/Time Associated Diagnosis Comments ALBUMIN, RANDOM URINE W/CREATININE Routine 02/12/2025 11:05 AM EST Type 2 diabetes mellitus with stage 3 chronic kidney disease, without long-term current use of insulin, unspecified whether stage 3a or 3b CKD (HCC) FERRITIN Routine 12/29/2024 10:24 AM EDT Anemia, [...] Relevant to Health Maintenance Results * (ABNORMAL) Albumin, Random Urine W/Creatinine (02/12/2025 11:05 AM EST) Creatinine, Urine 115.83 mg/dL [facility] Microalbumin Urine 73.0 mg/L [facility] Microalbum Creatinine Ratio Ur 63.0(H) <30 ug/mg cr [facility] Comment:Albumin/Creatinine R atio Reference Ranges: Normal: < 30 ug/mg creatinine Microalbuminuria: 30 - 300 ug/mg creatinineClinical Albuminuria: > 300 ug/mg creatinine Urine 02/12/2025 11:0 5 AM EST 02/12/2025 2:08 PM EST us Codie Bell MD LAB URINE ORDERABLES Final Result [facility] [address] [place] [phone] * (ABNORMAL) CBC (12/29/2024 10:24 AM EDT) White Blood Count 9.2 4.8 - 10.8 X10*3/uL [facility] Red Blood Count 4.18(L) 4.60 - 5.80 X10*6/uL [facility] Hemoglobin 12.5(L) 14.0 - 18.0 g/dl [facility] Hematocrit 36.6(L) 42.0 - 52.0 % [facility] Mean Corpuscular Volume 87.6 80.0 - 98.0 fL [facility] Mean Corpuscular Hemoglobin 29.9 27.0 - 33.0 pg [facility] Mean Corpuscular HGB Conc 34.2 31.0 - 36.0 g/dl [facility] Red Cell Distribution Width 13.9 11.0 - 16.0 % [facility] Platelet Count 299 160 - 400 X10*3/uL [facility] Mean Platelet Volume 11.8 9.4 - 12.4 fL [facility] NRBC Pct Auto 0.0 0.0 - 0.2 /100WBC [facility] NRBC Abs Auto 0.000 0.0 - 0.012 X10*3/uL [facility] Blood Venous blood specimen / Unknown 12/29/2024 10:24 AM EDT 12/29/2024 11:21 AM EDT Codie Bell MD LAB BLOOD ORDERABLES Final Result Performing Organization Address [facility] Co de Phone Number [facility] [address] [place] [phone] * (ABNORMAL) Hemoglobin A1c (12/29/2024 10:24 AM EDT) Hemoglobin A1c 7.6(H) <6.0 % [facility] Comment:Hemoglobin A1C Refer ence Range Adults: 4.8 - 6.0 % Non diabetic: < 6.0 % Goal: < 7.0 %Additional Action Suggested: > 8.0 %Note: Hemoglobin A1c results are invalid for patients with abnormal amounts of HbF. Blood transfusions may impact the HbA1c concentration in the patient sample. Estimated Average Glucose 171 mg/dL [facility] Comment:eAG = Estimated ave rage glucose which is %A1C expressed asaverage glucose, using the formula of the H1M-GtboamcJbvbexs Glucose study (ADAG), Diabetes Care, Vol.31,#8,Nov. 2007 Blood Venous blood specimen / Unknown 12/29/2024 10:24 AM EDT 12/29/2024 11:21 AM EDT Codie Bell MD LAB BLOOD ORDERABLES Final Result Performing Organization Address [facility] Co de Phone Number [facility] [address] [place] [address] [phone] * Ferritin (12/29/2024 10:24 AM EDT) Ferritin 75 20 - 250 ng/mL [facility] Blood Venous blood specimen / Unknown 12/29/2024 10:24 AM EDT 12/29/2024 11:27 AM EDT Codie Bell MD LAB BLOOD ORDERABLES Final Result [facility] [address] [place] [phone] [phone] * (ABNORMAL) Lipid Panel, Standard (12/29/2024 10:24 AM EDT) Triglycerides 103 <150 mg/dL [facility] Comment:Desirable Triglyceri de: less than 150 mg/dLBorderline High Triglyceride 150-199 mg/dLHigh Triglyceride: 200-499 mg/dLVery High Triglyceride: greater than or equal to 5OO mg/dL Cholesterol 156 <200 mg/dL [facility] Comment:Desirable Cholestero l: less than 200 mg/dLBorderline High Cholesterol: 200-239 mg/dLHigh Cholesterol: greater than 239 mg/dL LDL Cholesterol Calculated 97 <100 mg/dL [facility] Comment:Desirable LDL: less than 100 mg/dLNear Optimal/Above Optimal LDL: 110- 129 mg/dLBorderline High LDL: 130-159 mg/dLHigh LDL: 160-189 mg/dLVery High LDL: greater than or equal to 190 mg/dL HDL Cholesterol 39(L) >40 mg/dL [facility] Comment:Desirable HDL: great er than 40 mg/dL Note: This HDL assay may give artificially low results in patients with liver disease. Blood Venous blood specimen / Unknown 12/29/2024 10:24 AM EDT 12/29/2024 11:27 AM EDT us Codie Bell MD LAB BLOOD ORDERABLES Final Result [facility] [address] [place] [phone] [phone] * (ABNORMAL) Basic Metabolic Panel (12/29/2024 10:24 AM EDT) Sodium 141 135 - 145 mmol/L [facility] Potassium 3.6 3.3 - 5.1 mmol/L [facility] Chloride 102 96 - 108 mmol/L [facility] Carbon Dioxide 30(H) 22 - 29 mmol/L [facility] Anion Gap 13 12 - 20 [facility] Urea Nitrogen (BUN) 18(H) 9 - 16 mg/dL [facility] Creatinine, Serum 1.34 0.5 - 1.4 mg/dL [facility] Estimated Glomerular Filt Rate 51 [facility] Comment:Chronic Kidney Disea se: Estimated GFR < 60 mL/min/1.09m5Tsgrjw Kidney Disease: Estimated GFR < 15 mL/min/1.73m2 Glucose 147(H) 60 - 115 mg/dL [facility] Calcium 8.9 8.4 - 10.2 mg/dL [facility] Blood Venous blood specimen / Unknown 12/29/2024 10:24 AM EDT 12/29/2024 11:27 AM EDT Codie Bell MD LAB BLOOD ORDERABLES Final Result Performing Organization Address City/State/[facility] Co de Phone Number [facility] [address] [place] [phone] * Referral to General Surgery (12/18/2024) Codie Bell MD OUTPATIENT REFERRAL ORDERA BLES Final Result * Diabetes Eye Exam (12/04/2022) [facility] Signature Eye Exam Normal Normal Comment:[facility] Ambrosio Montgomery MD HEALTH MAINTENANCE Final Result from Last 3 Months or Most Recently Relevant to Health Maintenance Additional Health Concerns Active Problems Noted Date Diagnosed Date Help patients manage their type 2 diabetes 02/15 Weekly blood pressure task 02/15/2025 Help patients manage their type 2 diabetes 02/15 Patient has chronic kidney disease 02/15/2025 Weekly blood pressure task 02/15/2025 Patient has chronic kidney disease 02/15/2025 Weekly blood pressure task 02/15/2025 Weekly blood pressure task 02/15/2025 Patient has chronic kidney disease 02/15/2025 Patient has chronic kidney disease 02/15/2025 Insurance [facility] ASS[employer]ED OPTIONS (HMO D-SNP) [employer] [id number] Advance Directives Documents on File Type Date Recorded Patient Legal File Clerk Expl anation Advance Directives and Living Will 10/13/2023 11:32 AM Health Care Proxy 10/13/23 Care Teams Self Propelled Mining Machine Operator Relationship Specialty Start Date End Date [place], MD Codie [address] [place] [address] PCP - General Family Medicine 01/25/13 Destin Monreal MD [address] [place] [phone] Cardiology 07/25/24 SULEMAN Soto [facility] Urology 04/06/24
--- OUTSIDE RECORDS SUMMARY | 2025-02-16 09:49 | XMS_ITS | Encounter Summary ---
Author Organization [employer] Address [address] [place] [address] [address]t [place] [address] Care Team Providers Care Hurl Shaker Name Role Phone Codie Bell MD Primary Care Provider [phone] Destin Monreal MD Unavailable [phone] Reason for Visit * Reason Onset Date Comments Med Refill 02/04/2024 Encounter Details Date Type Department Care Team ([facility] st Contact Info) Description 02/04/2024 Telephone [facility] [address] [place] [address] Codie Bell MD [address] [place] [address] Med Refill Social History Tobacco Use Types [...] release tablet To be sent to: [facility]/pharmacy #[id number] [place] [address] - [address] [place] [address] documented in this encounter Plan of Treatment Upcoming Encounters Date Type Department Care Team (Late st Contact Info) Description 03/05/2025 11:15 AM EST Telemedicine [facility] [address] [place] [address] Codie Bell MD [address] [place] [address] documented as of this encounter Visit Diagnoses Not on filedocumented in this encounter Additional Health Concerns Assessment Noted Time PHQ-9 Depression Total Score: 0 10/13/19 24 9:19 AM EDT documented as of this encounter Care Teams Hurl Shaker Relationship Specialty Start Date End Date Codie Bell MD [address] [place] [address] PCP - General Family Medicine 01/25/13 Destin Monreal MD [address] [place] [address] Cardiology 07/25/24 SULEMAN Soto [facility] Urology Urology 04/06/24 documented as of this encounter
--- OUTSIDE RECORDS SUMMARY | 2025-02-16 09:49 | XMS_ITS | Encounter Summary ---
Author Organization [employer] Address [address] [place] [address] [address] [place] [address] Care Team Providers Care Dairy Nutrition Specialist Name Role Phone Codie Bell MD Primary Care Provider [phone] Destin Monreal MD Unavailable [phone] Reason for Visit * Reason Onset Date Comments Appointment Request 05/06/2023 Encounter Details Date Type Department Care Team ([facility] st Contact Info) Description 05/06/2023 Telephone [facility] MED[facility]INE [address] [place] [address] Codie Bell MD [address] [place] [address] Appointment Request Social History Tobacco Use Types [...] request a appt for a routine check-up commercial lines underwriter did ask if there is any concerns at the moment patients daughter denied. documented in this encounter Plan of Treatment Upcoming Encounters Date Type Department Care Team (Late st Contact Info) Description 03/05/2025 11:15 AM EST Telemedicine [facility] MED[facility]INE [address] [place] [address] Codie Bell MD [address] [place] [address] documented as of this encounter Visit Diagnoses Not on filedocumented in this encounter Additional Health Concerns Assessment Noted Time PHQ-9 Depression Total Score: 0 05/11/19 23 10:41 AM EST documented as of this encounter Care Teams Dairy Nutrition Specialist Relationship Specialty Start Date End Date Codie Bell MD [address] [place] [address] PCP - General Family Medicine 01/25/13 Destin Monreal MD [address] [place] [address] Cardiology 07/25/24 SULEMAN Soto [facility] Urology Urology 04/06/24 documented as of this encounter
--- OUTSIDE RECORDS SUMMARY | 2025-02-16 09:49 | XMS_ITS | Encounter Summary ---
Author Organization [employer] Address [address] [place] [address] 7t [place] [address] Care Team Providers Care Radio/Tv Technician Name Role Phone Codie Bell MD Primary Care Provider [phone]- [phone] Destin Monreal MD Unavailable [phone] Reason for Visit * Reason Comments Med Refill Encounter Details Date Type Department Care Team ([facility] st Contact Info) Description 11/16/2024 Refill [facility] 230 [place] [address] Codie Bell MD 230 [place], [place] [id number] Type 2 diabetes mellitus with hyperglycemia ([facility]) Social History Tobacco Use Types Packs/Day Years [...] Info) Description 03/05/2025 11:15 AM EST Telemedicine [facility] MED[facility]INE [address] [place] [address] Codie Bell MD [address] [place] [address] documented as of this encounter Visit Diagnoses Diagnosis Type 2 diabetes mellitus with hyperglycemia (HCC) documented in this encounter Additional Health Concerns Assessment Noted Time PHQ-9 Depression Total Score: 0 11/07/19 25 9:11 AM EDT documented as of this encounter Care Teams Radio/Tv Technician Relationship Specialty Start Date End Date Codie Bell MD [address] [place] [address] PCP - General Family Medicine 01/25/13 Destin Monreal MD [address] [place] [address] Cardiology 07/25/24 SULEMAN Soto [facility] Urology Urology 04/06/24 documented as of this encounter
--- OUTSIDE RECORDS SUMMARY | 2025-02-16 09:49 | XMS_ITS | Encounter Summary ---
Author Organization [employer] Address [address] [place] [address] 7t [place] [address] Care Team Providers Care Public Address Technician Name Role Phone Codie Bell MD Primary Care Provider [phone]- [phone] Destin Monreal MD Unavailable [phone] Reason for Visit * Reason Onset Date Comments Med Refill 09/06/2023 Encounter Details Date Type Department Care Team ([facility] st Contact Info) Description 09/06/2023 Telephone [facility] MED[facility]INE 230 [place] [address] Codie Bell MD 230 [place], [place] [id number] Med Refill Social History Tobacco Use Types [...] immediate release tablet To be sent to: [facility]/pharmacy #[id number] [place] [address] - [address] [place] [address] documented in this encounter Plan of Treatment Upcoming Encounters Date Type Department Care Team (Late st Contact Info) Description 03/05/2025 11:15 AM EST Telemedicine [facility] MED[facility]INE 230 [place] [address] Codie Bell MD [address] [place] [address] documented as of this encounter Visit Diagnoses Not on filedocumented in this encounter Additional Health Concerns Assessment Noted Time PHQ-9 Depression Total Score: 0 05/11/19 23 10:41 AM EST documented as of this encounter Care Teams Public Address Technician Relationship Specialty Start Date End Date Codie Bell MD 230 [place] [address] PCP - General Family Medicine 01/25/13 Destin Monreal MD [address] [place] [address] Cardiology 07/25/24 SULEMAN Soto [facility] Urology Urology 04/06/24 documented as of this encounter
--- OUTSIDE RECORDS SUMMARY | 2025-02-16 09:49 | XMS_ITS | Encounter Summary ---
Author Organization [employer] Address [address] [place] [address] 7t [place] [address] Care Team Providers Care Mapping Pilot Name Role Phone [place], Codie CABA Primary Care Provider [phone]- [phone] Destin Monreal MD Unavailable [phone] Reason for Visit * Reason Comments Med Refill Encounter Details Date Type Department Care Team ([facility] st Contact Info) Description 06/01/2024 Refill [facility] 230 [place] [address] Chance Miranda MD 230 [place] [address] Type 2 diabetes mellitus with hyperglycemia, without long-term current use of insulin ([facility]) Social History Tobacco Use Types [...] Info) Description 03/05/2025 11:15 AM EST Telemedicine [facility] [address] [place] [address] Codie Bell MD [address] [place] [address] documented as of this encounter Visit Diagnoses Diagnosis Type 2 diabetes mellitus with hyperglycemia, without long-term current use of insulin (HCC) documented in this encounter Additional Health Concerns Assessment Noted Time PHQ-9 Depression Total Score: 0 10/13/19 24 9:19 AM EDT documented as of this encounter Care Teams Mapping Pilot Relationship Specialty Start Date End Date Codie Bell MD [address] [place] [address] PCP - General Family Medicine 01/25/13 Destin Monreal MD [address] [place] [address] Cardiology 07/25/24 SULEMAN Soto [facility] Urology Urology 04/06/24 documented as of this encounter
--- OUTSIDE RECORDS SUMMARY | 2025-02-16 09:49 | XMS_ITS | Encounter Summary ---
Author Organization [employer] Address [address] [place] [address] 7t [place] [address] Care Team Providers Care Beck Operator Name Role Phone Codie Bell MD Primary Care Provider [phone]- [phone] Destin Monreal MD Unavailable [phone] Reason for Visit * Reason Onset Date Comments Med Refill 10/03/2024 Encounter Details Date Type Department Care Team ([facility] st Contact Info) Description 10/03/2024 Telephone [facility] 230 [place] [address] Codie Bell MD 230 [place] [address] Med Refill Social History Tobacco Use Types [...] Miscellaneous Notes * Telephone Encounter - Brenda Fraias LPN - 10/03/2024 9:24 AM EDT Please review request medication was discontinued on 10/13/23. * Telephone Encounter - Gold Wong - 10/03/2024 9:15 AM EDT TC from pt requesting medication refill. Medications needing refill: Omeprazole To be sent to: [facility]/pharmacy #[id number] [place] - [address] [place] [address] documented in this encounter Plan of Treatment Upcoming Encounters Date Type Department Care Team (Late st Contact Info) Description 03/05/2025 11:15 AM EST Telemedicine [facility] 230 [place] [address] Codie Bell MD 230 [place] [address] documented as of this encounter Visit Diagnoses Not on filedocumented in this encounter Additional Health Concerns Assessment Noted Time PHQ-9 Depression Total Score: 0 10/13/19 24 9:19 AM EDT documented as of this encounter Care Teams Beck Operator Relationship Specialty Start Date End Date Codie Bell MD 230 [place] [address] PCP - General Family Medicine 01/25/13 Destin Monreal MD [address] [place] [address] Cardiology 07/25/24 SULEMAN Soto [facility] Urology Urology 04/06/24 documented as of this encounter
--- OUTSIDE RECORDS SUMMARY | 2025-02-16 09:49 | XMS_ITS | Encounter Summary ---
Author Organization [employer] Address [address] [place] [address] 7t [place] [address] Care Team Providers Care Stone Splitter Name Role Phone Codie Bell MD Primary Care Provider [phone]- [phone] Destin Monreal MD Unavailable [phone] Reason for Visit * Reason Comments Med Refill Encounter Details Date Type Department Care Team ([facility] st Contact Info) Description 12/29/2024 Refill [facility] MEDICINE 230 [place], [place] [phone] Codie Bell MD 230 [place], [place] [phone] Insomnia, unspecified type Social History Tobacco Use [...] the past 12 months, has t he [employer], gas, oil or water company threatened to [...] AM EST Telemedicine [facility] MED[facility]INE [address] [place] [address] Codie Bell MD [address] [place] [address] documented as of this encounter Visit Diagnoses Diagnosis Insomnia, unspecified type documented in this encounter Additional Health Concerns Assessment Noted Time PHQ-9 Depression Total Score: 0 11/07/19 25 9:11 AM EDT documented as of this encounter Care Teams Stone Splitter Relationship Specialty Start Date End Date Codie Bell MD [address] [place] [address] PCP - General Family Medicine 01/25/13 Destin Monreal MD [address] [place] [address] Cardiology 4/22/25 SULEMAN Soto [facility] Urology Urology 04/06/24 documented as of this encounter
--- OUTSIDE RECORDS SUMMARY | 2025-02-16 09:49 | XMS_ITS | Encounter Summary ---
Author Organization [employer] Address [address] [place] [address] 7t [place] [address] Care Team Providers Care Armature Winder Name Role Phone Codie Bell MD Primary Care Provider [phone]- [phone] Destin Monreal MD Unavailable [phone] Reason for Visit * Reason Onset Date Comments Appointment Request 12/08/2024 Encounter Details Date Type Department Care Team ([facility] st Contact Info) Description 12/08/2024 Telephone [facility] MEDICINE 230 [place] [address] Codie Bell MD 230 [place] [address] Appointment Request Social History Tobacco Use Types [...] the past 12 months, has t he [employer] gas, oil or water company threatened to [...] apt for pt as pt fell in [place] , pt had anapt on 12/11 but he will not be back till 12/20. Pt daughter requesting for a call back Contact pt daughter at [phone] documented in this encounter Plan of Treatment Upcoming Encounters Date Type Department Care Team (Late st Contact Info) Description 03/05/2025 11:15 AM EST Telemedicine [facility] MEDICINE 230 [place] [address] Codie Bell MD 230 [place], [place] [phone] documented as of this encounter Visit Diagnoses Not on filedocumented in this encounter Additional Health Concerns Assessment Noted Time PHQ-9 Depression Total Score: 0 11/07/19 9:11 AM EDT documented as of this encounter Care Teams Armature Winder Relationship Specialty Start Date End Date Codie Bell MD 230 [place] [address] PCP - General Family Medicine 01/25/13 Destin Monreal MD [address] [place] [address] Cardiology 07/25/24 SULEMAN Soto [facility] Urology Urology 04/06/24 documented as of this encounter
--- OUTSIDE RECORDS SUMMARY | 2025-02-16 09:49 | XMS_ITS | Encounter Summary ---
Author Organization [employer] Address [address] [place] [address] 7t [place] [address] Care Team Providers Care New [employer]os Delivery Driver Name Role Phone Codie Bell MD Primary Care Provider [phone]- [phone] Destin Monreal MD Unavailable [phone] Reason for Visit * Reason Onset Date Comments Med Refill 10/03/2024 Encounter Details Date Type Department Care Team ([facility] st Contact Info) Description 10/03/2024 Telephone [facility] 230 [place] [address] Codie Bell MD [address] [place] [address] Med Refill Social History Tobacco Use Types [...] To be sent to: [facility]/pharmacy #[id number] [place] [address] - [address] [place] [address] documented in this encounter Plan of Treatment Upcoming Encounters Date Type Department Care Team (Late st Contact Info) Description 03/05/2025 11:15 AM EST Telemedicine [facility] [address] [place], [place] [phone] Codie Bell MD [address] [place] [address] documented as of this encounter Visit Diagnoses Not on filedocumented in this encounter Additional Health Concerns Assessment Noted Time PHQ-9 Depression Total Score: 0 10/13/19 24 9:19 AM EDT documented as of this encounter Care Teams New [employer] Delivery Driver Relationship Specialty Start Date End Date Codie Bell MD [address] [place] [address] PCP - General Family Medicine 01/25/13 Destin Monreal MD [address] [place] [address] Cardiology 07/25/24 SULEMAN Soto [facility] Urology Urology 04/06/24 documented as of this encounter
--- OUTSIDE RECORDS SUMMARY | 2025-02-16 09:50 | XMS_ITS | Encounter Summary ---
Author Organization [employer] Address [address] [place] [address] 7t [place] [address] Care Team Providers Care Analytical Data Miner Name Role Phone Codie Bell MD Primary Care Provider [phone]- [phone] Destin Monreal MD Unavailable [phone] Reason for Visit * Reason Onset Date Comments Nurse Triage 02/15/2025 Encounter Details Date Type Department Care Team ([facility] st Contact Info) Description 02/15/2025 Telephone [facility] MEDICINE 230 [place] [address] Codie Bell MD 230 [place] [address] Nurse Triage Social History Tobacco Use Types Packs/Day Years [...] the past 12 months, has t he [employer], gas, oil or water [employer] threatened to shut off services in your [...] encounter Miscellaneous Notes * Telephone Encounter - Cammie Martinez RN - 02/15/2025 12:31 PM EST TC placed to Tata to advise of PCP plan of care including picking up a urine cup from the [facility] labfor confirmation of possible UTI. Tata also advised to picker and packer AB prescribed prophylactic and notto take until the pt performs urine specimen. Tata agreeable and stated understanding of plan of care. * Telephone Encounter - Cammie Martinez RN - 02/15/2025 9:32 AM EST TC placed to Tata (HIPPA compliant) in regard to pt reported urinary symptoms. Per Tata, the pthas been experiencing typical symptoms of a UTI including cloudy consistency to the urine, odorous smell and frequency. The pt is afebrile with no lower back pain. The pt did produce a urine on Monday 02/12 but it tested for protein in the urine. Tata states that she would be willing to come to the office to picker and packer a urine cup for the pt as the pt can only produce a sample at home. Pt has a history of dementia and can't leave the home. Tata stated that PCP is aware of pt current disabilityand requested a UA be ordered to confirm possible UTI. Tata advised that this information will beforwarded to PCP for review and advisement. Protocol Used: Urination Pain - Male (Adult) Protocol-Based Disposition: See in Office or Video Visit Today Positive Triage Question: * All other males with painful urination, or patient wants to be seen * All higher-acuity triage questions were negative. * Telephone Encounter - Allison Lopez - 02/15/2025 8:19 AM EST Symptom: Urine Symptoms Outcome: Schedule a same-day appointment or talk to a nurse or provider today Reason: Caller denied all higher acuity questions The caller accepted this outcome. Contact pt daughter at [phone] documented in this encounter Plan of Treatment Upcoming Encounters Date Type Department Care Team (Late st Contact Info) Description 03/05/2025 11:15 AM EST Telemedicine [facility] MEDICINE [address] [place] [address] Codie Bell MD [address] [place] [address] documented as of this encounter Goals Goal Patient Goal Type Associated Problems [...] chronic kidney disease No Codie Bell MD documented as of this encounter Visit Diagnoses Not on filedocumented in this encounter Additional Health Concerns Active Problems Noted Date [...] 02/15/2025 Patient has chronic kidney disease 02/15/2025 Assessment Noted Time PHQ-9 Depression Total Score: 0 11/07/19 9:11 AM EDT documented as of this encounter Care Teams Analytical Data Miner Relationship Specialty Start Date End Date Codie Bell MD 230 [place] [address] PCP - General Family Medicine 01/25/13 Destin Monreal MD [address] [place] [address] Cardiology 07/25/24 SULEMAN Soto [facility] Urology Urology 04/06/24 documented as of this encounter
--- OUTSIDE RECORDS SUMMARY | 2025-02-16 09:50 | XMS_ITS | Encounter Summary ---
Author Organization [employer] Address [address] [place] [address] 7t [place] [address] Care Team Providers Care Air Dispatcher Name Role Phone Codie Bell MD Primary Care Provider [phone]- [phone] Destin Monreal MD Unavailable [phone] Reason for Visit * Reason Onset Date Comments Med Refill 01/02/2025 Encounter Details Date Type Department Care Team ([facility] st Contact Info) Description 01/02/2025 Telephone [facility] MEDICINE 230 [place] [address] Codie Bell MD [address] [place] [address] Med Refill Social History Tobacco Use Types [...] release tablet To be sent to: [facility]/pharmacy #[id number] [place] [address] - [address] [place] [address] documented in this encounter Plan of Treatment Upcoming Encounters Date Type Department Care Team (Late st Contact Info) Description 03/05/2025 11:15 AM EST Telemedicine [facility] MEDICINE [address] [place] [address] Codie Bell MD [address] [place] [address] documented as of this encounter Visit Diagnoses Not on filedocumented in this encounter Additional Health Concerns Assessment Noted Time PHQ-9 Depression Total Score: 0 11/07/19 25 9:11 AM EDT documented as of this encounter Care Teams Air Dispatcher Relationship Specialty Start Date End Date Codie Bell MD [address] [place] [address] PCP - General Family Medicine 01/25/13 Destin Monreal MD [address] [place] [address] Cardiology 07/25/24 SULEMAN Soto [facility] Urology Urology 04/06/24 documented as of this encounter
--- OUTSIDE RECORDS SUMMARY | 2025-02-16 09:50 | XMS_ITS | Encounter Summary ---
Author Organization [employer] Address [address] [place] [address] 7t [place] [address] Care Team Providers Care Director Of Media Name Role Phone Codie Bell MD Primary Care Provider [phone]- [phone] Destin Monreal MD Unavailable [phone] Encounter Details Date Type Department Care Team ([facility] st Contact Info) Description 02/15/2025 Orders Only [facility] MEDICINE 230 [place] [address] Codie Bell MD 230 [place] [address] Cloudy urine (Primary Dx) Social History Tobacco Use Types [...] Info) Description 03/05/2025 11:15 AM EST Telemedicine [facility] MEDICINE 230 [place] [address] Codie Bell MD 230 [place] [address] Scheduled Orders Name Type Priority Associated Diagnoses Orde r Schedule Urinalysis, Complete, with Reflex to Culture Lab Routine Cloudy urine Expected: 02/15/2025 (Approximate), Expires: 02/15/2026 documented as of this encounter Goals Goal [...] as of this encounter Visit Diagnoses Diagnosis Cloudy urine- Primary documented in this encounter Additional Health Concerns Active [...] as of this encounter Care Teams Director Of Media Relationship Specialty Start Date End Date Codie Bell MD [address] [place] [address] PCP - General Family Medicine 01/25/13 Destin Monreal MD [address] [place] [address] Cardiology 07/25/24 SULEMAN Soto [facility] Urology Urology 04/06/24 documented as of this encounter
--- OUTSIDE RECORDS SUMMARY | 2025-02-16 09:50 | XMS_ITS | Encounter Summary ---
Author Organization [employer] Address [address] [place] [address] 7t [place] [address] Care Team Providers Care Internet Ecommerce Specialist Name Role Phone Codie Bell MD Primary Care Provider [phone]- [phone] Destin Monreal MD Unavailable [phone] Reason for Visit * Reason Onset Date Comments Med Refill 02/02/2025 Encounter Details Date Type Department Care Team ([facility] st Contact Info) Description 02/02/2025 Telephone [facility] MEDICINE 230 [place] [address] Codie Bell MD [address] [place] [address] Med Refill Social History Tobacco Use Types [...] To be sent to: [facility]/pharmacy #[id number] [place] [address] - [address] [place] [address] documented in this encounter Plan of Treatment Upcoming Encounters Date Type Department Care Team (Late st Contact Info) Description 03/05/2025 11:15 AM EST Telemedicine [facility] MEDICINE [address] [place] [address] Codie Bell MD [address] [place] [address] documented as of this encounter Visit Diagnoses Not on filedocumented in this encounter Additional Health Concerns Assessment Noted Time PHQ-9 Depression Total Score: 0 11/07/19 9:11 AM EDT documented as of this encounter Care Teams Internet Ecommerce Specialist Relationship Specialty Start Date End Date Codie Bell MD 230 [place] [address] PCP - General Family Medicine 01/25/13 Destin Monreal MD [address] [place] [address] Cardiology 07/25/24 SULEMAN Soto [facility] Urology Urology 04/06/24 documented as of this encounter
--- OUTSIDE RECORDS SUMMARY | 2025-02-16 09:50 | XMS_ITS | Encounter Summary ---
Author Organization [employer] Address [address] [place] [address] 7t [place] [address] Care Team Providers Care Supervisor Meter Repair Shop Name Role Phone Codie Bell MD Primary Care Provider [phone]- [phone] Destin Monreal MD Unavailable [phone] Encounter Details Date Type Department Care Team (Late st Contact Info) Description 12/10/2022 Orders Only [facility] [address] [place] [address] Codie Bell MD [address] [place] [address] Dementia with other behavioral disturbance, unspecified dementia severity, unspecified dementia type (CMS/HCC) (Primary Dx); Type 2 diabetes mellitus with hyperglycemia, without long-term current use of insulin (CMS/[facility]); Preventative health care; Impaired cognition Social History [...] 03/05/2025 11:15 AM EST Telemedicine [facility] MEDICINE 230 [place] [address] Codie Bell MD [address] [place] [address] documented as of this encounter Procedures Procedure Name Priority Date/Time Associated Diagnosis Comments DIABETES EYE EXAM Routine 12/04/2022 documented in this encounter Results * Diabetes Eye Exam (12/04/2022) Eye Exam Normal Normal Comment:[facility] Historical Provider HEALTH MAINTENANCE Final Result documented in this encounter Visit Diagnoses Diagnosis Dementia with other behavioral disturbance, unspecified dementia severity, unspecified dementia type (CMS/HCC) ([facility])- Primary Type 2 diabetes mellitus with hyperglycemia, without long-term current use of insulin ([facility]) Preventative health care Routine general medical examination at a health care facility Impaired cognition Unspecified persistent mental disorders due to conditions classified elsewhere documented in this encounter Additional Health Concerns Assessment Noted Time PHQ-9 Depression Total Score: 0 05/11/19 23 10:41 AM EST documented as of this encounter Care Teams Supervisor Meter Repair Shop Relationship Specialty Start Date End Date Codie Bell MD 230 [place] [address] PCP - General Family Medicine 01/25/13 Destin Monreal MD [address] [place] [address] Cardiology 07/25/24 SULEMAN Soto [facility] Urology Urology 04/06/24 documented as of this encounter
--- OUTSIDE RECORDS SUMMARY | 2025-02-16 09:50 | XMS_ITS | Encounter Summary ---
Author Organization [employer] Address [address] [place] [address] [address] [place] [address] Care Team Providers Care Laser Engineer Name Role Phone Codie Bell MD Primary Care Provider [phone] Destin Monreal MD Unavailable [phone] Reason for Visit * Reason Onset Date Comments Med Refill 03/08/2023 Encounter Details Date Type Department Care Team ([facility] st Contact Info) Description 03/08/2023 Telephone [facility] MEDICINE [address] [place] [address] Codie Bell MD [address] [place], [place] [id number] Med Refill Social History Tobacco Use Types [...] Pulido RN - 03/08/2023 1:42 PM EST STRIPPING MACHINE OPERATOR reviewed. Pt last picked up 30 day [...] Info) Description 03/05/2025 11:15 AM EST Telemedicine [facility] MEDICINE [address] [place] [address] Codie Bell MD [address] [place] [address] documented as of this encounter Visit Diagnoses Not on filedocumented in this encounter Additional Health Concerns Assessment Noted Time PHQ-9 Depression Total Score: 0 05/11/19 10:41 AM EST documented as of this encounter Care Teams Laser Engineer Relationship Specialty Start Date End Date Codie Bell MD [address] [place] [address] PCP - General Family Medicine 01/25/13 Destin Monreal MD [address] [place] [address] Cardiology 07/25/24 SULEMAN Soto [facility] U[facility] Urology 04/06/24 documented as of this encounter
--- OUTSIDE RECORDS SUMMARY | 2025-02-16 09:50 | XMS_ITS | Encounter Summary ---
Author Organization [employer] Address [address] [place] [address] [address] [place] [address] Care Team Providers Care Integrity Assessor Name Role Phone Codie Bell MD Primary Care Provider [phone] Destin Monreal MD Unavailable [phone] Reason for Visit * Reason Onset Date Comments Med Refill 02/04/2023 Encounter Details Date Type Department Care Team ([facility] st Contact Info) Description 02/04/2023 Telephone [facility] MEDICINE [address] [place] [address] Codie Bell MD [address] [place], [place] [phone] Med Refill Social History Tobacco Use Types [...] immediate release tablet to be sent to [facility]/pharmacy #[id number] [place], [place] - [address] [place] [address] documented in this encounter Plan of Treatment Upcoming Encounters Date Type Department Care Team (Late st Contact Info) Description 03/05/2025 11:15 AM EST Telemedicine [facility] MEDICINE [address] [place] [address] Codie Bell MD [address] [place] [address] documented as of this encounter Visit Diagnoses Not on filedocumented in this encounter Additional Health Concerns Assessment Noted Time PHQ-9 Depression Total Score: 0 05/11/19 23 10:41 AM EST documented as of this encounter Care Teams Integrity Assessor Relationship Specialty Start Date End Date Codie Bell MD [address] [place] [address] PCP - General Family Medicine 01/25/13 Destin Monreal MD [address] [place] [address] Cardiology 07/25/24 SULEMAN S[facility] Urology 04/06/24 documented as of this encounter
[2025-02-16 12:19] LABS: Appearance Urine Cloudy; Glucose Urine UA Negative (Negative); PH 6.5 (5.0-9.0); Specific Gravity - Urine 1.020 (1.005-1.025); UMIC TRIGGER UACC YES
[2025-02-16 12:22] LABS: UACC Culture Trigger YES
== END 2025-02-16 09:12 | disposition home or self-care (01) ==
LOC: HO.HHCL 09:11
PROVIDERS: PCP Family Medicine; Visit Provider Family Medicine
DX: R82.90 Unspecified abnormal findings in urine (principal)
CPT/HCPCS: 81001; 87086; 87088